=== PATIENT | female | born 1960 | race Caucasian/White ===

== ENCOUNTER 2020-02-16 09:11 | Outpatient (REF) | payer MEDICARE, MEDICAID, SELFPAY ==
--- NOTE | 2020-02-16 09:23 | US_ITS ---
EXAMINATION: US ABDOMEN COMPLETE CLINICAL INFORMATION: Unspecified abdominal pain. COMPARISON: Ultrasound kidneys and bladder 10/06/2014. Ultrasound abdomen report 03/31/2008. TECHNIQUE: Real-time imaging of the abdominal viscera. FINDINGS: PANCREAS: The visualized head and body of the pancreas appears unremarkable. Remainder of the pancreas is obscured by bowel gas. ABDOMINAL AORTA: The proximal segment is normal in caliber. INFERIOR VENA CAVA: Visualized portions are normal. LIVER: There is diffuse increased liver parenchymal echogenicity, consistent with hepatic steatosis. The liver is normal in size and contour. No focal lesion or biliary ductal dilatation. GALLBLADDER: Normal. The gallbladder is physiologically distended without evidence of stones, sludge, polyps, wall thickening or pericholecystic fluid. COMMON BILE DUCT: Normal in caliber measuring 0.4 cm in diameter. RIGHT KIDNEY: Normal. No hydronephrosis. No renal calculi or focal parenchymal lesions. The kidney measures 12.1 cm in maximum dimension. LEFT KIDNEY: 3 mm echogenic focus in the lower pole from a nonobstructing calculus. No hydronephrosis or focal parenchymal lesions. The kidney measures 11.3 cm in maximum dimension. SPLEEN: Normal. The spleen measures 8.1 cm in maximum dimension. FREE FLUID: None. IMPRESSION: 1. Left renal lower pole 3 mm nonobstructing calculus. 2. There is generalized increase in hepatic echotexture, consistent with fatty infiltration or hepatocellular disease. Please correlate clinically. No focal hepatic mass or intrahepatic biliary duct dilatation is seen.
== END 2020-02-16 09:12 | disposition home or self-care (01) ==
LOC: HO.US 09:11
PROVIDERS: Visit Provider Internal Medicine
DX: R10.9 Unspecified abdominal pain (principal)
CPT/HCPCS: 76700

== ENCOUNTER → 2020-03-01 15:25 | Outpatient (BNVA) | payer MEDICARE, MEDICAID, SELFPAY | PROVIDERS: PCP Internal Medicine; Referring Provider Internal Medicine; Visit Provider Nurse Practitioner | DX: R14.0 Abdominal distension (gaseous) (principal); K58.9 Irritable bowel syndrome, unspecified; K21.9 Gastro-esophageal reflux disease without esophagitis; R10.10 Upper abdominal pain, unspecified | CPT/HCPCS: 99214 ==

== ENCOUNTER 2020-03-01 17:01 | Outpatient (REF) | payer MEDICARE, MEDICAID, SELFPAY | END 2020-03-01 17:02 | disposition home or self-care (01) | LOC: HO.LAB 17:01 | PROVIDERS: PCP Internal Medicine; Visit Provider Nurse Practitioner | DX: Z13.89 Encounter for screening for other disorder (principal) ==

== ENCOUNTER 2020-03-02 09:20 | Outpatient (REF) | payer MEDICARE, MEDICAID, SELFPAY ==
[2020-03-02 10:26] LABS: MANUAL DIFF FLAG NO
[2020-03-02 10:34] LABS: Basophils Percent Auto 0.6 % (0-2); Eosinophils Percent Auto 0.6 % (0-4); Hematocrit 40.6 % (37-47); Hemoglobin 13.4 g/dl (12.0-16.0); Imm Gran Abs Auto 0.01 X10*3/uL (0.00-0.03); Imm Gran Pct Auto 0.2 % (0.0-0.4); Lymphocytes Percent Auto 17.5 % (20-40); Mean Corpuscular Hemoglobin 30.4 pg (27.0-33.0); Mean Corpuscular Volume 92.1 fL (80-98); Mean Platelet Volume 11.6 fL (9.4-12.3); Monocytes Absolute Auto 0.5 X10*3/uL (0.1-1.2); Monocytes Percent Auto 8.7 % (2-11); Neutrophils Absolute Auto 3.9 X10*3/uL (2.0-8.3); Neutrophils Percent Auto 72.4 % (45-73); Platelet Count 181 X10*3/uL (160-400); Red Blood Count 4.41 X10*6/uL (4.20-5.50); Red Cell Distribution Width 12.3 % (11.0-16.0); White Blood Count 5.4 X10*3/uL (4.8-10.8)
[2020-03-02 11:08] LABS: C Reactive Protein 0.46 mg/dL (< or = 0.50); Lipase 7 U/L (8-78)
[2020-03-02 13:48] LABS: Alanine Aminotransferase 33 U/L (0-31); Albumin Level 4.3 g/dL (3.5-5.0); Alkaline Phosphatase 93 U/L (39-117); Anion Gap 13 (12-20); Aspartate Amino Transferase 31 U/L (5-31); Bilirubin Total 0.5 mg/dL (0.0-1.0); Blood Urea Nitrogen 8 mg/dL (9-16); Carbon Dioxide 27 mmol/L (22-29); Chloride 105 mmol/L (96-108); Estimated Glomerular Filt Rate > 60; Glucose Random 107 mg/dL (60-115); Sodium 141 mmol/L (135-145); Total Protein 7.4 g/dL (6.5-8.0)
== END 2020-03-02 09:21 | disposition home or self-care (01) ==
LOC: HO.LAB 09:20
PROVIDERS: PCP Internal Medicine; Visit Provider Nurse Practitioner
DX: R10.10 Upper abdominal pain, unspecified (principal); K21.9 Gastro-esophageal reflux disease without esophagitis
CPT/HCPCS: 36415; 80053; 83690; 85025; 86140; 87338

== ENCOUNTER → 2020-03-07 08:14 | Outpatient (REF) | payer MEDICARE, MEDICAID, SELFPAY ==
--- NOTE | 2020-03-07 11:20 | NM_ITS ---
EXAMINATION: BILIARY TRACT IMAGING STUDY WITH CCK CLINICAL INFORMATION: Upper abdominal pain.. COMPARISON: No previous biliary scan is available for comparison.. TECHNIQUE: Serial gamma scintillation camera images were obtained over the abdomen for a total observation period of 152 minutes following the intravenous administration of 5.0 mCi Tc-99m Mebrofenin. FINDINGS: There is good concentration of activity in the liver by 5 minutes post injection. Biliary activity is visualized by 20 minutes. The gallbladder is well visualized by 80 minutes. Small bowel is well visualized by 30 minutes. At 120 minutes post radiopharmaceutical injection, a 30-minute infusion of 1.5 micrograms Sincalide was then begun and an additional 30 minutes of images were obtained. There is no significant gallbladder emptying during the sincalide infusion. The calculated gallbladder ejection fraction is 0% (normal gallbladder ejection fraction is greater than 35%). NM/NM hepatobiliary w pharm IMPRESSION: 1. Visualization of the gallbladder is evidence of a patent cystic duct and strong evidence against the diagnosis of acute cholecystitis. However, late visualization the gallbladder occurring well after 60 minutes is abnormal and most consistent with chronic cholecystitis. The common bile duct is patent. Liver function appears normal. 2. Poor gallbladder emptying and a low gallbladder ejection fraction are evidence of impaired gallbladder contractility and most likely due to chronic cholecystitis.
== END ==
LOC: HO.NUCMED 08:14
PROVIDERS: PCP Internal Medicine; Visit Provider Nurse Practitioner
DX: K21.9 Gastro-esophageal reflux disease without esophagitis (principal); K58.9 Irritable bowel syndrome, unspecified; R14.0 Abdominal distension (gaseous); R10.10 Upper abdominal pain, unspecified
CPT/HCPCS: 78227; A9537; J2805

== ENCOUNTER → 2020-03-09 13:28 | Outpatient (BNVA) | payer MEDICARE, MEDICAID, SELFPAY | PROVIDERS: PCP Internal Medicine; Referring Provider Internal Medicine; Visit Provider Nurse Practitioner | DX: K81.9 Cholecystitis, unspecified (principal); R10.10 Upper abdominal pain, unspecified; R14.0 Abdominal distension (gaseous); K58.9 Irritable bowel syndrome, unspecified; K21.9 Gastro-esophageal reflux disease without esophagitis | CPT/HCPCS: 99212 ==

== ENCOUNTER → 2020-03-15 15:22 | Outpatient (BNVA) | payer MEDICARE, MEDICAID, SELFPAY | PROVIDERS: PCP Internal Medicine; Referring Provider Internal Medicine; Visit Provider Surgery | DX: R14.0 Abdominal distension (gaseous) (principal); R10.10 Upper abdominal pain, unspecified; Z88.2 Allergy status to sulfonamides; Z88.5 Allergy status to narcotic agent; Z91.013 Allergy to seafood; Z79.899 Other long term (current) drug therapy | CPT/HCPCS: 99212 ==

== ENCOUNTER 2020-03-24 12:22 | Day surgery (SDC) | payer MEDICARE, MEDICAID, SELFPAY ==
--- NOTE | 2020-03-23 12:24 | HO.ANESPROP2 ---
Documented by User: Lora Lopez 03/23/20 12:33 HPI - Anesthesia Eval Consult details Narrative: 59yo F for Upper Endoscopy and Colonoscopy Seen at [facility] 02/2020 with abdominal pain. EKG and trops negative [facility] Past Medical History Medical History Abdominal pain Anemia Depression GERD (gastroesophageal reflux disease) Glaucoma Helicobacter pylori (H. pylori) Myocardial infarction Family History Family History Father HTN (hypertension) Prostate cancer Mother HTN (hypertension) Diabetes Hx of CABG Sister Asthma Surgical History Surgical History H/O section H/O dilation and curettage H/O esophagogastroduodenoscopy History of arthroscopy of right knee History of tonsillectomy History of tubal ligation S/P right knee arthroscopy Social History Social History Alcohol intake: never Smoking Status: Never smoker Second Hand Smoke Exposure: No Use of substances other than those prescribed or required for medical reasons: No Advance Directives: No Meds Allergies Allergy/AdvReac Type Severity Reaction Status Date / Time morphine [Morphine] Allergy Intermediate HALLUCINATI Verified 03/22/20 11:26 ONS Sulfa (Sulfonamide Allergy Intermediate HIVES Verified 03/22/20 11:26 Antibiotics) shellfish derived Allergy Stomach Verified 03/15/20 15:29 Upset Home Medications Medication Instructions Recorded Confirmed Type albuterol sulfate 90 mcg/actuation 1 - 2 puff PO Q4-6H PRN 02/13/20 02/25/20 History aerosol inhaler fexofenadine-pseudoephedrine ER 1 tab PO QAM 02/13/20 02/25/20 History 180 mg-240 mg tablet,ext.release 24 hr fluticasone propionate 50 1 spray INTRANASAL DAILY 02/13/20 02/25/20 History mcg/actuation nasal spray,suspension Exam Exam Date and Time: March 23, 2020 1224 Pertinent Lab Results Pertinent Lab Results: Laboratory Tests 03/02/20 03/02/20 09:35 09:35 WBC 5.4 Hgb 13.4 Hct 40.6 Plt Count 181 Sodium 141 Potassium 4.0 Chloride 105 Carbon Dioxide 27 BUN 8 L Creatinine 0.77 Narrative Narrative: EKG per [facility] visit 02/2020: NSR Documented by User: Sonya Saleh 03/24/20 12:41 PMFSH Past Medical History Medical History Abdominal pain Anemia Depression GERD (gastroesophageal reflux disease) Glaucoma Helicobacter pylori (H. pylori) Myocardial infarction Family History Family History Father HTN (hypertension) Prostate cancer Mother HTN (hypertension) Diabetes Hx of CABG Sister Asthma Surgical History Surgical History H/O section H/O dilation and curettage H/O esophagogastroduodenoscopy History of arthroscopy of right knee History of tonsillectomy History of tubal ligation S/P right knee arthroscopy Social History Social History Alcohol intake: never Smoking Status: Never smoker Second Hand Smoke Exposure: No Use of substances other than those prescribed or required for medical reasons: No Advance Directives: No Meds Allergies Allergy/AdvReac Type Severity Reaction Status Date / Time morphine [Morphine] Allergy Intermediate HALLUCINATI Verified 03/22/20 11:26 ONS Sulfa (Sulfonamide Allergy Intermediate HIVES Verified 03/22/20 11:26 Antibiotics) shellfish derived Allergy Stomach Verified 03/15/20 15:29 Upset Home Medications Medication Instructions Recorded Confirmed Type albuterol sulfate 90 mcg/actuation 1 - 2 puff PO Q4-6H PRN 02/13/20 02/25/20 History aerosol inhaler fexofenadine-pseudoephedrine ER 1 tab PO QAM 02/13/20 02/25/20 History 180 mg-240 mg tablet,ext.release 24 hr fluticasone propionate 50 1 spray INTRANASAL DAILY 02/13/20 02/25/20 History mcg/actuation nasal spray,suspension Exam Airway Mallampati Class: II TM Dist: >3cm Neck ROM: Full Loose/Missing/Broken Teeth: No Heart: RRR Lungs: CTA Assessment and Plan Assessment Anesthesia Assessment: Anesthesia Plan Discussed and Chart Reviewed Final Anesthetic Review NPO: Yes ASA Class: II Final Preanesthetic Review: Meds/Allgs Chart Reviewed, Consent Obtained/Reviewed and Anes Risks/Benef Reviewed Patient Risk: Intermediate Procedure Risk: Intermediate Anesthetic Plan Anesthetic Plan: MAC: Disposition: Standard PACU
[2020-03-24 12:38] VITALS: BP 138/85; PULSE 90; RESP 16; TEMP 35.8; O2SAT 98
[2020-03-24 12:39] VITALS: BMI 28.0
--- NOTE | 2020-03-24 12:42 | MHC.SHP ---
Pre-Procedural Eval Section B Chief Complaint: abdominal bloating; Pain, weight loss, C. Screenin Details of Present Illness: colon cancer screening--+ family hx, recent abdominal pain, bloating with ? 20# weight loss Relevant Family History (Specify if Yes): Yes Relevant Social History: None Present Medications: see Short Stay Collaborative assessment Medical History: Significant History (GERD, Depression, HX colon cancer in Father) History of Previous Operations: Relevant previous surgery/procedure and date(s) (2008--colo-neg EGD--H. Pylori; ) Allergies: Allergies Allergy/AdvReac Type Severity Reaction Status Date / Time morphine [Morphine] Allergy Intermediate HALLUCINATI Verified 03/22/20 11:26 ONS Sulfa (Sulfonamide Allergy Intermediate HIVES Verified 03/22/20 11:26 Antibiotics) shellfish derived Allergy Stomach Verified 03/15/20 15:29 Upset Review of Systems Sugical H&P ROS: Negative: Constitution, Cardiovascular and Respiratory and Yes, Specify: Gastrointestinal (Pain, trouble eating, diet change, weight loss) Exam Surgical H&P Exam: Normal: HEENT, Normal: Heart, Normal: Extremities and Normal: Abdomen Plan Diagnosis/Plan: Change (colo with addition egd.) Patient has been examined and remains a candidate for the planned procedure--yes
[2020-03-24] MEDS: Lactated Ringers 1,000 ML 100 ML IVCONT (12:53)
[2020-03-24 14:08] VITALS: BP 96/59; PULSE 76; RESP 16; TEMP 36.1; O2SAT 97
--- NOTE | 2020-03-24 14:10 | PM.PROC ---
Brief Operative Note Date of procedure: 03/24/20 Pre-op diagnosis: GERD, pain, weight loss; Colon cancer screening + family hx Post-op diagnosis: other (Distal esophagitis, s. gastritis, Erosive duodenitis; Hemrhagic changes submucosal distal descending col to hep flex, 2 polyps) Procedure: EGD W/ BS; COLONOSCOPY WIH MULTIPLE BX, EXC. POLYP, HSP--RESOLUTION CLIP X2 Anesthesia: MAC (BRADEN LORD) Surgeon: Huma Zamarripa Estimated blood loss (mL): 20 Pathology: other (RANDOM GASTRIC, HEP FLEX-POLYP, ASC COLON POLYP, BX70CM, 60CM AND RECTOSIGMOID) Condition: stable Disposition: PACU
--- NOTE | 2020-03-24 14:15 | PC.NURSE ---
remains sleeping. no changes. cont to monitor.
--- NOTE | 2020-03-24 14:22 | PC.NURSE ---
called for lab draw.
[2020-03-24 14:27] VITALS: BP 118/72; PULSE 87; RESP 16; O2SAT 99
--- NOTE | 2020-03-24 14:32 | PC.NURSE ---
md vázquez by bedside speaking to the patient. labs are being drawn.
--- NOTE | 2020-03-24 14:34 | PC.NURSE ---
labs being drawn. warm blankets applied. labs being drawn.
--- NOTE | 2020-03-24 14:43 | PC.NURSE ---
patient feeling warmer. alert and awake. hob 90 degrees. laura po challenge. herson harvey.
[2020-03-24 14:45] VITALS: BP 135/84; PULSE 67; RESP 16; O2SAT 99
[2020-03-24 14:45] LABS: MANUAL DIFF FLAG NO
[2020-03-24 14:47] LABS: Basophils Percent Auto 0.4 % (0-2); Eosinophils Percent Auto 0.4 % (0-4); Hematocrit 39.5 % (37-47); Hemoglobin 12.9 g/dl (12.0-16.0); Imm Gran Abs Auto 0.01 X10*3/uL (0.00-0.03); Imm Gran Pct Auto 0.2 % (0.0-0.4); Lymphocytes Absolute Auto 0.8 X10*3/uL (1.2-4.9); Lymphocytes Percent Auto 15.3 % (20-40); Mean Corpuscular HGB Conc 32.7 g/dl (31.0-35.0); Mean Corpuscular Hemoglobin 30.4 pg (27.0-33.0); Mean Corpuscular Volume 92.9 fL (80-98); Mean Platelet Volume 11.3 fL (9.4-12.3); Monocytes Absolute Auto 0.4 X10*3/uL (0.1-1.2); Monocytes Percent Auto 7.3 % (2-11); Neutrophils Absolute Auto 4.1 X10*3/uL (2.0-8.3); Neutrophils Percent Auto 76.4 % (45-73); Platelet Count 163 X10*3/uL (160-400); Red Blood Count 4.25 X10*6/uL (4.20-5.50); Red Cell Distribution Width 12.5 % (11.0-16.0); White Blood Count 5.3 X10*3/uL (4.8-10.8)
[2020-03-24 14:52] VITALS: BP 131/83; PULSE 58; RESP 16; TEMP 36.3; O2SAT 97
[2020-03-24 14:57] LABS: INTERNATIONAL NORM RATIO 1.2 (0.9-1.1); Prothrombin Time 14.2 SEC (10.8-13.0)
--- NOTE | 2020-03-24 14:58 | PC.NURSE ---
iv removed. no longer shivering. alert and awke. aware of plan. md vázquez stated ok to go home. does not have to wait for lab work to come back. ride already called. dressing slef in chair. no rectal bleeding noted. laura po challenge. no nausea.
[2020-03-24 14:59] LABS: Partial Thromboplastin Time 40.5 SEC (24.1-38.0)
[2020-03-24 15:14] LABS: Alanine Aminotransferase 40 U/L (0-31); Albumin Level 4.2 g/dL (3.5-5.0); Alkaline Phosphatase 91 U/L (39-117); Anion Gap 12 (12-20); Aspartate Amino Transferase 32 U/L (5-31); Bilirubin Total 0.5 mg/dL (0.0-1.0); Blood Urea Nitrogen 10 mg/dL (9-16); C Reactive Protein 0.67 mg/dL (< or = 0.50); Calcium 8.8 mg/dL (8.4-10.2); Carbon Dioxide 30 mmol/L (22-29); Chloride 103 mmol/L (96-108); Creatinine Clr Calc Pharmacy 71.7; Estimated Glomerular Filt Rate > 60; Glucose Random 84 mg/dL (60-115); Potassium 3.6 mmol/l (3.3-5.1); Sodium 141 mmol/L (135-145); Total Protein 7.1 g/dL (6.5-8.0)
--- NOTE | 2020-03-24 19:49 | OP_ITS ---
SURGEON: Huma Zamarripa MD PROCEDURE PERFORMED: Endoscopy with biopsy, colonoscopy with multiple interventions, excisional polypectomy hepatic flexure polyp, hot snare polypectomy, ascending colon polyp, biopsies at the levels of 70 cm, 60 cm and rectosigmoid. Two areas were clipped with resolution clips due to mucosal defects. ESTIMATED BLOOD LOSS: less than 20 cc COMPLICATIONS: No complications. ANESTHESIA: Monitored. ANESTHESIOLOGIST: Laurence Leon CRNA. ASSISTANTS: NONE: SPECIMENS: PREOPERATIVE DIAGNOSES: The patient is a 59-year-old lady, who I had scoped in the past, who has a strong family history of colon cancer. She had recently been evaluated for ongoing abdominal pain. The patient was altered her diet. She continues to have difficulty eating, pain can be moderately intense. She has been further evaluated by Dr. Jamison. She has lost approximately 20 pounds of weight over several month period of time. POSTOPERATIVE DIAGNOSES: Mild grade 1 distal esophagitis, erythema, inflammatory activity at GE junction, duodenal erosive changes in the postbulbar area. FINDINGS: Colonoscopy, submucosal hemorrhagic changes going from the descending colon to the level of the hepatic flexure, looks purpuric, diverticulosis of the rectosigmoid region. SALES AND SERVICE ASSOCIATE: Dr. Zamarripa. QUANTITATIVE BLOOD LOSS: Estimated to be less than 20 mL. GRAFT OR IMPLANTS/RESOLUTION CLIPS: Bx sites descending colon. DESCRIPTION OF PROCEDURE: Video endoscope was introduced without difficulty. It was navigated through the posterior pharynx and into the esophagus. In the distal esophagus, there was hyperemia of 3 to 4 cm and there was friability at the GE junction itself. Distally, this was a small hiatal hernia. On entering the stomach, there was mild erythema. Duodenal bulb and duodenum appeared endoscopically normal. Random gastric biopsies were obtained. COLONOSCOPY: Digital rectal exam revealed sphincter tone to be adequate. Video colonoscope was introduced without difficulty. It was navigated into the rectosigmoid area. A few scattered diverticula seen in this area. The rectal and sigmoid mucosa appeared normal to the level of approximately 35 cm. From start of descending colon, there was submucosal hemorrhagic change with a purpuric' characteristic blotchiness from this region through to the level of the hepatic flexure. Once at the level of the hepatic flexure, a small polyp was removed that was dangling from an area between 2 folds. In ascending colon, 2nd polyp, which was about 3 to 4 mm, was removed with hot snare cautery, clean based and had a short pedicle. The cecum was clear. Appendiceal orifice was seen. Valve was seen and was unable to intubate the terminal ileum. The scope was withdrawn and biopsies were obtained at 70 cm, 60 cm, and rectosigmoid. 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 Blood work has been drawn. Currently, the patient has no anemia and no thrombocytosis or thrombocytopenia. There is a mild elevation of the INR at 1.2, and mild elevation of the PTT. Immunoglobulin studies are pending. Once biopsies have returned, we will work on a coordination of care plan for her. MD GIOVANA Castro/CHANEL / [id number] MTDD
[2020-03-28 19:08] LABS: IgA 190 mg/dL (47-310); IgG 1441 mg/dL (600-1640); IgM 53 mg/dL (50-300)
== END 2020-03-24 15:30 | disposition home or self-care (01) ==
PROVIDERS: PCP Internal Medicine; Visit Provider Internal Medicine Gastroenterology
PROC: (CPT 45385; principal; 2020-03-24 13:30)
DX: R14.0 Abdominal distension (gaseous) (principal); R63.4 Abnormal weight loss; Z80.0 Family history of malignant neoplasm of digestive organs; K57.30 Diverticulosis of large intestine without perforation or abscess without bleeding; D12.2 Benign neoplasm of ascending colon; D12.3 Benign neoplasm of transverse colon; K44.9 Diaphragmatic hernia without obstruction or gangrene; K63.89 Other specified diseases of intestine; K21.00 Gastro-esophageal reflux disease with esophagitis, without bleeding; K26.9 Duodenal ulcer, unspecified as acute or chronic, without hemorrhage or perforation
CPT/HCPCS: 45385; 45380; 43239; 36415; 80053; 82784; 85025; 85610; 85730; 86140; 88305; 88342

== ENCOUNTER 2020-03-31 13:22 | Outpatient (REF) | payer MEDICARE, MEDICAID, SELFPAY ==
[2020-03-31 14:52] LABS: Glucose Urine UA NEG (NEG); Leukocyte Esterase Urine NEG (NEG); Nitrite Urine NEG (NEG); Specific Gravity - Urine 1.025 (1.005-1.025); Urine Blood 1+ (NEG); Urine Ketones 15 MG/DL (NEG); Urine Protein NEG (NEG-TRACE)
[2020-03-31 14:54] LABS: Appearance Urine HAZY; Color Urine YELLOW
[2020-03-31 15:02] LABS: Mucus Urine 2+ /LPF; RBC Urine 0-2 /HPF (0); Squamous Epithelial Cell Urine 2+ /LPF; WBC Urine 0-2 /HPF (0-4)
[2020-03-31 15:05] LABS: MANUAL DIFF FLAG NO
[2020-03-31 15:07] LABS: Basophils Percent Auto 0.4 % (0-2); Eosinophils Absolute Auto 0.1 X10*3/uL (0.0-0.4); Eosinophils Percent Auto 1.5 % (0-4); Hemoglobin 13.1 g/dl (12.0-16.0); Lymphocytes Absolute Auto 1.2 X10*3/uL (1.2-4.9); Mean Corpuscular HGB Conc 32.8 g/dl (31.0-35.0); Mean Corpuscular Hemoglobin 30.3 pg (27.0-33.0); Mean Corpuscular Volume 92.4 fL (80-98); Mean Platelet Volume 11.9 fL (9.4-12.3); Monocytes Absolute Auto 0.4 X10*3/uL (0.1-1.2); Neutrophils Absolute Auto 3.1 X10*3/uL (2.0-8.3); Neutrophils Percent Auto 65.1 % (45-73); Platelet Count 173 X10*3/uL (160-400); Red Blood Count 4.33 X10*6/uL (4.20-5.50); Red Cell Distribution Width 12.2 % (11.0-16.0); White Blood Count 4.8 X10*3/uL (4.8-10.8)
[2020-03-31 15:34] LABS: Alanine Aminotransferase 41 U/L (0-31); Albumin Level 4.3 g/dL (3.5-5.0); Alkaline Phosphatase 105 U/L (39-117); Anion Gap 12 (12-20); Aspartate Amino Transferase 26 U/L (5-31); Bilirubin Total 0.6 mg/dL (0.0-1.0); Blood Urea Nitrogen 11 mg/dL (9-16); C Reactive Protein 0.49 mg/dL (< or = 0.50); Calcium 9.1 mg/dL (8.4-10.2); Carbon Dioxide 29 mmol/L (22-29); Chloride 104 mmol/L (96-108); Estimated Glomerular Filt Rate > 60; Glucose Random 85 mg/dL (60-115); Rheumatoid Factor < 15.0 IU/mL (<15.0); Sodium 141 mmol/L (135-145); Total Protein 7.5 g/dL (6.5-8.0)
[2020-03-31 16:00] LABS: Erythrocyte Sedimentation Rate 12 MM/HR (0-20)
[2020-04-01 12:42] LABS: Myeloperoxidase Antibody <1.0 AI; Proteinase 3 PR3 Antibodies <1.0 AI
[2020-04-01 15:21] LABS: Cyclic Citrullinated Peptide <16 UNITS
[2020-04-01 16:32] LABS: Beta-2 Microglobulin, Serum 1.79 mg/L (< OR = 2.51)
[2020-04-01 22:22] LABS: Anti Nuclear Antibody Screen POSITIVE (NEGATIVE)
[2020-04-03 23:11] LABS: Cardiolipin IgG Ab <14 GPL; Cardiolipin IgM Ab 12 MPL
[2020-04-04 15:31] LABS: PTT (LAC) Screen 36 sec (< OR = 40)
[2020-04-04 21:23] LABS: Complement Total CH50 >60 U/mL (31-60)
[2020-04-04 22:32] LABS: Incubated PTT-LA Mix CORRECTED; Mixing Study - PT 11.9 sec (9.0-11.5); PTT LA 47 sec (< OR = 40); PTT-LA Mix CORRECTED
[2020-04-07 01:37] LABS: Cryoglobulin, Qual Negative (Negative)
== END 2020-03-31 13:23 | disposition home or self-care (01) ==
LOC: HO.LAB 13:22
PROVIDERS: PCP Internal Medicine; Referring Provider Internal Medicine Gastroenterology; Visit Provider Student in an Organized Health Care Education/Training Program
DX: D69.0 Allergic purpura (principal); R14.0 Abdominal distension (gaseous)
CPT/HCPCS: 36415; 80053; 81001; 82232; 82595; 85025; 85597; 85611; 85613; 85652; 85730; 85732; 86021; 86038; 86039; 86140; 86147; 86162; 86200; 86431; 99202

== ENCOUNTER → 2020-04-12 10:48 | Outpatient (BNVA) | payer MEDICARE, MEDICAID, SELFPAY | PROVIDERS: PCP Internal Medicine; Referring Provider Internal Medicine; Visit Provider Student in an Organized Health Care Education/Training Program | DX: R10.10 Upper abdominal pain, unspecified (principal) | CPT/HCPCS: 99212 ==

== ENCOUNTER → 2020-04-20 12:52 | Outpatient (BNVA) | payer MEDICARE, MEDICAID, SELFPAY | PROVIDERS: PCP Internal Medicine; Referring Provider Internal Medicine; Visit Provider Internal Medicine Gastroenterology | DX: Z76.89 Persons encountering health services in other specified circumstances (principal) ==

== ENCOUNTER 2020-04-20 14:25 | Outpatient (REF) | payer MEDICARE, MEDICAID, SELFPAY ==
--- NOTE | 2020-04-20 14:25 | XR_ITS ---
EXAMINATION: XR THORACIC SPINE CLINICAL INFORMATION: Pain COMPARISON: PA and lateral views of the chest from 09/08/2018 TECHNIQUE: 3 views of the thoracic spine were obtained. FINDINGS: The thoracic vertebra have normal height and alignment. No evidence of fractures in the anterior or posterior elements. No focal lytic or osteoblastic lesion. Mild multilevel degenerative disc space narrowing and anterior vertebral osteophyte formation of the thoracic spine. No vertebral endplate erosion. No paraspinal soft tissue mass. XR/XR thoracic spine 3V IMPRESSION: * No acute fracture or malalignment of the thoracic spine. * Mild, multilevel discovertebral degenerative change of the thoracic spine, similar in appearance compared to 09/08/2018.
== END 2020-04-20 14:26 | disposition home or self-care (01) ==
LOC: HO.XRAY 14:25
PROVIDERS: Visit Provider Internal Medicine Gastroenterology
DX: K21.9 Gastro-esophageal reflux disease without esophagitis (principal); R14.0 Abdominal distension (gaseous); R10.10 Upper abdominal pain, unspecified
CPT/HCPCS: 72072; 99212

== ENCOUNTER → 2020-04-26 11:26 | Outpatient (BNVA) | payer MEDICARE, MEDICAID, SELFPAY | PROVIDERS: PCP Internal Medicine; Referring Provider Internal Medicine; Visit Provider Surgery | DX: K81.9 Cholecystitis, unspecified (principal) | CPT/HCPCS: 99212 ==

== ENCOUNTER 2020-04-27 11:02 | Day surgery (SDC) | payer MEDICARE, MEDICAID, SELFPAY ==
[2020-04-26 10:50] VITALS: BMI 28.3
--- NOTE | 2020-04-26 11:16 | HO.ANESPROP2 ---
Documented by User: Lora Lopez 04/26/20 11:23 HPI - Anesthesia Eval Consult details Narrative: 59yo F for Cholecystectomy Laparoscopic PMFSH Past Medical History Medical History Abdominal pain Anemia Chronic GERD Depression GERD (gastroesophageal reflux disease) Glaucoma Helicobacter pylori (H. pylori) Myocardial infarction Family History Family History Father HTN (hypertension) Prostate cancer Mother HTN (hypertension) Diabetes Hx of CABG Sister Asthma Surgical History Surgical History H/O section H/O dilation and curettage H/O esophagogastroduodenoscopy History of arthroscopy of right knee History of tonsillectomy History of tubal ligation Hx of colonoscopy S/P right knee arthroscopy Social History Social History Household Members: Significant Other Alcohol intake: never Smoking Status: Never smoker Second Hand Smoke Exposure: No Use of substances other than those prescribed or required for medical reasons: No Advance Directives: No Advance Directives Information Provided: Yes Current occupational status: disabled Meds Allergies Allergy/AdvReac Type Severity Reaction Status Date / Time morphine [Morphine] Allergy Intermediate HALLUCINATI Verified 04/27/20 11:19 ONS Sulfa (Sulfonamide Allergy Intermediate HIVES Verified 04/27/20 11:19 Antibiotics) shellfish derived Allergy Mild Stomach Verified 04/27/20 11:19 Upset Home Medications Medication Instructions Recorded Confirmed Type albuterol sulfate 90 mcg/actuation 1 - 2 puff PO Q4-6H PRN 02/13/20 04/26/20 History aerosol inhaler fexofenadine-pseudoephedrine ER 1 tab PO QAM 02/13/20 04/26/20 History 180 mg-240 mg tablet,ext.release 24 hr fluticasone propionate 50 1 spray INTRANASAL DAILY 02/13/20 04/26/20 History mcg/actuation nasal spray,suspension acetaminophen 500 mg tablet 500 mg PO Q6H PRN 04/12/20 04/26/20 History Exam Exam Date and Time: April 26, 2020 1116 Height,Weight and Vital Signs: Height 5 ft 2 in Weight 70.307 kg Pertinent Lab Results Pertinent Lab Results: Laboratory Tests 03/31/20 03/31/20 14:30 14:30 WBC 4.8 Hgb 13.1 Hct 40.0 Plt Count 173 Sodium 141 Potassium 4.0 Chloride 104 Carbon Dioxide 29 BUN 11 Creatinine 0.75 Narrative Narrative: EKG 2019: NSR PFT 2019: Very mild restrictive, no obstructive MIBI 2014: Neg Assessment and Plan Assessment Anesthesia Assessment: Chart Reviewed Documented by User: Chary Hope 04/27/20 13:00 PMFSH Past Medical History Medical History Abdominal pain Anemia Chronic GERD Depression GERD (gastroesophageal reflux disease) Glaucoma Helicobacter pylori (H. pylori) Myocardial infarction Family History Family History Father HTN (hypertension) Prostate cancer Mother HTN (hypertension) Diabetes Hx of CABG Sister Asthma Surgical History Surgical History H/O section H/O dilation and curettage H/O esophagogastroduodenoscopy History of arthroscopy of right knee History of tonsillectomy History of tubal ligation Hx of colonoscopy S/P right knee arthroscopy Social History Social History Household Members: Significant Other Alcohol intake: never Smoking Status: Never smoker Second Hand Smoke Exposure: No Use of substances other than those prescribed or required for medical reasons: No Advance Directives: No Advance Directives Information Provided: Yes Current occupational status: disabled Meds Allergies Allergy/AdvReac Type Severity Reaction Status Date / Time morphine [Morphine] Allergy Intermediate HALLUCINATI Verified 04/27/20 11:19 ONS Sulfa (Sulfonamide Allergy Intermediate HIVES Verified 04/27/20 11:19 Antibiotics) shellfish derived Allergy Mild Stomach Verified 04/27/20 11:19 Upset Home Medications Medication Instructions Recorded Confirmed Type albuterol sulfate 90 mcg/actuation 1 - 2 puff PO Q4-6H PRN 02/13/20 04/26/20 History aerosol inhaler fexofenadine-pseudoephedrine ER 1 tab PO QAM 02/13/20 04/26/20 History 180 mg-240 mg tablet,ext.release 24 hr fluticasone propionate 50 1 spray INTRANASAL DAILY 02/13/20 04/26/20 History mcg/actuation nasal spray,suspension acetaminophen 500 mg tablet 500 mg PO Q6H PRN 04/12/20 04/26/20 History Exam Airway Mallampati Class: II TM Dist: >3cm Neck ROM: Full Assessment and Plan Assessment Anesthesia Assessment: Anesthesia Plan Discussed and Chart Reviewed Final Anesthetic Review NPO: Yes ASA Class: II Final Preanesthetic Review: No Changes in Pt Med Stat, Meds/Allgs Chart Reviewed, Consent Obtained/Reviewed and Anes Risks/Benef Reviewed Patient Risk: Low Procedure Risk: Low Anesthetic Plan Anesthetic Plan: GA Disposition: Standard PACU
[2020-04-27] VITALS (13 sets, daily range): BP systolic 117–154; BP diastolic 63–77; PULSE 72–90; RESP 8–23; TEMP 36.8–37; O2SAT 92–100
[2020-04-27] MEDS: Acetaminophen 325 MG TABLET 650 MG PO (11:49)
[2020-04-27] MEDS: Lactated Ringers 1,000 ML 100 ML IVCONT (11:50)
--- NOTE | 2020-04-27 12:31 | MHC.SHP ---
Pre-Procedural Eval Section A The patient is an INPATIENT: No Changes since office visit: Yes Patient answered all questions; No Cold of Flu in the past 2 weeks, No New Medical Problems and No Changes in Medication The History & Physical has been completed within 30 days and I have reviewed it.: Yes Section B Chief Complaint: cholecystitis Allergies: Allergies Allergy/AdvReac Type Severity Reaction Status Date / Time morphine [Morphine] Allergy Intermediate HALLUCINATI Verified 04/27/20 11:19 ONS Sulfa (Sulfonamide Allergy Intermediate HIVES Verified 04/27/20 11:19 Antibiotics) shellfish derived Allergy Mild Stomach Verified 04/27/20 11:19 Upset Plan Patient has been examined and remains a candidate for the planned procedure
--- NOTE | 2020-04-27 13:00 | HO.ANESPROP2 ---
[facility] Past Medical History Medical History Abdominal pain Anemia Chronic GERD Depression GERD (gastroesophageal reflux disease) Glaucoma Helicobacter pylori (H. pylori) Myocardial infarction Family History Family History Father HTN (hypertension) Prostate cancer Mother HTN (hypertension) Diabetes Hx of CABG Sister Asthma Surgical History Surgical History H/O section H/O dilation and curettage H/O esophagogastroduodenoscopy History of arthroscopy of right knee History of tonsillectomy History of tubal ligation Hx of colonoscopy S/P right knee arthroscopy Social History Social History Household Members: Significant Other Alcohol intake: never Smoking Status: Never smoker Second Hand Smoke Exposure: No Use of substances other than those prescribed or required for medical reasons: No Advance Directives: No Advance Directives Information Provided: Yes Current occupational status: disabled Meds Allergies Allergy/AdvReac Type Severity Reaction Status Date / Time morphine [Morphine] Allergy Intermediate HALLUCINATI Verified 04/27/20 11:19 ONS Sulfa (Sulfonamide Allergy Intermediate HIVES Verified 04/27/20 11:19 Antibiotics) shellfish derived Allergy Mild Stomach Verified 04/27/20 11:19 Upset Home Medications Medication Instructions Recorded Confirmed Type albuterol sulfate 90 mcg/actuation 1 - 2 puff PO Q4-6H PRN 02/13/20 04/26/20 History aerosol inhaler fexofenadine-pseudoephedrine ER 1 tab PO QAM 02/13/20 04/26/20 History 180 mg-240 mg tablet,ext.release 24 hr fluticasone propionate 50 1 spray INTRANASAL DAILY 02/13/20 04/26/20 History mcg/actuation nasal spray,suspension acetaminophen 500 mg tablet 500 mg PO Q6H PRN 04/12/20 04/26/20 History Exam Exam Date and Time: April 27, 2020 1300 Height,Weight and Vital Signs: Height 5 ft 2 in Weight 70.307 kg Last Vital Signs Temp 98.2 F 04/27/20 11:20 Pulse 90 04/27/20 11:20 Resp 16 04/27/20 11:20 BP 147/74 H 04/27/20 11:20 Pulse Ox 98 04/27/20 11:20 Airway Mallampati Class: II TM Dist: >3cm Neck ROM: Full Assessment and Plan Assessment Anesthesia Assessment: Anesthesia Plan Discussed and Chart Reviewed Final Anesthetic Review NPO: Yes ASA Class: II Final Preanesthetic Review: No Changes in Pt Med Stat, Meds/Allgs Chart Reviewed, Consent Obtained/Reviewed and Anes Risks/Benef Reviewed Patient Risk: Low Procedure Risk: Low Assessment/Block/Sedation in SS: Assess/Block/Sedation-SS Anesthetic Plan Anesthetic Plan: GA Disposition: Standard PACU
--- NOTE | 2020-04-27 13:23 | HO.ANESPROP2 ---
[facility] Past Medical History Medical History Abdominal pain Anemia Chronic GERD Depression GERD (gastroesophageal reflux disease) Glaucoma Helicobacter pylori (H. pylori) Myocardial infarction Family History Family History Father HTN (hypertension) Prostate cancer Mother HTN (hypertension) Diabetes Hx of CABG Sister Asthma Surgical History Surgical History H/O section H/O dilation and curettage H/O esophagogastroduodenoscopy History of arthroscopy of right knee History of tonsillectomy History of tubal ligation Hx of colonoscopy S/P right knee arthroscopy Social History Social History Household Members: Significant Other Alcohol intake: never Smoking Status: Never smoker Second Hand Smoke Exposure: No Use of substances other than those prescribed or required for medical reasons: No Advance Directives: No Advance Directives Information Provided: Yes Current occupational status: disabled Meds Allergies Allergy/AdvReac Type Severity Reaction Status Date / Time morphine [Morphine] Allergy Intermediate HALLUCINATI Verified 04/27/20 11:19 ONS Sulfa (Sulfonamide Allergy Intermediate HIVES Verified 04/27/20 11:19 Antibiotics) shellfish derived Allergy Mild Stomach Verified 04/27/20 11:19 Upset Home Medications Medication Instructions Recorded Confirmed Type albuterol sulfate 90 mcg/actuation 1 - 2 puff PO Q4-6H PRN 02/13/20 04/26/20 History aerosol inhaler fexofenadine-pseudoephedrine ER 1 tab PO QAM 02/13/20 04/26/20 History 180 mg-240 mg tablet,ext.release 24 hr fluticasone propionate 50 1 spray INTRANASAL DAILY 02/13/20 04/26/20 History mcg/actuation nasal spray,suspension acetaminophen 500 mg tablet 500 mg PO Q6H PRN 04/12/20 04/26/20 History Exam Exam Date and Time: April 27, 2020 1323 Height,Weight and Vital Signs: Height 5 ft 2 in Weight 70.307 kg Last Vital Signs Temp 98.2 F 04/27/20 11:20 Pulse 90 04/27/20 11:20 Resp 16 04/27/20 11:20 BP 147/74 H 04/27/20 11:20 Pulse Ox 98 04/27/20 11:20
[2020-04-27] MEDS: ondansetron HCL 4 MG/2 ML VIAL IVPUSH (14:52)
[2020-04-27] MEDS: fentaNYL citrate/PF 100 MCG/2 ML VIAL 50 MCG IVPUSH (15:21)
--- NOTE | 2020-04-27 15:48 | W.PM.OPN ---
Operative Note Operative Note Date of Service: 04/27/20 Narrative: Preoperative diagnosis: Acalculous cholecystitis Postoperative diagnosis: Same Procedure: Laparoscopic cholecystectomy Casting Supervisor: Ramandeep Wang p.a.-C Anesthesia: General endotracheal Specimen: Gallbladder Estimated blood loss: 15 cc Immediate complications: None Indications: This is a 59-year-old female with recent onset of abdominal pain. Ultrasound did not reveal gallstones. HIDA scan with cholecystokinin was suggestive of acalculous cholecystitis. GI workup was otherwise unrevealing and recent symptoms have been suggestive of biliary colic. She has elected to proceed with surgery. Procedure in detail: With the patient in the supine position following induction of adequate general anesthesia, time-out procedure was performed. 2 g of cefotetan were infused for antibiotic prophylaxis. Each trocar site was infiltrated with local anesthetic prior to making incisions. An infraumbilical incision was made and was carried down to the level of the fascia. The fascia was elevated in the midline with a Ray clamp and holding sutures of 0 Polysorb were placed on either side. The Ray was released and the fascia was split in the midline. The peritoneal cavity was entered. The Brown trocar was inserted and stabilized with the fascial sutures. The abdomen was then insufflated with carbon dioxide to pressure 15 mm of mercury. The 0 degree 5 mm laparoscoped was inserted and the peritoneal cavity was visualized. Some adhesions were present in the lower abdomen and also in the right upper quadrant between omentum and anterior abdominal wall. The patient was placed in reverse Trendelenburg position and rotated slightly left side down. A 5 mm trocar was inserted just to the right of the midline about a quarter the way between the xiphoid and umbilicus and 5 mm trocars were placed just below the costal margin in the midclavicular and anterior axillary lines. The gallbladder was grasped along the fundus near the anterior margin of the liver and was retracted cephalad. Once this was done, adhesions between omentum and infundibulum were evident. These were taken down using a combination of Endo Shear and gentle blunt dissection. Once the adhesions were freed, a 2nd grasper was placed along the infundibulum and the gallbladder was retracted laterally. Dissection was then initiated on the infundibulum and was carried medially to expose the cystic duct gallbladder junction. The cystic duct was carefully dissected free circumferentially. The cystic artery was identified running just cephalad and also was dissected free circumferentially. Dissection then continued lateral to the cystic artery along the superomedial aspect of the gallbladder to obtain the critical view. Once this was done, the cystic duct was doubly clipped just medial to the junction with the gallbladder, singly clipped at the junction with the gallbladder and divided between clips. The cystic artery was treated in the same fashion. Dissection then continued to free the gallbladder from the liver bed. In the process, 2 additional small vascular structures were identified and were divided between clips. There was no significant bleeding. Once the gallbladder was completely freed, the laparoscopic was removed and was reinserted through the upper medial trocar. The specimen pouch was inserted through the Susie trocar and the gallbladder was placed into the pouch. The pouch was closed and withdrawn along with his son. The Susie was then reinserted and the laparoscopic was placed back through it. The operative field was copiously irrigated with saline solution and was inspected for bleeding. No bleeding was noted. Clips were intact on the cystic duct and cystic artery stumps. Patient was returned to supine position. Insufflation was discontinued. Upper abdominal trocars were removed under direct vision. There was no bleeding from trocar sites. Gas was allowed to escape from the peritoneal cavity. The Susie trocar was removed. The fascia at the Susie site was closed with [id number] suture of 0 Polysorb and the holding sutures were tied to 1 another. Skin incisions were closed with interrupted sutures of 4-0 Polysorb and Steri-Strips and dry sterile dressings were applied. She tolerated the procedure well and was transported to the recovery room in stable condition. There were no immediate complications.
== END 2020-04-27 17:25 | disposition home or self-care (01) ==
PROVIDERS: Surgery; PCP Internal Medicine; Visit Provider Nuclear Medicine
PROC: 0FT44ZZ Resection of Gallbladder, Percutaneous Endoscopic Approach (ICD-10-PCS; CPT 47562; principal; 2020-04-27 12:30)
DX: K80.10 Calculus of gallbladder with chronic cholecystitis without obstruction (principal); Z88.2 Allergy status to sulfonamides; Z88.5 Allergy status to narcotic agent
CPT/HCPCS: 47562; 88304; J1100; J1885; J2250; J2405; J3010

== ENCOUNTER → 2020-05-04 14:59 | Outpatient (BNVA) | payer MEDICARE, MEDICAID, SELFPAY | PROVIDERS: PCP Internal Medicine; Visit Provider Surgery | DX: Z90.49 Acquired absence of other specified parts of digestive tract (principal) | CPT/HCPCS: 99212 ==

== ENCOUNTER 2020-06-02 10:26 | Outpatient (REF) | payer MEDICARE, MEDICAID, SELFPAY ==
[2020-06-02 12:03] LABS: MANUAL DIFF FLAG NO
[2020-06-02 12:11] LABS: Basophils Percent Auto 0.7 % (0-2); Eosinophils Absolute Auto 0.1 X10*3/uL (0.0-0.4); Eosinophils Percent Auto 1.1 % (0-4); Hematocrit 40.3 % (37-47); Hemoglobin 13.1 g/dl (12.0-16.0); Lymphocytes Percent Auto 22.4 % (20-40); Mean Corpuscular HGB Conc 32.5 g/dl (31.0-35.0); Mean Corpuscular Volume 92.4 fL (80-98); Mean Platelet Volume 12.3 fL (9.4-12.3); Monocytes Absolute Auto 0.5 X10*3/uL (0.1-1.2); Monocytes Percent Auto 10.3 % (2-11); Neutrophils Absolute Auto 2.9 X10*3/uL (2.0-8.3); Neutrophils Percent Auto 65.5 % (45-73); Platelet Count 167 X10*3/uL (160-400); Red Blood Count 4.36 X10*6/uL (4.20-5.50); Red Cell Distribution Width 12.4 % (11.0-16.0); White Blood Count 4.4 X10*3/uL (4.8-10.8)
[2020-06-02 12:37] LABS: Alanine Aminotransferase 17 U/L (0-31); Albumin Level 4.2 g/dL (3.5-5.0); Alkaline Phosphatase 98 U/L (39-117); Aspartate Amino Transferase 19 U/L (5-31); Bilirubin Direct 0.2 mg/dL (0.0-0.5); Bilirubin Total 0.4 mg/dL (0.0-1.0); Total Protein 7.2 g/dL (6.5-8.0)
== END 2020-06-02 10:27 | disposition home or self-care (01) ==
LOC: HO.LAB 10:26
PROVIDERS: Nurse Practitioner; Student in an Organized Health Care Education/Training Program; PCP Internal Medicine; Visit Provider Surgery
DX: R10.10 Upper abdominal pain, unspecified (principal); D69.0 Allergic purpura; Z90.49 Acquired absence of other specified parts of digestive tract
CPT/HCPCS: 36415; 80076; 81001; 85025; 99212

== ENCOUNTER → 2020-07-27 10:43 | Outpatient (BNVA) | payer MEDICARE, MEDICAID, SELFPAY | PROVIDERS: PCP Internal Medicine; Visit Provider Internal Medicine Gastroenterology | DX: R10.10 Upper abdominal pain, unspecified (principal); K21.9 Gastro-esophageal reflux disease without esophagitis; M51.34 Other intervertebral disc degeneration, thoracic region | CPT/HCPCS: 99212 ==

== ENCOUNTER 2020-08-29 08:40 | Outpatient (REF) | payer MEDICARE, MEDICAID, SELFPAY ==
--- NOTE | ~2020-08-29 | MM_ITS ---
EXAMINATION: MM SCREENING DIGITAL BREAST TOMOSYNTHESIS, BILATERAL CLINICAL INFORMATION: Screening. Asymptomatic. No family history breast cancer. The lifetime risk of breast cancer based on the Tyrer-Cuzick Model is 6%. COMPARISON: Mammography: 09/02/2018, 08/21/2017, 01/04/2017, 04/04/2016, 03/26/2016, 03/02/2015; left breast ultrasound 04/04/2016. TECHNIQUE: Digital breast tomosynthesis is performed in both the craniocaudal and mediolateral oblique views along with computer-aided detection (CAD). Synthesized 2D images are generated from the tomosynthesis. FINDINGS: There are scattered areas of fibroglandular density (ACR BI-RADS breast composition Category b). The right breast is unremarkable. There is no interval mass or developing density. Neither breast shows architectural abnormality or abnormal calcifications. The bilateral axilla and skin contours are unremarkable. The left breast has chronic nodule mid central 3:00 position, slightly increased in size from prior study, now approximately 0.6 cm. Margins are incompletely visualized. Patient will be recalled to further characterize. MM/MM tomosynthesis screening BI IMPRESSION: 1. Left: Chronic nodule mid central 3:00 position slightly increased. 2. Right: No mammographic evidence of malignancy. ASSESSMENT: BI-RADS 0: Incomplete - Need Additional Imaging Evaluation RECOMMENDATION: 1. Additional views of the left breast for margins (3-D spot CC, 3-D spot ML). 2. Targeted ultrasound left breast. 3. Radiology department staff will contact the patient for additional imaging. This patient's information was entered into a reminder system with a target due date for their next mammogram.
== END 2020-08-29 08:41 | disposition home or self-care (01) ==
LOC: HO.MAMMO 08:40
PROVIDERS: PCP Internal Medicine; Visit Provider Obstetrics & Gynecology
DX: Z12.31 Encounter for screening mammogram for malignant neoplasm of breast (principal)
CPT/HCPCS: 77063; 77067

== ENCOUNTER 2020-09-01 13:49 | Outpatient (REF) | payer MEDICARE, MEDICAID, SELFPAY ==
--- NOTE | ~2020-09-01 | MM_ITS ---
EXAMINATION: MM DIAGNOSTIC DIGITAL BREAST TOMOSYNTHESIS TARGETED LEFT BREAST ULTRASOUND CLINICAL INFORMATION: Circumscribed density increasing in size lateral left breast. COMPARISON: Mammography: 08/29/2020nd studies dating back to 01/14/2013. TECHNIQUE: Digital breast tomosynthesis is performed. 2D images are generated from the tomosynthesis. The following views are obtained: Rolled craniocaudal views medial and lateral and 90 degree mediolateral view. Targeted left breast ultrasound. FINDINGS: There are scattered areas of fibroglandular density (ACR BI-RADS breast composition Category b). There is persistence of a circumscribed approximately 7 x 4 x 7 mm density about the lateral aspect of the left breast lying approximately 7 cm from the nipple. No associated microcalcifications identified. Ultrasound examination of the left breast at the 3 o'clock position, approximately 7 cm from nipple demonstrate a 5 x 3 x 7 mm minimally complex cyst. No distal sound shadowing identified. No internal vascularity was seen. Results are discussed with the patient at time of visit. MM/MM tomosynthesis added views L IMPRESSION: Persistent circumscribed density about the 3 o'clock position of the left breast appears to correspond to a minimally complex cyst with no suspicious solid mass or region of distal sound shadowing appreciated. Recommend diagnostic mammogram in 12 months. ASSESSMENT: BI-RADS 3: Probably Benign RECOMMENDATION: Diagnostic mammography at time of next annual exam, due in 12 months. This patient's information was entered into a reminder system with a target due date for their next mammogram.
--- NOTE | ~2020-09-01 | US_ITS ---
EXAMINATION: US DIAGNOSTIC ULTRASOUND BREAST, LEFT CLINICAL INFORMATION: Left breast nodule. COMPARISON: Mammography of September 01, 2020 and studies dating back to January 14, 2013. TECHNIQUE: Ultrasound of the breast is performed with real-time cavazos scale imaging and color Doppler. FINDINGS: Ultrasound examination of the left breast at the 3:00 position approximately 7 cm from nipple demonstrated a 5 x 3 x 7 mm minimally complex cyst. No distal sound shadowing identified. No internal vascularity was seen. Results are discussed with the patient at time of visit. US/US breast LT limited IMPRESSION: Persistent circumscribed density about the 3:00 position of the left breast appears to correspond to a minimally complex cyst with no suspicious solid mass or region of distal sound shadowing appreciated. Recommend diagnostic mammogram in 12 months. ASSESSMENT: BI-RADS 3: Probably Benign RECOMMENDATION: Diagnostic mammography at time of next annual exam, due in 12 months.
== END 2020-09-01 13:50 | disposition home or self-care (01) ==
LOC: HO.MAMMO 13:49
PROVIDERS: Visit Provider Obstetrics & Gynecology
DX: R92.8 Other abnormal and inconclusive findings on diagnostic imaging of breast (principal)
CPT/HCPCS: 76642; 77061; 77065

== ENCOUNTER → 2020-09-15 10:27 | Outpatient (BNVA) | payer MEDICARE, MEDICAID, SELFPAY | PROVIDERS: PCP Internal Medicine; Referring Provider Internal Medicine; Visit Provider Nurse Practitioner | DX: K21.9 Gastro-esophageal reflux disease without esophagitis (principal); K81.9 Cholecystitis, unspecified; R10.10 Upper abdominal pain, unspecified; K58.9 Irritable bowel syndrome, unspecified; R14.0 Abdominal distension (gaseous) | CPT/HCPCS: 99212 ==

== ENCOUNTER 2020-09-16 06:47 | Outpatient (REF) | payer MEDICARE, MEDICAID, SELFPAY ==
[2020-09-16 07:31] LABS: Alanine Aminotransferase 11 U/L (0-31); Albumin Level 4.1 g/dL (3.5-5.0); Alkaline Phosphatase 102 U/L (39-117); Anion Gap 11 (12-20); Aspartate Amino Transferase 16 U/L (5-31); Bilirubin Total 0.8 mg/dL (0.0-1.0); Blood Urea Nitrogen 11 mg/dL (9-16); Calcium 9.1 mg/dL (8.4-10.2); Carbon Dioxide 30 mmol/L (22-29); Chloride 107 mmol/L (96-108); Estimated Glomerular Filt Rate > 60; Glucose Fasting 111 mg/dL (60-99); Potassium 3.9 mmol/L (3.3-5.1); Sodium 144 mmol/L (135-145); Total Protein 7.2 g/dL (6.5-8.0)
[2020-09-16 07:54] LABS: TSH reflex Free T4 2.26 uIU/mL (0.32-4.0)
== END 2020-09-16 06:48 | disposition home or self-care (01) ==
LOC: HO.LAB 06:47
PROVIDERS: PCP Internal Medicine; Visit Provider Nurse Practitioner
DX: K58.9 Irritable bowel syndrome, unspecified (principal); R14.0 Abdominal distension (gaseous); D69.0 Allergic purpura
CPT/HCPCS: 36415; 80053; 84443

== ENCOUNTER → 2020-10-27 14:10 | Outpatient (BNVA) | payer MEDICARE, MEDICAID, SELFPAY | PROVIDERS: PCP Internal Medicine; Visit Provider Nurse Practitioner | DX: K21.9 Gastro-esophageal reflux disease without esophagitis (principal); K81.9 Cholecystitis, unspecified; K58.9 Irritable bowel syndrome, unspecified; R10.10 Upper abdominal pain, unspecified; R14.0 Abdominal distension (gaseous); M51.34 Other intervertebral disc degeneration, thoracic region | CPT/HCPCS: 99212 ==

== ENCOUNTER 2020-11-08 10:07 | Outpatient (REF) | payer MEDICARE, MEDICAID, SELFPAY ==
--- NOTE | ~2020-11-08 | US_ITS ---
EXAMINATION: US ABDOMEN COMPLETE CLINICAL INFORMATION: Upper abdominal pain. COMPARISON: Ultrasound abdomen complete 02/16/2020 and 03/31/2008. CT abdomen 01/24/2007. TECHNIQUE: Real-time imaging of the abdominal viscera. FINDINGS: PANCREAS: Normal. ABDOMINAL AORTA: The proximal, mid, and distal segments are normal in caliber. INFERIOR VENA CAVA: Visualized portions are normal. LIVER: Normal. The liver is normal in size. The liver contour is normal. Parenchymal echogenicity is normal. No focal hepatic lesion. There is no intrahepatic biliary duct dilatation seen. GALLBLADDER: Surgically absent. COMMON BILE DUCT: Normal in caliber measuring 0.3 cm in diameter. RIGHT KIDNEY: Normal. No hydronephrosis. No renal calculi or focal parenchymal lesions. The kidney measures 12.0 cm in maximum dimension. LEFT KIDNEY: There is a 4 mm stone in the lower pole. No hydronephrosis or focal parenchymal lesions. The kidney measures 10.9 cm in maximum dimension. SPLEEN: Normal. The spleen measures 8.1 cm in maximum dimension. FREE FLUID: None. US/US abdomen complete IMPRESSION: Small left renal stone otherwise unremarkable exam.
== END 2020-11-08 10:08 | disposition home or self-care (01) ==
LOC: HO.HMGCX 10:07
PROVIDERS: Visit Provider Nurse Practitioner
DX: R10.10 Upper abdominal pain, unspecified (principal); K80.10 Calculus of gallbladder with chronic cholecystitis without obstruction
CPT/HCPCS: 76700

== ENCOUNTER → 2020-12-16 11:22 | Outpatient (BNVA) | payer MEDICARE, MEDICAID, SELFPAY | PROVIDERS: PCP Internal Medicine; Referring Provider Internal Medicine; Visit Provider Nurse Practitioner | DX: K21.9 Gastro-esophageal reflux disease without esophagitis (principal); K81.9 Cholecystitis, unspecified; K58.9 Irritable bowel syndrome, unspecified; R10.10 Upper abdominal pain, unspecified; R14.0 Abdominal distension (gaseous); M54.6 Pain in thoracic spine | CPT/HCPCS: 99212 ==

== ENCOUNTER 2021-02-07 11:40 | Outpatient (REF) | payer MEDICARE, MEDICAID, SELFPAY | END 2021-02-07 11:41 | disposition home or self-care (01) | LOC: HO.LNP 11:40 | PROVIDERS: PCP Internal Medicine; Referring Provider Internal Medicine; Visit Provider Nurse Practitioner | DX: R63.4 Abnormal weight loss (principal); Z68.25 Body mass index [BMI] 25.0-25.9, adult; K21.9 Gastro-esophageal reflux disease without esophagitis; K58.9 Irritable bowel syndrome, unspecified; R14.0 Abdominal distension (gaseous); R10.10 Upper abdominal pain, unspecified; Z90.49 Acquired absence of other specified parts of digestive tract | CPT/HCPCS: 87071; 87147; 87205; 99212 ==

== ENCOUNTER 2021-06-05 14:36 | Outpatient (REF) | payer MEDICARE, MEDICAID, SELFPAY ==
--- NOTE | ~2021-06-05 | XR_ITS ---
EXAMINATION: XR THORACOLUMBAR SPINE CLINICAL INFORMATION: Abdominal pain. COMPARISON: None TECHNIQUE: 2 views. FINDINGS: The vertebral alignment is normal. No intrinsic bony abnormality. The disc heights and neural foramina are well maintained. The endplates and posterior elements are normal. No fracture or subluxation. The surrounding prevertebral soft tissues are unremarkable. XR/XR thoracic spine 2V IMPRESSION: No compression fractures or subluxations are identified. The disc spaces are preserved. No endplate changes are seen. The prevertebral soft tissues are normal. The foramina are patent.
[2021-06-05 15:54] LABS: MANUAL DIFF FLAG NO
[2021-06-05 16:00] LABS: Basophils Percent Auto 0.4 % (0-2); Eosinophils Absolute Auto 0.1 X10*3/uL (0.0-0.4); Eosinophils Percent Auto 1.6 % (0-4); Hematocrit 39.3 % (37.0-47.0); Imm Gran Abs Auto 0.01 X10*3/uL (0.00-0.03); Imm Gran Pct Auto 0.2 % (0.0-0.4); Lymphocytes Absolute Auto 1.4 X10*3/uL (1.2-4.9); Lymphocytes Percent Auto 27.4 % (20-40); Mean Corpuscular HGB Conc 33.1 g/dl (31.0-35.0); Mean Corpuscular Hemoglobin 30.4 pg (27.0-33.0); Mean Corpuscular Volume 91.8 fL (80.0-98.0); Mean Platelet Volume 10.9 fL (9.4-12.3); Monocytes Absolute Auto 0.5 X10*3/uL (0.1-1.2); Monocytes Percent Auto 9.5 % (2-11); Neutrophils Percent Auto 60.9 % (45-73); Platelet Count 178 X10*3/uL (160-400); Red Blood Count 4.28 X10*6/uL (4.20-5.50); Red Cell Distribution Width 12.5 % (11.0-16.0)
[2021-06-05 16:23] LABS: Alanine Aminotransferase 19 U/L (0-31); Alkaline Phosphatase 98 U/L (39-117); Anion Gap 10 (12-20); Aspartate Amino Transferase 20 U/L (5-31); Bilirubin Total 0.4 mg/dL (0.0-1.0); Blood Urea Nitrogen 12 mg/dL (9-16); Calcium 9.4 mg/dL (8.4-10.2); Carbon Dioxide 30 mmol/L (22-29); Chloride 106 mmol/L (96-108); Estimated Glomerular Filt Rate > 60; Glucose Random 111 mg/dL (60-115); Potassium 3.6 mmol/L (3.3-5.1); Sodium 142 mmol/L (135-145); Total Protein 7.4 g/dL (6.5-8.0)
[2021-06-05 16:54] LABS: Appearance Urine CLEAR; Color Urine YELLOW; Glucose Urine UA NEG (NEG); Leukocyte Esterase Urine TRACE (NEG); Nitrite Urine NEG (NEG); Specific Gravity - Urine >= 1.030 (1.005-1.025); UACC Culture Trigger YES; Urine Blood 2+ (NEG); Urine Ketones NEG (NEG); Urine Protein NEG (NEG-TRACE)
[2021-06-05 17:57] LABS: Calcium Oxalate Crystals Urine 3+ /LPF; Renal Epithelial Cells Urine 1+ /LPF; Squamous Epithelial Cell Urine 1+ /LPF
== END 2021-06-05 14:37 | disposition home or self-care (01) ==
LOC: HO.LAB 14:36
PROVIDERS: PCP Internal Medicine; Referring Provider Internal Medicine; Visit Provider Nurse Practitioner
DX: R10.10 Upper abdominal pain, unspecified (principal); R19.5 Other fecal abnormalities; R14.0 Abdominal distension (gaseous); K21.9 Gastro-esophageal reflux disease without esophagitis; K81.9 Cholecystitis, unspecified; K58.9 Irritable bowel syndrome, unspecified; M51.34 Other intervertebral disc degeneration, thoracic region; Z90.49 Acquired absence of other specified parts of digestive tract; Z88.2 Allergy status to sulfonamides; Z88.5 Allergy status to narcotic agent; Z91.013 Allergy to seafood
CPT/HCPCS: 36415; 72070; 80053; 81001; 81003; 85025; 87086; 99212

== ENCOUNTER 2021-06-06 15:27 | Outpatient (REF) | payer MEDICARE, MEDICAID, SELFPAY | END 2021-06-06 15:28 | disposition home or self-care (01) | LOC: HO.LNP 15:27 | PROVIDERS: Visit Provider Nurse Practitioner | DX: R10.9 Unspecified abdominal pain (principal); R19.5 Other fecal abnormalities | CPT/HCPCS: 87045; 87046 ==

== ENCOUNTER → 2021-06-19 11:25 | Outpatient (BNVA) | payer MEDICARE, MEDICAID, SELFPAY | PROVIDERS: PCP Internal Medicine; Referring Provider Internal Medicine; Visit Provider Nurse Practitioner | DX: K21.9 Gastro-esophageal reflux disease without esophagitis (principal); K58.9 Irritable bowel syndrome, unspecified; R82.998 Other abnormal findings in urine; R10.10 Upper abdominal pain, unspecified; R14.0 Abdominal distension (gaseous); R10.9 Unspecified abdominal pain; R73.01 Impaired fasting glucose | CPT/HCPCS: 99212 ==

== ENCOUNTER 2021-06-20 11:14 | Outpatient (REF) | payer MEDICARE, MEDICAID, SELFPAY ==
--- NOTE | ~2021-06-20 | CT_ITS ---
EXAMINATION: CT ABDOMEN AND PELVIS WITH CONTRAST CLINICAL INFORMATION: Unspecified abdominal pain. COMPARISON: None TECHNIQUE: Multidetector volumetric images were obtained from the superior aspect of the liver through the pubic symphysis following administration 85 mL of Omnipaque 350 intravenous contrast. Sagittal and coronal reformatted images were obtained on the technologist's workstation. Oral contrast: No This CT examination was performed using dose optimization techniques as appropriate, variously including the following: *Automated exposure control *Adjustment of mA and/or kV according to patient size (this includes techniques or standardized protocols for targeted exams where dose is matched to indication/reason for exam; i.e. extremities or head) *Use of iterative reconstruction technique DLP: 403 mGy-cm FINDINGS: LUNG BASES: The lung bases are clear. The heart size is normal. LIVER, GALLBLADDER, AND BILIARY TREE: The liver is normal in size, shape, and attenuation. No focal hepatic lesion or biliary ductal dilatation is present. The gallbladder has been surgically removed. PANCREAS: Unremarkable. SPLEEN: Unremarkable. ADRENAL GLANDS: The adrenal glands are symmetrical and normal. KIDNEYS AND URETERS: The kidneys are normal in size, shape, and attenuation. No hydronephrosis, hydroureter, or calculi seen. No perinephric stranding. 6 mm hypodensity lower pole left kidney probable cyst. BLADDER: Unremarkable. GASTROINTESTINAL TRACT: There is scattered moderate stool and gas seen throughout the colon without any significant distention. The small bowel loops are normal caliber. Appendix is not visualized. No inflammatory process seen in the abdomen. ABDOMINAL WALL: No significant hernia is appreciated. LYMPH NODES: Normal. VASCULAR: Unremarkable. PELVIC VISCERA: The uterus is anteverted and appears unremarkable. There is no free air or free fluid. OSSEOUS STRUCTURES: Unremarkable. CT/CT abdomen pelvis w con IMPRESSION: Colonic diverticulosis with moderate constipation. No diverticulitis. Appendix not seen. Fleischner guidelines were followed.
[2021-06-20 11:50] LABS: Estimated Average Glucose 111 mg/dL; Hemoglobin A1c % 5.5 %
[2021-06-20] MEDS: iohexoL 350 MG/ML 100 ML INFUS..BTL IV (14:38)
== END 2021-06-20 11:15 | disposition home or self-care (01) ==
LOC: HO.CT 11:14
PROVIDERS: PCP Internal Medicine; Visit Provider Nurse Practitioner
DX: R73.01 Impaired fasting glucose (principal); R10.9 Unspecified abdominal pain; R19.5 Other fecal abnormalities
CPT/HCPCS: 36415; 74177; 83036; Q9967

== ENCOUNTER → 2021-06-27 07:45 | Outpatient (BNVA) | payer MEDICARE, MEDICAID, SELFPAY | PROVIDERS: PCP Internal Medicine; Referring Provider Internal Medicine; Visit Provider Nurse Practitioner | DX: K58.9 Irritable bowel syndrome, unspecified (principal); K21.9 Gastro-esophageal reflux disease without esophagitis; R14.0 Abdominal distension (gaseous); R10.10 Upper abdominal pain, unspecified | CPT/HCPCS: 99212 ==

== ENCOUNTER → 2021-08-18 08:44 | Outpatient (BNVA) | payer MEDICARE, MEDICAID, SELFPAY | PROVIDERS: PCP Internal Medicine; Referring Provider Internal Medicine; Visit Provider Nurse Practitioner | DX: K59.00 Constipation, unspecified (principal); K21.9 Gastro-esophageal reflux disease without esophagitis | CPT/HCPCS: 99212 ==

== ENCOUNTER 2021-09-08 10:18 | Outpatient (REF) | payer MEDICARE, MEDICAID, SELFPAY ==
--- NOTE | ~2021-09-08 | MM_ITS ---
EXAMINATION: MM DIAGNOSTIC DIGITAL BREAST TOMOSYNTHESIS, BILATERAL US TARGETED BREAST, LEFT CLINICAL INFORMATION: Yearly screening right breast mammogram. 1 year follow up complex cyst left breast. The lifetime risk of breast cancer based on the Tyrer-Cuzick Model is 5.8%. COMPARISON: Mammography: 09/01/2020 and studies dating back to 02/17/2010. TECHNIQUE: Digital breast tomosynthesis is performed in both the craniocaudal and mediolateral oblique views along with computer-aided detection (CAD). Synthesized 2D images are generated from the tomosynthesis. Targeted left breast ultrasound. FINDINGS: There are scattered areas of fibroglandular density (ACR BI-RADS breast composition category B). There are no significant masses, abnormal calcifications, or other abnormalities. A stable partially circumscribed density approximately 3 o'clock position of the left breast is identified approximately 7 cm from the nipple. No new abnormal dominant mass or suspicious grouping of microcalcifications identified. Targeted left breast ultrasound today at the 3 o'clock position, 7 cm from nipple, demonstrates a simple-appearing cyst with smooth back wall and increased through transmission measuring approximately 6 x 2 x 5 mm in size. No abnormal solid mass or region of abnormal distal sound shadowing appreciated. Results are discussed with the patient at time of visit. MM/MM tomosynthesis diagnostic BI IMPRESSION: There are no significant changes from prior study. ASSESSMENT: BI-RADS 2: Benign RECOMMENDATION: Routine annual mammography screening. This patient's information was entered into a reminder system with a target due date for their next mammogram.
--- NOTE | ~2021-09-08 | US_ITS ---
EXAMINATION: US DIAGNOSTIC BREAST, LEFT CLINICAL INFORMATION: Density 3 o'clock position, 7 cm from the nipple, with the appearance of complex cyst previously. COMPARISON: Mammography of same day as well as studies dating back to 02/17/2010. TECHNIQUE: Ultrasound of the breast is performed with real-time cavazos scale imaging and color Doppler. FINDINGS: At the 3 o'clock position, 7 cm from the nipple, there is now noted to be a simple cyst with smooth back wall and increased through sound transmission which is avascular. This measures approximately 6 x 5 x 2 mm in size. There is no solid mass, architectural abnormality, duct ectasia, or edema in the soft tissue planes. Results are discussed with the patient at time of visit. US/US breast LT limited IMPRESSION: Left breast abnormality now corresponds to a simple cyst. ASSESSMENT: BI-RADS 2: Benign RECOMMENDATION: Routine annual mammography screening. This patient's information was entered into a reminder system with a target due date for their next mammogram.
== END 2021-09-08 10:19 | disposition home or self-care (01) ==
LOC: HO.MAMMO 10:18
PROVIDERS: PCP Internal Medicine; Visit Provider Obstetrics & Gynecology
DX: R92.2 Inconclusive mammogram (principal); N60.02 Solitary cyst of left breast
CPT/HCPCS: 76642; 77062; 77066

== ENCOUNTER 2021-09-27 13:08 | Outpatient (REF) | payer MEDICARE, MEDICAID, SELFPAY ==
[2021-09-27 15:31] LABS: Appearance Urine CLOUDY; Color Urine YELLOW; Glucose Urine UA NEG (NEG); Leukocyte Esterase Urine NEG (NEG); Nitrite Urine NEG (NEG); PH 6.5 (5.0-8.0); UACC Culture Trigger NO; Urine Blood TRACE (NEG); Urine Ketones NEG (NEG); Urine Protein NEG (NEG-TRACE)
[2021-09-27 15:42] LABS: Amorphous Sediment Urine 1+ /LPF; RBC Urine 0-2 /HPF (0); WBC Urine 0 /HPF (0-4)
== END 2021-09-27 13:09 | disposition home or self-care (01) ==
LOC: HO.LAB 13:08
PROVIDERS: PCP Internal Medicine; Visit Provider Nurse Practitioner
DX: R10.9 Unspecified abdominal pain (principal); R19.5 Other fecal abnormalities
CPT/HCPCS: 81001

== ENCOUNTER → 2021-09-29 08:59 | Outpatient (BNVA) | payer MEDICARE, MEDICAID, SELFPAY | PROVIDERS: PCP Internal Medicine; Referring Provider Internal Medicine; Visit Provider Nurse Practitioner | DX: K59.00 Constipation, unspecified (principal); K21.9 Gastro-esophageal reflux disease without esophagitis | CPT/HCPCS: 99212 ==

== ENCOUNTER → 2021-12-29 08:58 | Outpatient (BNVA) | payer MEDICARE, MEDICAID, SELFPAY | PROVIDERS: PCP Internal Medicine; Visit Provider Nurse Practitioner | DX: K21.9 Gastro-esophageal reflux disease without esophagitis (principal); K59.00 Constipation, unspecified | CPT/HCPCS: 99212 ==

== ENCOUNTER → 2022-03-15 07:52 | Outpatient (BNVA) | payer MEDICARE, MEDICAID, SELFPAY | PROVIDERS: PCP Internal Medicine; Referring Provider Internal Medicine; Visit Provider Nurse Practitioner | DX: K21.9 Gastro-esophageal reflux disease without esophagitis (principal); K59.00 Constipation, unspecified | CPT/HCPCS: 99212 ==

== ENCOUNTER 2022-06-06 11:40 | Outpatient (REF) | payer MEDICARE, MEDICAID, SELFPAY ==
--- NOTE | ~2022-06-06 | XR_ITS ---
EXAMINATION: XR LUMBOSACRAL SPINE CLINICAL INFORMATION: Dorsalgia COMPARISON: 08/24/2019 TECHNIQUE: Three views of the lumbosacral spine. FINDINGS: No fracture or subluxation. Vertebral body height and alignment maintained. Disc spaces are maintained. Tiny endplate osteophytes at the lower lumbar spine. Mild facet arthropathy throughout. The sacroiliac joints are symmetric. The sacrum is intact. Right upper quadrant surgical clips. XR/XR lumbar spine 2-3V IMPRESSION: Mild degenerative changes of the lower lumbar spine.
== END 2022-06-06 11:41 | disposition home or self-care (01) ==
LOC: HO.XRAY 11:40
PROVIDERS: PCP Internal Medicine; Visit Provider Internal Medicine
DX: M54.9 Dorsalgia, unspecified (principal)
CPT/HCPCS: 72100

== ENCOUNTER 2022-08-18 07:17 | Outpatient (REF) | payer MEDICARE, MEDICAID, SELFPAY ==
[2022-08-18 07:33] LABS: MANUAL DIFF FLAG NO
[2022-08-18 08:04] LABS: Basophils Percent Auto 0.7 % (0-2); Eosinophils Absolute Auto 0.1 X10*3/uL (0.0-0.4); Eosinophils Percent Auto 2.7 % (0-4); Hematocrit 38.9 % (37.0-47.0); Lymphocytes Absolute Auto 1.4 X10*3/uL (1.2-4.9); Lymphocytes Percent Auto 34.9 % (20-40); Mean Corpuscular HGB Conc 33.4 g/dl (31.0-35.0); Mean Corpuscular Hemoglobin 30.5 pg (27.0-33.0); Mean Corpuscular Volume 91.3 fL (80.0-98.0); Mean Platelet Volume 11.4 fL (9.4-12.3); Monocytes Absolute Auto 0.4 X10*3/uL (0.1-1.2); Monocytes Percent Auto 10.7 % (2-11); Platelet Count 175 X10*3/uL (160-400); Red Blood Count 4.26 X10*6/uL (4.20-5.50); Red Cell Distribution Width 12.3 % (11.0-16.0)
[2022-08-18 09:08] LABS: Alanine Aminotransferase 15 U/L (0-31); Alkaline Phosphatase 111 U/L (39-117); Anion Gap 12 (12-20); Aspartate Amino Transferase 19 U/L (5-31); Bilirubin Total 0.7 mg/dL (0.0-1.0); Blood Urea Nitrogen 11 mg/dL (9-16); Calcium 8.8 mg/dL (8.4-10.2); Carbon Dioxide 26 mmol/L (22-29); Chloride 108 mmol/L (96-108); Cholesterol 212 mg/dL; Estimated Glomerular Filt Rate > 60; Glucose Fasting 97 mg/dL (60-99); HDL Cholesterol 49 mg/dL; LDL Cholesterol Calculated 146 mg/dl; Sodium 142 mmol/L (135-145); Total Protein 6.9 g/dL (6.5-8.0); Triglycerides 87 mg/dL
[2022-08-18 09:23] LABS: Thyroid Stimulating Hormone 2.96 uIU/mL (0.32-4.0)
== END 2022-08-18 07:18 | disposition home or self-care (01) ==
LOC: HO.LAB 07:17
PROVIDERS: PCP Internal Medicine; Visit Provider Internal Medicine
DX: D64.9 Anemia, unspecified (principal); N28.9 Disorder of kidney and ureter, unspecified; E78.5 Hyperlipidemia, unspecified; E03.9 Hypothyroidism, unspecified
CPT/HCPCS: 36415; 80053; 80061; 84443; 85025

== ENCOUNTER → 2022-09-12 10:04 | Outpatient (BNVA) | payer MEDICARE, MEDICAID, SELFPAY | PROVIDERS: PCP Internal Medicine; Referring Provider Internal Medicine; Visit Provider Nurse Practitioner | DX: R19.7 Diarrhea, unspecified (principal); K21.9 Gastro-esophageal reflux disease without esophagitis | CPT/HCPCS: 99212 ==

== ENCOUNTER 2022-12-13 12:45 | Outpatient (REF) | payer OTHER, SELFPAY ==
--- NOTE | ~2022-12-13 | MM_ITS ---
EXAMINATION: MM SCREENING DIGITAL BREAST TOMOSYNTHESIS, BILATERAL CLINICAL INFORMATION: Screening. Asymptomatic. The lifetime risk of breast cancer based on the Tyrer-Cuzick Model is 5.4%. COMPARISON: Mammography: This study is compared with prior exams dating back to 2019. TECHNIQUE: Digital breast tomosynthesis is performed in both the craniocaudal and mediolateral oblique views along with computer-aided detection (CAD). Synthesized 2D images are generated from the tomosynthesis. FINDINGS: There are scattered areas of fibroglandular density (ACR BI-RADS breast composition Category b). There are no significant masses, abnormal calcifications, or other abnormalities. MM/MM tomosynthesis screening BI IMPRESSION: No mammographic evidence of malignancy. ASSESSMENT: BI-RADS BI-RADS 1 - Negative RECOMMENDATION: Routine annual mammography screening. 1 year F/U This examination should not preclude the clinical evaluation of a suspicious palpable abnormality. This patient's information was entered into a reminder system with a target due date for their next mammogram.
== END 2022-12-13 12:46 | disposition home or self-care (01) ==
LOC: HO.MAMMO 12:45
PROVIDERS: PCP Internal Medicine; Visit Provider Internal Medicine
DX: Z12.31 Encounter for screening mammogram for malignant neoplasm of breast (principal)
CPT/HCPCS: 77063; 77067

== ENCOUNTER → 2022-12-13 13:15 | Outpatient (BNV) | payer OTHER, SELFPAY | PROVIDERS: PCP Internal Medicine; Visit Provider Radiology Diagnostic Radiology | DX: Z12.31 Encounter for screening mammogram for malignant neoplasm of breast (principal) | CPT/HCPCS: 77063; 77067 ==

== ENCOUNTER 2023-01-03 11:53 | Outpatient (AMB) | payer OTHER, SELFPAY ==
[2023-01-03 12:10] VITALS: BP 142/65; PULSE 63; BMI 27.6
--- NOTE | 2023-01-03 12:10 | MHC.OFFVIS ---
Intake Vital Signs 01/03/23 12:10 Height 5 ft 2 in Weight 150 lb 12.739 oz BMI 27.6 BP 142/65 H Blood Pressure Location Rt brachial Position Sitting Pulse 63 Intake Visit Reasons: ER follow up Intake Note: Patient presents to in office visit today in ER follow up. CC: Patient was seen at [facility] on 12/20/22 with bleeding hemorrhoids. She reports having daily BMs. Patient reports having rectal pressure and discomfort after examination in ER. Data Collection Interviewer Required: No Accompanied by: Self / Same As Patient Allergies morphine [Morphine] Allergy (Intermediate, Verified 01/03/23 12:22) HALLUCINATIONS Sulfa (Sulfonamide Antibiotics) Allergy (Intermediate, Verified 01/03/23 12:22) HIVES shellfish derived Allergy (Mild, Verified 01/03/23 12:22) Stomach Upset Oral Contrast Adverse Reaction (Intermediate, Uncoded 11/15/22 13:25) Abdominal Pain HPI ER follow up HPI Details Assessment & Plan (1) Diarrhea: ?Code(s): R19.7 - Diarrhea, unspecified ?Plan: She is okay but she is dealing with a lot of situational stress with her family, her mother was ill recently with gallstones but now her father had gallstones and now is having bleeding after ? MRCP. He also is having a delirium reaction to all of the changes. She is the only one caring for them. She has situational diarrhea and tenesmus. She continues on her famotidine. I will give her a trial of bentyl 20mg which may help her if she tolerates it. She is much better when she relaxes. She still has problems with fatty foods. Discussed also peppermint tea, tincture, IB Guard. ROV 6 mos. (2) GERD (gastroesophageal reflux disease): ?Code(s): K21.9 - Gastro-esophageal reflux disease without esophagitis ? ? ? Medications: New dicyclomine 10 mg? PO TID PRN 90 caps 3RF crampi ng R19.7 - Diarrhea, unspecified ? Refilled famotidine (Pepcid ) 40 mg? PO BEDTIME 30 tabs 6RF K21.9 - Gastro-eso phageal reflux dis ease without esoph agitis ? ER REPORT [facility] She was seen for GIB, told kiana. Last colonoscopy 2019 wtih 2 TA's. TODAY'S VISIT She was taking a shower, and when she dried she noticed that the towel was red. She found it was coming form her rectum. She went to the ER and they did a rectal exam and there was no blood on the glove, but she was told there was a lot of external hemorrhoids. They gave her CIC meds, but no hemorrhoid cream!! They also did I educate her about other ways to prevent hemorrhoids or minimize their affect such as ice packs Sitz baths. She is not CIC she is having she has soft daily stools and no straining. They scared her with talk of cancer but she had a colonoscopy in 2019 with 2 TA's. We will give proctosol and we discuss frozen peas. she never picked up the bentyl, but her tenesmus resolved....this is anxiety mediated from family problems. This is the likely trigger. ROV4 weeks. PFSH Medical History Anemia Asthma Cholelithiasis with chronic cholecystitis Chronic GERD Contact dermatitis Degenerative disc disease, thoracic Depression GERD (gastroesophageal reflux disease) Glaucoma Helicobacter pylori (H. pylori) Myocardial infarction Tubular adenoma of colon Surgical History H/O section H/O dilation and curettage H/O esophagogastroduodenoscopy History of arthroscopy of right knee History of tonsillectomy History of tubal ligation Hx laparoscopic cholecystectomy Hx of colonoscopy S/P right knee arthroscopy Status post laparoscopic cholecystectomy Family History Father HTN (hypertension) Prostate cancer Mother HTN (hypertension) Diabetes Hx of CABG Sister Asthma Social History Household Members: Spouse, Significant Other and Other Housing: House Alcohol intake: current Alcohol intake frequency: does not drink Patient Tobacco Use Status: Never used Tobacco e-Cigarette/Vaping Use: Never Used Second Hand Smoke Exposure: No Current occupational status: disabled Cognitive needs: No Hearing needs: No Vision needs: Yes Review of Systems Const Denies fatigue, Denies fever(s), Denies night sweats, Denies poor appetite and Denies weight loss ENT Reports Normal hearing present, Denies dental pain, Denies dysphagia, Denies hearing loss, Denies mouth pain, Denies odynophagia, Denies throat swelling, Denies tongue swelling and Reports other (Dentition adequate) Card Reports no additional complaints Resp Reports no additional complaints GI Denies abdominal pain, Denies melena, Denies bloating, Denies hematochezia, Denies constipation, Reports GI cramping, Denies dysphagia, Denies excessive flatus, Denies early satiety, Reports heartburn, Reports diarrhea, Denies nausea, Denies odynophagia, Denies vomiting and Denies hematemesis Skin/Breast Denies pruritus, Denies lesions, Denies rash and Denies jaundice Neuro Reports Normal hearing present and Denies Abnormal speech present Endo Denies fatigue Aller/Immun Denies throat swelling and Denies tongue swelling Physical Exam Vital Signs: Last Vital Signs Pulse 63 01/03/23 12:10 BP 142/65 H 01/03/23 12:10 BMI result Body Mass Index 27.6 Const General: cooperative, no acute distress, well developed and well groomed Nutritional Appearance: well nourished Orientation/consciousness: oriented to person, oriented to place and oriented to time Limitations: No language barrier HEENT Head: Yes normocephalic and Yes atraumatic Eyes General: appearance normal, both eyes and all related structures Pupils: Equal, round and reactive pupils present Neck Neck: Yes normal visual inspection and Yes no lymphadenopathy Thyroid: Thyroid normal Resp Effort & Inspection: normal respiratory effort and able to speak in complete sentences Auscultation: clear to auscultation bilaterally Cardio Rate: regular rate Rhythm: regular rhythm Heart sounds: Normal, physiologic split S2 sound present Peripheral pulses: radial pulses present and posterior tibial pulses present GI Inspection: No distended and No Abdominal panniculus present Palpation (GI): Soft to palpation, nontender, no guarding, not rigid and No hepatosplenomegaly present Percussion: Yes normal to percussion Auscultation: normal bowel sounds Rectal Exam - Female: normal sphincter tone and External hemorrhoid(s) present (large swollen ext roids at 11:00, 3-5:00 and 6:00) Skin General skin exam: no rashes or lesions noted, turgor normal, skin not dry, no jaundice, No spider nevi and no striae Rashes: no rashes Nails: normal Neuro General: oriented to person, oriented to place and oriented to time Cranial nerves: Yes Equal, round and reactive pupils present and Yes Normal hearing present Speech: No Abnormal speech present Extrem General: Yes normal to inspection, No clubbing, No cyanosis and No edema Psych Appearance: grossly normal and well kempt Mental Status: mental status grossly normal Speech and movement: Normal speech and movement present Affect: normal affect Attitude: cooperative Thought process: Normal thought process present and not confabulating Thought content: Normal thought content present Insight: Limited insight present (Psych) Judgement: Limited judgement present (Psych) Assessment & Plan Assessment & Plan (1) GERD (gastroesophageal reflux disease): Code(s): K21.9 - Gastro-esophageal reflux disease without esophagitis Plan: She was taking a shower, and when she dried she noticed that the towel was red. She found it was coming form her rectum. She went to the ER and they did a rectal exam and there was no blood on the glove, but she was told there was a lot of external hemorrhoids. They gave her CIC meds, but no hemorrhoid cream!! They also did I educate her about other ways to prevent hemorrhoids or minimize their affect such as ice packs Sitz baths. She is not CIC she is having she has soft daily stools and no straining. They scared her with talk of cancer but she had a colonoscopy in 2019 with 2 TA's. We will give proctosol and we discuss frozen peas. she never picked up the bentyl, but her tenesmus resolved....this is anxiety mediated from family problems. This is the likely trigger. She continues on famotidine for her GERD and her fiber. ROV4 weeks. (2) Diarrhea: Code(s): R19.7 - Diarrhea, unspecified (3) Bleeding hemorrhoids: Code(s): K64.9 - Unspecified hemorrhoids Medications: New hydrocortisone 2.5% (Proctosol HC) BE SURE TO INCLUDE RECTAL APPICATOR!! 1 appl [place] BID 30 grams 6RF hemorrhoids K64.9 - Unspecified hemorrhoids Coding Level of Care Code Est Pt Level 3 (82622) Diagnoses GERD (gastroesophageal reflux disease) K21.9 Diarrhea R19.7 Bleeding hemorrhoids K64.9
== END 2023-01-03 12:58 | disposition home or self-care (01) ==
PROVIDERS: PCP Internal Medicine; Visit Provider Nurse Practitioner
DX: K21.9 Gastro-esophageal reflux disease without esophagitis (principal); R19.7 Diarrhea, unspecified; K64.9 Unspecified hemorrhoids
CPT/HCPCS: 99213

== ENCOUNTER → 2023-01-03 11:53 | Outpatient (BNVA) | payer OTHER, SELFPAY | PROVIDERS: PCP Internal Medicine; Visit Provider Nurse Practitioner | DX: K21.9 Gastro-esophageal reflux disease without esophagitis (principal); R19.7 Diarrhea, unspecified; Z79.899 Other long term (current) drug therapy | CPT/HCPCS: 99212 ==

== ENCOUNTER → 2023-01-31 13:31 | Outpatient (BNVA) | payer OTHER, SELFPAY | PROVIDERS: PCP Internal Medicine; Visit Provider Nurse Practitioner | DX: K21.9 Gastro-esophageal reflux disease without esophagitis (principal); R19.7 Diarrhea, unspecified; K64.9 Unspecified hemorrhoids | CPT/HCPCS: 99212 ==

== ENCOUNTER 2023-01-31 13:32 | Outpatient (AMB) | payer OTHER, SELFPAY ==
[2023-01-31 13:32] VITALS: BP 138/65; PULSE 62; BMI 27.8
--- NOTE | 2023-01-31 13:32 | A.OFFVIS_ITS ---
Intake Vital Signs 01/31/23 13:32 Height 5 ft 2 in Weight 152 lb 1.903 oz BMI 27.8 BP 138/65 Blood Pressure Location Lt brachial Position Sitting Pulse 62 Intake Visit Reasons: 4 week follow up Intake Note: Kiara presents in the office as a 4 week follow up. CC: She states that she feels okay but she has been having some pains in her stomach. Nausea and burping as well. Bindery Machine Tender Required: No Allergies morphine [Morphine] Allergy (Intermediate, Verified 02/18/23 14:43) HALLUCINATIONS Sulfa (Sulfonamide Antibiotics) Allergy (Intermediate, Verified 02/18/23 14:43) HIVES shellfish derived Allergy (Mild, Verified 02/18/23 14:43) Stomach Upset Oral Contrast Adverse Reaction (Intermediate, Uncoded 02/18/23 14:43) Abdominal Pain Medication List - Last Reconciled 01/31/23 by JADE Rosen cetirizine (Zyrtec) 10 mg PO DAILY PRN famotidine 40 mg PO DAILY wheat dextrin (Benefiber Healthy Shape) grams PO HPI 4 week follow up HPI Details Assessment & Plan (1) GERD (gastroesophageal reflux diseas e): Code(s): K21.9 - Gastro-esophageal reflux disease without esophagitis Plan: She was taking a shower, and when she dried she noticed that the towel was red. She found it was coming form her rectum. She went to the ER and they did a rectal exam and there was no blood on the glove, but she was told there was a lot of external hemorrhoids. They gave her CIC meds, but no hemorrhoid cream!! They also did I educate her about other ways to prevent hemorrhoids or minimize their affect such as ice packs Sitz baths. She is not CIC she is having she has soft daily stools and no straining. They scared her with talk of cancer but she had a colonoscopy in 2019 with 2 TA's. We will give proctosol and we discuss frozen peas. she never picked up the bentyl, but her tenesmus resolved....this is anxiety mediated from family problems. This is the likely trigger. She continues on famotidine for her GERD and her fiber. ROV4 weeks. (2) Diarrhea: Code(s): R19.7 - Diarrhea, unspecified (3) Bleeding hemorrhoids: Code(s): K64.9 - Unspecified hemorrhoids Medications: New hydrocortisone 2.5 % (Proctosol HC) BE SURE TO INCLU DE RECTAL APPICATO R!! 1 appl [place] BID 30 grams 6RF hemorrho ids K64.9 - Unspecifie d hemorrhoids TODAY'S VISIT She is having increased burping and some nausea, but this seems to be going around in her family. SHe took Pepto Bismol with good results but it caused CIC. She still has her famotidine, so I recommend she take this. She had good resolution with he hemorrhoid with the proctosol cream, but fearful she will get more since she strained a little with the Pepto. She continues on her fiber. She uses pre packaged Benefiber. She complains of gaining weight and does not think she is eating more, but she is not sure. TSH 08/2022 over 2, so may need to watch this. ROV 6 mos. PFS Medical History (Updated 02/18/23 @ 14:44 by Lopez Harry MD) Asthma Contact dermatitis Tubular adenoma of colon Degenerative disc disease, thoracic Cholelithiasis with chronic cholecystitis Glaucoma Depression Helicobacter pylori (H. pylori) Anemia Myocardial infarction GERD (gastroesophageal reflux disease) Surgical History Hx laparoscopic cholecystectomy Status post laparoscopic cholecystectomy Hx of colonoscopy H/O dilation and curettage S/P right knee arthroscopy H/O esophagogastroduodenoscopy History of arthroscopy of right knee History of tubal ligation H/O section History of tonsillectomy Family History Father HTN (hypertension) Prostate cancer Mother HTN (hypertension) Diabetes Hx of CABG Sister Asthma Social History Household Members: Spouse, Significant Other and Other Housing: House Alcohol intake: current Alcohol intake frequency: does not drink Patient Tobacco Use Status: Never used Tobacco e-Cigarette/Vaping Use: Never Used Second Hand Smoke Exposure: No Current occupational status: disabled Cognitive needs: No Hearing needs: No Vision needs: Yes Review of Systems Const Denies fatigue, Denies fever(s), Denies night sweats, Denies poor appetite and Denies weight loss ENT Reports Normal hearing present, Denies dental pain, Denies dysphagia, Denies hearing loss, Denies mouth pain, Denies odynophagia, Denies throat swelling, Denies tongue swelling and Reports other (Dentition adequate) Card Reports no additional complaints Resp Reports no additional complaints GI Denies abdominal pain, Denies melena, Denies bloating, Denies hematochezia, Denies constipation, Denies GI cramping, Denies dysphagia, Denies excessive flatus, Denies early satiety, Reports heartburn, Reports diarrhea, Denies nausea , Denies odynophagia, Denies vomiting and Denies hematemesis Skin/Breast Denies pruritus, Denies lesions, Denies rash and Denies jaundice Neuro Reports Normal hearing present and Denies Abnormal speech present Endo Denies fatigue Aller/Immun Denies throat swelling and Denies tongue swelling Physical Exam Vital Signs: Last Vital Signs Pulse 62 01/31/23 13:32 BP 138/65 01/31/23 13:32 BMI result Body Mass Index 27.8 Const General: cooperative, no acute distress, well developed and well groomed Nutritional Appearance: average body habitus and well nourished Orientation/consciousness: oriented to person, oriented to place and oriented to time Limitations: No language barrier HEENT Head: Yes normocephalic and Yes atraumatic Eyes General: appearance normal, both eyes and all related structures Pupils: Equal, round and reactive pupils present Neck Neck: Yes normal visual inspection and Yes no lymphadenopathy Thyroid: Thyroid normal Resp Effort & Inspection: normal respiratory effort and able to speak in complete sentences Auscultation: clear to auscultation bilaterally Cardio Rate: regular rate Rhythm: regular rhythm Heart sounds: Normal, physiologic split S2 sound present Peripheral pulses: radial pulses present and posterior tibial pulses present GI Inspection: No distended and No Abdominal panniculus present Palpation (GI): Soft to palpation, nontender, no guarding, not rigid and No hepatosplenomegaly present Percussion: Yes normal to percussion Auscultation: normal bowel sounds Rectal Exam - Female: deferred Skin General skin exam: no rashes or lesions noted, turgor normal, skin not dry, no jaundice, No spider nevi and no striae Rashes: no rashes Nails: normal Neuro General: oriented to person, oriented to place and oriented to time Cranial nerves: Yes Equal, round and reactive pupils present and Yes Normal hearing present Speech: No Abnormal speech present Extrem General: Yes normal to inspection, No clubbing, No cyanosis and No edema Psych Appearance: grossly normal and well kempt Mental Status: mental status grossly normal Speech and movement: Normal speech and movement present Affect: normal affect Attitude: cooperative Thought process: Normal thought process present and not confabulating Thought content: Normal thought content present Insight: Limited insight present (Psych) Judgement: Limited judgement present (Psych) Assessment & Plan Assessment & Plan (1) GERD (gastroesophageal reflux disease): Code(s): K21.9 - Gastro-esophageal reflux disease without esophagitis Plan: She is having increased burping and some nausea, but this seems to be going around in her family. SHe took Pepto Bismol with good results but it caused CIC. She still has her famotidine, so I recommend she take this. She had good resolution with he hemorrhoid with the proctosol cream, but fearful she will get more since she strained a little with the Pepto. She continues on her fiber. She uses pre packaged Benefiber. She complains of gaining weight and does not think she is eating more, but she is not sure. TSH 08/2022 over 2, so may need to watch this. ROV 6 mos. (2) Diarrhea: Code(s): R19.7 - Diarrhea, unspecified (3) Bleeding hemorrhoids: Code(s): K64.9 - Unspecified hemorrhoids Orders: Orders H Pylori Breath Test 01/31/23 Medications: New hydrocortisone 2.5% (Proctosol HC) BE SURE TO INCLUDE RECTAL APPICATOR!! 1 appl [place] BID 30 grams 6RF hemorrhoids K64.9 - Unspecified hemorrhoids Coding Level of Care Code Est Pt Level 3 (06572) Diagnoses GERD (gastroesophageal reflux disease) K21.9 Diarrhea R19.7 Bleeding hemorrhoids K64.9
== END 2023-01-31 14:42 | disposition home or self-care (01) ==
PROVIDERS: PCP Internal Medicine; Visit Provider Nurse Practitioner
DX: K21.9 Gastro-esophageal reflux disease without esophagitis (principal); R19.7 Diarrhea, unspecified; K64.9 Unspecified hemorrhoids
CPT/HCPCS: 99213

== ENCOUNTER 2023-01-31 15:36 | Outpatient (REF) | payer OTHER, SELFPAY ==
[2023-02-03 13:43] LABS: H Pylori Breath Test Negative (Negative)
== END 2023-01-31 15:37 | disposition home or self-care (01) ==
LOC: HO.LNP 15:36
PROVIDERS: Visit Provider Nurse Practitioner
DX: Z11.0 Encounter for screening for intestinal infectious diseases (principal)
CPT/HCPCS: 83013

== ENCOUNTER 2023-02-18 12:00 | Outpatient (AMB) | payer OTHER, SELFPAY ==
[2023-02-18 14:03] VITALS: BP 122/74; PULSE 73; O2SAT 96; BMI 27.8
--- NOTE | 2023-02-18 14:03 | MHC.OFFWIV ---
Intake Vital Signs 02/18/23 14:03 Height 5 ft 2 in Weight 152 lb BMI 27.8 BP 122/74 Blood Pressure Location Lt brachial Position Sitting Pulse 73 Pulse Source Pulse Oximeter Pulse Oximetry (%) 96 Oxygen Delivery Method Room Air Intake Visit Reasons: EST/sinus pressure (masked) Intake Note: Pt is here today for a walk in visit. Pt c/o sinus pain and pressure. Pt states that she is on Amoxicillin already but she does not feel like its helping. Patient Tobacco Use Status: Never used Tobacco Allergies morphine [Morphine] Allergy (Intermediate, Verified 02/18/23 14:43) HALLUCINATIONS Sulfa (Sulfonamide Antibiotics) Allergy (Intermediate, Verified 02/18/23 14:43) HIVES shellfish derived Allergy (Mild, Verified 02/18/23 14:43) Stomach Upset Oral Contrast Adverse Reaction (Intermediate, Uncoded 02/18/23 14:43) Abdominal Pain Medication List - Last Reconciled 02/18/23 by Lopez Harry MD amoxicillin 250 mg PO Q8H cetirizine (Zyrtec) 10 mg PO DAILY PRN famotidine 40 mg PO DAILY hydrocortisone 2.5% (Proctosol HC) 1 appl [place] BID wheat dextrin (Benefiber Healthy Shape) grams PO HPI EST/sinus pressure (masked) HPI Details Patient presents for a sick visit. Reporting symptoms of sinus congestion, sore throat and difficulty swallowing. Low-grade fever. No family member is sick. No recent travel. Patient reports symptoms of malaise and fatigue. [facility] Medical History (Updated 02/18/23 @ 14:44 by Lopez Harry MD) Asthma Contact dermatitis Tubular adenoma of colon Degenerative disc disease, thoracic Cholelithiasis with chronic cholecystitis Glaucoma Depression Helicobacter pylori (H. pylori) Anemia Myocardial infarction GERD (gastroesophageal reflux disease) Surgical History Hx laparoscopic cholecystectomy Status post laparoscopic cholecystectomy Hx of colonoscopy H/O dilation and curettage S/P right knee arthroscopy H/O esophagogastroduodenoscopy History of arthroscopy of right knee History of tubal ligation H/O section History of tonsillectomy Family History Father HTN (hypertension) Prostate cancer Mother HTN (hypertension) Diabetes Hx of CABG Sister Asthma Social History Household Members: Spouse, Significant Other and Other Housing: House Alcohol intake: current Alcohol intake frequency: does not drink Patient Tobacco Use Status: Never used Tobacco e-Cigarette/Vaping Use: Never Used Second Hand Smoke Exposure: No Current occupational status: disabled Cognitive needs: No Hearing needs: No Vision needs: Yes Physical Exam Vital Signs: Last Vital Signs Pulse 73 02/18/23 14:03 BP 122/74 02/18/23 14:03 Pulse Ox 96 02/18/23 14:03 Oxygen Delivery Method Room Air 02/18/23 14:03 BMI result Body Mass Index 27.8 Const General: cooperative and healthy appearing Nutritional Appearance: well nourished Orientation/consciousness: patient oriented x3 Limitations: no limitations HEENT Head: Yes normal to inspection Eyes General: appearance normal, both eyes and all related structures Neck Neck: Yes normal visual inspection Chest Chest palpation & inspection: normal palpation of entire chest wall Resp Effort & Inspection: normal respiratory effort Neuro General: patient oriented x3 Assessment & Plan Assessment & Plan (1) Upper respiratory tract infection: Code(s): J06.9 - Acute upper respiratory infection, unspecified Plan: Complete antibiotics started by the primary care provider. Increase fluid intake. If symptoms not better to follow-up here. Coding Level of Care Code Est Pt Level 3 (46560) Diagnoses Upper respiratory tract infection J06.9
== END 2023-02-18 14:47 | disposition home or self-care (01) ==
PROVIDERS: PCP Internal Medicine; Visit Provider Internal Medicine
DX: J06.9 Acute upper respiratory infection, unspecified (principal)
CPT/HCPCS: 99213

== ENCOUNTER 2023-03-08 13:18 | Outpatient (AMB) | payer OTHER, SELFPAY ==
[2023-03-08 13:19] VITALS: BP 116/60; PULSE 70; O2SAT 98; BMI 28.2
--- NOTE | 2023-03-08 13:19 | MHC.PC.OV ---
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 per policy Accompanied by: Self / Same As Patient Allergies morphine [Morphine] Allergy (Intermediate, Verified 03/08/23 13:20) HALLUCINATIONS Sulfa (Sulfonamide Antibiotics) Allergy (Intermediate, Verified 03/08/23 13:20) HIVES shellfish derived Allergy (Mild, Verified 03/08/23 13:20) Stomach Upset Oral Contrast Adverse Reaction (Intermediate, Uncoded 03/08/23 13:20) Abdominal Pain Medication List - Last Reconciled 03/08/23 by Geovany Herron MD wheat dextrin (Benefiber Healthy Shape) grams PO Tobacco use date assessed: 11/05/22 Dental Screening Dental Screen Date: 03/08/23 Did you have a dental visit in the last 12 months?: Yes Did you have a dental problem in the last 6 months where you did not have access to dental care?: No Was dental information given to patient?: Patient has dentist HPI R side face pressure (sinus) HPI Details recurrent right facial pressure and congestion PFSH Medical History Asthma Contact dermatitis Tubular adenoma of colon Degenerative disc disease, thoracic Cholelithiasis with chronic cholecystitis Glaucoma Depression Helicobacter pylori (H. pylori) Anemia Myocardial infarction GERD (gastroesophageal reflux disease) Surgical History Hx laparoscopic cholecystectomy Status post laparoscopic cholecystectomy Hx of colonoscopy H/O dilation and curettage S/P right knee arthroscopy H/O esophagogastroduodenoscopy History of arthroscopy of right knee History of tubal ligation H/O section History of tonsillectomy Family History Father HTN (hypertension) Prostate cancer Mother HTN (hypertension) Diabetes Hx of CABG Sister Asthma Social History Household Members: Spouse, Significant Other and Other Housing: House Alcohol intake: current Alcohol intake frequency: does not drink Patient Tobacco Use Status: Never used Tobacco e-Cigarette/Vaping Use: Never Used Second Hand Smoke Exposure: No Current occupational status: disabled Cognitive needs: No Hearing needs: No Vision needs: Yes Questionnaire PHQ-9 Over the last 2 weeks, how often have you been bothered by any of the following problems? 1. Little interest or pleasure in doing things: not at all 2. Feeling down, depressed, or hopeless: not at all 3. Trouble falling or staying asleep, or sleeping too much: not at all 4. Feeling tired or having little energy: not at all 5. Poor appetite or overeating: not at all 6. Feeling bad about yourself - or that you are a failure or have let yourself or your family down: not at all 7. Trouble concentrating on things, such as reading the newspaper or watching television: not at all 8. Moving or speaking so slowly that other people could have noticed. Or the opposite - being so fidgety or restless that you have been moving around a lot more than usual: not at all 9. Thoughts that you would be better off or of hurting yourself in some way: not at all Total score: 0 Depression Screening Interpretation: Negative Depression Screening Done: Yes 23139 - PHQ-9 Billing: Yes Source: Developed by Drs. Kevin Stevenson, Kulwant Montgomery and colleagues, with an educational reji from [employer]. Thrive Questionnaire Date Thrive assessed: 08/16/22 AUDIT C Alcohol Use Questionnaire (AUDIT-C) 1. How often do you have a drink containing alcohol?: Never 3. How often do you have six or more drinks on one occasion?: Never Total Score: 0 Score Reviewed/Action Taken: Yes JAJA-7 AMB Questionnaire JAJA-7 Date JAJA - 7 assessed: 08/16/22 Source: Developed by Drs. Kevin Stevenson, Kulwant Montgomery and colleagues, with an educational reji from [employer]. Review of Systems Const Denies chills, Denies headache(s) and Denies weight loss ENT Denies headache(s) Card Denies chest pain, Denies syncope, Denies irregular heart rhythm and Denies dyspnea Resp Denies chest congestion, Denies cough and Denies dyspnea GI Denies abdominal pain, Denies change in stool character, Denies nausea and Denies vomiting Musc Denies deformity and Denies joint swelling Neuro Denies syncope and Denies headache(s) Physical exam (Primary Care) Vital Signs: Last Vital Signs Pulse 70 03/08/23 13:19 BP 116/60 03/08/23 13:19 Pulse Ox 98 03/08/23 13:19 Oxygen Delivery Method Room Air 03/08/23 13:19 BMI result Body Mass Index 28.2 Tobacco/Smoking Status: Tobacco use Status Tobacco use date assessed 11/05/22 03/08/23 13:27 Patient Tobacco Use Status Never used Tobacco 03/08/23 13:27 e-Cigarette/Vaping Use Never Used 03/08/23 13:27 PHQ-9: PHQ-9 Score PHQ-9: Total score 0 03/08/23 13:27 Depression Screening Interpretation: Negative Thrive Assessment: Date of Thrive Assessment Date Thrive assessed 08/16/22 03/08/23 13:27 Const General: cooperative, comfortable, no acute distress and alert Neck Neck: Yes no lymphadenopathy Thyroid: Thyroid normal Resp Effort & Inspection: normal respiratory effort Auscultation: clear to auscultation bilaterally Percussion: percussion normal Cardio Jugular venous distension: no JVD Palpation: normal PMI Rate: regular rate Rhythm: regular rhythm Heart sounds: S1 normal heart sound present and S2 normal heart sound present GI Inspection: Yes normal to inspection Palpation (GI): No hepatosplenomegaly present Skin General skin exam: no rashes or lesions noted Extrem General: Yes no clubbing, cyanosis or edema Assessment and Plan Assessment & Plan (1) Sinusitis: Code(s): J32.9 - Chronic sinusitis, unspecified Plan: rx sent Medications: New azithromycin take 500 mg today (day 1), then 250 mg for 4 days (days 2-5) PO 6 tabs 0RF Coding Level of Care Code Est Pt Level 3 (25425) Diagnoses Sinusitis J32.9
== END 2023-03-08 13:39 | disposition home or self-care (01) ==
PROVIDERS: PCP Internal Medicine; Visit Provider Internal Medicine
DX: J32.9 Chronic sinusitis, unspecified (principal)
CPT/HCPCS: 99213

== ENCOUNTER 2023-03-23 12:33 | Outpatient (AMB) | payer OTHER, SELFPAY ==
--- NOTE | 2023-03-23 13:35 | AM.OFFWIN_ITS ---
Intake Vital Signs 03/23/23 13:58 Height 5 ft 2 in Weight 153 lb BMI 28.0 BP 102/58 L Blood Pressure Location Rt brachial Position Sitting Pulse 72 Pulse Source Pulse Oximeter Temp 98.2 F Temp Source Oral Pulse Oximetry (%) 97 Oxygen Delivery Method Room Air Intake Visit Reasons: EP, sinus congestion, headache (masked) Intake Note: Pt is here today c/o sinus congestion and severe headaches Patient Tobacco Use Status: Never used Tobacco Allergies morphine [Morphine] Allergy (Intermediate, Verified 03/23/23 13:35) HALLUCINATIONS Sulfa (Sulfonamide Antibiotics) Allergy (Intermediate, Verified 03/23/23 13:35) HIVES shellfish derived Allergy (Mild, Verified 03/23/23 13:35) Stomach Upset Oral Contrast Adverse Reaction (Intermediate, Uncoded 03/23/23 13:35) Abdominal Pain HPI HPI Comments History of Present Illness Details This is a 62-year-old female with a past medical history of seasonal allergies presenting for evaluation of sinus congestion that she has had over the past 24 hours. Patient states since the beginning of February she has had a course of Augmentin and Azithromycin and recently completed a course of prednisone that was prescribed by her traffic control specialist. The patient states that she has Claritin that she takes daily. Patient reports developing a frontal headache yesterday with right-sided sinus pressure. She denies having any fevers, chills, ear pain, sore throat , cough or shortness of breath. [facility] Medical History Asthma Contact dermatitis Tubular adenoma of colon Degenerative disc disease, thoracic Cholelithiasis with chronic cholecystitis Glaucoma Depression Helicobacter pylori (H. pylori) Anemia Myocardial infarction GERD (gastroesophageal reflux disease) Surgical History Hx laparoscopic cholecystectomy Status post laparoscopic cholecystectomy Hx of colonoscopy H/O dilation and curettage S/P right knee arthroscopy H/O esophagogastroduodenoscopy History of arthroscopy of right knee History of tubal ligation H/O section History of tonsillectomy Family History Father HTN (hypertension) Prostate cancer Mother HTN (hypertension) Diabetes Hx of CABG Sister Asthma Social History Household Members: Spouse, Significant Other and Other Housing: House Alcohol intake: current Alcohol intake frequency: does not drink Patient Tobacco Use Status: Never used Tobacco e-Cigarette/Vaping Use: Never Used Second Hand Smoke Exposure: No Current occupational status: disabled Cognitive needs: No Hearing needs: No Vision needs: Yes Review of Systems Const All systems reviewed & are unremarkable except as noted in HPI and below Denies chills, Denies fatigue and Denies fever(s) Eyes Reports as per HPI and Reports no additional complaints ENT Reports no additional complaints and Reports as per HPI Card Reports no additional complaints Resp Reports no additional complaints Skin/Breast Reports system reviewed and no additional complaints, except as documented Psych Reports no additional complaints Endo Denies fatigue Physical Exam Vital Signs: Last Vital Signs Temp 98.2 F 03/23/23 13:58 Pulse 72 03/23/23 13:58 BP 102/58 L 03/23/23 13:58 Pulse Ox 97 03/23/23 13:58 Oxygen Delivery Method Room Air 03/23/23 13:58 BMI result Body Mass Index 28.0 Const General: cooperative, healthy appearing, comfortable, no acute distress and alert Nutritional Appearance: average body habitus Orientation/consciousness: patient oriented x3 Limitations: no limitations HEENT Head: Yes normal to inspection, Yes normocephalic and Yes atraumatic Ears: hearing grossly normal bilaterally, TM's normal bilaterally, TM normal on the left, EAC's normal and TM abnormal bulging on the right General nose exam: Normal external nose present Face and sinus: Yes sinus tenderness (R >> L) Mouth: Normal oral and palatal mucosa present Teeth and gingiva: dentition normal Throat: Yes postnasal drainage Eyes Conjunctivae: conjunctivae normal Sclerae: sclerae normal Pupils: Equal, round and reactive pupils present EOM: EOMs intact bilaterally Neck Lymphatic: no lymphadenopathy noted Resp Effort & Inspection: normal respiratory effort and not tachypneic Auscultation: clear to auscultation bilaterally Cardio Rate: regular rate Rhythm: regular rhythm Neuro General: patient oriented x3 Cranial nerves: Yes Equal, round and reactive pupils present Psych Appearance: grossly normal Mental Status: mental status grossly normal Insight: Good insight present (Psych) Judgement: Good judgement present (Psych) Assessment & Plan Assessment & Plan (1) Allergic sinusitis: Code(s): J30.9 - Allergic rhinitis, unspecified Plan: Patient will continue taking her Claritin daily and start using Flonase once daily for the next 30 days. Patient will follow-up with her traffic control specialist as she has CT imaging of her sinuses pending at this time. Medications: New fluticasone propionate 50 mcg/actuation administer into each nostril 1 spray intranasal DAILY 16 grams 1RF fluticasone propionate 50 mcg/actuation administer into each nostril 1 spray intranasal DAILY 16 grams 1RF Coding Level of Care Code Est Pt Level 3 (17920) Diagnoses Allergic sinusitis J30.9 Time Spent (min) 25
[2023-03-23 13:58] VITALS: BP 102/58; PULSE 72; TEMP 36.8; O2SAT 97; BMI 28.0
== END 2023-03-23 14:40 | disposition home or self-care (01) ==
PROVIDERS: PCP Internal Medicine; Visit Provider Physician Assistant
DX: J30.9 Allergic rhinitis, unspecified (principal)
CPT/HCPCS: 99213

== ENCOUNTER 2023-04-23 09:40 | Outpatient (AMB) | payer OTHER, SELFPAY ==
[2023-04-23 09:42] VITALS: BP 102/60; PULSE 65; O2SAT 97; BMI 28.0
--- NOTE | 2023-04-23 09:42 | A.OFFPC_ITS ---
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: Not Required per policy Accompanied by: Self / Same As Patient Allergies morphine [Morphine] Allergy (Intermediate, Verified 04/23/23 09:43) HALLUCINATIONS Sulfa (Sulfonamide Antibiotics) Allergy (Intermediate, Verified 04/23/23 09:43) HIVES shellfish derived Allergy (Mild, Verified 04/23/23 09:43) Stomach Upset Oral Contrast Adverse Reaction (Intermediate, Uncoded 04/23/23 09:43) Abdominal Pain Medication List - Last Reconciled 04/23/23 by Geovany Herron MD fluticasone propionate 50 mcg/actuation 1 spray intranasal DAILY wheat dextrin (Benefiber Healthy Shape) grams PO Tobacco use date assessed: 11/05/22 Dental Screening Dental Screen Date: 04/23/23 Did you have a dental visit in the last 12 months?: Yes Did you have a dental problem in the last 6 months where you did not have access to dental care?: No Was dental information given to patient?: Patient has dentist HPI Possible Neck Arthritis HPI Details pain in neck for a month PFSH Medical History Asthma Contact dermatitis Tubular adenoma of colon Degenerative disc disease, thoracic Cholelithiasis with chronic cholecystitis Glaucoma Depression Helicobacter pylori (H. pylori) Anemia Myocardial infarction GERD (gastroesophageal reflux disease) Surgical History Hx laparoscopic cholecystectomy Status post laparoscopic cholecystectomy Hx of colonoscopy H/O dilation and curettage S/P right knee arthroscopy H/O esophagogastroduodenoscopy History of arthroscopy of right knee History of tubal ligation H/O section History of tonsillectomy Family History Father HTN (hypertension) Prostate cancer Mother HTN (hypertension) Diabetes Hx of CABG Sister Asthma Social History Household Members: Spouse, Significant Other and Other Housing: House Alcohol intake: current Alcohol intake frequency: does not drink Patient Tobacco Use Status: Never used Tobacco e-Cigarette/Vaping Use: Never Used Second Hand Smoke Exposure: No Current occupational status: disabled Cognitive needs: No Hearing needs: No Vision needs: Yes Questionnaire Thrive Questionnaire Date Thrive assessed: 08/16/22 JAJA-7 AMB Questionnaire JAJA-7 Date JAJA - 7 assessed: 08/16/22 Source: Developed by Drs. Kevin Stevenson, Nita Gutierrez, Kulwant Flores and colleagues, with an educational reji from [employer]. Review of Systems Const Denies chills, Denies headache(s) and Denies weight loss ENT Denies headache(s) Card Denies chest pain, Denies syncope, Denies irregular heart rhythm and Denies dyspnea Resp Denies chest congestion, Denies cough and Denies dyspnea GI Denies abdominal pain, Denies change in stool character, Denies nausea and Denies vomiting Musc Denies deformity and Denies joint swelling Neuro Denies syncope and Denies headache(s) Physical exam (Primary Care) Vital Signs: Last Vital Signs Pulse 65 04/23/23 09:42 BP 102/60 04/23/23 09:42 Pulse Ox 97 04/23/23 09:42 Oxygen Delivery Method Room Air 04/23/23 09:42 BMI result Body Mass Index 28.0 Tobacco/Smoking Status: Tobacco use Status Tobacco use date assessed 11/05/22 04/23/23 09:43 Patient Tobacco Use Status Never used Tobacco 04/23/23 09:43 e-Cigarette/Vaping Use Never Used 04/23/23 09:43 Thrive Assessment: Date of Thrive Assessment Date Thrive assessed 08/16/22 04/23/23 09:43 Const General: cooperative, comfortable, no acute distress and alert Neck Neck: Yes no lymphadenopathy Thyroid: Thyroid normal Resp Effort & Inspection: normal respiratory effort Auscultation: clear to auscultation bilaterally Percussion: percussion normal Cardio Jugular venous distension: no JVD Palpation: normal PMI Rate: regular rate Rhythm: regular rhythm Heart sounds: S1 normal heart sound present and S2 normal heart sound present GI Inspection: Yes normal to inspection Palpation (GI): No hepatosplenomegaly present Skin General skin exam: no rashes or lesions noted Extrem General: Yes no clubbing, cyanosis or edema Assessment and Plan Assessment & Plan (1) Neck pain: Code(s): M54.2 - Cervicalgia Plan: xr Orders: Orders XR cervical spine 2V Today M54.2 - Cervicalgia Coding Level of Care Code Est Pt Level 3 (31263) Diagnoses Neck pain M54.2
== END 2023-04-23 09:57 | disposition home or self-care (01) ==
PROVIDERS: PCP Internal Medicine; Visit Provider Internal Medicine
DX: M54.2 Cervicalgia (principal)
CPT/HCPCS: 99213

== ENCOUNTER 2023-04-24 06:34 | Outpatient (REF) | payer OTHER, SELFPAY ==
--- NOTE | ~2023-04-24 | XR_ITS ---
EXAMINATION: XR CERVICAL SPINE CLINICAL INFORMATION: Cervicalgia COMPARISON: None available. TECHNIQUE: 4 views of the cervical spine were obtained. FINDINGS: There is no fracture. Prevertebral soft tissues are within normal limits. The height of the vertebral bodies is well-maintained. There is mild disc space narrowing at C3-C4 and C5-C6. There is straightening of the usual cervical lordosis which can be seen with muscle spasm or be due to patient positioning. There is mild retrolisthesis of C5 respect to C6. XR/XR cervical spine 2V IMPRESSION: 1. Degenerative disc disease at C3-C4 and C5-C6. 2. Straightening of the usual cervical lordosis which can be seen with muscle spasm or be due to patient positioning.
== END 2023-04-24 06:35 | disposition home or self-care (01) ==
LOC: HO.XRAY 06:34
PROVIDERS: PCP Internal Medicine; Visit Provider Internal Medicine
DX: M54.2 Cervicalgia (principal)
CPT/HCPCS: 72040

== ENCOUNTER 2023-06-15 13:09 | Outpatient (AMB) | payer OTHER, SELFPAY ==
--- NOTE | 2023-06-15 13:28 | MHC.OFFWIV ---
Intake Vital Signs 06/15/23 13:29 Height 5 ft 2 in BP 102/62 Blood Pressure Location Rt brachial Position Sitting Pulse 66 Pulse Source Pulse Oximeter Temp 98.5 F Temp Source Oral Pulse Oximetry (%) 97 Intake Visit Reasons: EP neck pain and lump Intake Note: pt is here for c.o neck pain and noticed a lump with pain Patient Tobacco Use Status: Never used Tobacco Allergies morphine [Morphine] Allergy (Intermediate, Verified 06/15/23 13:29) HALLUCINATIONS Sulfa (Sulfonamide Antibiotics) Allergy (Intermediate, Verified 06/15/23 13:29) HIVES shellfish derived Allergy (Mild, Verified 06/15/23 13:29) Stomach Upset Oral Contrast Adverse Reaction (Intermediate, Uncoded 04/23/23 09:43) Abdominal Pain Do you need a note to return to daycare/school/sports/work: No HPI HPI Comments History of Present Illness Details This is a 62-year-old female who presented to the walk-in clinic complaining of a sore throat as well as a painful ?lump? neck. She states she suffers from chronic sinusitis and chronic sinus/nasal congestion. She started to develop a mildly sore/irritated yesterday. She then noticed a ?lump? on her neck, which was painful to touch. She denies any fever/chills. She reports odynophagia but she denies any dysphagia. She denies any throat swelling. [facility] Medical History Asthma Contact dermatitis Tubular adenoma of colon Degenerative disc disease, thoracic Cholelithiasis with chronic cholecystitis Glaucoma Depression Helicobacter pylori (H. pylori) Anemia Myocardial infarction GERD (gastroesophageal reflux disease) Surgical History Hx laparoscopic cholecystectomy Status post laparoscopic cholecystectomy Hx of colonoscopy H/O dilation and curettage S/P right knee arthroscopy H/O esophagogastroduodenoscopy History of arthroscopy of right knee History of tubal ligation H/O section History of tonsillectomy Family History Father HTN (hypertension) Prostate cancer Mother HTN (hypertension) Diabetes Hx of CABG Sister Asthma Social History (Reviewed 04/23/23 @ 09:43 by SCOTTIE Branham Household Members: Spouse, Significant Other and Other Housing: House Alcohol intake: current Alcohol intake frequency: does not drink Patient Tobacco Use Status: Never used Tobacco e-Cigarette/Vaping Use: Never Used Second Hand Smoke Exposure: No Current occupational status: disabled Cognitive needs: No Hearing needs: No Vision needs: Yes Review of Systems Const All systems reviewed & are unremarkable except as noted in HPI and below Reports no additional complaints Eyes Reports no additional complaints ENT Reports no additional complaints Card Reports no additional complaints Resp Reports no additional complaints GI Reports no additional complaints Reports no additional complaints Musc Reports no additional complaints Skin/Breast Reports system reviewed and no additional complaints, except as documented Neuro Reports no additional complaints Psych Reports no additional complaints Endo Reports no additional complaints Paolo/Lymph Reports no additional complaints Aller/Immun Reports no additional complaints Physical Exam Vital Signs: Last Vital Signs Temp 98.5 F 06/15/23 13:29 Pulse 66 06/15/23 13:29 BP 102/62 06/15/23 13:29 Pulse Ox 97 06/15/23 13:29 Const Other: Vital signs reviewed. Constitutional: Non-toxic appearing. No acute distress. Well-developed and well-nourished. HEENT: Normocephalic and atraumatic. Moist mucous membranes. There is posterior pharyngeal erythema without exudates or edema. + Post-nasal drip seen. Skin: Warm and dry. No rashes or lesions noted. Neck: Full and painless range of motion. There is an isolated swollen submental lymph node with mild tenderness to palpation. Cardio: Regular rate. No lower extremity edema. No JVD. Pulmonary: No respiratory distress. No accessory muscle usage. Clear to auscultation bilaterally without wheezing, crackles, or rhonchi. Gastrointestinal: Soft, nontender, and nondistended in all 4 quadrants. Musculoskeletal: Normal range of motion in joints throughout the body. No deformity or other signs of injury. Neuro: Alert and oriented x4. Cranial nerves 2-12 grossly intact. No focal deficits appreciated. Psych: Normal mood and affect. Assessment & Plan Assessment & Plan (1) Acute viral pharyngitis: Code(s): J02.9 - Acute pharyngitis, unspecified (2) Submental lymphadenopathy: Code(s): R59.0 - Localized enlarged lymph nodes Plan This is a 62-year-old female who presented to the walk-in clinic complaining of a sore throat as well as a painful ?lump on her neck. On physical examination, the patient has posterior pharyngeal erythema with postnasal drip as well as an isolated swollen submental node. History and physical most consistent with acute pharyngitis, likely viral as well as reactive submental lymphadenopathy. Rapid strep test is negative. There is no evidence of peritonsillar mass/abscess, peritonsillar cellulitis, or, unilateral neck swelling. Patient's vital signs are stable, physical exam is otherwise benign, and patient is overall nontoxic appearing. Recommended symptomatic management including rest, increased fluids, advil/tylenol for pain/fever, salt water gargles, and over the counter throat lozenges. Patient advised to follow up here or go to the emergency room for worsening/persistent symptoms. Patient verbalizes understanding and is in agreement the plan. Patient was advised to follow-up with her primary care physician if lymphadenopathy persists despite treatment/resolution of pharyngitis. Coding Level of Care Code Est Pt Level 3 (69786) Diagnoses Acute viral pharyngitis J02.9 Submental lymphadenopathy R59.0
[2023-06-15 13:29] VITALS: BP 102/62; PULSE 66; TEMP 36.9; O2SAT 97
== END 2023-06-15 14:13 | disposition home or self-care (01) ==
PROVIDERS: PCP Internal Medicine; Visit Provider Physician Assistant Medical
DX: J02.9 Acute pharyngitis, unspecified (principal); R59.0 Localized enlarged lymph nodes
CPT/HCPCS: 87880; 99213

== ENCOUNTER 2023-06-20 11:31 | Outpatient (AMB) | payer OTHER, SELFPAY ==
[2023-06-20 11:37] VITALS: BP 112/80; PULSE 69; O2SAT 98; BMI 29.0
--- NOTE | 2023-06-20 11:37 | MHC.PC.OV ---
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 Required: No Accompanied by: Self / Same As Patient Allergies morphine [Morphine] Allergy (Intermediate, Verified 06/20/23 11:38) HALLUCINATIONS Sulfa (Sulfonamide Antibiotics) Allergy (Intermediate, Verified 06/20/23 11:38) HIVES shellfish derived Allergy (Mild, Verified 06/20/23 11:38) Stomach Upset Oral Contrast Adverse Reaction (Intermediate, Uncoded 06/20/23 11:38) Abdominal Pain Medication List - Last Reconciled 06/20/23 by Geovany Herron MD fluticasone propionate 50 mcg/actuation 1 spray intranasal DAILY ibuprofen 800 mg PO Q8H 10 days triamcinolone acetonide 0.5% 1 appl topical TID wheat dextrin (Benefiber Healthy Shape) grams PO Tobacco use date assessed: 06/20/23 Dental Screening Dental Screen Date: 06/20/23 Did you have a dental visit in the last 12 months?: Yes Did you have a dental problem in the last 6 months where you did not have access to dental care?: No Was dental information given to patient?: Patient has dentist HPI Right Knee Pain F/U HPI Details continuing right knee pain; has had surgery in the past PFSH Medical History Asthma Contact dermatitis Tubular adenoma of colon Degenerative disc disease, thoracic Cholelithiasis with chronic cholecystitis Glaucoma Depression Helicobacter pylori (H. pylori) Anemia Myocardial infarction GERD (gastroesophageal reflux disease) Surgical History Hx laparoscopic cholecystectomy Status post laparoscopic cholecystectomy Hx of colonoscopy H/O dilation and curettage S/P right knee arthroscopy H/O esophagogastroduodenoscopy History of arthroscopy of right knee History of tubal ligation H/O section History of tonsillectomy Family History Father HTN (hypertension) Prostate cancer Mother HTN (hypertension) Diabetes Hx of CABG Sister Asthma Social History Household Members: Spouse, Significant Other and Other Housing: House Alcohol intake: current Alcohol intake frequency: does not drink Patient Tobacco Use Status: Never used Tobacco e-Cigarette/Vaping Use: Never Used Second Hand Smoke Exposure: No service: No Current occupational status: disabled Current occupational exposures/hazards: No Cognitive needs: No Hearing needs: No Vision needs: Yes Questionnaire PHQ-9 Over the last 2 weeks, how often have you been bothered by any of the following problems? 1. Little interest or pleasure in doing things: not at all 2. Feeling down, depressed, or hopeless: not at all 3. Trouble falling or staying asleep, or sleeping too much: not at all 4. Feeling tired or having little energy: not at all 5. Poor appetite or overeating: not at all 6. Feeling bad about yourself - or that you are a failure or have let yourself or your family down: not at all 7. Trouble concentrating on things, such as reading the newspaper or watching television: not at all 8. Moving or speaking so slowly that other people could have noticed. Or the opposite - being so fidgety or restless that you have been moving around a lot more than usual: not at all 9. Thoughts that you would be better off or of hurting yourself in some way: not at all Total score: 0 Depression Screening Interpretation: Negative Depression Screening Done: Yes 80881 - PHQ-9 Billing: Yes Source: Developed by Drs. Kevin Stevenson, Nita Gutierrez, Kulwant Flores and colleagues, with an educational reji from [employer]. Thrive Questionnaire Date Thrive assessed: 06/20/23 I am a: Patient What is your living situation today?: I have a steady place to live Within the past 12 months, did the food you bought not last and you didn't have the money to get more?: Never true Within the past 12 months, did you worry whether your food would run out before you got money to buy more?: Never true Do you have trouble paying for medicines?: No Do you have trouble getting transportation to medical appointments?: No Do you have trouble paying your heating and electricity bill?: No Do you have trouble taking care of your child, family member or friend?: No Do you have trouble with day-to-day activities such as bathing, preparing meals, shopping, managing finances, etc.?: No Are you currently unemployed and looking for a job?: No Are you interested in more education?: No Please select the resources that you would like help with: None Currently or been in a relationship where the following occur: no concerns reported THRIVE Score: 0 AUDIT C Alcohol Use Questionnaire (AUDIT-C) 1. How often do you have a drink containing alcohol?: Never 3. How often do you have six or more drinks on one occasion?: Never Total Score: 0 Score Reviewed/Action Taken: Yes JAJA-7 AMB Questionnaire JAJA-7 Date JAJA - 7 assessed: 06/20/23 Feeling nervous, anxious, or on edge: 0 = Not at all Not being able to stop or control worryin = Not at all Worrying too much about different things: 0 = Not at all Trouble relaxin = Not at all Being so restless that it is hard to sit still: 0 = Not at all Becoming easily annoyed or irritable: 0 = Not at all Feeling afraid as if something awful might happen: 0 = Not at all Total JAJA-7 score (0-4 normal; 5-9 mild; 10-14 moderate; 15-21 severe): 0 Source: Developed by Drs. Kevin Stevenson, Nita Gutierrez, Kulwant Flores and colleagues, with an educational reij from [employer]. Review of Systems Const Denies chills, Denies headache(s) and Denies weight loss ENT Denies headache(s) Card Denies chest pain, Denies syncope, Denies irregular heart rhythm and Denies dyspnea Resp Denies chest congestion, Denies cough and Denies dyspnea GI Denies abdominal pain, Denies change in stool character, Denies nausea and Denies vomiting Musc Denies deformity and Denies joint swelling Neuro Denies syncope and Denies headache(s) Physical exam (Primary Care) Vital Signs: Last Vital Signs Pulse 69 06/20/23 11:37 BP 112/80 06/20/23 11:37 Pulse Ox 98 06/20/23 11:37 Oxygen Delivery Method Room Air 06/20/23 11:37 BMI result Body Mass Index 29.0 Tobacco/Smoking Status: Tobacco use Status Tobacco use date assessed 06/20/23 06/20/23 11:39 Patient Tobacco Use Status Never used Tobacco 06/20/23 11:39 e-Cigarette/Vaping Use Never Used 06/20/23 11:39 PHQ-9: PHQ-9 Score PHQ-9: Total score 0 06/20/23 11:45 Depression Screening Interpretation: Negative Thrive Assessment: Date of Thrive Assessment Date Thrive assessed 06/20/23 06/20/23 11:39 Currently or been in a relationship where the following occur: no concerns reported Const General: cooperative, comfortable, no acute distress and alert Neck Neck: Yes no lymphadenopathy Thyroid: Thyroid normal Resp Effort & Inspection: normal respiratory effort Auscultation: clear to auscultation bilaterally Percussion: percussion normal Cardio Jugular venous distension: no JVD Palpation: normal PMI Rate: regular rate Rhythm: regular rhythm Heart sounds: S1 normal heart sound present and S2 normal heart sound present GI Inspection: Yes normal to inspection Palpation (GI): No hepatosplenomegaly present Skin General skin exam: no rashes or lesions noted Extrem General: Yes no clubbing, cyanosis or edema Assessment and Plan Assessment & Plan (1) Knee pain: Code(s): M25.569 - Pain in unspecified knee Plan: xr and referral Orders: Orders XR knee RT 2V Today M25.569 - Pain in unspecified knee Referrals Orthopedics Referral M25.569 - Pain in unspecified knee Medications: New triamcinolone acetonide 0.5% 1 appl topical TID 15 grams 3RF Coding Level of Care Code Est Pt Level 3 (77911) Diagnoses Knee pain M25.569
== END 2023-06-20 12:05 | disposition home or self-care (01) ==
PROVIDERS: PCP Internal Medicine; Visit Provider Internal Medicine
DX: M25.569 Pain in unspecified knee (principal)
CPT/HCPCS: 99213

== ENCOUNTER 2023-06-20 12:10 | Outpatient (REF) | payer OTHER, SELFPAY ==
--- NOTE | ~2023-06-20 | XR_ITS ---
EXAMINATION: XR KNEE, RIGHT CLINICAL INFORMATION: Pain. COMPARISON: Right knee radiographs dated 05/22/2019. TECHNIQUE: AP and lateral views of the right knee. FINDINGS: Bony alignment and mineralization are normal. The lateral, medial and patellofemoral joint space compartment are well-maintained. No fracture, dislocation or significant joint effusion is seen. There is a tiny enthesophyte arising from the upper patella at the quadriceps tendon insertion. No foreign body is seen. There are femoral atherosclerotic calcifications. XR/XR knee RT 2V IMPRESSION: Unremarkable right knee.
== END 2023-06-20 12:11 | disposition home or self-care (01) ==
LOC: HO.XRAY 12:10
PROVIDERS: PCP Internal Medicine; Visit Provider Internal Medicine
DX: M25.561 Pain in right knee (principal)
CPT/HCPCS: 73560

== ENCOUNTER 2023-07-09 12:51 | Outpatient (AMB) | payer OTHER, SELFPAY ==
--- NOTE | 2023-07-09 12:53 | MHC.OFFVIS ---
Intake Vital Signs 07/09/23 12:59 Height 5 ft 2 in Weight 158 lb 11.725 oz BMI 29.0 BP 131/69 Blood Pressure Location Lt brachial Position Sitting Pulse 66 Intake Visit Reasons: 4 month follow up Intake Note: Patient presents to in office visit today in follow up of GERD. CC:Patient c/o mid back pain for the last 4 days. Denies other GI symptoms. Solvent Station Attendant Required: No Accompanied by: Self / Same As Patient Allergies morphine [Morphine] Allergy (Intermediate, Verified 07/09/23 13:11) HALLUCINATIONS Sulfa (Sulfonamide Antibiotics) Allergy (Intermediate, Verified 07/09/23 13:11) HIVES shellfish derived Allergy (Mild, Verified 07/09/23 13:11) Stomach Upset Oral Contrast Adverse Reaction (Intermediate, Uncoded 06/20/23 11:38) Abdominal Pain HPI 4 month follow up HPI Details Assessment & Plan (1) GERD (gastroesophageal reflux disease): Code(s): K21.9 - Gastro-esophageal reflux disease without esophagitis Plan: She is having increased burping and some nausea, but this seems to be going around in her family. She took Pepto Bismol with good results but it caused CIC. She still has her famotidine, so I recommend she take this. She had good resolution with he hemorrhoid with the proctosol cream, but fearful she will get more since she strained a little with the Pepto. She continues on her fiber. She uses pre packaged Benefiber. She complains of gaining weight and does not think she is eating more, but she is not sure. TSH 08/2022 over 2, so may need to watch this. ROV 6 mos. (2) Diarrhea: Code(s): R19.7 - Diarrhea, unspecified (3) Bleeding hemorrhoids: Code(s): K64.9 - Unspecified hemorrhoids Orders: Orders H Pylori Breath Te st 01/31/23 Medications: New hydrocortisone 2.5 % (Proctosol HC) BE SURE TO INCLU DE RECTAL APPICATO R!! 1 appl TX BID 30 g molly 6RF hemorrhoi ds K64.9 - Unspecifie d hemorrhoids LABS: Laboratory Tests 01/31/23 14:20 H. pylori Breath T est Negative TODAY'S VISIT Her back hurts her today, she has OA/DJD. Her GERD has calmed down, so she stopped using the famotidine except prn, same with her benefiber. She was recently tx'ed for BV. She has some fear that she may have renal stones causing her back ache. She has been taking motrin that helped her, but just a little bit. ROV 6 mos. PFSH Medical History Asthma Contact dermatitis Tubular adenoma of colon Degenerative disc disease, thoracic Cholelithiasis with chronic cholecystitis Glaucoma Depression Helicobacter pylori (H. pylori) Anemia Myocardial infarction GERD (gastroesophageal reflux disease) Surgical History Hx laparoscopic cholecystectomy Status post laparoscopic cholecystectomy Hx of colonoscopy H/O dilation and curettage S/P right knee arthroscopy H/O esophagogastroduodenoscopy History of arthroscopy of right knee History of tubal ligation H/O section History of tonsillectomy Family History Father HTN (hypertension) Prostate cancer Mother HTN (hypertension) Diabetes Hx of CABG Sister Asthma Social History Household Members: Spouse, Significant Other and Other Housing: House Alcohol intake: current Alcohol intake frequency: does not drink Patient Tobacco Use Status: Never used Tobacco e-Cigarette/Vaping Use: Never Used Second Hand Smoke Exposure: No service: No Current occupational status: disabled Current occupational exposures/hazards: No Cognitive needs: No Hearing needs: No Vision needs: Yes Review of Systems Const Denies fatigue, Denies fever(s), Denies night sweats, Denies poor appetite and Denies weight loss ENT Reports Normal hearing present, Denies dental pain, Denies dysphagia, Denies hearing loss, Denies mouth pain, Denies odynophagia, Denies throat swelling, Denies tongue swelling and Reports other (Dentition adequate) Card Reports no additional complaints Resp Reports no additional complaints GI Details: Denies abdominal pain, Denies melena, Denies bloating, Denies hematochezia, Reports constipation, Denies GI cramping, Denies dysphagia, Denies excessive flatus, Denies early satiety, Reports heartburn, Denies diarrhea, Denies nausea, Denies odynophagia, Denies vomiting and Denies hematemesis Reports vaginal discharge and Reports vaginal odor Musc Reports back pain Skin/Breast Denies pruritus, Denies lesions, Denies rash and Denies jaundice Neuro Reports Normal hearing present and Denies Abnormal speech present Endo Denies fatigue Aller/Immun Denies throat swelling and Denies tongue swelling Physical Exam Vital Signs: Last Vital Signs Pulse 66 07/09/23 12:59 BP 131/69 07/09/23 12:59 BMI result Body Mass Index 29.0 Const General: cooperative, no acute distress, well developed and well groomed Nutritional Appearance: well nourished and overweight Orientation/consciousness: oriented to person, oriented to place and oriented to time Limitations: No language barrier HEENT Head: Yes normocephalic and Yes atraumatic Eyes General: appearance normal, both eyes and all related structures Pupils: Equal, round and reactive pupils present Neck Neck: Yes normal visual inspection and Yes no lymphadenopathy Thyroid: Thyroid normal Resp Effort & Inspection: normal respiratory effort and able to speak in complete sentences Auscultation: clear to auscultation bilaterally Cardio Rate: regular rate Rhythm: regular rhythm Heart sounds: Normal, physiologic split S2 sound present Peripheral pulses: radial pulses present and posterior tibial pulses present GI Inspection: No distended and No Abdominal panniculus present Palpation (GI): Soft to palpation, nontender, no guarding, not rigid and No hepatosplenomegaly present Percussion: Yes normal to percussion Auscultation: normal bowel sounds Rectal Exam - Female: deferred Skin General skin exam: no rashes or lesions noted, turgor normal, skin not dry, no jaundice, No spider nevi and no striae Rashes: no rashes Nails: normal Neuro General: oriented to person, oriented to place and oriented to time Cranial nerves: Yes Equal, round and reactive pupils present and Yes Normal hearing present Speech: No Abnormal speech present Extrem General: Yes normal to inspection, No clubbing, No cyanosis and No edema Psych Appearance: grossly normal and well kempt Mental Status: mental status grossly normal Speech and movement: Normal speech and movement present Affect: normal affect Attitude: cooperative Thought process: Normal thought process present and not confabulating Thought content: Normal thought content present Insight: Fair insight present (Psych) Judgement: Fair judgement present (Psych) Results Reviewed Results Reviewed: Laboratory Tests 01/31/23 14:20 H. pylori Breath Test Negative Assessment & Plan Assessment & Plan (1) GERD (gastroesophageal reflux disease): Code(s): K21.9 - Gastro-esophageal reflux disease without esophagitis (2) Abdominal bloating: Code(s): R14.0 - Abdominal distension (gaseous) (3) Diarrhea: Code(s): R19.7 - Diarrhea, unspecified (4) Bleeding hemorrhoids: Code(s): K64.9 - Unspecified hemorrhoids Plan Her back hurts her today, she has OA/DJD. Her GERD has calmed down, so she stopped using the famotidine except prn, same with her benefiber. She was recently tx'ed for BV. She has some fear that she may have renal stones causing her back ache. She has been taking motrin that helped her, but just a little bit. ROV 6 mos. Coding Level of Care Code Est Pt Level 3 (70877) Diagnoses GERD (gastroesophageal reflux disease) K21.9 Abdominal bloating R14.0 Diarrhea R19.7 Bleeding hemorrhoids K64.9
[2023-07-09 12:59] VITALS: BP 131/69; PULSE 66; BMI 29.0
== END 2023-07-09 13:31 | disposition home or self-care (01) ==
PROVIDERS: PCP Internal Medicine; Visit Provider Nurse Practitioner
DX: K21.9 Gastro-esophageal reflux disease without esophagitis (principal); R14.0 Abdominal distension (gaseous); R19.7 Diarrhea, unspecified; K64.9 Unspecified hemorrhoids
CPT/HCPCS: 99213

== ENCOUNTER → 2023-07-09 12:51 | Outpatient (BNVA) | payer OTHER, SELFPAY | PROVIDERS: PCP Internal Medicine; Visit Provider Nurse Practitioner | DX: K21.9 Gastro-esophageal reflux disease without esophagitis (principal); K64.9 Unspecified hemorrhoids; R14.0 Abdominal distension (gaseous); R19.7 Diarrhea, unspecified | CPT/HCPCS: 99212 ==

== ENCOUNTER 2023-07-22 13:50 | Outpatient (AMB) | payer OTHER, SELFPAY ==
[2023-07-22 13:56] VITALS: BP 110/70; PULSE 70; O2SAT 97; BMI 28.9
--- NOTE | 2023-07-22 13:56 | A.OFFPC_ITS ---
Vital Signs 07/22/23 13:56 Height 5 ft 2 in Weight 158 lb BMI 28.9 BP 110/70 Blood Pressure Location Lt brachial Position Sitting Pulse 70 Pulse Source Pulse Oximeter Pulse Oximetry (%) 97 Oxygen Delivery Method Room Air Intake Visit Reasons: on going back pain Child Development Professor Required: No Distribution Supervisor: Not Required per policy Accompanied by: Self / Same As Patient Allergies morphine [Morphine] Allergy (Intermediate, Verified 07/22/23 13:56) HALLUCINATIONS Sulfa (Sulfonamide Antibiotics) Allergy (Intermediate, Verified 07/22/23 13:56) HIVES shellfish derived Allergy (Mild, Verified 07/22/23 13:56) Stomach Upset Oral Contrast Adverse Reaction (Intermediate, Uncoded 07/22/23 13:56) Abdominal Pain Medication List - Last Reconciled 07/23/23 by Geovany Herron MD cyclobenzaprine 10 mg PO TID PRN fluticasone propionate 50 mcg/actuation 1 spray intranasal DAILY ibuprofen 800 mg PO Q8H PRN loratadine (Claritin) 10 mg PO DAILY triamcinolone acetonide 0.5% 1 appl topical TID wheat dextrin (Benefiber Healthy Shape) grams PO Tobacco use date assessed: 06/20/23 Dental Screening Dental Screen Date: 07/22/23 Did you have a dental visit in the last 12 months?: Yes Did you have a dental problem in the last 6 months where you did not have access to dental care?: No Was dental information given to patient?: Patient has dentist HPI on going back pain HPI Details left sided sciatica for 3 days PFSH Medical History Asthma Contact dermatitis Tubular adenoma of colon Degenerative disc disease, thoracic Cholelithiasis with chronic cholecystitis Glaucoma Depression Helicobacter pylori (H. pylori) Anemia Myocardial infarction GERD (gastroesophageal reflux disease) Surgical History Hx laparoscopic cholecystectomy Status post laparoscopic cholecystectomy Hx of colonoscopy H/O dilation and curettage S/P right knee arthroscopy H/O esophagogastroduodenoscopy History of arthroscopy of right knee History of tubal ligation H/O section History of tonsillectomy Family History (Updated 07/22/23 @ 13:57 by Kayani Khoury, RMA) Father HTN (hypertension) Prostate cancer Mother HTN (hypertension) Diabetes Hx of CABG Sister Asthma Social History Household Members: Spouse, Significant Other and Other Housing: House Alcohol intake: current Alcohol intake frequency: does not drink Patient Tobacco Use Status: Never used Tobacco e-Cigarette/Vaping Use: Never Used Second Hand Smoke Exposure: No service: No Current occupational status: disabled Current occupational exposures/hazards: No Cognitive needs: No Hearing needs: No Vision needs: Yes Questionnaire Thrive Questionnaire Date Thrive assessed: 06/20/23 JAJA-7 AMB Questionnaire JAJA-7 Date JAJA - 7 assessed: 06/20/23 Source: Developed by Drs. Kevin Stevenson, Nita Gutierrez, Kulwant Flores and colleagues, with an educational reji from [employer]. Review of Systems Const Denies chills, Denies headache(s) and Denies weight loss ENT Denies headache(s) Card Denies chest pain, Denies syncope, Denies irregular heart rhythm and Denies dyspnea Resp Denies chest congestion, Denies cough and Denies dyspnea GI Denies abdominal pain, Denies change in stool character, Denies nausea and Denies vomiting Musc Denies deformity and Denies joint swelling Neuro Denies syncope and Denies headache(s) Physical exam (Primary Care) Vital Signs: Last Vital Signs Pulse 70 07/22/23 13:56 BP 110/70 07/22/23 13:56 Pulse Ox 97 07/22/23 13:56 Oxygen Delivery Method Room Air 07/22/23 13:56 BMI result Body Mass Index 28.9 Tobacco/Smoking Status: Tobacco use Status Tobacco use date assessed 06/20/23 07/22/23 13:59 Patient Tobacco Use Status Never used Tobacco 07/22/23 13:59 e-Cigarette/Vaping Use Never Used 07/22/23 13:59 Thrive Assessment: Date of Thrive Assessment Date Thrive assessed 06/20/23 07/22/23 13:59 Const General: cooperative, comfortable, no acute distress and alert Neck Neck: Yes no lymphadenopathy Thyroid: Thyroid normal Resp Effort & Inspection: normal respiratory effort Auscultation: clear to auscultation bilaterally Percussion: percussion normal Cardio Jugular venous distension: no JVD Palpation: normal PMI Rate: regular rate Rhythm: regular rhythm Heart sounds: S1 normal heart sound present and S2 normal heart sound present GI Inspection: Yes normal to inspection Palpation (GI): No hepatosplenomegaly present Skin General skin exam: no rashes or lesions noted Extrem General: Yes no clubbing, cyanosis or edema Assessment and Plan Assessment & Plan (1) Sciatica associated with disorder of lumbar spine: Code(s): M53.86 - Other specified dorsopathies, lumbar region Plan: rx sent Medications: New cyclobenzaprine 10 mg PO TID PRN 30 tabs 2RF muscle spasm Coding Level of Care Code Est Pt Level 3 (27460) Diagnoses Sciatica associated with disorder of lumbar spine M53.86
== END 2023-07-22 14:09 | disposition home or self-care (01) ==
PROVIDERS: PCP Internal Medicine; Visit Provider Internal Medicine
DX: M53.86 Other specified dorsopathies, lumbar region (principal)
CPT/HCPCS: 99213

== ENCOUNTER 2023-07-27 12:52 | Outpatient (AMB) | payer OTHER, SELFPAY ==
--- NOTE | 2023-07-27 12:59 | MHC.OFFWIV ---
Intake Vital Signs 07/27/23 13:01 Height 5 ft 2 in Weight 158 lb BMI 28.9 BP 120/70 Blood Pressure Location Rt brachial Position Sitting Pulse 70 Pulse Source Pulse Oximeter Pulse Oximetry (%) 98 Intake Visit Reasons: EP Lower back pain Intake Note: pt is here for low back pain, concern of uti or stones Patient Tobacco Use Status: Never used Tobacco Allergies morphine [Morphine] Allergy (Intermediate, Verified 07/22/23 13:56) HALLUCINATIONS Sulfa (Sulfonamide Antibiotics) Allergy (Intermediate, Verified 07/22/23 13:56) HIVES shellfish derived Allergy (Mild, Verified 07/22/23 13:56) Stomach Upset Oral Contrast Adverse Reaction (Intermediate, Uncoded 07/22/23 13:56) Abdominal Pain Do you need a note to return to daycare/school/sports/work: No HPI HPI Comments History of Present Illness Details 62-year-old female that presents for low back pain. History of nephrolithiasis in known stone in the left kidney. Was seen by her primary toe she had muscle spasms and given anti-inflammatory and antispasmodic medications. She has not taking the antispasmodic medications for fear of addictive properties. She endorses a slightly worsening pain but no fever no chills no urinary symptoms. [facility] Medical History Asthma Contact dermatitis Tubular adenoma of colon Degenerative disc disease, thoracic Cholelithiasis with chronic cholecystitis Glaucoma Depression Helicobacter pylori (H. pylori) Anemia Myocardial infarction GERD (gastroesophageal reflux disease) Surgical History Hx laparoscopic cholecystectomy Status post laparoscopic cholecystectomy Hx of colonoscopy H/O dilation and curettage S/P right knee arthroscopy H/O esophagogastroduodenoscopy History of arthroscopy of right knee History of tubal ligation H/O section History of tonsillectomy Family History (Updated 07/22/23 @ 13:57 by LOLA Branham) Father HTN (hypertension) Prostate cancer Mother HTN (hypertension) Diabetes Hx of CABG Sister Asthma Social History Household Members: Spouse, Significant Other and Other Housing: House Alcohol intake: current Alcohol intake frequency: does not drink Patient Tobacco Use Status: Never used Tobacco e-Cigarette/Vaping Use: Never Used Second Hand Smoke Exposure: No service: No Current occupational status: disabled Current occupational exposures/hazards: No Cognitive needs: No Hearing needs: No Vision needs: Yes Physical Exam Vital Signs: Last Vital Signs Pulse 70 07/27/23 13:01 BP 120/70 07/27/23 13:01 Pulse Ox 98 07/27/23 13:01 BMI result Body Mass Index 28.9 Const General: cooperative, healthy appearing, no acute distress and alert Orientation/consciousness: patient oriented x3 Limitations: no limitations HEENT Head: Yes normal to inspection Ears: hearing grossly normal bilaterally General nose exam: Normal external nose present Resp Effort & Inspection: normal respiratory effort and able to speak in complete sentences Cardio Rate: regular rate Skin General skin exam: no rashes or lesions noted Neuro General: patient oriented x3 Extrem General: Yes normal to inspection Results AMB Urinalysis, Automated UA Leukoctes 0 Ed/uL Last Edit by Brooks Napoles CMA on 07/27/23 13:16 UA Nitrite Negative Last Edit by Brooks Napoles CMA on 07/27/23 13:16 UA Urobilinogen 0.2 mg/dL Last Edit by Brooks Napoles CMA on 07/27/23 13:16 UA Protein 0 mg/dL Last Edit by Brooks Napoles CMA on 07/27/23 13:16 UA pH 6.0 Last Edit by Brooks Napoles CMA on 07/27/23 13:16 UA Blood 80 Sage/uL Last Edit by Brooks Napoles CMA on 07/27/23 13:16 UA Specific [place] 1.025 Last Edit by Brooks Napoles CMA on 07/27/23 13:16 UA Ketone Negative Last Edit by Brooks Napoles CMA on 07/27/23 13:16 UA Bilirubin 0 mg/dL Last Edit by Brooks Napoles CMA on 07/27/23 13:16 UA Glucose 0 mg/dL Last Edit by Brooks Napoles CMA on 07/27/23 13:16 Results Reviewed Results Reviewed: Laboratory Last Values Urine pH (Auto) 6.0 07/27/23 13:15 Specific [place] (Auto) 1.025 07/27/23 13:15 Urine Protein (Auto) 0 mg/dL 07/27/23 13:15 Glucose (UA)(Auto) 0 mg/dL 07/27/23 13:15 Urine Ketones (Auto) Negative 07/27/23 13:15 Urine Blood (Auto) 80 Sage/uL 07/27/23 13:15 Urine Nitrite (Auto) Negative 07/27/23 13:15 Urine Bilirubin (Auto) 0 mg/dL 07/27/23 13:15 Urine Urobilinogen (Auto) 0.2 mg/dL 07/27/23 13:15 Leukocyte Esterase (Auto) 0 Ed/uL 07/27/23 13:15 Assessment & Plan Assessment & Plan (1) Back pain: Code(s): M54.9 - Dorsalgia, unspecified Qualifiers: Back pain location: back pain in unspecified location Chronicity: acute Back pain laterality: unspecified Qualified Code(s): M54.9 - Dorsalgia, unspecified Plan: Back pain could represent musculoskeletal however given history of nephrolithiasis as well as blood in urinalysis could represent a stone. Pain is manageable at this time no fever no chills no leukocytes in the urine. This time recommend watchful waiting good hydration continue anti-inflammatory usage x1 more week. If symptoms progress or worsen over the next week including fever worsening pain or new urinary symptoms recommend imaging at that time. Orders: Orders AMB Urinalysis Automated Today Z13.9 - Encounter for screening, unspecified Coding Level of Care Code Est Pt Level 3 (59573) Diagnoses Acute back pain, unspecified back location, unspecified back pain laterality M54.9 Back pain location: back pain in unspecified location Chronicity: acute Back pain laterality: unspecified
[2023-07-27 13:01] VITALS: BP 120/70; PULSE 70; O2SAT 98; BMI 28.9
== END 2023-07-27 13:28 | disposition home or self-care (01) ==
PROVIDERS: PCP Internal Medicine; Visit Provider Physician Assistant
DX: M54.9 Dorsalgia, unspecified (principal)
CPT/HCPCS: 81003; 99213

== ENCOUNTER 2023-08-02 13:40 | Outpatient (AMB) | payer OTHER, SELFPAY ==
--- NOTE | 2023-08-02 14:12 | AM.OFFWIN_ITS ---
Intake Vital Signs 08/02/23 14:20 Height 5 ft 2 in Weight 158 lb BMI 28.9 BP 120/72 Blood Pressure Location Lt brachial Position Sitting Pulse 72 Pulse Source Pulse Oximeter Pulse Oximetry (%) 98 Oxygen Delivery Method Room Air Intake Visit Reasons: EP RT side pantyline lump under skin (lobby) Intake Note: pt is here for lower back pain, right side pantyline bumps Patient Tobacco Use Status: Never used Tobacco Allergies morphine [Morphine] Allergy (Intermediate, Verified 08/02/23 14:22) HALLUCINATIONS Sulfa (Sulfonamide Antibiotics) Allergy (Intermediate, Verified 08/02/23 14:22) HIVES shellfish derived Allergy (Mild, Verified 08/02/23 14:22) Stomach Upset Oral Contrast Adverse Reaction (Intermediate, Uncoded 07/22/23 13:56) Abdominal Pain Do you need a note to return to daycare/school/sports/work: No HPI HPI Comments History of Present Illness Details 62 y/o female patient who presents to [facility] in clinic with c/o lower back pain, vaginal discomfort with discharge and dysuria for few days now. PFSH Medical History Asthma Contact dermatitis Tubular adenoma of colon Degenerative disc disease, thoracic Cholelithiasis with chronic cholecystitis Glaucoma Depression Helicobacter pylori (H. pylori) Anemia Myocardial infarction GERD (gastroesophageal reflux disease) Surgical History Hx laparoscopic cholecystectomy Status post laparoscopic cholecystectomy Hx of colonoscopy H/O dilation and curettage S/P right knee arthroscopy H/O esophagogastroduodenoscopy History of arthroscopy of right knee History of tubal ligation H/O section History of tonsillectomy Family History (Updated 07/22/23 @ 13:57 by LOLA Branham) Father HTN (hypertension) Prostate cancer Mother HTN (hypertension) Diabetes Hx of CABG Sister Asthma Social History Household Members: Spouse, Significant Other and Other Housing: House Alcohol intake: current Alcohol intake frequency: does not drink Patient Tobacco Use Status: Never used Tobacco e-Cigarette/Vaping Use: Never Used Second Hand Smoke Exposure: No service: No Current occupational status: disabled Current occupational exposures/hazards: No Cognitive needs: No Hearing needs: No Vision needs: Yes Review of Systems Const All systems reviewed & are unremarkable except as noted in HPI and below Physical Exam Vital Signs: Last Vital Signs Pulse 72 08/02/23 14:20 BP 120/72 08/02/23 14:20 Pulse Ox 98 08/02/23 14:20 Oxygen Delivery Method Room Air 08/02/23 14:20 BMI result Body Mass Index 28.9 Const General: comfortable and no acute distress Nutritional Appearance: overweight Orientation/consciousness: patient oriented x3 General: Yes CVA tenderness bilateral Back/Spine/Pelvis Back: CVA tenderness Neuro General: patient oriented x3, gait normal and moves all extremities Psych Speech and movement: Normal speech and movement present Results AMB Urinalysis, Automated UA Leukoctes 15 Ed/uL Last Edit by Tamika Agosto CMA on 08/02/23 14:24 UA Nitrite Negative Last Edit by Tamika Agosto CMA on 08/02/23 14:24 UA Urobilinogen 0.2 mg/dL Last Edit by Tamika Agosto CMA on 08/02/23 14:24 UA Protein 0 mg/dL Last Edit by Tamika Agosto CMA on 08/02/23 14:24 UA pH 6.0 Last Edit by Tamika Agosto CMA on 08/02/23 14:24 UA Blood 80 Sage/uL Last Edit by Tamika Agosto CMA on 08/02/23 14:24 UA Specific [place] 1.020 Last Edit by Tamika Agosto CMA on 08/02/23 14:24 UA Ketone Negative Last Edit by Tamika Agosto CMA on 08/02/23 14:24 UA Bilirubin 0 mg/dL Last Edit by Tamika Agosto CMA on 08/02/23 14:24 UA Glucose 0 mg/dL Last Edit by Tamika Agosto CMA on 08/02/23 14:24 Results Reviewed Results Reviewed: Laboratory Last Values Urine pH (Auto) 6.0 08/02/23 14:20 Specific [place] (Auto) 1.020 08/02/23 14:20 Urine Protein (Auto) 0 mg/dL 08/02/23 14:20 Glucose (UA)(Auto) 0 mg/dL 08/02/23 14:20 Urine Ketones (Auto) Negative 08/02/23 14:20 Urine Blood (Auto) 80 Sage/uL 08/02/23 14:20 Urine Nitrite (Auto) Negative 08/02/23 14:20 Urine Bilirubin (Auto) 0 mg/dL 08/02/23 14:20 Urine Urobilinogen (Auto) 0.2 mg/dL 08/02/23 14:20 Leukocyte Esterase (Auto) 15 Ed/uL 08/02/23 14:20 Assessment & Plan Assessment & Plan (1) Cystitis: Code(s): N30.90 - Cystitis, unspecified without hematuria Plan: - Drink plenty of water -Rest - RTC if symptoms not better. Orders: Orders AMB Urinalysis Automated Today Z13.9 - Encounter for screening, unspecified Medications: New nitrofurantoin monohyd/m-cryst 100 mg (Macrobid) must administer with a meal/food 100 mg PO Q12H 7 days 14 caps 0RF N30.90 - Cystitis, unspecified without hematuria fluconazole 150 mg PO DAILY 2 tabs 0RF N30.90 - Cystitis, unspecified without hematuria Coding Level of Care Code Est Pt Level 3 (50764) Diagnoses Cystitis N30.90 Time Spent (min) 15
[2023-08-02 14:20] VITALS: BP 120/72; PULSE 72; O2SAT 98; BMI 28.9
== END 2023-08-02 15:12 | disposition home or self-care (01) ==
PROVIDERS: PCP Internal Medicine; Visit Provider Nurse Practitioner Family
DX: Z13.9 Encounter for screening, unspecified (principal); N30.90 Cystitis, unspecified without hematuria
CPT/HCPCS: 81003; 99213

== ENCOUNTER 2023-08-07 11:38 | Outpatient (AMB) | payer OTHER, SELFPAY ==
[2023-08-07 11:42] VITALS: BP 136/74; PULSE 68; O2SAT 98; BMI 29.1
--- NOTE | 2023-08-07 11:42 | MHC.PC.OV ---
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 Accompanied by: Self / Same As Patient Allergies morphine [Morphine] Allergy (Intermediate, Verified 08/07/23 11:43) HALLUCINATIONS Sulfa (Sulfonamide Antibiotics) Allergy (Intermediate, Verified 08/07/23 11:43) HIVES shellfish derived Allergy (Mild, Verified 08/07/23 11:43) Stomach Upset Oral Contrast Adverse Reaction (Intermediate, Uncoded 08/07/23 11:43) Abdominal Pain Tobacco use date assessed: 06/20/23 Dental Screening Dental Screen Date: 08/07/23 Did you have a dental visit in the last 12 months?: Yes Did you have a dental problem in the last 6 months where you did not have access to dental care?: No Was dental information given to patient?: Patient has dentist HPI ongoing back pain HPI Details bilat fland pain and upper abd pain PFSH Medical History Asthma Contact dermatitis Tubular adenoma of colon Degenerative disc disease, thoracic Cholelithiasis with chronic cholecystitis Glaucoma Depression Helicobacter pylori (H. pylori) Anemia Myocardial infarction GERD (gastroesophageal reflux disease) Surgical History Hx laparoscopic cholecystectomy Status post laparoscopic cholecystectomy Hx of colonoscopy H/O dilation and curettage S/P right knee arthroscopy H/O esophagogastroduodenoscopy History of arthroscopy of right knee History of tubal ligation H/O section History of tonsillectomy Family History (Updated 07/22/23 @ 13:57 by LOLA Branham) Father HTN (hypertension) Prostate cancer Mother HTN (hypertension) Diabetes Hx of CABG Sister Asthma Social History Household Members: Spouse, Significant Other and Other Housing: House Alcohol intake: current Alcohol intake frequency: does not drink Patient Tobacco Use Status: Never used Tobacco e-Cigarette/Vaping Use: Never Used Second Hand Smoke Exposure: No service: No Current occupational status: disabled Current occupational exposures/hazards: No Cognitive needs: No Hearing needs: No Vision needs: Yes Questionnaire Thrive Questionnaire Date Thrive assessed: 06/20/23 JAJA-7 AMB Questionnaire JAJA-7 Date JAJA - 7 assessed: 06/20/23 Source: Developed by Drs. Kevin Stevenson, Nita Gutierrez, Kulwant Flores and colleagues, with an educational reji from [employer]. Review of Systems Const Denies chills, Denies headache(s) and Denies weight loss ENT Denies headache(s) Card Denies chest pain, Denies syncope, Denies irregular heart rhythm and Denies dyspnea Resp Denies chest congestion, Denies cough and Denies dyspnea GI Denies change in stool character, Denies nausea and Denies vomiting Musc Denies deformity and Denies joint swelling Neuro Denies syncope and Denies headache(s) Physical exam (Primary Care) Vital Signs: Last Vital Signs Pulse 68 08/07/23 11:42 BP 136/74 08/07/23 11:42 Pulse Ox 98 08/07/23 11:42 Oxygen Delivery Method Room Air 08/07/23 11:42 BMI result Body Mass Index 29.1 Tobacco/Smoking Status: Tobacco use Status Tobacco use date assessed 06/20/23 08/07/23 11:47 Patient Tobacco Use Status Never used Tobacco 08/07/23 11:47 e-Cigarette/Vaping Use Never Used 08/07/23 11:47 Thrive Assessment: Date of Thrive Assessment Date Thrive assessed 06/20/23 08/07/23 11:47 Const General: cooperative, comfortable, no acute distress and alert Neck Neck: Yes no lymphadenopathy Thyroid: Thyroid normal Resp Effort & Inspection: normal respiratory effort Auscultation: clear to auscultation bilaterally Percussion: percussion normal Cardio Jugular venous distension: no JVD Palpation: normal PMI Rate: regular rate Rhythm: regular rhythm Heart sounds: S1 normal heart sound present and S2 normal heart sound present GI Inspection: Yes normal to inspection Palpation (GI): No hepatosplenomegaly present Skin General skin exam: no rashes or lesions noted Extrem General: Yes no clubbing, cyanosis or edema Assessment and Plan Assessment & Plan (1) Abdominal pain: Code(s): R10.9 - Unspecified abdominal pain Plan: xr and US Orders: Orders XR lumbar spine 2-3V Today M54.9 - Dorsalgia, unspecified US abdomen complete Today R10.9 - Unspecified abdominal pain Complete Blood Count Auto Diff Today D64.9 - Anemia, unspecified Basic Metabolic Panel Today R10.9 - Unspecified abdominal pain Medications: New cyclobenzaprine 10 mg PO TID PRN 30 tabs 2RF muscle spasm Coding Level of Care Code Est Pt Level 3 (33922) Diagnoses Abdominal pain R10.9
== END 2023-08-07 12:00 | disposition home or self-care (01) ==
PROVIDERS: PCP Internal Medicine; Visit Provider Internal Medicine
DX: R10.9 Unspecified abdominal pain (principal)
CPT/HCPCS: 99213

== ENCOUNTER 2023-08-07 12:14 | Outpatient (REF) | payer OTHER, SELFPAY ==
--- NOTE | ~2023-08-07 | XR_ITS ---
EXAMINATION: XR LUMBOSACRAL SPINE CLINICAL INFORMATION: Dorsalgia. COMPARISON: 06/06/2022 TECHNIQUE: Three views of the lumbosacral spine. FINDINGS: There are 5 nonrib-bearing lumbar vertebral bodies. Relative straightening of the lumbar lordosis. Vertebral body heights and intervertebral disc spaces are maintained. Tiny multilevel ventral osteophytes. Sacroiliac joints are intact. Possible calcified uterine fibroid. Surgical clips project over the right upper quadrant. XR/XR lumbar spine 2-3V IMPRESSION: No acute abnormality.
[2023-08-07 12:37] LABS: MANUAL DIFF FLAG NO
[2023-08-07 13:22] LABS: Basophils Percent Auto 0.7 % (0-2); Eosinophils Absolute Auto 0.1 X10*3/uL (0.0-0.4); Eosinophils Percent Auto 1.6 % (0-4); Hematocrit 37.4 % (37.0-47.0); Hemoglobin 12.5 g/dl (12.0-16.0); Lymphocytes Absolute Auto 1.1 X10*3/uL (1.2-4.9); Lymphocytes Percent Auto 25.7 % (20-40); Mean Corpuscular HGB Conc 33.4 g/dl (31.0-35.0); Mean Corpuscular Hemoglobin 30.6 pg (27.0-33.0); Mean Corpuscular Volume 91.7 fL (80.0-98.0); Mean Platelet Volume 11.4 fL (9.4-12.3); Monocytes Absolute Auto 0.4 X10*3/uL (0.1-1.2); Neutrophils Absolute Auto 2.7 x10*3/uL (2.0-8.3); Platelet Count 192 X10*3/uL (160-400); Red Blood Count 4.08 X10*6/uL (4.20-5.50); Red Cell Distribution Width 12.3 % (11.0-16.0); White Blood Count 4.3 X10*3/uL (4.8-10.8)
[2023-08-07 13:25] LABS: Anion Gap 8 (12-20); Blood Urea Nitrogen 9 mg/dL (9-16); Calcium 8.9 mg/dL (8.4-10.2); Carbon Dioxide 32 mmol/L (22-29); Chloride 105 mmol/L (96-108); Estimated Glomerular Filt Rate > 60; Glucose Random 99 mg/dL (60-115); Potassium 3.5 mmol/L (3.3-5.1); Sodium 141 mmol/L (135-145)
== END 2023-08-07 12:15 | disposition home or self-care (01) ==
LOC: HO.XRAY 12:14
PROVIDERS: PCP Internal Medicine; Visit Provider Internal Medicine
DX: M54.9 Dorsalgia, unspecified (principal); R10.9 Unspecified abdominal pain; D64.9 Anemia, unspecified
CPT/HCPCS: 36415; 72100; 80048; 85025

== ENCOUNTER 2023-08-09 09:19 | Outpatient (REF) | payer OTHER, SELFPAY ==
--- NOTE | ~2023-08-09 | US_ITS ---
EXAMINATION: US ABDOMEN COMPLETE CLINICAL INFORMATION: Unspecified abdominal pain. COMPARISON: CT abdomen from 06/20/2021 TECHNIQUE: Real-time imaging of the abdominal viscera. FINDINGS: PANCREAS: Normal. ABDOMINAL AORTA: The proximal, mid, and distal segments are normal in caliber. INFERIOR VENA CAVA: Visualized portions are normal. LIVER: Normal. The liver is normal in size. The liver contour is normal. Parenchymal echogenicity is normal. No focal hepatic lesion. There is no intrahepatic biliary duct dilatation seen. GALLBLADDER: Surgically absent. COMMON BILE DUCT: Normal in caliber measuring 0.4 cm in diameter. RIGHT KIDNEY: Normal. No hydronephrosis. No renal calculi or focal parenchymal lesions. The kidney measures 12.5 cm in maximum dimension. LEFT KIDNEY: Normal. No hydronephrosis. No renal calculi or focal parenchymal lesions. The kidney measures 11.7 cm in maximum dimension. SPLEEN: Normal. The spleen measures 7.5 cm in maximum dimension. FREE FLUID: None. US/US abdomen complete IMPRESSION: 1. Status post cholecystectomy. 2. Unremarkable abdominal ultrasound.
== END 2023-08-09 09:20 | disposition home or self-care (01) ==
LOC: HO.HMGCX 09:19
PROVIDERS: PCP Internal Medicine; Visit Provider Internal Medicine
DX: R10.9 Unspecified abdominal pain (principal)
CPT/HCPCS: 76700

== ENCOUNTER 2023-08-12 10:53 | Outpatient (AMB) | payer OTHER, SELFPAY ==
[2023-08-12 10:55] VITALS: BP 130/64; PULSE 67; O2SAT 97; BMI 28.7
--- NOTE | 2023-08-12 10:55 | A.OFFPC_ITS ---
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 by: Self / Same As Patient Allergies morphine [Morphine] Allergy (Intermediate, Verified 08/12/23 10:55) HALLUCINATIONS Sulfa (Sulfonamide Antibiotics) Allergy (Intermediate, Verified 08/12/23 10:55) HIVES shellfish derived Allergy (Mild, Verified 08/12/23 10:55) Stomach Upset Oral Contrast Adverse Reaction (Intermediate, Uncoded 08/12/23 10:55) Abdominal Pain Tobacco use date assessed: 06/20/23 Dental Screening Dental Screen Date: 08/07/23 HPI follow up HPI Details continues with lumbar pain; XR showed OA and US unremarkable PFSH Medical History Asthma Contact dermatitis Tubular adenoma of colon Degenerative disc disease, thoracic Cholelithiasis with chronic cholecystitis Glaucoma Depression Helicobacter pylori (H. pylori) Anemia Myocardial infarction GERD (gastroesophageal reflux disease) Surgical History Hx laparoscopic cholecystectomy Status post laparoscopic cholecystectomy Hx of colonoscopy H/O dilation and curettage S/P right knee arthroscopy H/O esophagogastroduodenoscopy History of arthroscopy of right knee History of tubal ligation H/O section History of tonsillectomy Family History (Updated 07/22/23 @ 13:57 by LOLA Branham) Father HTN (hypertension) Prostate cancer Mother HTN (hypertension) Diabetes Hx of CABG Sister Asthma Social History Household Members: Spouse, Significant Other and Other Housing: House Alcohol intake: current Alcohol intake frequency: does not drink Patient Tobacco Use Status: Never used Tobacco e-Cigarette/Vaping Use: Never Used Second Hand Smoke Exposure: No service: No Current occupational status: disabled Current occupational exposures/hazards: No Cognitive needs: No Hearing needs: No Vision needs: Yes Questionnaire Thrive Questionnaire Date Thrive assessed: 06/20/23 JAJA-7 AMB Questionnaire JAJA-7 Date JAJA - 7 assessed: 06/20/23 Source: Developed by Drs. Kevin Stevenson, Nita Gutierrez, Kulwant Flores and colleagues, with an educational reji from [employer]. Review of Systems Const Denies chills, Denies headache(s) and Denies weight loss ENT Denies headache(s) Card Denies chest pain, Denies syncope, Denies irregular heart rhythm and Denies dyspnea Resp Denies chest congestion, Denies cough and Denies dyspnea GI Denies abdominal pain, Denies change in stool character, Denies nausea and Denies vomiting Musc Denies deformity and Denies joint swelling Neuro Denies syncope and Denies headache(s) Physical exam (Primary Care) Vital Signs: Last Vital Signs Pulse 67 08/12/23 10:55 BP 130/64 08/12/23 10:55 Pulse Ox 97 08/12/23 10:55 Oxygen Delivery Method Room Air 08/12/23 10:55 BMI result Body Mass Index 28.7 Tobacco/Smoking Status: Tobacco use Status Tobacco use date assessed 06/20/23 08/12/23 11:00 Patient Tobacco Use Status Never used Tobacco 08/12/23 11:00 e-Cigarette/Vaping Use Never Used 08/12/23 11:00 Thrive Assessment: Date of Thrive Assessment Date Thrive assessed 06/20/23 08/12/23 11:00 Const General: cooperative, comfortable, no acute distress and alert Neck Neck: Yes no lymphadenopathy Thyroid: Thyroid normal Resp Effort & Inspection: normal respiratory effort Auscultation: clear to auscultation bilaterally Percussion: percussion normal Cardio Jugular venous distension: no JVD Palpation: normal PMI Rate: regular rate Rhythm: regular rhythm Heart sounds: S1 normal heart sound present and S2 normal heart sound present GI Inspection: Yes normal to inspection Palpation (GI): No hepatosplenomegaly present Skin General skin exam: no rashes or lesions noted Extrem General: Yes no clubbing, cyanosis or edema Assessment and Plan Assessment & Plan (1) Lumbar back pain: Code(s): M54.50 - Low back pain, unspecified Plan: ref to PT Orders: Orders 2 PT Evaluation and Treatment Today M54.50 - Low back pain, unspecified Coding Level of Care Code Est Pt Level 3 (03570) Diagnoses Lumbar back pain M54.50
== END 2023-08-12 11:08 | disposition home or self-care (01) ==
PROVIDERS: PCP Internal Medicine; Visit Provider Internal Medicine
DX: M54.50 Low back pain, unspecified (principal)
CPT/HCPCS: 99213

== ENCOUNTER 2023-08-15 13:55 | Outpatient (AMB) | payer OTHER, SELFPAY ==
[2023-08-15 14:14] VITALS: BP 124/60; PULSE 69; TEMP 36.4; O2SAT 96; BMI 29.3
--- NOTE | 2023-08-15 14:14 | AM.OFFWIN_ITS ---
Intake Vital Signs 08/15/23 14:14 Height 5 ft 2 in Weight 160 lb BMI 29.3 BP 124/60 Blood Pressure Location Lt brachial Position Sitting Pulse 69 Pulse Source Pulse Oximeter Temp 97.6 F Temp Source Temporal Artery Scan Pulse Oximetry (%) 96 Oxygen Delivery Method Room Air Intake Visit Reasons: EP Back pain Intake Note: pt is here today for back pain started 07/21 Patient Tobacco Use Status: Never used Tobacco Allergies morphine [Morphine] Allergy (Intermediate, Verified 08/15/23 14:26) HALLUCINATIONS Sulfa (Sulfonamide Antibiotics) Allergy (Intermediate, Verified 08/15/23 14:26) HIVES shellfish derived Allergy (Mild, Verified 08/15/23 14:26) Stomach Upset Oral Contrast Adverse Reaction (Intermediate, Uncoded 08/12/23 10:55) Abdominal Pain Do you need a note to return to daycare/school/sports/work: Yes HPI EP Back pain HPI Details This is a 62 year old female patient who presents today with ongoing mid-lower back pain. This originally started about 1 month ago. She denies any injurt or inciting event. She was seen by PCP for this and XR imaging indicated some mild cervical degeneration. Lumbar spine imaging was unremarkable. She also had an abdominal US which was normal. She started PT at [facility] and has been doing well, however yesterday she lifted a basket and felt the middle of her back tighten and lock up . She used a heating pad and took 800mg Motrin with some relief. She is here today to review her imaging and discuss recommendations moving forward. Denies any radiation of pain or extremity weakness. [facility] Medical History Asthma Contact dermatitis Tubular adenoma of colon Degenerative disc disease, thoracic Cholelithiasis with chronic cholecystitis Glaucoma Depression Helicobacter pylori (H. pylori) Anemia Myocardial infarction GERD (gastroesophageal reflux disease) Surgical History Hx laparoscopic cholecystectomy Status post laparoscopic cholecystectomy Hx of colonoscopy H/O dilation and curettage S/P right knee arthroscopy H/O esophagogastroduodenoscopy History of arthroscopy of right knee History of tubal ligation H/O section History of tonsillectomy Family History Father HTN (hypertension) Prostate cancer Mother HTN (hypertension) Diabetes Hx of CABG Sister Asthma Social History Household Members: Spouse, Significant Other and Other Housing: House Alcohol intake: current Alcohol intake frequency: does not drink Patient Tobacco Use Status: Never used Tobacco e-Cigarette/Vaping Use: Never Used Second Hand Smoke Exposure: No service: No Current occupational status: disabled Current occupational exposures/hazards: No Cognitive needs: No Hearing needs: No Vision needs: Yes Review of Systems Const All systems reviewed & are unremarkable except as noted in HPI and below Physical Exam Vital Signs: Last Vital Signs Temp 97.6 F 08/15/23 14:14 Pulse 69 08/15/23 14:14 BP 124/60 08/15/23 14:14 Pulse Ox 96 08/15/23 14:14 Oxygen Delivery Method Room Air 08/15/23 14:14 BMI result Body Mass Index 29.3 Const General: cooperative and no acute distress HEENT Head: Yes normal to inspection Resp Effort & Inspection: normal respiratory effort Auscultation: clear to auscultation bilaterally Cardio Rate: regular rate Rhythm: regular rhythm Back/Spine/Pelvis Other: normal C/T/L ROM. No vertebral tenderness. She has significant tenderness and taut muscles over lower thoracic paraspinals/lats with spasms. Skin General skin exam: no rashes or lesions noted Extrem General: Yes capillary refill normal and Yes no clubbing, cyanosis or edema Psych Appearance: grossly normal Mental Status: mental status grossly normal Speech and movement: Normal speech and movement present Results AMB Urinalysis, Automated UA Leukoctes 15 Ed/uL Last Edit by Elijah Riggs MA on 08/15/23 15:12 UA Nitrite Last Edit by Elijah Riggs MA on 08/15/23 15:12 UA Urobilinogen 0.2 mg/dL Last Edit by Elijah Riggs MA on 08/15/23 15:12 UA Protein mg/dL Last Edit by Elijah Riggs MA on 08/15/23 15:12 UA pH 6.5 Last Edit by Elijah Riggs MA on 08/15/23 15:12 UA Blood 80 Sage/uL Last Edit by Elijah Riggs MA on 08/15/23 15:12 UA Specific [place] Last Edit by Elijah Riggs MA on 08/15/23 15:12 UA Ketone Last Edit by Elijah Riggs MA on 08/15/23 15:12 UA Bilirubin mg/dL Last Edit by Elijah Riggs MA on 08/15/23 15:12 UA Glucose mg/dL Last Edit by Elijah Riggs MA on 08/15/23 15:12 Results Reviewed Results Reviewed: Laboratory Last Values Urine pH (Auto) 6.5 08/15/23 15:09 Urine Blood (Auto) 80 Sage/uL 08/15/23 15:09 Urine Urobilinogen (Auto) 0.2 mg/dL 08/15/23 15:09 Leukocyte Esterase (Auto) 15 Ed/uL 08/15/23 15:09 Assessment & Plan Assessment & Plan (1) Thoracic myofascial strain: Code(s): S29.019A - Strain of muscle and tendon of unspecified wall of thorax, initial encounter Qualifiers: Encounter type: subsequent encounter Qualified Code(s): S29.019D - Strain of muscle and tendon of unspecified wall of thorax, subsequent encounter Plan: Patient has an exacerbation of lower thoracic strain that appears to be myofascial in nature. I printed out her imaging and we reviewed it together in the office today for her to have a better understanding of this. She has previously been prescribed antiinflammatories and muscle relaxers however she has not taken these as she is fearful of medications and needs to be alert while caring for her father on Hospice. I have recommended she continue with Physical Therapy, and also continue taking Motrin as needed. She is open to taking the previously prescribed muscle relaxers in smaller doses, and will try 1/2 dose later tonight to see if this provides any benefit. I also suggested some gentle stretching exercises and to try lidocaine patches, which she will purchase otc today. If she does not improve with continued PT and conservative measures, or certainly if pain worsens or new symptoms develop, she should f/u with us or PCP. She agrees to plan. Coding Level of Care Code Est Pt Level 4 (05938) Diagnoses Thoracic myofascial strain, subsequent encounter S29.019D Encounter type: subsequent encounter
== END 2023-08-15 16:53 | disposition home or self-care (01) ==
PROVIDERS: PCP Internal Medicine; Visit Provider Nurse Practitioner Family
DX: S29.019D Strain of muscle and tendon of unspecified wall of thorax, subsequent encounter (principal)
CPT/HCPCS: 99214

== ENCOUNTER 2023-08-23 13:17 | Outpatient (AMB) | payer OTHER, SELFPAY ==
--- NOTE | 2023-08-23 13:55 | MHC.OFFWIV ---
Intake Vital Signs 08/23/23 13:58 Height 5 ft 2 in Weight 160 lb BMI 29.3 BP 130/70 Blood Pressure Location Lt brachial Position Sitting Pulse 63 Pulse Source Pulse Oximeter Temp 97.8 F Temp Source Oral Pulse Oximetry (%) 97 Oxygen Delivery Method Room Air Intake Visit Reasons: EP chest pain burning Intake Note: pt is here for c/o heart burn, chest tightness with a lot of burping and upper back pain Patient Tobacco Use Status: Never used Tobacco Allergies morphine [Morphine] Allergy (Intermediate, Verified 08/23/23 13:59) HALLUCINATIONS Sulfa (Sulfonamide Antibiotics) Allergy (Intermediate, Verified 08/23/23 13:59) HIVES shellfish derived Allergy (Mild, Verified 08/23/23 13:59) Stomach Upset Oral Contrast Adverse Reaction (Intermediate, Uncoded 08/12/23 10:55) Abdominal Pain Do you need a note to return to daycare/school/sports/work: No HPI HPI Comments History of Present Illness Details This is a 62-year-old female who presented to the walk-in clinic complaining of burning chest pain x1 day. Patient states she did not have any chest pain until she ate [place] fried chicken yesterday. She states the pain is ?burning? and substernal in location. She denies any radiation into her arm, jaw, neck, or back. She denies any associated nausea/vomiting or diaphoresis. She states the pain does occasionally worsened with exertion and does improve with rest. She states she took Pepto-Bismol yesterday, which seemed to improve the pain as well. She denies any history of essential hypertension, hyperlipidemia, or diabetes mellitus; however, she then tells me that she had a stroke requiring ICU level of care although she does not appear to be on any medications so unclear if this is accurate. [facility] Medical History Asthma Contact dermatitis Tubular adenoma of colon Degenerative disc disease, thoracic Cholelithiasis with chronic cholecystitis Glaucoma Depression Helicobacter pylori (H. pylori) Anemia Myocardial infarction GERD (gastroesophageal reflux disease) Surgical History Hx laparoscopic cholecystectomy Status post laparoscopic cholecystectomy Hx of colonoscopy H/O dilation and curettage S/P right knee arthroscopy H/O esophagogastroduodenoscopy History of arthroscopy of right knee History of tubal ligation H/O section History of tonsillectomy Family History Father HTN (hypertension) Prostate cancer Mother HTN (hypertension) Diabetes Hx of CABG Sister Asthma Social History Household Members: Spouse, Significant Other and Other Housing: House Alcohol intake: current Alcohol intake frequency: does not drink Patient Tobacco Use Status: Never used Tobacco e-Cigarette/Vaping Use: Never Used Second Hand Smoke Exposure: No service: No Current occupational status: disabled Current occupational exposures/hazards: No Cognitive needs: No Hearing needs: No Vision needs: Yes Review of Systems Const All systems reviewed & are unremarkable except as noted in HPI and below Reports no additional complaints Eyes Reports no additional complaints ENT Reports no additional complaints Card Reports no additional complaints Resp Reports no additional complaints GI Reports no additional complaints Reports no additional complaints Musc Reports no additional complaints Skin/Breast Reports system reviewed and no additional complaints, except as documented Neuro Reports no additional complaints Psych Reports no additional complaints Endo Reports no additional complaints Paolo/Lymph Reports no additional complaints Aller/Immun Reports no additional complaints Physical Exam Vital Signs: Last Vital Signs Temp 97.8 F 08/23/23 13:58 Pulse 63 08/23/23 13:58 BP 130/70 08/23/23 13:58 Pulse Ox 97 08/23/23 13:58 Oxygen Delivery Method Room Air 08/23/23 13:58 BMI result Body Mass Index 29.3 Const Other: Vital signs reviewed. Constitutional: Non-toxic appearing. No acute distress. Well-developed and well-nourished. HEENT: Normocephalic and atraumatic. Skin: Warm and dry. No rashes or lesions noted. Neck: Full and painless range of motion. No cervical lymphadenopathy. Cardio: Regular rate and rhythm. No murmurs, gallops, or rubs. No lower extremity edema. No JVD. Pulmonary: No respiratory distress. No accessory muscle usage. Gastrointestinal: Soft, nontender, and nondistended in all 4 quadrants. Musculoskeletal: Normal range of motion in joints throughout the body. No deformity or other signs of injury. Neuro: Alert and oriented x4. Cranial nerves 2-12 grossly intact. No focal deficits appreciated. Psych: Normal mood and affect. Assessment & Plan Assessment & Plan (1) Heartburn: Code(s): R12 - Heartburn Plan: This is a 62-year-old female who presented to the walk-in clinic complaining of burning chest pain x1 day after eating [place] fried chicken. Her history and physical do appear to be consistent with heartburn/indigestion; however, she does have some concerning features such as the location of her pain (substernal) and the pain does seem to worsened with exertion and relieved with rest. She also has some atypical features such as the pain is not associated with nausea, diaphoresis, or shortness of breath and she does not have any radiation of pain into her arm, jaw, or neck. An EKG was obtained, which shows normal sinus rhythm at 64 beats per minute without any acute ischemic changes. I explained to the patient that I could not rule out acute coronary syndrome such as unstable angina or NSTEMI in the walk-in clinic and I did encourage the patient to follow-up with the emergency room for cardiac monitoring and high sensitivity troponins x2; however, the patient has declined to proceed to the emergency room at this time as she needs to go home to feed her dog but she will have her drive her later tonight at 7:00PM. Patient is alert and oriented x4 and she has the mental capacity to make medical decisions at this time. For now, recommended patient restart her home p.o. famotidine 20 mg daily to see if this helps with her pain. Patient was instructed to proceed directly to the emergency room if she were to develop worsening chest pain, shortness for breath, nausea, or diaphoresis. Patient verbalized her understanding and she is in agreement with the plan. Orders: Orders AMB EKG-In Office Today Z13.6 - Encounter for screening for cardiovascular disorders Coding Level of Care Code Est Pt Level 3 (53786) Diagnoses Heartburn R12
[2023-08-23 13:58] VITALS: BP 130/70; PULSE 63; TEMP 36.6; O2SAT 97; BMI 29.3
== END 2023-08-23 15:07 | disposition home or self-care (01) ==
PROVIDERS: PCP Internal Medicine; Visit Provider Physician Assistant Medical
DX: R12 Heartburn (principal)
CPT/HCPCS: 99213

== ENCOUNTER 2023-08-25 14:48 | Emergency (ER) | payer OTHER, SELFPAY ==
--- NOTE | ~2023-08-25 | XR_ITS ---
EXAMINATION: XR CHEST CLINICAL INFORMATION: Chest pain COMPARISON: Previous chest x-ray from 2019 TECHNIQUE: 2 views of the chest were obtained. FINDINGS: No significant abnormality is noted involving the heart, lungs, mediastinum, bony thorax or soft tissues. Mild degenerative changes of the spine. XR/XR chest 2V IMPRESSION: Unremarkable examination.
--- NOTE | 2023-08-25 14:50 | ECG_ITS ---
Test Reason : CP Blood Pressure : / mmHG Vent. Rate : 071 BPM Atrial Rate : 071 BPM P-R Int : 140 ms QRS Dur : 084 ms QT Int : 394 ms P-R-T Axes : 071 055 053 degrees QTc Int : 428 ms Normal sinus rhythm Normal ECG When compared with ECG of 08-OCT-2018 11:02, No significant change was found Referred By: Domitila Richard Electronically Signed By:REYNOLD CAMILO
--- NOTE | 2023-08-25 14:56 | ED_ITS ---
HPI - Chest Pain General Chief Complaint: General Medical Stated Complaint: chest pain radiates to back going on for 1 mnth Time Seen by Provider: 08/25/23 17:15 Source: patient Mode of arrival: ambulatory Limitations: no limitations History of Present Illness HPI narrative: Patient is a 62-year-old female presenting to emergency department for evaluation of lower back pain, radiating to upper back, and into chest. Intermittent over the past month. States outpatient labs, ultrasound, x-rays without obvious cause for pain. Reports that she took Tylenol and ibuprofen with only some improvement in pain. Her pain is worse if she is walking or moving. Today her pain is increasing. Related Data Home Medications ?Medication ?Instructions ?Recorded ?Confirmed loratadine 10 mg tablet (Claritin) 10 mg PO DAILY 07/09/23 07/23/23 Previous Rx's ?Medication ?Instructions ?Recorded ibuprofen 800 mg tablet 800 mg PO Q8H PRN pain #30 tabs 07/28/23 Allergies Allergy/AdvReac Type Severity Reaction Status Date / Time morphine [Morphine] Allergy Intermediate HALLUCINATI Verified 08/25/23 15:00 ONS Sulfa (Sulfonamide Allergy Intermediate HIVES Verified 08/25/23 15:00 Antibiotics) shellfish derived Allergy Mild Stomach Verified 08/25/23 15:00 Upset Oral Contrast AdvReac Intermediate Abdominal Uncoded 08/12/23 10:55 Pain Review of Systems 2 Review of Systems: Yes all other systems are reviewed and are negative [facility] Past Medical History Attestation statement: The following information was validated with the patient. Source: old records reviewed Medical History Asthma Contact dermatitis Tubular adenoma of colon Degenerative disc disease, thoracic Cholelithiasis with chronic cholecystitis Glaucoma Depression Helicobacter pylori (H. pylori) Anemia Myocardial infarction GERD (gastroesophageal reflux disease) Surgical History Hx laparoscopic cholecystectomy Status post laparoscopic cholecystectomy Hx of colonoscopy H/O dilation and curettage S/P right knee arthroscopy H/O esophagogastroduodenoscopy History of arthroscopy of right knee History of tubal ligation H/O section History of tonsillectomy Family History Family History Father HTN (hypertension) Prostate cancer Mother HTN (hypertension) Diabetes Hx of CABG Sister Asthma Social History Social History Household Members: Spouse, Significant Other and Other Housing: House Alcohol intake: current Alcohol intake frequency: does not drink Patient Tobacco Use Status: Never used Tobacco e-Cigarette/Vaping Use: Never Used Second Hand Smoke Exposure: No Advance Directives: No Advance Directives Information Provided: No service: No Current occupational status: disabled Current occupational exposures/hazards: No Cognitive needs: No Hearing needs: No Vision needs: Yes Physical Exam 2 Vital Signs: Vital Signs: Last Vital Signs Temp 98.0 F 08/25/23 14:57 Pulse 67 08/25/23 14:57 Resp 18 08/25/23 14:57 BP 146/64 H 08/25/23 14:57 Pulse Ox 96 08/25/23 14:57 O2 Del Method Room Air 08/25/23 14:57 BMI result Body Mass Index 28.9 Appearance: Alert.?Oriented to person, place and time. No acute distress.?Normal affect. Eyes: Pupils equal, round and reactive to light.? ENT: Pharynx normal.?? Neck: Normal inspection.? Neck supple.?? CVS: Heart sounds normal. Normal heart rate and rhythm.? Pulses normal.?? Respiratory: No respiratory distress.? Lung sounds clear to auscultation bilaterally?? Abdomen: Soft and non-tender. Normoactive bowel sounds. ? Skin: Skin warm and dry.? Normal skin color.? Extremities: No lower extremity edema.? No calf ttp? Neuro: Moves all extremities spontaneously. Sensation intact bilaterally. CN II- XII intact. Ambulates with normal steady gait. Medical Decision Making Medical Decision Making MDM Narrative: Patient is a 62-year-old female who presents emergency department for evaluation of persistent lower back and chest pain as per HPI. Despite recent visits to her primary care provider's office her symptoms continue. She has trialed management for acid reflux without any improvement. 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 She feels as though her pain is continuing and states that today her chest pain felt worsen has previously which prompted her visit to the emergency department. Overall she is well-appearing, nontoxic, afebrile. She has in no acute distress. Wells score is negative, unlikely to be pulmonary embolism as etiology for pain. Labs were obtained today; no leukocytosis, no anemia, no thrombocytopenia, no electrolyte derangement, no ZEESHAN, transaminases within normal range, lipase within normal range and she has a history of cholecystectomy, doubt retained CBD stone. High sensitive troponin is within normal range, EKG revealing a normal sinus rhythm with ventricular rate of 71, QTC 428, no ST elevation, no ST depression, consistent with prior EKGs. Not consistent with ACS. CXR does not reveal evidence of pneumonia or pneumothorax. These results were discussed with patient at length. Recommended outpatient follow-up with her primary care provider as scheduled. Reviewed worrisome signs and symptoms that would warrant re-evaluation in the emergency department. All questions answered. Stable for discharge. Differential Diagnosis Differential Diagnoses: The differential diagnosis associated with the presentation includes (As noted above) Admission/Observation Consideration of admission/observation: Escalation of care including admission/observation considered (See narrative above) Lab Data MDM Lab Attestation statement: I reviewed the patient's lab results. (See narrative above) 08/25/23 15:43 08/25/23 15:43 Labs: Lab Results 08/25/23 Range/Units 15:43 WBC 5.1 (4.8-10.8) X10*3/uL RBC 3.96 L (4.20-5.50) X10*6/uL Hgb 12.2 (12.0-16.0) g/dl Hct 35.5 L (37.0-47.0) % MCV 89.6 (80.0-98.0) fL MCH 30.8 (27.0-33.0) pg MCHC 34.4 (31.0-35.0) g/dl RDW 12.1 (11.0-16.0) % Plt Count 181 (160-400) X10*3/uL MPV 11.0 (9.4-12.3) fL Immature Gran % (Auto) 0.2 (0.0-0.4) % Neut % (Auto) 63.1 (45-73) % Lymph % (Auto) 23.5 (20-40) % Robertson % (Auto) 10.6 (2-11) % Eos % (Auto) 2.0 (0-4) % Baso % (Auto) 0.6 (0-2) % Lymph # (Auto) 1.2 (1.2-4.9) X10*3/uL Robertson # (Auto) 0.5 (0.1-1.2) X10*3/uL Eos # (Auto) 0.1 (0.0-0.4) X10*3/uL Baso # (Auto) 0.0 (0.0-0.2) X10*3/uL Abs Immat Gran (auto) 0.01 (0.00-0.03) X10*3/uL Absolute Neuts (auto) 3.2 (2.0-8.3) x10*3/uL Absolute Nucleated RBC 0.000 (0.0-0.012) X10*3/uL Nucleated RBC % (auto) 0.0 (0.0-0.2) /100WBC Sodium 141 (135-145) mmol/L Potassium 3.7 (3.3-5.1) mmol/L Chloride 108 (96-108) mmol/L Carbon Dioxide 27 (22-29) mmol/L Anion Gap 10 L (12-20) BUN 13 (9-16) mg/dL Creatinine 0.67 (0.5-1.4) mg/dL Estim Creat Clear Calc 82.7 Estimated GFR > 60 Random Glucose 115 (60-115) mg/dL Calcium 8.9 (8.4-10.2) mg/dL Total Bilirubin 0.3 (0.0-1.0) mg/dL AST 17 (5-31) U/L ALT 12 (0-31) U/L Alkaline Phosphatase 91 (39-117) U/L Troponin I High Sens 5.0 (<3.5-17.0) ng/L Total Protein 7.4 (6.5-8.0) g/dL Albumin 3.9 (3.5-5.0) g/dL Lipase 19 (8-78) U/L Independent Interpretation I performed an independent interpretation of an: EKG (See narrative above) and Plain X-Ray (No pneumonia, no pneumothorax, no pleural effusions) Radiology Impression Discussion of test interpretation with radiology: I have reviewed the radiologist's reading. Radiologist Impression: XR/XR chest 2V IMPRESSION: Unremarkable examination. Independent Historian Clinical information obtained from an independent historian. History obtained from or confirmed by: Spouse (Present who confirms history) External Record Review External record reviewed: Outpatient record and Prior outpatient radiology Prescription Management I considered prescription management with: Pain Medication (Acetaminophen/ibuprofen) Discharge Plan Discharge Clinical Impression: Chest pain Patient Disposition: Home, Self-Care Instructions: Chest Pain (ED), Noncardiac Chest Pain (ED) Additional Instructions: You can take ibuprofen 200 mg, 3 tablets (600mg) every 6-8 hours as needed for pain, in addition to Tylenol 500 mg, 2 tablets (1,000mg) every 4-6 hours as needed for pain, but not to exceed 3 doses daily (3,000mg).? Discussed, please contact your primary care doctor's office tomorrow to arrange for follow-up. You may return back to emergency department any new or worsening symptoms or concerns. Prescriptions: No Action ibuprofen 800 mg tablet 800 mg PO Q8H PRN (Reason: pain) Qty: 30 0RF loratadine [Claritin] 10 mg tablet 10 mg PO DAILY Referrals: eGovany Herron MD [Primary Care Provider] - Print Language: Angolan
[2023-08-25 14:57] VITALS: BP 146/64; PULSE 67; RESP 18; TEMP 36.7; O2SAT 96; BMI 28.9
[2023-08-25 15:48] LABS: MANUAL DIFF FLAG NO
[2023-08-25 15:54] LABS: Basophils Percent Auto 0.6 % (0-2); Eosinophils Absolute Auto 0.1 X10*3/uL (0.0-0.4); Hematocrit 35.5 % (37.0-47.0); Hemoglobin 12.2 g/dl (12.0-16.0); Imm Gran Abs Auto 0.01 X10*3/uL (0.00-0.03); Imm Gran Pct Auto 0.2 % (0.0-0.4); Lymphocytes Absolute Auto 1.2 X10*3/uL (1.2-4.9); Lymphocytes Percent Auto 23.5 % (20-40); Mean Corpuscular HGB Conc 34.4 g/dl (31.0-35.0); Mean Corpuscular Hemoglobin 30.8 pg (27.0-33.0); Mean Corpuscular Volume 89.6 fL (80.0-98.0); Monocytes Absolute Auto 0.5 X10*3/uL (0.1-1.2); Monocytes Percent Auto 10.6 % (2-11); Neutrophils Absolute Auto 3.2 x10*3/uL (2.0-8.3); Neutrophils Percent Auto 63.1 % (45-73); Platelet Count 181 X10*3/uL (160-400); Red Blood Count 3.96 X10*6/uL (4.20-5.50); Red Cell Distribution Width 12.1 % (11.0-16.0); White Blood Count 5.1 X10*3/uL (4.8-10.8)
[2023-08-25 16:14] LABS: Alanine Aminotransferase 12 U/L (0-31); Albumin Level 3.9 g/dL (3.5-5.0); Alkaline Phosphatase 91 U/L (39-117); Anion Gap 10 (12-20); Aspartate Amino Transferase 17 U/L (5-31); Bilirubin Total 0.3 mg/dL (0.0-1.0); Blood Urea Nitrogen 13 mg/dL (9-16); Calcium 8.9 mg/dL (8.4-10.2); Carbon Dioxide 27 mmol/L (22-29); Chloride 108 mmol/L (96-108); Creatinine Clr Calc Pharmacy 82.7; Estimated Glomerular Filt Rate > 60; Glucose Random 115 mg/dL (60-115); Lipase 19 U/L (8-78); Potassium 3.7 mmol/L (3.3-5.1); Sodium 141 mmol/L (135-145); Total Protein 7.4 g/dL (6.5-8.0)
[2023-08-25 17:29] VITALS: BP 146/64; PULSE 67; RESP 18; TEMP 36.6; O2SAT 96
== END 2023-08-25 17:29 | disposition home or self-care (01) ==
PROVIDERS: Nurse Practitioner Family; Emergency Provider Emergency Medicine; PCP Internal Medicine
DX: R07.9 Chest pain, unspecified (principal); J45.909 Unspecified asthma, uncomplicated; I25.2 Old myocardial infarction; Z88.2 Allergy status to sulfonamides; Z88.5 Allergy status to narcotic agent
CPT/HCPCS: 36415; 71046; 80053; 83690; 84484; 85025; 93005; 99283

== ENCOUNTER → 2023-08-25 14:50 | Outpatient (BNV) | payer OTHER, SELFPAY | PROVIDERS: Emergency Provider Emergency Medicine; PCP Internal Medicine; Visit Provider Internal Medicine | DX: R07.9 Chest pain, unspecified (principal) | CPT/HCPCS: 93010 ==

== ENCOUNTER 2023-08-27 13:47 | Outpatient (AMB) | payer OTHER, SELFPAY ==
[2023-08-27 13:56] VITALS: BP 130/78; PULSE 79; O2SAT 98; BMI 28.7
--- NOTE | 2023-08-27 13:56 | A.OFFPC_ITS ---
Vital Signs 08/27/23 13:56 Height 5 ft 2 in Weight 157 lb 0.4 oz BMI 28.7 BP 130/78 Blood Pressure Location Lt brachial Position Sitting Pulse 79 Pulse Source Pulse Oximeter Pulse Oximetry (%) 98 Oxygen Delivery Method Room Air Intake Visit Reasons: Pain right/left side rib area Intake Note: pt states on going chest pain with no relief. Report Manager Required: No Allergies morphine [Morphine] Allergy (Intermediate, Verified 08/27/23 14:02) HALLUCINATIONS Sulfa (Sulfonamide Antibiotics) Allergy (Intermediate, Verified 08/27/23 14:02) HIVES shellfish derived Allergy (Mild, Verified 08/27/23 14:02) Stomach Upset Oral Contrast Adverse Reaction (Intermediate, Uncoded 08/27/23 14:02) Abdominal Pain Medication List - Last Reconciled 08/28/23 by Geovany Herron MD ibuprofen 800 mg PO Q8H PRN loratadine (Claritin) 10 mg PO DAILY Tobacco use date assessed: 08/27/23 Dental Screening Dental Screen Date: 08/07/23 HPI Pain right/left side rib area HPI Details continues with vague epigastric and mid back pain; PT not helping; US unremarkable; will obtain [facility] Medical History Asthma Contact dermatitis Tubular adenoma of colon Degenerative disc disease, thoracic Cholelithiasis with chronic cholecystitis Glaucoma Depression Helicobacter pylori (H. pylori) Anemia Myocardial infarction GERD (gastroesophageal reflux disease) Surgical History Hx laparoscopic cholecystectomy Status post laparoscopic cholecystectomy Hx of colonoscopy H/O dilation and curettage S/P right knee arthroscopy H/O esophagogastroduodenoscopy History of arthroscopy of right knee History of tubal ligation H/O section History of tonsillectomy Family History Father HTN (hypertension) Prostate cancer Mother HTN (hypertension) Diabetes Hx of CABG Sister Asthma Social History Household Members: Spouse, Significant Other and Other Housing: House Alcohol intake: current Alcohol intake frequency: does not drink Patient Tobacco Use Status: Never used Tobacco e-Cigarette/Vaping Use: Never Used Second Hand Smoke Exposure: No service: No Current occupational status: disabled Current occupational exposures/hazards: No Cognitive needs: No Hearing needs: No Vision needs: Yes Questionnaire Thrive Questionnaire Date Thrive assessed: 08/27/23 I am a: Patient What is your living situation today?: I have a steady place to live Within the past 12 months, did the food you bought not last and you didn't have the money to get more?: Never true Within the past 12 months, did you worry whether your food would run out before you got money to buy more?: Never true Do you have trouble paying for medicines?: No Do you have trouble getting transportation to medical appointments?: No Do you have trouble paying your heating and electricity bill?: No Do you have trouble taking care of your child, family member or friend?: No Do you have trouble with day-to-day activities such as bathing, preparing meals, shopping, managing finances, etc.?: No Are you currently unemployed and looking for a job?: No Are you interested in more education?: No Please select the resources that you would like help with: None Currently or been in a relationship where the following occur: no concerns reported THRIVE Score: 0 AUDIT C Alcohol Use Questionnaire (AUDIT-C) 1. How often do you have a drink containing alcohol?: Never 3. How often do you have six or more drinks on one occasion?: Never Total Score: 0 Score Reviewed/Action Taken: Yes JAJA-7 AMB Questionnaire JAJA-7 Date JAJA - 7 assessed: 06/20/23 Source: Developed by Drs. Kevin Stevenson, Nita Gutierrez, Kulwant Flores and colleagues, with an educational reji from [employer]. Review of Systems Const Denies chills, Denies headache(s) and Denies weight loss ENT Denies headache(s) Card Denies chest pain, Denies syncope, Denies irregular heart rhythm and Denies dyspnea Resp Denies chest congestion, Denies cough and Denies dyspnea GI Denies change in stool character, Denies nausea and Denies vomiting Musc Denies deformity and Denies joint swelling Neuro Denies syncope and Denies headache(s) Physical exam (Primary Care) Vital Signs: Last Vital Signs Pulse 79 08/27/23 13:56 BP 130/78 08/27/23 13:56 Pulse Ox 98 08/27/23 13:56 Oxygen Delivery Method Room Air 08/27/23 13:56 BMI result Body Mass Index 28.7 Tobacco/Smoking Status: Tobacco use Status Tobacco use date assessed 08/27/23 08/27/23 13:57 Patient Tobacco Use Status Never used Tobacco 08/27/23 13:57 e-Cigarette/Vaping Use Never Used 08/27/23 13:57 Thrive Assessment: Date of Thrive Assessment Date Thrive assessed 08/27/23 08/27/23 13:57 Currently or been in a relationship where the following occur: no concerns reported Const General: cooperative, comfortable, no acute distress and alert Neck Neck: Yes no lymphadenopathy Thyroid: Thyroid normal Resp Effort & Inspection: normal respiratory effort Auscultation: clear to auscultation bilaterally Percussion: percussion normal Cardio Jugular venous distension: no JVD Palpation: normal PMI Rate: regular rate Rhythm: regular rhythm Heart sounds: S1 normal heart sound present and S2 normal heart sound present GI Inspection: Yes normal to inspection Palpation (GI): No hepatosplenomegaly present Skin General skin exam: no rashes or lesions noted Extrem General: Yes no clubbing, cyanosis or edema Assessment and Plan Assessment & Plan (1) Epigastric pain: Code(s): R10.13 - Epigastric pain Plan: ct ordered Orders: Orders XR thoracic spine 2V 08/27/23 M54.9 - Dorsalgia, unspecified CT abdomen wo/w IV con 08/27/23 R10.13 - Epigastric pain Coding Level of Care Code Est Pt Level 3 (94630) Diagnoses Epigastric pain R10.13
== END 2023-08-27 14:15 | disposition home or self-care (01) ==
PROVIDERS: PCP Internal Medicine; Visit Provider Internal Medicine
DX: R10.13 Epigastric pain (principal)
CPT/HCPCS: 99213

== ENCOUNTER 2023-08-27 14:21 | Outpatient (REF) | payer OTHER, SELFPAY ==
--- NOTE | ~2023-08-27 | XR_ITS ---
EXAMINATION: XR THORACOLUMBAR SPINE CLINICAL INFORMATION: Back pain, dorsalgia. COMPARISON: Chest radiographs 08/25/2023. Lumbar spine 08/07/2023. Thoracic spine 06/05/2023. TECHNIQUE: 3 views of the thoracic spine. FINDINGS: Dextroscoliosis of the thoracic spine. Surgical clips in the right upper quadrant. Moderate multilevel degenerative changes in the thoracic spine with multilevel hypertrophic change. No thoracic vertebral body compression fracture appreciated. Degenerative changes on very limited images of the cervical spine could be evaluated with dedicated cervical spine radiographs. XR/XR thoracic spine 2V IMPRESSION: Moderate multilevel degenerative changes in the thoracic spine.
== END 2023-08-27 14:22 | disposition home or self-care (01) ==
LOC: HO.XRAY 14:21
PROVIDERS: PCP Internal Medicine; Visit Provider Internal Medicine
DX: M54.9 Dorsalgia, unspecified (principal)
CPT/HCPCS: 72070

== ENCOUNTER 2023-09-13 12:38 | Outpatient (AMB) | payer OTHER, SELFPAY ==
--- NOTE | 2023-09-13 12:42 | A.OFFVIS_ITS ---
Vital Signs 09/13/23 12:44 Height 5 ft 2 in Weight 158 lb BMI 28.9 BP 119/65 Blood Pressure Location Lt brachial Position Sitting Pulse 67 Intake Visit Reasons: Epigastric pain Intake Note: Kiara presents in the office as a follow up for epigastric pains. CC: She states that she was sent because her primary care so she is unsure what to do next as she is not having any concerns. Allergies morphine [Morphine] Allergy (Intermediate, Verified 09/13/23 12:45) HALLUCINATIONS Sulfa (Sulfonamide Antibiotics) Allergy (Intermediate, Verified 09/13/23 12:45) HIVES shellfish derived Allergy (Mild, Verified 09/13/23 12:45) Stomach Upset Oral Contrast Adverse Reaction (Intermediate, Uncoded 09/13/23 12:45) Abdominal Pain HPI HPI Epigastric pain: Details: Assessment & Plan (1) GERD (gastroesophageal reflux disease): Code(s): K21.9 - Gastro-esophageal reflux disease without esophagitis (2) Abdominal bloating: Code(s): R14.0 - Abdominal distension (gaseous) (3) Diarrhea: Code(s): R19.7 - Diarrhea, unspecified (4) Bleeding hemorrhoids: Code(s): K64.9 - Unspecified hemorrhoids Plan Her back hurts her today, she has OA/DJD. Her GERD has calmed down, so she sto pped using the famotidine except prn, same with her benefiber. She was recently tx'ed for BV. She has some fear that she may have renal stones causing her back ache. She has been taking motrin that helped her, but just a little bit. ROV 6 mos. CORRESPONDENCE On 09/09/23 @ 09:22 Norma Cohen Wrote To Martinez,August Urgent referral for epigastric pain added for 09/12. 2019 EGD/COLONOSCOPY DESCRIPTION OF PROCEDURE: Video endoscope was introduced without difficulty. It was navigated through the posterior pharynx and into the esophagus. In the distal esophagus, there was hyperemia of 3 to 4 cm and there was friability at the GE junction itself. Distally, this was a small hiatal hernia. On entering the stomach, there was mild erythema. Duodenal bulb and duodenum appeared endoscopically normal. Random gastric biopsies were obtained. COLONOSCOPY: Digital rectal exam revealed sphincter tone to be adequate. Video colonoscope was introduced without difficulty. It was navigated into the rectosigmoid area. A few scattered diverticula seen in this area. The rectal and sigmoid mucosa appeared normal to the level of approximately 35 cm. From start of descending colon, there was submucosal hemorrhagic change with a purpuric' characteristic blotchiness from this region through to the level of the hepatic flexure. Once at the level of the hepatic flexure, a small polyp was removed that was dangling from an area between 2 folds. In ascending colon, 2nd polyp, which was about 3 to 4 mm, was removed with hot snare cautery, clean based and had a short pedicle. The cecum was clear. Appendiceal orifice was seen. Valve was seen and was unable to intubate the terminal ileum. The scope was withdrawn and biopsies were obtained at 70 cm, 60 cm, and rectosigmoid. 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 Blood work has been drawn. Currently, the patient has no anemia and no thrombocytosis or thrombocytopenia. There is a mild elevation of the INR at 1.2, and mild elevation of the PTT. Immunoglobulin studies are pending. Once biopsies have returned, we will work on a coordination of care plan for her. Addendum #1 Parts D-F (colon biopsies) are re-reviewed. The biopsies at 70 and 60 cm have mucosal hemorrhage and edema. No diagnostic features of vasculitis are seen. The findings are non-specific; hemorrhage and edema in the lamina propria are often seen secondary to prep effect; however, in this case, the clinical concern for Henoch-Schoenlein purpura (HSP) is noted. These findings are not diagnostic for HSP, but are not inconsistent with HSP in the proper clinical context. Please correlate with other clinical findings. These slides were reviewed intradepartmentally. Electronically Signed By: Jesús Bailey MD 03/29/20 [id number] Diagnosis A. Stomach, random, biopsy: Oxyntic mucosa with moderate chronic inactive inflammation; no Helicobacter organisms seen. B. Colon, hepatic flexure, polypectomy: Tubular adenoma; no high grade dysplasia or carcinoma seen. C. Colon, ascending, polypectomy: Tubulovillous adenoma; no high grade dysplasia or carcinoma seen. D. Colon, 70 cm, biopsy: Colonic mucosa with prominent reactive lymphoid aggregate; otherwise within normal limits. E. Colon, 60 cm, biopsy: Colonic mucosa with prominent reactive lymphoid aggregate; otherwise within normal limits. F. Colon, rectosigmoid, biopsy: Colonic mucosa within normal limits. COMMENT: Diagnostic features of a colitis are not seen XR THORACIC SPINE 09/03/23 FINDINGS: Dextroscoliosis of the thoracic spine. Surgical clips in the right upper quadrant. Moderate multilevel degenerative changes in the thoracic spine with multilevel hypertrophic change. No thoracic vertebral body compression fracture appreciated. Degenerative changes on very limited images of the cervical spine could be evaluated with dedicated cervical spine radiographs. XR/XR thoracic spine 2V IMPRESSION: Moderate multilevel degenerative changes in the thoracic spine. TODAY'S VISIT In July she was having a lot of pain in the chest and flanks/ribs - she thought she was having an UT and presented to the ER. The cardiac work up was negative. She was then sent to PT for back pain - she has quite a bit of thoracic back pain. She had a back XR which she has not been advised of the results yet. 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 She says the doctor is confusing me. She may have some GERD, but she had stopped her pantoprazole for a month prior to the onset of sx. She restarted it and the CP was relieved. She is moving her bowels well and eating well. In fact, she is gaining weight which may be complicating her back pain. After CT of thoracic spine ordered today along with DEXA scan [facility] Medical History (Updated 09/13/23 @ 13:04 by JADE Rosen) Loose stools Asthma Contact dermatitis Tubular adenoma of colon Degenerative disc disease, thoracic Cholelithiasis with chronic cholecystitis Glaucoma Depression Helicobacter pylori (H. pylori) Anemia Myocardial infarction GERD (gastroesophageal reflux disease) Surgical History Hx laparoscopic cholecystectomy Status post laparoscopic cholecystectomy Hx of colonoscopy H/O dilation and curettage S/P right knee arthroscopy H/O esophagogastroduodenoscopy History of arthroscopy of right knee History of tubal ligation H/O section History of tonsillectomy Family History Father HTN (hypertension) Prostate cancer Mother HTN (hypertension) Diabetes Hx of CABG Sister Asthma Social History Household Members: Spouse, Significant Other and Other Housing: House Alcohol intake: current Alcohol intake frequency: does not drink Patient Tobacco Use Status: Never used Tobacco e-Cigarette/Vaping Use: Never Used Second Hand Smoke Exposure: No service: No Current occupational status: disabled Current occupational exposures/hazards: No Cognitive needs: No Hearing needs: No Vision needs: Yes Review of Systems Const Denies fatigue, Denies fever(s), Denies night sweats, Denies poor appetite and Denies weight loss ENT Reports Normal hearing present, Denies dental pain, Denies dysphagia, Denies hearing loss, Denies mouth pain, Denies odynophagia, Denies throat swelling, Denies tongue swelling and Reports other (Dentition adequate) Card Reports chest pain Resp Reports no additional complaints GI Details: Denies abdominal pain, Denies melena, Denies bloating, Denies hematochezia, Den ies constipation, Denies GI cramping, Denies dysphagia, Denies excessive flatus, Denies early satiety, Reports heartburn, Denies diarrhea, Denies nausea, Denies odynophagia, Denies vomiting and Denies hematemesis Musc Reports back pain, Reports radiating pain into limb and Reports stiffness Skin/Breast Denies pruritus, Denies lesions, Denies rash and Denies jaundice Neuro Reports Normal hearing present and Denies Abnormal speech present Endo Denies fatigue Aller/Immun Denies throat swelling and Denies tongue swelling Physical Exam Vital Signs: Last Vital Signs Pulse 67 09/13/23 12:44 BP 119/65 09/13/23 12:44 BMI result Body Mass Index 28.9 Const General: cooperative, no acute distress, well developed and well groomed Nutritional Appearance: average body habitus and well nourished Orientation/consciousness: oriented to person, oriented to place and oriented to time Limitations: No language barrier HEENT Head: Yes normocephalic and Yes atraumatic Eyes General: appearance normal, both eyes and all related structures Pupils: Equal, round and reactive pupils present Neck Neck: Yes normal visual inspection and Yes no lymphadenopathy Thyroid: Thyroid normal Resp Effort & Inspection: normal respiratory effort and able to speak in complete sentences Auscultation: clear to auscultation bilaterally Cardio Rate: regular rate Rhythm: regular rhythm Heart sounds: Normal, physiologic split S2 sound present Peripheral pulses: radial pulses present and posterior tibial pulses present GI Inspection: No distended and No Abdominal panniculus present Palpation (GI): Soft to palpation, nontender, no guarding, not rigid and No hepatosplenomegaly present Percussion: Yes normal to percussion Auscultation: normal bowel sounds Rectal Exam - Female: deferred General: Yes CVA tenderness Back/Spine/Pelvis Back: CVA tenderness and back tenderness Cervical Spine: normal cervical lordosis Thoracic/Lumbar Spine: straight leg raise negative bilaterally, Thoracic/lumbar scoliosis (mild levoscoliosis), thoraco-lumbar spasm, thoracic spinal tenderness at T1, at T2, at T3 and at T4 and other (straightening of lumbar lordosis) Skin General skin exam: no rashes or lesions noted, turgor normal, skin not dry, no jaundice, No spider nevi and no striae Rashes: no rashes Nails: normal Neuro General: oriented to person, oriented to place and oriented to time Cranial nerves: Yes Equal, round and reactive pupils present and Yes Normal hearing present Speech: No Abnormal speech present Gait exam (Neuro): Normal gait present Motor exam (neuro): 5/5 motor strength present throughout, Pronator motor function not present and no tremor noted Deep tendon reflexes (DTR's): Right triceps reflex intensity grade: 2+, Left triceps reflex intensity grade: 2+, Rt Biceps (C5, C6): 2+, Left biceps reflex intensity grade: 2+, Right brachioradialis reflex intensity grade: 2+, Left brachioradialis reflex intensity grade: 2+, Right patellar reflex intensity grade: 2+, Left patellar reflex intensity grade: 2+, Right ankle reflex intensity grade: 2+ and Left ankle reflex intensity grade: 2+ Extrem General: Yes normal to inspection, No clubbing, No cyanosis and No edema Psych Appearance: grossly normal and well kempt Mental Status: mental status grossly normal Speech and movement: Normal speech and movement present Affect: normal affect Attitude: cooperative Thought process: Normal thought process present and not confabulating Thought content: Normal thought content present Insight: Fair insight present (Psych) Judgement: Fair judgement present (Psych) Assessment & Plan Assessment & Plan (1) GERD (gastroesophageal reflux disease): Code(s): K21.9 - Gastro-esophageal reflux disease without esophagitis Category: Medical (2) Upper abdominal pain: Code(s): R10.10 - Upper abdominal pain, unspecified Category: Medical (3) IBS (irritable bowel syndrome): Code(s): K58.9 - Irritable bowel syndrome without diarrhea Category: Medical (4) Abdominal bloating: Code(s): R14.0 - Abdominal distension (gaseous) Category: Medical (5) Diarrhea: Code(s): R19.7 - Diarrhea, unspecified Category: Medical (6) Thoracic degenerative disc disease: Code(s): M51.34 - Other intervertebral disc degeneration, thoracic region Category: Medical (7) Back pain: Code(s): M54.9 - Dorsalgia, unspecified Category: Medical Plan In July she was having a lot of pain in the chest and flanks/ribs - she thought she was having an UT and presented to the ER. The cardiac work up was negative. She was then sent to PT for back pain - she has quite a bit of thoracic back pain. She had a back XR which she has not been advised of the results yet. 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 She says the doctor is confusing me. She may have some GERD, but she had stopped her pantoprazole for a month prior to the onset of sx. She restarted it and the CP was relieved. She is moving her bowels well and eating well. In fact, she is gaining weight which may be complicating her back pain. After CT of thoracic spine ordered today along with DEXA scan Orders: Orders CT thoracic spine wo IV con Today M51.34 - Other intervertebral disc degeneration, thoracic region, M54.9 - Dorsalgia, unspecified XR DEXA axial skeleton Today M51.34 - Other intervertebral disc degeneration, thoracic region, M54.9 - Dorsalgia, unspecified Medications: New pantoprazole (Protonix) 40 mg PO DAILY 30 days PRN 30 tabs 6RF heartburn Coding Level of Care Code Est Pt Level 4 (04974) Diagnoses GERD (gastroesophageal reflux disease) K21.9 Upper abdominal pain R10.10 IBS (irritable bowel syndrome) K58.9 Abdominal bloating R14.0 Diarrhea R19.7 Thoracic degenerative disc disease M51.34 Back pain M54.9
[2023-09-13 12:44] VITALS: BP 119/65; PULSE 67; BMI 28.9
== END 2023-09-13 13:16 | disposition home or self-care (01) ==
PROVIDERS: PCP Internal Medicine; Visit Provider Nurse Practitioner
DX: K21.9 Gastro-esophageal reflux disease without esophagitis (principal); R10.10 Upper abdominal pain, unspecified; K58.9 Irritable bowel syndrome, unspecified; R14.0 Abdominal distension (gaseous); R19.7 Diarrhea, unspecified; M51.34 Other intervertebral disc degeneration, thoracic region; M54.9 Dorsalgia, unspecified
CPT/HCPCS: 99214

== ENCOUNTER → 2023-09-13 12:38 | Outpatient (BNVA) | payer OTHER, SELFPAY | PROVIDERS: PCP Internal Medicine; Visit Provider Nurse Practitioner | DX: R10.10 Upper abdominal pain, unspecified (principal); K21.9 Gastro-esophageal reflux disease without esophagitis; K58.0 Irritable bowel syndrome with diarrhea; R14.0 Abdominal distension (gaseous); M51.34 Other intervertebral disc degeneration, thoracic region; M54.9 Dorsalgia, unspecified | CPT/HCPCS: 99212 ==

== ENCOUNTER 2023-09-16 13:00 | Outpatient (RCR) | payer OTHER, SELFPAY | END 2023-12-16 10:29 | disposition home or self-care (01) | LOC: HO.PT 13:00 | PROVIDERS: PCP Internal Medicine; Visit Provider Internal Medicine | DX: M54.50 Low back pain, unspecified (principal) | CPT/HCPCS: 97110; 97112; 97140; 97162 ==

== ENCOUNTER 2023-09-25 08:05 | Outpatient (AMB) | payer OTHER, SELFPAY ==
[2023-09-25 08:08] VITALS: BP 118/72; PULSE 69; TEMP 36.8; O2SAT 98; BMI 28.9
--- NOTE | 2023-09-25 08:08 | AM.OFFWIN_ITS ---
Intake Vital Signs 09/25/23 08:08 Height 5 ft 2 in Weight 158 lb BMI 28.9 BP 118/72 Blood Pressure Location Rt brachial Position Sitting Pulse 69 Pulse Source Pulse Oximeter Temp 98.3 F Temp Source Oral Pulse Oximetry (%) 98 Intake Visit Reasons: right pain ear and blocked Intake Note: pt is here right ear pain and feeling blocked since last night Patient Tobacco Use Status: Never used Tobacco Allergies morphine [Morphine] Allergy (Intermediate, Verified 09/25/23 08:21) HALLUCINATIONS Sulfa (Sulfonamide Antibiotics) Allergy (Intermediate, Verified 09/25/23 08:21) HIVES shellfish derived Allergy (Mild, Verified 09/25/23 08:21) Stomach Upset Oral Contrast Adverse Reaction (Intermediate, Uncoded 09/13/23 12:45) Abdominal Pain Do you need a note to return to daycare/school/sports/work: Yes HPI HPI Comments History of Present Illness Details 62 y/o female patient who presents to [facility] in clinic with c/o right ear pain and feeling blocked since yesterday. She is also c/o sinus congestion and pressure. H/o Allergic rhinitis, and currently taking Anti-histamines. She is also being followed by ENT. [facility] Medical History (Updated 09/25/23 @ 08:33 by Heena Gordon NP) Loose stools Asthma Contact dermatitis Tubular adenoma of colon Degenerative disc disease, thoracic Cholelithiasis with chronic cholecystitis Glaucoma Depression Helicobacter pylori (H. pylori) Anemia Myocardial infarction GERD (gastroesophageal reflux disease) Surgical History Hx laparoscopic cholecystectomy Status post laparoscopic cholecystectomy Hx of colonoscopy H/O dilation and curettage S/P right knee arthroscopy H/O esophagogastroduodenoscopy History of arthroscopy of right knee History of tubal ligation H/O section History of tonsillectomy Family History Father HTN (hypertension) Prostate cancer Mother HTN (hypertension) Diabetes Hx of CABG Sister Asthma Social History Household Members: Spouse, Significant Other and Other Housing: House Alcohol intake: current Alcohol intake frequency: does not drink Patient Tobacco Use Status: Never used Tobacco e-Cigarette/Vaping Use: Never Used Second Hand Smoke Exposure: No service: No Current occupational status: disabled Current occupational exposures/hazards: No Cognitive needs: No Hearing needs: No Vision needs: Yes Review of Systems Const All systems reviewed & are unremarkable except as noted in HPI and below Physical Exam Vital Signs: Last Vital Signs Temp 98.3 F 09/25/23 08:08 Pulse 69 09/25/23 08:08 BP 118/72 09/25/23 08:08 Pulse Ox 98 09/25/23 08:08 BMI result Body Mass Index 28.9 Const General: comfortable and no acute distress Nutritional Appearance: overweight Orientation/consciousness: patient oriented x3 HEENT Head: Yes normocephalic Ears: external ears normal and TM abnormal bulging and with fluid behind the TM bilateral; not erythematous, not perforated and not retracted General nose exam: Normal external nose present Face and sinus: Yes normal facial exam Mouth: Normal oral and palatal mucosa present Neuro General: patient oriented x3, gait normal and moves all extremities Psych Speech and movement: Normal speech and movement present Assessment & Plan Assessment & Plan (1) Acute otalgia: Code(s): H92.09 - Otalgia, unspecified ear Qualifiers: Laterality: right Qualified Code(s): H92.01 - Otalgia, right ear Plan: - Acetaminophen for pain relief. (2) Allergic rhinitis: Code(s): J30.9 - Allergic rhinitis, unspecified Qualifiers: Allergic rhinitis trigger: unspecified Allergic rhinitis seasonality: seasonal Qualified Code(s): J30.2 - Other seasonal allergic rhinitis Plan: - Continue taking the prescribed medications - F/U with ENT Coding Level of Care Code Est Pt Level 3 (79519) Diagnoses Acute pain of right ear H92.01 Laterality: right Seasonal allergic rhinitis, unspecified trigger J30.2 Allergic rhinitis trigger: unspecified Allergic rhinitis seasonality: seasonal Time Spent (min) 15
== END 2023-09-25 08:59 | disposition home or self-care (01) ==
PROVIDERS: PCP Internal Medicine; Visit Provider Nurse Practitioner Family
DX: H92.01 Otalgia, right ear (principal); J30.2 Other seasonal allergic rhinitis
CPT/HCPCS: 99213

== ENCOUNTER 2023-09-26 11:18 | Outpatient (REF) | payer OTHER, SELFPAY ==
--- NOTE | ~2023-09-26 | MM_ITS ---
EXAMINATION: BONE DENSITOMETRY CLINICAL INDICATION: Osteopenia. COMPARISON: This is the patient's baseline examination. TECHNIQUE: Using a [employer] DXA System (software version: 13.1) manufactured by [employer], dual-energy x-ray absorptiometry was performed of the lumbar spine and left hip. The images are of good technical quality. Summary results are attached. FINDINGS: LEFT FEMUR, NECK: BMD 1.028 g/cm2, Z-score 1.0, T-score -0.1, normal. LEFT FEMUR, TOTAL: BMD 0.979 g/cm2, Z-score 0.5, T-score -0.2, normal. AP SPINE L1-L4: BMD 1.218 g/cm2, Z-score 1.3, T-score 0.3, normal. IDENTIFIED RISK FACTORS: Menopause. HISTORY OF FRACTURE: None listed. MEDICATIONS: None listed. MM/XR DEXA axial skeleton IMPRESSION: 1. DIAGNOSIS: Normal bone density based on the lowest T-score value of -0.2 in the total femur applying World Health Organization criteria. 2. 10-YEAR FRACTURE RISK PREDICTION, FRAX: According to the guidelines, FRAX calculation should only be performed on patients in the osteopenia bone density category. Therefore, FRAX was not performed on this patient. 3. Treatment Recommendations: NOF guidelines recommend consideration for treatment in postmenopausal women and men age 50 and older presenting with the following: -A hip or vertebral (clinical or morphometric) fracture. -T-score less than or equal to -2.5 at the femoral neck or spine after appropriate evaluation to exclude secondary causes. -Low bone mass at the hip or spine and a 10-year fracture probability by FRAX of greater than or equal to 3% for hip fracture or greater than or equal to 20% for major osteoporotic fracture based on the [place] adapted WHO algorithm. 4. Other Recommendations: All treatment decisions require clinical judgment and consideration of individual patient factors, including patient preferences, comorbidities, previous drug use, risk factors not captured in the FRAX model (e.g. frailty, falls, vitamin D deficiency, increased bone turnover, interval significant decline in bone density) and possible under or overestimation of fracture risk by FRAX. FUTURE SCAN RECOMMENDATION: People with diagnosed cases of osteoporosis or at high risk for fracture should have regular bone mineral density tests. For patients eligible for Medicare, routine testing is allowed once every 2 years. The testing frequency can be increased to one year for patients who have rapidly progressing disease, those who are receiving or discontinuing medical therapy to restore bone mass, or have additional risk factors.
== END 2023-09-26 11:19 | disposition home or self-care (01) ==
LOC: HO.MAMMO 11:18
PROVIDERS: PCP Internal Medicine; Visit Provider Nurse Practitioner
DX: Z13.820 Encounter for screening for osteoporosis (principal); Z78.0 Asymptomatic menopausal state; M51.36 Other intervertebral disc degeneration, lumbar region; M54.9 Dorsalgia, unspecified
CPT/HCPCS: 77080

== ENCOUNTER 2023-09-27 08:01 | Outpatient (AMB) | payer OTHER, SELFPAY ==
--- NOTE | 2023-09-27 08:07 | AM.OFFWIN_ITS ---
Intake Vital Signs 09/27/23 08:08 Height 5 ft 2 in Weight 161 lb 8 oz BMI 29.5 BP 128/82 Blood Pressure Location Rt brachial Position Sitting Pulse 67 Pulse Source Pulse Oximeter Temp 98.3 F Temp Source Oral Pulse Oximetry (%) 99 Oxygen Delivery Method Room Air Intake Visit Reasons: EST/sinus pressure (lobby) Intake Note: Pt presents to the office today for c/o sinus pressure that started Saturday. Patient Tobacco Use Status: Never used Tobacco Allergies morphine [Morphine] Allergy (Intermediate, Verified 09/27/23 08:10) HALLUCINATIONS Sulfa (Sulfonamide Antibiotics) Allergy (Intermediate, Verified 09/27/23 08:10) HIVES shellfish derived Allergy (Mild, Verified 09/27/23 08:10) Stomach Upset Oral Contrast Adverse Reaction (Intermediate, Uncoded 09/27/23 08:10) Abdominal Pain HPI HPI Comments History of Present Illness Details 62 y/o female patient who presents to [facility] in clinic again for c/o sinus pressure. Pt asking for antibiotics. [facility] Medical History (Updated 09/25/23 @ 08:33 by Heena Gordon NP) Loose stools Asthma Contact dermatitis Tubular adenoma of colon Degenerative disc disease, thoracic Cholelithiasis with chronic cholecystitis Glaucoma Depression Helicobacter pylori (H. pylori) Anemia Myocardial infarction GERD (gastroesophageal reflux disease) Surgical History Hx laparoscopic cholecystectomy Status post laparoscopic cholecystectomy Hx of colonoscopy H/O dilation and curettage S/P right knee arthroscopy H/O esophagogastroduodenoscopy History of arthroscopy of right knee History of tubal ligation H/O section History of tonsillectomy Family History Father HTN (hypertension) Prostate cancer Mother HTN (hypertension) Diabetes Hx of CABG Sister Asthma Social History Household Members: Spouse, Significant Other and Other Housing: House Alcohol intake: current Alcohol intake frequency: does not drink Patient Tobacco Use Status: Never used Tobacco e-Cigarette/Vaping Use: Never Used Second Hand Smoke Exposure: No service: No Current occupational status: disabled Current occupational exposures/hazards: No Cognitive needs: No Hearing needs: No Vision needs: Yes Review of Systems Const All systems reviewed & are unremarkable except as noted in HPI and below Physical Exam Vital Signs: Last Vital Signs Temp 98.3 F 09/27/23 08:08 Pulse 67 09/27/23 08:08 BP 128/82 09/27/23 08:08 Pulse Ox 99 09/27/23 08:08 Oxygen Delivery Method Room Air 09/27/23 08:08 BMI result Body Mass Index 29.5 Const General: comfortable Orientation/consciousness: patient oriented x3 HEENT Head: Yes normocephalic Ears: external ears normal and TM abnormal with fluid behind the TM bilateral General nose exam: Abnormal mucous membranes and turbinates present pale Face and sinus: Yes normal facial exam Mouth: moist mucous membranes Throat: Yes posterior oropharynx normal Neuro General: patient oriented x3 Assessment & Plan Assessment & Plan (1) Allergic rhinitis: Code(s): J30.9 - Allergic rhinitis, unspecified Qualifiers: Allergic rhinitis trigger: unspecified Allergic rhinitis seasonality: seasonal Qualified Code(s): J30.2 - Other seasonal allergic rhinitis Plan: Informed Pt that she does not have Sinus or ear infection. Pt insists on getting Abx, asking for Z-pack. Advised Pt that Abx will not relieve her symptoms, since the symptoms are related to Allergies. Medications: New azithromycin 500 mg PO DAILY 3 days 3 tabs 0RF J30.2 - Other seasonal allergic rhinitis Coding Level of Care Code Est Pt Level 3 (46497) Diagnoses Seasonal allergic rhinitis, unspecified trigger J30.2 Allergic rhinitis trigger: unspecified Allergic rhinitis seasonality: seasonal Time Spent (min) 10
[2023-09-27 08:08] VITALS: BP 128/82; PULSE 67; TEMP 36.8; O2SAT 99; BMI 29.5
== END 2023-09-27 08:45 | disposition home or self-care (01) ==
PROVIDERS: PCP Internal Medicine; Visit Provider Nurse Practitioner Family
DX: J30.2 Other seasonal allergic rhinitis (principal)
CPT/HCPCS: 99213

== ENCOUNTER 2023-10-03 13:35 | Outpatient (AMB) | payer OTHER, SELFPAY ==
[2023-10-03 13:45] VITALS: BP 120/82; PULSE 70; O2SAT 97; BMI 29.3
--- NOTE | 2023-10-03 13:45 | MHC.PC.OV ---
Vital Signs 10/03/23 13:45 Height 5 ft 2 in Weight 160 lb BMI 29.3 BP 120/82 Blood Pressure Location Lt brachial Position Sitting Pulse 70 Pulse Source Pulse Oximeter Pulse Oximetry (%) 97 Oxygen Delivery Method Room Air Intake Visit Reasons: follow up Allergies morphine [Morphine] Allergy (Intermediate, Verified 09/27/23 08:10) HALLUCINATIONS Sulfa (Sulfonamide Antibiotics) Allergy (Intermediate, Verified 09/27/23 08:10) HIVES shellfish derived Allergy (Mild, Verified 09/27/23 08:10) Stomach Upset Oral Contrast Adverse Reaction (Intermediate, Uncoded 09/27/23 08:10) Abdominal Pain Medication List - Last Reconciled 10/04/23 by Geovany Herron MD ibuprofen 800 mg PO Q8H PRN loratadine (Claritin) 10 mg PO DAILY pantoprazole (Protonix) 40 mg PO DAILY PRN 30 days Tobacco use date assessed: 08/27/23 Dental Screening Dental Screen Date: 08/07/23 HPI follow up HPI Details OA ls spine; improving PFSH Medical History (Updated 09/25/23 @ 08:33 by Heena Gordon NP) Loose stools Asthma Contact dermatitis Tubular adenoma of colon Degenerative disc disease, thoracic Cholelithiasis with chronic cholecystitis Glaucoma Depression Helicobacter pylori (H. pylori) Anemia Myocardial infarction GERD (gastroesophageal reflux disease) Surgical History Hx laparoscopic cholecystectomy Status post laparoscopic cholecystectomy Hx of colonoscopy H/O dilation and curettage S/P right knee arthroscopy H/O esophagogastroduodenoscopy History of arthroscopy of right knee History of tubal ligation H/O section History of tonsillectomy Family History Father HTN (hypertension) Prostate cancer Mother HTN (hypertension) Diabetes Hx of CABG Sister Asthma Social History Household Members: Spouse, Significant Other and Other Housing: House Alcohol intake: current Alcohol intake frequency: does not drink Patient Tobacco Use Status: Never used Tobacco e-Cigarette/Vaping Use: Never Used Second Hand Smoke Exposure: No service: No Current occupational status: disabled Current occupational exposures/hazards: No Cognitive needs: No Hearing needs: No Vision needs: Yes Questionnaire Thrive Questionnaire Date Thrive assessed: 08/27/23 JAJA-7 AMB Questionnaire JAJA-7 Date JAJA - 7 assessed: 06/20/23 Source: Developed by Drs. Kevin Stevenson, Nita Gutierrez, Kulwant Flores and colleagues, with an educational reji from [employer]. Review of Systems Const Denies chills, Denies headache(s) and Denies weight loss ENT Denies headache(s) Card Denies chest pain, Denies syncope, Denies irregular heart rhythm and Denies dyspnea Resp Denies chest congestion, Denies cough and Denies dyspnea GI Denies abdominal pain, Denies change in stool character, Denies nausea and Denies vomiting Musc Denies deformity and Denies joint swelling Neuro Denies syncope and Denies headache(s) Physical exam (Primary Care) Vital Signs: Last Vital Signs Pulse 70 10/03/23 13:45 BP 120/82 10/03/23 13:45 Pulse Ox 97 10/03/23 13:45 Oxygen Delivery Method Room Air 10/03/23 13:45 BMI result Body Mass Index 29.3 Tobacco/Smoking Status: Tobacco use Status Tobacco use date assessed 08/27/23 10/03/23 13:50 Patient Tobacco Use Status Never used Tobacco 10/03/23 13:50 e-Cigarette/Vaping Use Never Used 10/03/23 13:50 Thrive Assessment: Date of Thrive Assessment Date Thrive assessed 08/27/23 10/03/23 13:50 Const General: cooperative, comfortable, no acute distress and alert Neck Neck: Yes no lymphadenopathy Thyroid: Thyroid normal Resp Effort & Inspection: normal respiratory effort Auscultation: clear to auscultation bilaterally Percussion: percussion normal Cardio Jugular venous distension: no JVD Palpation: normal PMI Rate: regular rate Rhythm: regular rhythm Heart sounds: S1 normal heart sound present and S2 normal heart sound present GI Inspection: Yes normal to inspection Palpation (GI): No hepatosplenomegaly present Skin General skin exam: no rashes or lesions noted Extrem General: Yes no clubbing, cyanosis or edema Assessment and Plan Assessment & Plan (1) Back pain: Code(s): M54.9 - Dorsalgia, unspecified Plan: cont same rx Coding Level of Care Code Est Pt Level 3 (00733) Diagnoses Back pain M54.9
== END 2023-10-03 14:02 | disposition home or self-care (01) ==
PROVIDERS: PCP Internal Medicine; Visit Provider Internal Medicine
DX: M54.9 Dorsalgia, unspecified (principal)
CPT/HCPCS: 99213

== ENCOUNTER 2023-10-14 07:25 | Outpatient (REF) | payer OTHER, SELFPAY ==
--- NOTE | ~2023-10-14 | CT_ITS ---
CT THORACIC SPINE WITHOUT CONTRAST HISTORY: dorsalgia TECHNIQUE: CT images of the thoracic spine were acquired without intravenous contrast. This CT examination was performed using dose optimization techniques as appropriate, variously including the following: *Automated exposure control *Adjustment of mA and/or kV according to patient size (this includes techniques or standardized protocols for targeted exams where dose is matched to indication/reason for exam; i.e. extremities or head) *Use of iterative reconstruction technique DLP: 507.71 mGy-cm COMPARISON: None available FINDINGS: Normal thoracic kyphosis is preserved. Vertebral body heights are maintained. There is no suspicious osseous lesion. Mild multilevel disc height loss with a few endplate Schmorl's nodes. Please note assessment for spinal canal patency is limited on CT in the absence of intrathecal contrast. There are several small multilevel disc protrusions, most pronounced at T7-T8. Within limitations of CT, there is no significant spinal canal nor neural foraminal stenosis. There are multilevel prevertebral disc osteophyte eccentric to the right and most pronounced in the lower thoracic spine. The paraspinal soft tissues are unremarkable. Partially imaged mild calcific plaque of the abdominal aorta. The visualized lungs are clear. CT/CT thoracic spine wo IV con IMPRESSION: Mild thoracic spondylosis without significant spinal canal or neural foraminal stenosis.
== END 2023-10-14 07:26 | disposition home or self-care (01) ==
LOC: HO.CT 07:25
PROVIDERS: PCP Internal Medicine; Visit Provider Nurse Practitioner
DX: M51.34 Other intervertebral disc degeneration, thoracic region (principal); M54.9 Dorsalgia, unspecified
CPT/HCPCS: 72128

== ENCOUNTER 2023-10-28 08:04 | Outpatient (AMB) | payer OTHER, SELFPAY ==
--- NOTE | 2023-10-28 08:07 | AM.OFFWIN_ITS ---
Intake Vital Signs 10/28/23 08:08 Height 5 ft 2 in Weight 160 lb BMI 29.3 BP 122/76 Blood Pressure Location Lt brachial Position Sitting Pulse 68 Pulse Source Pulse Oximeter Temp 98.4 F Temp Source Oral Pulse Oximetry (%) 98 Oxygen Delivery Method Room Air Intake Visit Reasons: EP ? UTI Intake Note: pt here c/o ? UTI. Symptoms urgency. Started Wednesday 10/25. Patient Tobacco Use Status: Never used Tobacco Allergies morphine [Morphine] Allergy (Intermediate, Verified 10/28/23 08:08) HALLUCINATIONS Sulfa (Sulfonamide Antibiotics) Allergy (Intermediate, Verified 10/28/23 08:08) HIVES shellfish derived Allergy (Mild, Verified 10/28/23 08:08) Stomach Upset Oral Contrast Adverse Reaction (Intermediate, Uncoded 10/28/23 08:08) Abdominal Pain Do you need a note to return to daycare/school/sports/work: No HPI HPI Comments History of Present Illness Details Patient presents to urgent care today for sick visit Endorses urgency, increased frequency and feeling of incomplete emptying Denies back pain, hematuria, fevers or vomiting. Denies concern for STI Denies vaginal discharge or bleeding [facility] Medical History (Updated 10/28/23 @ 08:22 by Julia Phillips APRN, INSPECTOR FILTER TIP) Loose stools Asthma Contact dermatitis Tubular adenoma of colon Degenerative disc disease, thoracic Cholelithiasis with chronic cholecystitis Glaucoma Depression Helicobacter pylori (H. pylori) Anemia Myocardial infarction GERD (gastroesophageal reflux disease) Surgical History Hx laparoscopic cholecystectomy Status post laparoscopic cholecystectomy Hx of colonoscopy H/O dilation and curettage S/P right knee arthroscopy H/O esophagogastroduodenoscopy History of arthroscopy of right knee History of tubal ligation H/O section History of tonsillectomy Family History Father HTN (hypertension) Prostate cancer Mother HTN (hypertension) Diabetes Hx of CABG Sister Asthma Social History Household Members: Spouse, Significant Other and Other Housing: House Alcohol intake: current Alcohol intake frequency: does not drink Patient Tobacco Use Status: Never used Tobacco e-Cigarette/Vaping Use: Never Used Second Hand Smoke Exposure: No service: No Current occupational status: disabled Current occupational exposures/hazards: No Cognitive needs: No Hearing needs: No Vision needs: Yes Review of Systems Const All systems reviewed & are unremarkable except as noted in HPI and below Physical Exam Vital Signs: Last Vital Signs Temp 98.4 F 10/28/23 08:08 Pulse 68 10/28/23 08:08 BP 122/76 10/28/23 08:08 Pulse Ox 98 10/28/23 08:08 Oxygen Delivery Method Room Air 10/28/23 08:08 BMI result Body Mass Index 29.3 General: awake, alert, oriented. Answers questions appropriately. Fully engaged in examination. Skin: warm, dry, intact HEENT: Normocephalic. Hearing intact. Cardiac: External chest normal in appearance. Respiratory: No cough, audible wheezing or stridor. Abdomen: without gross distension. soft, nontender. no guarding. no CVA tenderness MS: No obvious swelling or deformities. Neurological: Oriented to person, place, time and situation. Thought process intact. No gait abnormalities appreciated. Psychiatric: Appropriate mood and affect. Good judgment and insight. Assessment & Plan Assessment & Plan (1) Dysuria: Code(s): R30.0 - Dysuria Plan UA reviewed, will treat empirically based on current up-to-date guidelines Take antibiotics as directed. Increase fluid intake. Return to clinic for new fever or back pain or if symptoms persist. Orders: Orders AMB Urinalysis Automated Today Z13.9 - Encounter for screening, unspecified Medications: New nitrofurantoin monohyd/m-cryst 100 mg (Macrobid) must administer with a meal/food 100 mg PO Q12H 5 days 10 caps 0RF Coding Level of Care Code Est Pt Level 3 (80399) Diagnoses Dysuria R30.0
[2023-10-28 08:08] VITALS: BP 122/76; PULSE 68; TEMP 36.9; O2SAT 98; BMI 29.3
== END 2023-10-28 09:08 | disposition home or self-care (01) ==
PROVIDERS: PCP Internal Medicine; Visit Provider Registered Nurse Emergency
DX: R35.0 Frequency of micturition (principal)
CPT/HCPCS: 81003; 99213

== ENCOUNTER 2023-11-21 11:14 | Outpatient (AMB) | payer OTHER, SELFPAY ==
--- NOTE | 2023-11-21 11:19 | MHC.PC.OV ---
Vital Signs 11/21/23 11:21 Height 5 ft 2 in Weight 160 lb 4 oz BMI 29.3 BP 112/68 Blood Pressure Location Lt brachial Position Sitting Pulse 58 Pulse Source Pulse Oximeter Pulse Oximetry (%) 98 Oxygen Delivery Method Room Air Intake Visit Reasons: back pain Intake Note: Patient is here to follow up on Back Pain and CT of back results . Behavioral Sciences Instructor Required: No Chief Digital Officer: Not Required per policy Accompanied by: Self / Same As Patient Allergies morphine [Morphine] Allergy (Intermediate, Verified 11/21/23 11:20) HALLUCINATIONS Sulfa (Sulfonamide Antibiotics) Allergy (Intermediate, Verified 11/21/23 11:20) HIVES shellfish derived Allergy (Mild, Verified 11/21/23 11:20) Stomach Upset Oral Contrast Adverse Reaction (Intermediate, Uncoded 11/21/23 11:20) Abdominal Pain Medication List - Last Reconciled 11/25/23 by Geovany Herron MD ibuprofen 800 mg PO Q8H PRN loratadine (Claritin) 10 mg PO DAILY pantoprazole (Protonix) 40 mg PO DAILY PRN 30 days Tobacco use date assessed: 11/21/23 Dental Screening Dental Screen Date: 08/07/23 HPI back pain HPI Details continues with thoracic back pain; PT w/o effect; mri report in chart [facility] Medical History (Updated 11/25/23 @ 08:30 by Geovany Herron MD) Thoracic back pain Loose stools Asthma Contact dermatitis Tubular adenoma of colon Degenerative disc disease, thoracic Cholelithiasis with chronic cholecystitis Glaucoma Depression Helicobacter pylori (H. pylori) Anemia Myocardial infarction GERD (gastroesophageal reflux disease) Surgical History Hx laparoscopic cholecystectomy Status post laparoscopic cholecystectomy Hx of colonoscopy H/O dilation and curettage S/P right knee arthroscopy H/O esophagogastroduodenoscopy History of arthroscopy of right knee History of tubal ligation H/O section History of tonsillectomy Family History Father HTN (hypertension) Prostate cancer Mother HTN (hypertension) Diabetes Hx of CABG Sister Asthma Social History Household Members: Spouse, Significant Other and Other Housing: House Alcohol intake: current Alcohol intake frequency: does not drink Patient Tobacco Use Status: Never used Tobacco e-Cigarette/Vaping Use: Never Used Second Hand Smoke Exposure: No service: No Current occupational status: disabled Current occupational exposures/hazards: No Cognitive needs: No Hearing needs: No Vision needs: Yes Questionnaire Thrive Questionnaire Date Thrive assessed: 08/27/23 JAJA-7 AMB Questionnaire JAJA-7 Date JAJA - 7 assessed: 06/20/23 Source: Developed by Drs. Kevin Stevenson, Nita Gutierrez, Kulwant Flores and colleagues, with an educational reji from [employer]. Review of Systems Const Denies chills, Denies headache(s) and Denies weight loss ENT Denies headache(s) Card Denies chest pain, Denies syncope, Denies irregular heart rhythm and Denies dyspnea Resp Denies chest congestion, Denies cough and Denies dyspnea GI Denies abdominal pain, Denies change in stool character, Denies nausea and Denies vomiting Musc Denies deformity and Denies joint swelling Neuro Denies syncope and Denies headache(s) Physical exam (Primary Care) Vital Signs: Last Vital Signs Pulse 58 11/21/23 11:21 BP 112/68 11/21/23 11:21 Pulse Ox 98 11/21/23 11:21 Oxygen Delivery Method Room Air 11/21/23 11:21 BMI result Body Mass Index 29.3 Tobacco/Smoking Status: Tobacco use Status Tobacco use date assessed 11/21/23 11/21/23 11:25 Patient Tobacco Use Status Never used Tobacco 11/21/23 11:25 e-Cigarette/Vaping Use Never Used 11/21/23 11:25 Thrive Assessment: Date of Thrive Assessment Date Thrive assessed 08/27/23 11/21/23 11:25 Const General: cooperative, comfortable, no acute distress and alert Neck Neck: Yes no lymphadenopathy Thyroid: Thyroid normal Resp Effort & Inspection: normal respiratory effort Auscultation: clear to auscultation bilaterally Percussion: percussion normal Cardio Jugular venous distension: no JVD Palpation: normal PMI Rate: regular rate Rhythm: regular rhythm Heart sounds: S1 normal heart sound present and S2 normal heart sound present GI Inspection: Yes normal to inspection Palpation (GI): No hepatosplenomegaly present Skin General skin exam: no rashes or lesions noted Extrem General: Yes no clubbing, cyanosis or edema Assessment and Plan Assessment & Plan (1) Thoracic back pain: Code(s): M54.6 - Pain in thoracic spine Plan: ref to spine service Orders: Referrals Neurosurgery Referral M54.6 - Pain in thoracic spine Coding Level of Care Code Est Pt Level 3 (87780) Diagnoses Thoracic back pain M54.6
[2023-11-21 11:21] VITALS: BP 112/68; PULSE 58; O2SAT 98; BMI 29.3
== END 2023-11-21 11:35 | disposition home or self-care (01) ==
PROVIDERS: PCP Internal Medicine; Visit Provider Internal Medicine
DX: M54.6 Pain in thoracic spine (principal)
CPT/HCPCS: 99213

== ENCOUNTER 2023-11-29 12:50 | Outpatient (AMB) | payer OTHER, SELFPAY ==
--- NOTE | 2023-11-29 13:38 | A.SPINEOV_ITS ---
Intake Visit Reasons: Pain in thoracic spine Intake Note: Ms. Roth is here today c/o back pain. 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 She is a very nice 62-year-old female who started having pain around her midthoracic region sometime maybe 4 5 months ago. It runs on both sides of her thoracic spine and radiates outward. She can get a component of lumbar pain at times as well but it is also paraspinal. No radicular symptoms, no tingling numbness or weakness. She did try ibuprofen, icy hot, ice packs. She was doing PT for awhile and that did seem to help. It has been discontinued however. She is here today see us with a CT scan showing some mild degenerative arthritis of the thoracic spine. PMH: She is otherwise healthy Social hx: She does not smoke drink or use any recreational drugs Medications: None Allergies: Morphine Physical exam: She is awake alert oriented, motor strength is normal, gait is normal Imaging review: Thoracic CT done at [facility] shows a very mild but diffuse thoracic spine arthritis almost something similar to a DISH type presentation where they are anterior bridging osteophytes at multiple disc levels. There is a lumbar x-ray showing normal alignment and very mild degenerative disc disease. Impression: 62-year-old female with thoracic paraspinal back pain occasional low back pain which sounds muscular in origin. No myelopathic symptoms or physical exam findings to report. Her thoracic to CT just shows diffuse arthritic changes, there are anterior bridging osteophytes. Lumbar x-ray looks about normal. I suspect she has reduced flexibility and probably has a muscular strain of some sort. I am going to send her back to physical therapy because that is the only thing that seemed to be helping. She does not need any surgery. She can follow up on an as-needed basis. Thank you for allowing us to care for your patient. The total time spent with this visit with this patient was 45 minutes reviewing history, physical exam, thoracic CT imaging review, and implementation of treatment plan or further diagnostic testing Kyle Smith MD,PhD [facility] Orders: Orders PT Evaluation and Treatment Today M54.6 - Pain in thoracic spine Coding Level of Care Code New Pt Level 4 (39298) Diagnoses Thoracic back pain M54.6
== END 2023-11-29 14:00 | disposition home or self-care (01) ==
PROVIDERS: PCP Internal Medicine; Referring Provider Internal Medicine; Visit Provider Physician Assistant
DX: M54.6 Pain in thoracic spine (principal)
CPT/HCPCS: 99204

== ENCOUNTER → 2023-11-29 12:50 | Outpatient (BNVA) | payer OTHER, SELFPAY | PROVIDERS: PCP Internal Medicine; Visit Provider Physician Assistant | DX: M54.6 Pain in thoracic spine (principal) | CPT/HCPCS: 99202 ==

== ENCOUNTER 2023-12-19 12:36 | Outpatient (REF) | payer OTHER, SELFPAY ==
--- NOTE | ~2023-12-19 | MM_ITS ---
EXAMINATION: MM SCREENING DIGITAL BREAST TOMOSYNTHESIS, BILATERAL CLINICAL INFORMATION: Screening. Asymptomatic. COMPARISON: Mammography: This study is compared with prior exams dating back to 2019. TECHNIQUE: Digital breast tomosynthesis is performed in both the craniocaudal and mediolateral oblique views along with computer-aided detection (CAD). Direct 2D images are generated over also obtained. FINDINGS: There are scattered areas of fibroglandular density (ACR BI-RADS breast composition Category b). There are no significant masses, abnormal calcifications, or other abnormalities. MM/MM tomosynthesis screening BI IMPRESSION: No mammographic evidence of malignancy. ASSESSMENT: BI-RADS BI-RADS 1 - Negative RECOMMENDATION: Routine annual mammography screening. 1 year F/U This examination should not preclude the clinical evaluation of a suspicious palpable abnormality. This patient's information was entered into a reminder system with a target due date for their next mammogram. Electronically signed by: Rebecca Torres MD 01/16/2024 11:44 AM EDT
== END 2023-12-19 12:37 | disposition home or self-care (01) ==
LOC: HO.MAMMO 12:36
PROVIDERS: PCP Internal Medicine; Visit Provider Internal Medicine
DX: Z12.31 Encounter for screening mammogram for malignant neoplasm of breast (principal)
CPT/HCPCS: 77063; 77067

== ENCOUNTER → 2023-12-19 12:45 | Outpatient (BNV) | payer OTHER, SELFPAY | PROVIDERS: PCP Internal Medicine; Visit Provider Radiology Diagnostic Radiology | DX: Z12.31 Encounter for screening mammogram for malignant neoplasm of breast (principal) | CPT/HCPCS: 77063; 77067 ==

== ENCOUNTER 2023-12-25 08:27 | Outpatient (AMB) | payer OTHER, SELFPAY ==
--- NOTE | 2023-12-25 08:27 | MHC.OFFWIV ---
Intake Vital Signs 12/25/23 08:29 Weight 160 lb BP 120/80 Blood Pressure Location Lt brachial Position Sitting Pulse 63 Pulse Source Pulse Oximeter Pulse Oximetry (%) 98 Oxygen Delivery Method Room Air Intake Visit Reasons: EP- Pressure in sinues, PCP can't see her Intake Note: Patient here for possible sinus infection, she states it has been present since last Saturday. Patient Tobacco Use Status: Never used Tobacco Allergies morphine [Morphine] Allergy (Intermediate, Verified 12/25/23 08:31) HALLUCINATIONS Sulfa (Sulfonamide Antibiotics) Allergy (Intermediate, Verified 12/25/23 08:31) HIVES shellfish derived Allergy (Mild, Verified 12/25/23 08:31) Stomach Upset Oral Contrast Adverse Reaction (Intermediate, Uncoded 12/25/23 08:31) Abdominal Pain Do you need a note to return to daycare/school/sports/work: No HPI HPI Comments History of Present Illness Details Patient is a 63-year-old female complaining of pressure in her sinuses for 1 week. She states she has a random cough that is dry but no head congestion, she also denies any ear pain or chest congestion or shortness of breath or fevers. She states that she has gotten these before and she can not take prednisone because of her glaucoma. She also states that Augmentin messes with her stomach too much and she is asking for a Z-Daniel today. [facility] Medical History (Updated 12/25/23 @ 08:44 by Jayda Vital PA-C) Thoracic back pain Loose stools Asthma Contact dermatitis Tubular adenoma of colon Degenerative disc disease, thoracic Cholelithiasis with chronic cholecystitis Glaucoma Depression Helicobacter pylori (H. pylori) Anemia Myocardial infarction GERD (gastroesophageal reflux disease) Surgical History Hx laparoscopic cholecystectomy Status post laparoscopic cholecystectomy Hx of colonoscopy H/O dilation and curettage S/P right knee arthroscopy H/O esophagogastroduodenoscopy History of arthroscopy of right knee History of tubal ligation H/O section History of tonsillectomy Family History Father HTN (hypertension) Prostate cancer Mother HTN (hypertension) Diabetes Hx of CABG Sister Asthma Social History (Reviewed 07/11/24 @ 11:19 by SCOTTIE Soto Household Members: Spouse, Significant Other and Other Housing: House Alcohol intake: current Alcohol intake frequency: does not drink Patient Tobacco Use Status: Never used Tobacco e-Cigarette/Vaping Use: Never Used Second Hand Smoke Exposure: No service: No Current occupational status: disabled Current occupational exposures/hazards: No Cognitive needs: No Hearing needs: No Vision needs: Yes Review of Systems Const All systems reviewed & are unremarkable except as noted in HPI and below Physical Exam Vital Signs: Last Vital Signs Pulse 63 12/25/23 08:29 BP 120/80 12/25/23 08:29 Pulse Ox 98 12/25/23 08:29 Oxygen Delivery Method Room Air 12/25/23 08:29 Const General: cooperative, healthy appearing, comfortable and no acute distress Orientation/consciousness: patient oriented x3 Limitations: no limitations HEENT Head: Yes normal to inspection Ears: hearing grossly normal bilaterally, external ears normal and TM's normal bilaterally General nose exam: Normal external nose present, Normal nares present, Normal septum present and No nasal discharge present Face and sinus: Yes normal facial exam and Yes sinus tenderness Mouth: Normal oral and palatal mucosa present and moist mucous membranes Throat: Yes tonsils normal, Yes uvula midline and Yes posterior oropharynx abnormal (Erythema) Eyes General: appearance normal, both eyes and all related structures Neck Neck: Yes normal visual inspection Resp Effort & Inspection: normal respiratory effort, able to speak in complete sentences, no respiratory distress, not tachypneic, no tripod positioning and no use of accessory muscles Auscultation: clear to auscultation bilaterally Skin General skin exam: no rashes or lesions noted Neuro General: patient oriented x3 Extrem General: Yes normal to inspection and Yes no clubbing, cyanosis or edema Assessment & Plan Assessment & Plan (1) Sinusitis: Code(s): J32.9 - Chronic sinusitis, unspecified Qualifiers: Sinusitis location: other Chronicity: acute Recurrence: non-recurrent Qualified Code(s): J01.80 - Other acute sinusitis Plan: Explained that augmentin will work better for her sinusitis if it is bacterial (on day 8) but patient is insistent on Z-Daniel so I will send a Z-Daniel to her pharmacy. Plan See above Coding Level of Care Code Est Pt Level 3 (60631) Diagnoses Acute non-recurrent sinusitis of other sinus J01.80 Sinusitis location: other Chronicity: acute Recurrence: non-recurrent
[2023-12-25 08:29] VITALS: BP 120/80; PULSE 63; O2SAT 98
== END 2023-12-25 09:27 | disposition home or self-care (01) ==
PROVIDERS: PCP Internal Medicine; Visit Provider Physician Assistant
DX: J01.80 Other acute sinusitis (principal)
CPT/HCPCS: 99213

== ENCOUNTER 2024-01-07 12:51 | Outpatient (AMB) | payer OTHER, SELFPAY ==
[2024-01-07 12:56] VITALS: BP 128/65; PULSE 64; BMI 29.7
--- NOTE | 2024-01-07 12:56 | MHC.OFFVIS ---
Vital Signs 01/07/24 12:56 Height 5 ft 2 in Weight 162 lb 4.163 oz BMI 29.7 BP 128/65 Blood Pressure Location Lt brachial Position Sitting Pulse 64 Intake Visit Reasons: 6 month follow up CIC, Gerd Intake Note: Patient in office today in 6 months follow up of CT scan and DEXA. CC: Patient states that she is doing well and only gets abdominal pain with some foods. Denies having any other GI symptoms or concerns today. 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: No Accompanied by: Self / Same As Patient Allergies morphine [Morphine] Allergy (Intermediate, Verified 01/17/24 13:39) HALLUCINATIONS Sulfa (Sulfonamide Antibiotics) Allergy (Intermediate, Verified 01/17/24 13:39) HIVES shellfish derived Allergy (Mild, Verified 01/17/24 13:39) Stomach Upset Oral Contrast Adverse Reaction (Intermediate, Uncoded 01/17/24 13:39) Abdominal Pain HPI HPI 6 month follow up CIC, Gerd: Details: Assessment & Plan (1) GERD (gastroesophageal reflux disease): Code(s): K21.9 - Gastro-esophageal reflux disease without esophagitis Category: Medical (2) Upper abdominal pain: Code(s): R10.10 - Upper abdominal pain, unspecified Category: Medical (3) IBS (irritable bowel syndrome): Code(s): K58.9 - Irritable bowel syndrome without diarrhea Category: Medical (4) Abdominal bloating: Code(s): R14.0 - Abdominal distension (gaseous) Category: Medical (5) Diarrhea: Code(s): R19.7 - Diarrhea, unspecified Category: Medical (6) Thoracic degenerative disc disease: Code(s): M51.34 - Other intervertebral disc degeneration, thoracic region Category: Medical (7) Back pain: Code(s): M54.9 - Dorsalgia, unspecified Category: Medical Plan In July she was having a lot of pain in the chest and flanks/ribs - she thought she was having an TN and presented to the ER. The cardiac work up was negative. She was then sent to PT for back pain - she has quite a bit of thoracic back pain. She had a back XR which she has not been advised of the results yet. 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 She says the doctor is confusing me. She may have some GERD, but she had stopped her pantoprazole for a month prior to the onset of sx. She restarted it and the CP was relieved. She is moving her bowels well and eating well. In fact, she is gaining weight which may be complicating her back pain. After CT of thoracic spine ordered today along with DEXA scan Orders: Orders CT thoracic spine wo IV con Today M51.34 - Other intervertebral disc degeneration, thoracic region, M54.9 - Dorsalgia, unspecified XR DEXA axial skeleton Today M51.34 - Other intervertebral disc degeneration, thoracic region, M54.9 - Dorsalgia, unspecified Medications: New pantoprazole (Protonix) 40 mg PO DAILY 30 days PRN [address] of the thoracic spine 10/23/23 FINDINGS: Normal thoracic kyphosis is preserved. Vertebral body heights are maintained. There is no suspicious osseous lesion. Mild multilevel disc height loss with a few endplate Schmorl's nodes. Please note assessment for spinal canal patency is limited on CT in the absence of intrathecal contrast. There are several small multilevel disc protrusions, most pronounced at T7-T8. Within limitations of CT, there is no significant spinal canal nor neural foraminal stenosis. There are multilevel prevertebral disc osteophyte eccentric to the right and most pronounced in the lower thoracic spine. The paraspinal soft tissues are unremarkable. Partially imaged mild calcific plaque of the abdominal aorta. The visualized lungs are clear. CT/CT thoracic spine wo IV con IMPRESSION: Mild thoracic spondylosis without significant spinal canal or neural foraminal stenosis. DEXA IMPRESSION: 1. DIAGNOSIS: Normal bone density based on the lowest T-score value of -0.2 in the total femur applying World Health Organization criteria. 2. 10-YEAR FRACTURE RISK PREDICTION, FRAX: According to the guidelines, FRAX calculation should only be performed on patients in the osteopenia bone density category. Therefore, FRAX was not performed on this patient. 3. Treatment Recommendations: NOF guidelines recommend consideration for treatment in postmenopausal women and men age 50 and older presenting with the following: -A hip or vertebral (clinical or morphometric) fracture. -T-score less than or equal to -2.5 at the femoral neck or spine after appropriate evaluation to exclude secondary causes. -Low bone mass at the hip or spine and a 10-year fracture probability by FRAX of greater than or equal to 3% for hip fracture or greater than or equal to 20% for major osteoporotic fracture based on the [place] adapted WHO algorithm. 4. Other Recommendations: All treatment decisions require clinical judgment and consideration of individual patient factors, including patient preferences, comorbidities, previous drug use, risk factors not captured in the FRAX model (e.g. frailty, falls, vitamin D deficiency, increased bone turnover, interval significant decline in bone density) and possible under or overestimation of fracture risk by FRAX. FUTURE SCAN RECOMMENDATION: People with diagnosed cases of osteoporosis or at high risk for fracture should have regular bone mineral density tests. For patients eligible for Medicare, routine testing is allowed once every 2 years. The testing frequency can be increased to one year for patients who have rapidly progressing disease, those who are receiving or discontinuing medical therapy to restore bone mass, or have additional risk factors. TODAY'S VISIT On 09/09/23 @ 09:22 Norma Cohen Wrote To Martinez,August Urgent referral for epigastric pain added for 09/12. She has been doing well w/o pantoprazole, she is eating more and gaining some weight. She can't eat red meat now, it nauseates her - she sticks to chicken. She still wants the pantoprazole prn, which ihs fine and she wants to continue ot follow with us. I explain the test and she DOES have a disc protrusion at T7-T8 which may explain her sx of back and flank pain with housework. ROV 6 mos per pt request [facility] Medical History Back pain Thoracic back pain Acalculous cholecystitis Thoracic back pain Loose stools Asthma Contact dermatitis Tubular adenoma of colon Degenerative disc disease, thoracic Cholelithiasis with chronic cholecystitis Glaucoma Depression Helicobacter pylori (H. pylori) Anemia Myocardial infarction GERD (gastroesophageal reflux disease) Surgical History Hx laparoscopic cholecystectomy Status post laparoscopic cholecystectomy Hx of colonoscopy H/O dilation and curettage S/P right knee arthroscopy H/O esophagogastroduodenoscopy History of arthroscopy of right knee History of tubal ligation H/O section History of tonsillectomy Family History Father HTN (hypertension) Prostate cancer Mother HTN (hypertension) Diabetes Hx of CABG Sister Asthma Social History Household Members: Spouse, Significant Other and Other Housing: House Alcohol intake: current Alcohol intake frequency: does not drink Patient Tobacco Use Status: Never used Tobacco Tobacco use type: Cigarette e-Cigarette/Vaping Use: Never Used Second Hand Smoke Exposure: No service: No Current occupational status: disabled Current occupational exposures/hazards: No Cognitive needs: No Hearing needs: No Vision needs: Yes Review of Systems Const Denies fatigue, Denies fever(s), Denies night sweats, Denies poor appetite and Denies weight loss ENT Reports Normal hearing present, Denies dental pain, Denies dysphagia, Denies hearing loss, Denies mouth pain, Denies odynophagia, Denies throat swelling, Denies tongue swelling and Reports other (Dentition adequate) Card Reports no additional complaints Resp Reports no additional complaints GI Details: Reports abdominal pain, Denies melena, Denies bloating, Denies hematochezia, Denies constipation, Denies GI cramping, Denies dysphagia, Denies excessive flatus, Denies early satiety, Reports heartburn, Denies diarrhea, Denies nausea, Denies odynophagia, Denies vomiting and Denies hematemesis Skin/Breast Denies pruritus, Denies lesions, Denies rash and Denies jaundice Neuro Reports Normal hearing present and Denies Abnormal speech present Endo Denies fatigue Aller/Immun Denies throat swelling and Denies tongue swelling Physical Exam Vital Signs: Last Vital Signs Pulse 64 01/07/24 12:56 BP 128/65 01/07/24 12:56 BMI result Body Mass Index 29.7 Const General: cooperative, no acute distress, well developed and well groomed Nutritional Appearance: well nourished and overweight Orientation/consciousness: oriented to person, oriented to place and oriented to time Limitations: No language barrier HEENT Head: Yes normocephalic and Yes atraumatic Eyes General: appearance normal, both eyes and all related structures Pupils: Equal, round and reactive pupils present Neck Neck: Yes normal visual inspection and Yes no lymphadenopathy Thyroid: Thyroid normal Resp Effort & Inspection: normal respiratory effort and able to speak in complete sentences Auscultation: clear to auscultation bilaterally Cardio Rate: regular rate Rhythm: regular rhythm Heart sounds: Normal, physiologic split S2 sound present Peripheral pulses: radial pulses present and posterior tibial pulses present GI Inspection: No distended, No Abdominal panniculus present and Yes obesity Palpation (GI): Soft to palpation, nontender, no guarding, not rigid and No hepatosplenomegaly present Percussion: Yes normal to percussion Auscultation: normal bowel sounds Rectal Exam - Female: deferred Skin General skin exam: no rashes or lesions noted, turgor normal, skin not dry, no jaundice, No spider nevi and no striae Rashes: no rashes Nails: normal Neuro General: oriented to person, oriented to place and oriented to time Cranial nerves: Yes Equal, round and reactive pupils present and Yes Normal hearing present Speech: No Abnormal speech present Extrem General: Yes normal to inspection, No clubbing, No cyanosis and No edema Psych Appearance: grossly normal and well kempt Mental Status: mental status grossly normal Speech and movement: Normal speech and movement present Affect: normal affect Attitude: cooperative Thought process: Normal thought process present and not confabulating Thought content: Normal thought content present Insight: Limited insight present (Psych) Judgement: Limited judgement present (Psych) Results Reviewed Results Reviewed: CT of the thoracic spine 10/23/23 FINDINGS: Normal thoracic kyphosis is preserved. Vertebral body heights are maintained. There is no suspicious osseous lesion. Mild multilevel disc height loss with a few endplate Schmorl's nodes. Please note assessment for spinal canal patency is limited on CT in the absence of intrathecal contrast. There are several small multilevel disc protrusions, most pronounced at T7-T8. Within limitations of CT, there is no significant spinal canal nor neural foraminal stenosis. There are multilevel prevertebral disc osteophyte eccentric to the right and most pronounced in the lower thoracic spine. The paraspinal soft tissues are unremarkable. Partially imaged mild calcific plaque of the abdominal aorta. The visualized lungs are clear. CT/CT thoracic spine wo IV con IMPRESSION: Mild thoracic spondylosis without significant spinal canal or neural foraminal stenosis. DEXA IMPRESSION: 1. DIAGNOSIS: Normal bone density based on the lowest T-score value of -0.2 in the total femur applying World Health Organization criteria. 2. 10-YEAR FRACTURE RISK PREDICTION, FRAX: According to the guidelines, FRAX calculation should only be performed on patients in the osteopenia bone density category. Therefore, FRAX was not performed on this patient. 3. Treatment Recommendations: NOF guidelines recommend consideration for treatment in postmenopausal women and men age 50 and older presenting with the following: -A hip or vertebral (clinical or morphometric) fracture. -T-score less than or equal to -2.5 at the femoral neck or spine after appropriate evaluation to exclude secondary causes. -Low bone mass at the hip or spine and a 10-year fracture probability by FRAX of greater than or equal to 3% for hip fracture or greater than or equal to 20% for major osteoporotic fracture based on the [place] adapted WHO algorithm. 4. Other Recommendations: All treatment decisions require clinical judgment and consideration of individual patient factors, including patient preferences, comorbidities, previous drug use, risk factors not captured in the FRAX model (e.g. frailty, falls, vitamin D deficiency, increased bone turnover, interval significant decline in bone density) and possible under or overestimation of fracture risk by FRAX. FUTURE SCAN RECOMMENDATION: People with diagnosed cases of osteoporosis or at high risk for fracture should have regular bone mineral density tests. For patients eligible for Medicare, routine testing is allowed once every 2 years. The testing frequency can be increased to one year for patients who have rapidly progressing disease, those who are receiving or discontinuing medical therapy to restore bone mass, or have additional risk factors. Assessment & Plan Assessment & Plan (1) GERD (gastroesophageal reflux disease): Code(s): K21.9 - Gastro-esophageal reflux disease without esophagitis Category: Medical (2) IBS (irritable bowel syndrome): Code(s): K58.9 - Irritable bowel syndrome without diarrhea Category: Medical (3) Upper abdominal pain: Code(s): R10.10 - Upper abdominal pain, unspecified Category: Medical Plan On 09/09/23 @ 09:22 Norma Cohen Wrote To Michelle,August Urgent referral for epigastric pain added for 09/12. She has been doing well w/o pantoprazole, she is eating more and gaining some weight. She can't eat red meat now, it nauseates her - she sticks to chicken. She still wants the pantoprazole prn, which ihs fine and she wants to continue ot follow with us. I explain the test and she DOES have a disc protrusion at T7-T8 which may explain her sx of back and flank pain with housework. ROV 6 mos per pt request Medications: Refilled pantoprazole (Protonix) 40 mg PO DAILY PRN 30 tabs 6RF heartburn 30 days Coding Level of Care Code Est Pt Level 3 (94605) Diagnoses GERD (gastroesophageal reflux disease) K21.9 IBS (irritable bowel syndrome) K58.9 Upper abdominal pain R10.10
== END 2024-01-07 13:34 | disposition home or self-care (01) ==
PROVIDERS: PCP Internal Medicine; Visit Provider Nurse Practitioner
DX: K21.9 Gastro-esophageal reflux disease without esophagitis (principal); K58.9 Irritable bowel syndrome, unspecified; R10.10 Upper abdominal pain, unspecified
CPT/HCPCS: 99213

== ENCOUNTER → 2024-01-07 12:51 | Outpatient (BNVA) | payer OTHER, SELFPAY | PROVIDERS: PCP Internal Medicine; Visit Provider Nurse Practitioner | DX: K58.1 Irritable bowel syndrome with constipation (principal); K59.04 Chronic idiopathic constipation; K21.9 Gastro-esophageal reflux disease without esophagitis; R10.10 Upper abdominal pain, unspecified; R14.0 Abdominal distension (gaseous) | CPT/HCPCS: 99212 ==

== ENCOUNTER 2024-01-17 13:37 | Outpatient (AMB) | payer OTHER, SELFPAY ==
[2024-01-17 13:39] VITALS: BP 114/70; PULSE 67; O2SAT 95; BMI 29.6
--- NOTE | 2024-01-17 13:39 | A.OFFPC_ITS ---
Vital Signs 01/17/24 13:39 Height 5 ft 2 in Weight 162 lb BMI 29.6 BP 114/70 Blood Pressure Location Lt brachial Position Sitting Pulse 67 Pulse Source Pulse Oximeter Pulse Oximetry (%) 95 Oxygen Delivery Method Room Air Intake Visit Reasons: requesting mri Allergies morphine [Morphine] Allergy (Intermediate, Verified 01/17/24 13:39) HALLUCINATIONS Sulfa (Sulfonamide Antibiotics) Allergy (Intermediate, Verified 01/17/24 13:39) HIVES shellfish derived Allergy (Mild, Verified 01/17/24 13:39) Stomach Upset Oral Contrast Adverse Reaction (Intermediate, Uncoded 01/17/24 13:39) Abdominal Pain Medication List - Last Reconciled 01/21/24 by Geovany Herron MD ibuprofen 800 mg PO Q8H PRN loratadine (Claritin) 10 mg PO DAILY pantoprazole (Protonix) 40 mg PO DAILY PRN 30 days Tobacco use date assessed: 11/21/23 Dental Screening Dental Screen Date: 08/07/23 HPI requesting mri HPI Details chronic mid dorsal spine pain; going to [facility] Medical History Back pain Thoracic back pain Acalculous cholecystitis Thoracic back pain Loose stools Asthma Contact dermatitis Tubular adenoma of colon Degenerative disc disease, thoracic Cholelithiasis with chronic cholecystitis Glaucoma Depression Helicobacter pylori (H. pylori) Anemia Myocardial infarction GERD (gastroesophageal reflux disease) Surgical History Hx laparoscopic cholecystectomy Status post laparoscopic cholecystectomy Hx of colonoscopy H/O dilation and curettage S/P right knee arthroscopy H/O esophagogastroduodenoscopy History of arthroscopy of right knee History of tubal ligation H/O section History of tonsillectomy Family History Father HTN (hypertension) Prostate cancer Mother HTN (hypertension) Diabetes Hx of CABG Sister Asthma Social History Household Members: Spouse, Significant Other and Other Housing: House Alcohol intake: current Alcohol intake frequency: does not drink Patient Tobacco Use Status: Never used Tobacco Tobacco use type: Cigarette e-Cigarette/Vaping Use: Never Used Second Hand Smoke Exposure: No service: No Current occupational status: disabled Current occupational exposures/hazards: No Cognitive needs: No Hearing needs: No Vision needs: Yes Questionnaire PHQ-9 Over the last 2 weeks, how often have you been bothered by any of the following problems? 1. Little interest or pleasure in doing things: not at all 2. Feeling down, depressed, or hopeless: not at all 3. Trouble falling or staying asleep, or sleeping too much: not at all 4. Feeling tired or having little energy: not at all 5. Poor appetite or overeating: not at all 6. Feeling bad about yourself - or that you are a failure or have let yourself or your family down: not at all 7. Trouble concentrating on things, such as reading the newspaper or watching television: not at all 8. Moving or speaking so slowly that other people could have noticed. Or the opposite - being so fidgety or restless that you have been moving around a lot more than usual: not at all 9. Thoughts that you would be better off or of hurting yourself in some way: not at all Total score: 0 Depression Screening Interpretation: Negative Depression Screening Done: Yes 12421 - PHQ-9 Billing: Yes Source: Developed by Drs. Kevin Stevenson, Nita Gutierrez, Kulwant Flores and colleagues, with an educational reji from [employer]. Thrive Questionnaire Date Thrive assessed: 08/27/23 AUDIT C Alcohol Use Questionnaire (AUDIT-C) 1. How often do you have a drink containing alcohol?: Never 3. How often do you have six or more drinks on one occasion?: Never Total Score: 0 Score Reviewed/Action Taken: Yes JAJA-7 AMB Questionnaire JAJA-7 Date JAJA - 7 assessed: 06/20/23 Source: Developed by Drs. Kevin Stevenson, Kulwant Montgomery and colleagues, with an educational reji from [employer]. Review of Systems Const Denies chills, Denies headache(s) and Denies weight loss ENT Denies headache(s) Card Denies chest pain, Denies syncope, Denies irregular heart rhythm and Denies dyspnea Resp Denies chest congestion, Denies cough and Denies dyspnea GI Denies abdominal pain, Denies change in stool character, Denies nausea and Denies vomiting Musc Denies deformity and Denies joint swelling Neuro Denies syncope and Denies headache(s) Physical exam (Primary Care) Vital Signs: Last Vital Signs Pulse 67 01/17/24 13:39 BP 114/70 01/17/24 13:39 Pulse Ox 95 01/17/24 13:39 Oxygen Delivery Method Room Air 01/17/24 13:39 BMI result Body Mass Index 29.6 Tobacco/Smoking Status: Tobacco use Status Tobacco use date assessed 11/21/23 01/17/24 13:43 Patient Tobacco Use Status Never used Tobacco 01/17/24 13:43 Tobacco use type Cigarette 01/17/24 13:43 e-Cigarette/Vaping Use Never Used 01/17/24 13:43 PHQ-9: PHQ-9 Score PHQ-9: Total score 0 01/17/24 13:43 Depression Screening Interpretation: Negative Thrive Assessment: Date of Thrive Assessment Date Thrive assessed 08/27/23 01/17/24 13:43 Const General: cooperative, comfortable, no acute distress and alert Neck Neck: Yes no lymphadenopathy Thyroid: Thyroid normal Resp Effort & Inspection: normal respiratory effort Auscultation: clear to auscultation bilaterally Percussion: percussion normal Cardio Jugular venous distension: no JVD Palpation: normal PMI Rate: regular rate Rhythm: regular rhythm Heart sounds: S1 normal heart sound present and S2 normal heart sound present GI Inspection: Yes normal to inspection Palpation (GI): No hepatosplenomegaly present Skin General skin exam: no rashes or lesions noted Extrem General: Yes no clubbing, cyanosis or edema Assessment and Plan Assessment & Plan (1) Thoracic degenerative disc disease: Code(s): M51.34 - Other intervertebral disc degeneration, thoracic region Plan: mri needed before spine center will see patient Orders: Orders MR thoracic spine wo con 01/17/24 M51.34 - Other intervertebral disc degeneration, thoracic region Coding Level of Care Code Est Pt Level 3 (54290) Diagnoses Thoracic degenerative disc disease M51.34
== END 2024-01-17 13:57 | disposition home or self-care (01) ==
PROVIDERS: PCP Internal Medicine; Visit Provider Internal Medicine
DX: M51.34 Other intervertebral disc degeneration, thoracic region (principal)
CPT/HCPCS: 99213

== ENCOUNTER 2024-02-05 13:00 | Outpatient (RCR) | payer OTHER, SELFPAY ==
--- NOTE | 2024-01-08 16:13 | MHC.PT.EP ---
[facility] [place] Office [place] Office [place] Office [address] Leoncio Renteria [address] [phone] F: [phone] F: [phone] F: [phone] F: [phone] Physical Therapy Plan of Care Date of Evaluation: 01/08/24 Date of Surgery: Diagnosis: Thoracic spine pain Assessment: Pt is a 63 y/o F with hx of MA who is referred to PT for eval and treat of thoracic spine pain resulting in decreased tolerance or ability for walking, sitting for extended periods of time and completing HH chores secondary to decreased lumbar ROM, TTP B PSIS, forward head/rounded shoulder posture, increase tissue tension B HS and decreased B hip strength as well as significant thoracic spine disc degeneration, mild thoracic spondylosis and C7-C8 disc protrusion as shown on CT scan . Pt is motivated and is deemed an appropriate candidate to receive skilled PT services to address their physical impairments in order to improve their function. Frequency and Duration: The patient will be seen 2x/week for 3 weeks Short Term Goals: Initiate home exercise program. Pt will increase R hip flexion strength by 1/2 grade; initial 4/5. Pt will increase lumbar flexion to 100%; initial 80%. [employer] Goals: Pt will be I with home exercise program. Pt will be able to walk 1 mile with little to no difficulty; initial severe difficulty. Pt will be able to sit for 1 hour with little to difficulty; initial severe difficulty. Pt will improve Jacobo score by 10 points. Treatment Plan: Modalities to reduce pain, spasms and effusion. Manual therapy to restore motion and function. Therapeutic exercise to improve strength and flexibility. Neuromuscular re-education for posture and balance. Therapeutic activities to return to functional activities of daily living. Electronically signed by: Jordan Griffin PT. Please sign and return to therapist. Thank you for your referral.
== END 2024-03-10 10:49 | disposition home or self-care (01) ==
LOC: HO.PT 13:00
PROVIDERS: PCP Internal Medicine; Visit Provider Physician Assistant
DX: M54.6 Pain in thoracic spine (principal)
CPT/HCPCS: 97110; 97140; 97161; 97530

== ENCOUNTER 2024-02-17 11:35 | Outpatient (AMB) | payer OTHER, SELFPAY ==
[2024-02-17 11:38] VITALS: BP 134/76; PULSE 67; O2SAT 94; BMI 29.4
--- NOTE | 2024-02-17 11:38 | MHC.PC.OV ---
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 Accompanied by: Self / Same As Patient Allergies morphine [Morphine] Allergy (Intermediate, Verified 02/17/24 11:40) HALLUCINATIONS Sulfa (Sulfonamide Antibiotics) Allergy (Intermediate, Verified 02/17/24 11:40) HIVES shellfish derived Allergy (Mild, Verified 02/17/24 11:40) Stomach Upset Oral Contrast Adverse Reaction (Intermediate, Uncoded 02/17/24 11:40) Abdominal Pain Medication List - Last Reconciled 02/17/24 by Geovany Herron MD ibuprofen 800 mg PO Q8H PRN loratadine (Claritin) 10 mg PO DAILY pantoprazole (Protonix) 40 mg PO DAILY PRN 30 days Tobacco use date assessed: 11/21/23 Dental Screening Dental Screen Date: 08/07/23 HPI f/u HPI Details had her MRI so she can now be seen by a spine surgeon which is still and active order [facility] Medical History Back pain Thoracic back pain Acalculous cholecystitis Thoracic back pain Loose stools Asthma Contact dermatitis Tubular adenoma of colon Degenerative disc disease, thoracic Cholelithiasis with chronic cholecystitis Glaucoma Depression Helicobacter pylori (H. pylori) Anemia Myocardial infarction GERD (gastroesophageal reflux disease) Surgical History Hx laparoscopic cholecystectomy Status post laparoscopic cholecystectomy Hx of colonoscopy H/O dilation and curettage S/P right knee arthroscopy H/O esophagogastroduodenoscopy History of arthroscopy of right knee History of tubal ligation H/O section History of tonsillectomy Family History Father HTN (hypertension) Prostate cancer Mother HTN (hypertension) Diabetes Hx of CABG Sister Asthma Social History Household Members: Spouse, Significant Other and Other Housing: House Alcohol intake: current Alcohol intake frequency: does not drink Patient Tobacco Use Status: Never used Tobacco Tobacco use type: Cigarette e-Cigarette/Vaping Use: Never Used Second Hand Smoke Exposure: No service: No Current occupational status: disabled Current occupational exposures/hazards: No Cognitive needs: No Hearing needs: No Vision needs: Yes Questionnaire PHQ-9 Over the last 2 weeks, how often have you been bothered by any of the following problems? 1. Little interest or pleasure in doing things: not at all 2. Feeling down, depressed, or hopeless: not at all 3. Trouble falling or staying asleep, or sleeping too much: not at all 4. Feeling tired or having little energy: not at all 5. Poor appetite or overeating: not at all 6. Feeling bad about yourself - or that you are a failure or have let yourself or your family down: not at all 7. Trouble concentrating on things, such as reading the newspaper or watching television: not at all 8. Moving or speaking so slowly that other people could have noticed. Or the opposite - being so fidgety or restless that you have been moving around a lot more than usual: not at all 9. Thoughts that you would be better off or of hurting yourself in some way: not at all Total score: 0 Depression Screening Interpretation: Negative Depression Screening Done: Yes 30314 - PHQ-9 Billing: Yes Source: Developed by Drs. Kevin Stevenson, Nita Gutierrez, Kulwant Flores and colleagues, with an educational reji from [employer]. Thrive Questionnaire Date Thrive assessed: 08/27/23 AUDIT C Alcohol Use Questionnaire (AUDIT-C) 1. How often do you have a drink containing alcohol?: Never 3. How often do you have six or more drinks on one occasion?: Never Total Score: 0 Score Reviewed/Action Taken: Yes JAJA-7 AMB Questionnaire JAJA-7 Date JAJA - 7 assessed: 06/20/23 Source: Developed by Drs. Kevin Stevenson, Kulwant Montgomery and colleagues, with an educational reji from [employer]. Review of Systems Const Denies chills, Denies headache(s) and Denies weight loss ENT Denies headache(s) Card Denies chest pain, Denies syncope, Denies irregular heart rhythm and Denies dyspnea Resp Denies chest congestion, Denies cough and Denies dyspnea GI Denies abdominal pain, Denies change in stool character, Denies nausea and Denies vomiting Musc Denies deformity and Denies joint swelling Neuro Denies syncope and Denies headache(s) Physical exam (Primary Care) Vital Signs: Last Vital Signs Pulse 67 02/17/24 11:38 BP 134/76 02/17/24 11:38 Pulse Ox 94 02/17/24 11:38 Oxygen Delivery Method Room Air 02/17/24 11:38 BMI result Body Mass Index 29.4 Tobacco/Smoking Status: Tobacco use Status Tobacco use date assessed 11/21/23 02/17/24 11:42 Patient Tobacco Use Status Never used Tobacco 02/17/24 11:42 Tobacco use type Cigarette 02/17/24 11:42 e-Cigarette/Vaping Use Never Used 02/17/24 11:42 PHQ-9: PHQ-9 Score PHQ-9: Total score 0 02/17/24 11:43 Depression Screening Interpretation: Negative Thrive Assessment: Date of Thrive Assessment Date Thrive assessed 08/27/23 02/17/24 11:42 Const General: cooperative, comfortable, no acute distress and alert Neck Neck: Yes no lymphadenopathy Thyroid: Thyroid normal Resp Effort & Inspection: normal respiratory effort Auscultation: clear to auscultation bilaterally Percussion: percussion normal Cardio Jugular venous distension: no JVD Palpation: normal PMI Rate: regular rate Rhythm: regular rhythm Heart sounds: S1 normal heart sound present and S2 normal heart sound present GI Inspection: Yes normal to inspection Palpation (GI): No hepatosplenomegaly present Skin General skin exam: no rashes or lesions noted Extrem General: Yes no clubbing, cyanosis or edema Coding Level of Care Code Est Pt Level 3 (54478) Diagnoses Thoracic back pain M54.6 Assessment & Plan Assessment & Plan (1) Thoracic back pain: Code(s): M54.6 - Pain in thoracic spine Category: Medical Plan: referred to spine center
== END 2024-02-17 11:51 | disposition home or self-care (01) ==
PROVIDERS: PCP Internal Medicine; Visit Provider Internal Medicine
DX: M54.6 Pain in thoracic spine (principal)

== ENCOUNTER → 2024-02-17 11:35 | Outpatient (BNVA) | payer OTHER, SELFPAY | PROVIDERS: PCP Internal Medicine; Visit Provider Internal Medicine | DX: M54.6 Pain in thoracic spine (principal) | CPT/HCPCS: 99212 ==

== ENCOUNTER 2024-02-20 11:32 | Outpatient (AMB) | payer OTHER, SELFPAY ==
--- NOTE | 2024-02-20 11:34 | A.SPINEOV_ITS ---
Intake Visit Reasons: f/u after PT/discuss MRI Intake Note: Ms. Roth is here today tp F/u afteR PT and MRI results. Education Nurse Required: No Allergies morphine [Morphine] Allergy (Intermediate, Verified 02/20/24 11:42) HALLUCINATIONS Sulfa (Sulfonamide Antibiotics) Allergy (Intermediate, Verified 02/20/24 11:42) HIVES shellfish derived Allergy (Mild, Verified 02/20/24 11:42) Stomach Upset Oral Contrast Adverse Reaction (Intermediate, Uncoded 02/17/24 11:40) Abdominal Pain Assessment & Plan Assessment & Plan (1) Back pain: Code(s): M54.9 - Dorsalgia, unspecified Category: Medical Plan Kiara is a pleasant 63 year old female who comes in today to discuss her MRI results. She had an MRI of the thoracic spine completed by her PCP Dr. Herron. To recap she was previously evaluated in our office for pain around her midthoracic region, adn occasional pains in her lumbar region. It was described as primarily para-spinal and had no radicular component to it. She attempted PT and a plethora of OTC medications. She had previously reported success with PT so DARYN Sousa reffered her back to PT, as there was no obvious neurosurgical intervention warranted based on her imaging / exam. Today, Ms. Roth comes back to our office to discuss her MRI which I rev iewed with her. Based on her imaging she has a mostly normal thoracic MRI. There is no high grade stenosis or impingement that I am able to identify. 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 She continues to report symptoms that are similar to those recorded during her previous visit. I informed her we can place a referral for pain management to discuss pain control options (medications, injections, nerve stimulators / ablations) but we do not see any avenue in which we could pursue surgically to resolve her pain. She understands and would like to wait another month or so to see if her pain improves at all. She will reach back out to us if she would like us to place the referral. Yovany Smith MD,PhD [facility] Coding Level of Care Code Est Pt Level 3 (36633) Diagnoses Back pain M54.9 Time Spent (min) 20
== END 2024-02-20 11:49 | disposition home or self-care (01) ==
PROVIDERS: PCP Internal Medicine; Visit Provider Physician Assistant
DX: M54.9 Dorsalgia, unspecified (principal)
CPT/HCPCS: 99213

== ENCOUNTER → 2024-02-20 11:32 | Outpatient (BNVA) | payer OTHER, SELFPAY | PROVIDERS: PCP Internal Medicine; Visit Provider Physician Assistant ==

== ENCOUNTER 2024-03-09 12:52 | Outpatient (AMB) | payer OTHER, SELFPAY ==
--- NOTE | 2024-03-09 12:56 | A.SPINEOV_ITS ---
Intake Visit Reasons: F/U from last visit with Yovany Intake Note: Ms. Roth is here today for a F/u after seeing Yovany. 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 She was c oncerned after her last visit when she was here previously that there was possibly some arthritis in her spine and that is why she was continuing to have backaches. I reassured her that her thoracic MRI just shows some very mild degenerative changes but nothing that she should be concerned about it all. I reassured her that overall things look very good inside her thoracic and even in the lumbar spine. She will have no restrictions on her activities but I did encourage her to get back to doing her physical therapy exercises. She felt her best when she was engaged in those exercises. She will see us back down the road if something changes. Total amount of time spent in this visit was 20 minutes in discussion of symptoms, thoracic imaging results and subsequent plan of care Kyle Smith MD,PhD [facility] Coding Level of Care Code Est Pt Level 3 (67590) Diagnoses Back pain M54.9
== END 2024-03-09 13:12 | disposition home or self-care (01) ==
LOC: HO.HNS 12:52
PROVIDERS: PCP Internal Medicine; Visit Provider Physician Assistant
DX: M54.9 Dorsalgia, unspecified (principal)
CPT/HCPCS: 99213

== ENCOUNTER → 2024-03-09 12:52 | Outpatient (BNVA) | payer OTHER, SELFPAY | PROVIDERS: PCP Internal Medicine; Visit Provider Physician Assistant | DX: M54.9 Dorsalgia, unspecified (principal) | CPT/HCPCS: 99212 ==

== ENCOUNTER 2024-03-27 12:13 | Emergency (ER) | payer OTHER, SELFPAY ==
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
[2024-03-27 12:33] VITALS: BP 159/59; PULSE 74; RESP 16; TEMP 36.6; O2SAT 97; BMI 29.4
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
[2024-03-27 14:14] VITALS: BP 137/61; PULSE 67; RESP 16; TEMP 36.7; O2SAT 98
[2024-03-27 16:36] VITALS: BP 149/74; PULSE 58; RESP 16; TEMP 36.7; O2SAT 99
[2024-03-27 17:21] VITALS: BP 149/74; PULSE 60; RESP 16; TEMP 36.7; O2SAT 97
== END 2024-03-27 17:22 | disposition home or self-care (01) ==
PROVIDERS: Emergency Provider Internal Medicine; PCP Internal Medicine
DX: S39.92XA Unspecified injury of lower back, initial encounter (principal); V43.02XA Car driver injured in collision with other type car in nontraffic accident, initial encounter; Y93.9 Activity, unspecified; Y92.9 Unspecified place or not applicable; Y99.9 Unspecified external cause status; M54.50 Low back pain, unspecified; M54.16 Radiculopathy, lumbar region
CPT/HCPCS: 72100; 99282; 99283

== ENCOUNTER → 2024-04-15 13:59 | Outpatient (BNVA) | payer OTHER, SELFPAY | PROVIDERS: PCP Internal Medicine; Visit Provider Nurse Practitioner ==

== ENCOUNTER 2024-04-21 08:53 | Outpatient (REF) | payer OTHER, SELFPAY ==
[2024-04-21 16:18] LABS: Influenza A PCR NEGATIVE (Negative); Influenza B PCR NEGATIVE (Negative); Resp Syncy Virus RNA Qual PCR NEGATIVE (Negative); SARS COV2 PCR INHOUSE NEGATIVE (Negative)
== END 2024-04-21 08:54 | disposition home or self-care (01) ==
LOC: HO.LAB 08:53
PROVIDERS: PCP Internal Medicine; Visit Provider Physician Assistant
DX: J06.9 Acute upper respiratory infection, unspecified (principal)
CPT/HCPCS: 0241U

== ENCOUNTER 2024-04-21 08:53 | Outpatient (AMB) | payer OTHER, SELFPAY ==
--- NOTE | 2024-04-21 09:39 | MHC.OFFWIV ---
Intake Vital Signs 04/21/24 09:50 Height 5 ft 2 in Weight 159 lb BMI 29.1 BP 130/80 Blood Pressure Location Lt brachial Position Sitting Pulse 68 Pulse Source Pulse Oximeter Temp 97.5 F Temp Source Oral Pulse Oximetry (%) 98 Oxygen Delivery Method Room Air Intake Visit Reasons: EP Dry cough, sinus pressure Intake Note: Patient here for dry cough and sinus pressure. states she started off with a sore throat Last week which she no longer has. Patient Tobacco Use Status: Never used Tobacco Allergies morphine [Morphine] Allergy (Intermediate, Verified 04/21/24 09:50) HALLUCINATIONS Sulfa (Sulfonamide Antibiotics) Allergy (Intermediate, Verified 04/21/24 09:50) HIVES shellfish derived Allergy (Mild, Verified 04/21/24 09:50) Stomach Upset Oral Contrast Adverse Reaction (Intermediate, Uncoded 04/21/24 09:50) Abdominal Pain Do you need a note to return to daycare/school/sports/work: No HPI HPI Comments History of Present Illness Details History The patient is a 63-year-old female presenting with symptoms of sore throat and persistent dry cough. The initial onset of symptoms occurred five days ago, beginning with a sore throat on , followed by increasing discomfort through the weekend. By Saturday night, the patient reported feeling generally unwell, accompanied by a dry cough that worsens at night, causing interruptions in sleep. The patient has been managing symptoms with [id number] remedies including hard candies and tea, but these have offered limited relief. The patient reports no fever, chills, sneezing, or sinus pain. She has a history of sinus issues but noticed an absence of nasal drainage with the current illness. Her , who works around children, has been sick with similar symptoms for the past week, leading to precautions being taken in the home to limit spread, such as sleeping separately and using masks. A COVID-19 home test conducted today yielded a negative result. Several years ago, the patient was prescribed an inhaler during a severe cold. She expresses concern due to family exposure risks, as her father is currently hospitalized. Physical Exam General: Cooperative, healthy appearing, comfortable and no acute distress Orientation/consciousness: Patient oriented x3 Limitations: No limitations Head: Normal to inspection Ears: Hearing grossly normal bilaterally, external ears normal and TM's normal bilaterally Nose: Normal external nose present, Normal nares present and No nasal discharge present Face and sinus: Normal facial exam and Yes sinuses nontender Mouth: Normal oral and palatal mucosa present and moist mucous membranes Throat: Yes tonsils normal, Yes uvula midline. Posterior oropharynx erythema Eyes: Appearance normal, both eyes and all related structures Neck: Normal visual inspection Respiratory: Clear to auscultation bilaterally. Normal respiratory effort, able to speak in complete sentences, Actively coughing, no respiratory distress, not tachypneic, no tripod positioning and no use of accessory muscles, shortness of breath Cardiovascular: Regular rate and rhythm. Normal S1 and S2 Skin: No rashes or lesions noted Neuro: Patient oriented x3 Extremities: Normal to inspection and Yes no clubbing, cyanosis or edema PFSH Medical History Back pain Thoracic back pain Acalculous cholecystitis Thoracic back pain Loose stools Asthma Contact dermatitis Tubular adenoma of colon Degenerative disc disease, thoracic Cholelithiasis with chronic cholecystitis Glaucoma Depression Helicobacter pylori (H. pylori) Anemia Myocardial infarction GERD (gastroesophageal reflux disease) Surgical History Hx laparoscopic cholecystectomy Status post laparoscopic cholecystectomy Hx of colonoscopy H/O dilation and curettage S/P right knee arthroscopy H/O esophagogastroduodenoscopy History of arthroscopy of right knee History of tubal ligation H/O section History of tonsillectomy Family History Father HTN (hypertension) Prostate cancer Mother HTN (hypertension) Diabetes Hx of CABG Sister Asthma Social History Household Members: Spouse, Significant Other and Other Housing: House Alcohol intake: current Alcohol intake frequency: does not drink Patient Tobacco Use Status: Never used Tobacco Tobacco use type: Cigarette e-Cigarette/Vaping Use: Never Used Second Hand Smoke Exposure: No service: No Current occupational status: disabled Current occupational exposures/hazards: No Cognitive needs: No Hearing needs: No Vision needs: Yes Review of Systems Const All systems reviewed & are unremarkable except as noted in HPI and below Physical Exam Vital Signs: Last Vital Signs Temp 97.5 F 04/21/24 09:50 Pulse 68 04/21/24 09:50 BP 130/80 04/21/24 09:50 Pulse Ox 98 04/21/24 09:50 Oxygen Delivery Method Room Air 04/21/24 09:50 BMI result Body Mass Index 29.1 Assessment & Plan Assessment & Plan (1) URI, acute: Code(s): J06.9 - Acute upper respiratory infection, unspecified Plan: Plan - Initiate treatment with Azithromycin Z-Daniel to address the suspicion of atypical pneumonia or walking pneumonia, as it covers the likely pathogen and provides anti-inflammatory benefits. - Prescribe an inhaler for symptomatic relief of shortness of breath and potential bronchospasm, with instructions on proper usage. - Continue current medication with the addition of Tessalon Perles for nighttime cough suppression, to improve sleep and reduce cough frequency. - Conduct further diagnostic testing for influenza and RSV to rule out other viral etiologies, despite negative COVID-19 test results. Patient was informed and verbally consented to the use of an ambient scribe for clinic note documentation during this visit Coding Level of Care Code Est Pt Level 3 (74164) Diagnoses URI, acute J06.9
[2024-04-21 09:50] VITALS: BP 130/80; PULSE 68; TEMP 36.4; O2SAT 98; BMI 29.1
== END 2024-04-21 11:08 | disposition home or self-care (01) ==
PROVIDERS: PCP Internal Medicine; Visit Provider Physician Assistant
DX: J06.9 Acute upper respiratory infection, unspecified (principal)

== ENCOUNTER 2024-04-24 10:32 | Outpatient (AMB) | payer OTHER, SELFPAY ==
[2024-04-24 10:35] VITALS: BP 142/82; PULSE 85; O2SAT 97; BMI 29.1
--- NOTE | 2024-04-24 10:35 | A.OFFPC_ITS ---
Vital Signs 04/24/24 10:35 Height 5 ft 2 in Weight 159 lb BMI 29.1 BP 142/82 H Blood Pressure Location Lt brachial Position Sitting Pulse 85 Pulse Source Pulse Oximeter Pulse Oximetry (%) 97 Oxygen Delivery Method Room Air Intake Visit Reasons: Cough Allergies morphine [Morphine] Allergy (Intermediate, Verified 04/25/24 09:35) HALLUCINATIONS Sulfa (Sulfonamide Antibiotics) Allergy (Intermediate, Verified 04/25/24 09:35) HIVES shellfish derived Allergy (Mild, Verified 04/25/24 09:35) Stomach Upset Oral Contrast Adverse Reaction (Intermediate, Uncoded 04/25/24 09:35) Abdominal Pain Medication List - Last Reconciled 04/27/24 by Geovany Herron MD albuterol sulfate 90 mcg/actuation 2 puffs inhalation Q6H PRN amoxicillin-pot clavulanate 875-125 mg 1 tab PO BID 7 days azithromycin For 250 mg dose pack: take 500 mg today (day 1), then 250 mg for 4 days (days 2-5) PO benzonatate 200 mg PO TID PRN famotidine (Pepcid) 40 mg PO BEDTIME ibuprofen 800 mg PO Q8H PRN loratadine (Claritin) 10 mg PO DAILY Tobacco use date assessed: 11/21/23 Dental Screening Dental Screen Date: 08/07/23 HPI Cough HPI Details cough and congestion for a week PFSH Medical History Back pain Thoracic back pain Acalculous cholecystitis Thoracic back pain Loose stools Asthma Contact dermatitis Tubular adenoma of colon Degenerative disc disease, thoracic Cholelithiasis with chronic cholecystitis Glaucoma Depression Helicobacter pylori (H. pylori) Anemia Myocardial infarction GERD (gastroesophageal reflux disease) Surgical History Hx laparoscopic cholecystectomy Status post laparoscopic cholecystectomy Hx of colonoscopy H/O dilation and curettage S/P right knee arthroscopy H/O esophagogastroduodenoscopy History of arthroscopy of right knee History of tubal ligation H/O section History of tonsillectomy Family History Father HTN (hypertension) Prostate cancer Mother HTN (hypertension) Diabetes Hx of CABG Sister Asthma Social History Household Members: Spouse, Significant Other and Other Housing: House Alcohol intake: current Alcohol intake frequency: does not drink Patient Tobacco Use Status: Never used Tobacco Tobacco use type: Cigarette e-Cigarette/Vaping Use: Never Used Second Hand Smoke Exposure: No Advance Directives: No Advance Directives Information Provided: Yes service: No Current occupational status: disabled Current occupational exposures/hazards: No Cognitive needs: No Hearing needs: No Vision needs: Yes Questionnaire Thrive Questionnaire Date Thrive assessed: 08/27/23 JAJA-7 AMB Questionnaire JAJA-7 Date JAJA - 7 assessed: 06/20/23 Source: Developed by Drs. Kevin Stevenson, Nita Gutierrez, Kulwant Flores and colleagues, with an educational reji from [employer]. Review of Systems Const Denies chills, Denies headache(s) and Denies weight loss ENT Denies headache(s) Card Denies chest pain, Denies syncope, Denies irregular heart rhythm and Denies dyspnea Resp Reports chest congestion, Reports cough and Denies dyspnea GI Denies abdominal pain, Denies change in stool character, Denies nausea and Denies vomiting Musc Denies deformity and Denies joint swelling Neuro Denies syncope and Denies headache(s) Physical exam (Primary Care) Vital Signs: Last Vital Signs Pulse 85 04/24/24 10:35 BP 142/82 H 04/24/24 10:35 Pulse Ox 97 04/24/24 10:35 Oxygen Delivery Method Room Air 04/24/24 10:35 BMI result Body Mass Index 29.1 Tobacco/Smoking Status: Tobacco use Status Tobacco use date assessed 11/21/23 04/24/24 10:38 Patient Tobacco Use Status Never used Tobacco 04/24/24 10:38 Tobacco use type Cigarette 04/24/24 10:38 e-Cigarette/Vaping Use Never Used 04/24/24 10:38 Thrive Assessment: Date of Thrive Assessment Date Thrive assessed 08/27/23 04/24/24 10:38 Const General: cooperative, comfortable, no acute distress and alert Neck Neck: Yes no lymphadenopathy Thyroid: Thyroid normal Resp Effort & Inspection: normal respiratory effort Auscultation: clear to auscultation bilaterally Percussion: percussion normal Cardio Jugular venous distension: no JVD Palpation: normal PMI Rate: regular rate Rhythm: regular rhythm Heart sounds: S1 normal heart sound present and S2 normal heart sound present GI Inspection: Yes normal to inspection Palpation (GI): No hepatosplenomegaly present Skin General skin exam: no rashes or lesions noted Extrem General: Yes no clubbing, cyanosis or edema Coding Level of Care Code Est Pt Level 3 (15357) Diagnoses Cough R05.9 Assessment & Plan Assessment & Plan (1) Cough: Code(s): R05.9 - Cough, unspecified Plan: rx sent
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
== END 2024-04-24 10:43 | disposition home or self-care (01) ==
PROVIDERS: PCP Internal Medicine; Visit Provider Internal Medicine
DX: R05.9 Cough, unspecified (principal)

== ENCOUNTER → 2024-04-24 10:32 | Outpatient (BNVA) | payer OTHER, SELFPAY | PROVIDERS: PCP Internal Medicine; Visit Provider Internal Medicine ==

== ENCOUNTER 2024-04-25 09:20 | Emergency (ER) | payer OTHER, SELFPAY ==
--- NOTE | ~2024-04-25 | XR_ITS ---
EXAMINATION: XR CHEST CLINICAL INFORMATION: cough COMPARISON: Chest x-ray 08/25/2023 TECHNIQUE: 2 views of the chest were obtained. FINDINGS: No significant abnormality is noted involving the heart, lungs, mediastinum, bony thorax or soft tissues. XR/XR chest 2V IMPRESSION: Unremarkable chest examination. Electronically signed by: Tan Cheng MD 04/25/2024 11:55 AM [facility]
[2024-04-25 09:33] VITALS: BP 136/82; PULSE 85; RESP 20; TEMP 37.2; O2SAT 98; BMI 29.0
[2024-04-25 10:26] VITALS: BP 132/72; PULSE 63; RESP 15; TEMP 37.1; O2SAT 97
--- NOTE | 2024-04-25 10:34 | ED_ITS ---
HPI - URI/Sore Throat General Chief Complaint: Upper Respiratory Symptoms Stated Complaint: finished antibiotics, still not feeling well Time Seen by Provider: 04/25/24 09:53 Source: patient Mode of arrival: ambulatory Limitations: no limitations History of Present Illness ED Provider: MAREN ST PA-C HPI Narrative: 63 year old female with pmhx significant for seasonal allergies presents to the ED today for evaluation of nasal congestion, sneezing, watery eyes and dry cough x1 week. She was evaluated in the walk-in clinic on 04/19/2024. She was discharged with a zpak for possible walking pneumonia. No chest x-ray was obtained at that time. She was then evaluated by her primary care provider yesterday who was also concerned about walking pneumonia. He told the patient that he was going to be sending an antibiotic to her pharmacy however she never received this. She was not sure what antibiotic was supposed to be sent. She has been taking Claritin and Zyrtec at home for her seasonal allergies without improvement. She has also used Flonase over the last 2 days without improvement. Presents with continued symptoms. States her cough is very mild. Denies any sputum production. Denies fevers. She does report 1 episode of chills 2 nights ago. Denies shortness of breath or wheezing. Denies sore throat. Additionally reports urinary frequency as of this morning. No other urinary symptoms. Denies dysuria, abd pain, N/V, flank pain. Related Data Home Medications ?Medication ?Instructions ?Recorded ?Confirmed loratadine 10 mg tablet (Claritin) 10 mg PO DAILY 07/09/23 02/17/24 Previous Rx's ?Medication ?Instructions ?Recorded famotidine 40 mg tablet (Pepcid) 40 mg PO BEDTIME #30 tabs 04/16/24 ibuprofen 800 mg tablet 800 mg PO Q8H PRN pain #30 tabs 04/20/24 albuterol sulfate 90 mcg/actuation 2 puff inhalation Q6H PRN 04/21/24 aerosol inhaler shortness of breath or wheezing or cough #8.5 grams azithromycin 250 mg tablet See Rx Instructions PO .COMPLEX #6 04/21/24 tabs benzonatate 200 mg capsule 200 mg PO TID PRN cough #14 caps 04/21/24 amoxicillin 875 mg-potassium 1 tab PO BID 7 days #14 tabs 04/25/24 clavulanate 125 mg tablet Allergies Allergy/AdvReac Type Severity Reaction Status Date / Time morphine [Morphine] Allergy Intermediate HALLUCINATI Verified 04/25/24 09:35 ONS Sulfa (Sulfonamide Allergy Intermediate HIVES Verified 04/25/24 09:35 Antibiotics) shellfish derived Allergy Mild Stomach Verified 04/25/24 09:35 Upset Oral Contrast AdvReac Intermediate Abdominal Uncoded 04/25/24 09:35 Pain Review of Systems Review of Systems: Yes all other systems are reviewed and are negative [facility] Past Medical History Attestation statement: The following information was validated with the patient. Source: old records reviewed and nursing notes reviewed Medical History Back pain Thoracic back pain Acalculous cholecystitis Thoracic back pain Loose stools Asthma Contact dermatitis Tubular adenoma of colon Degenerative disc disease, thoracic Cholelithiasis with chronic cholecystitis Glaucoma Depression Helicobacter pylori (H. pylori) Anemia Myocardial infarction GERD (gastroesophageal reflux disease) Surgical History Hx laparoscopic cholecystectomy Status post laparoscopic cholecystectomy Hx of colonoscopy H/O dilation and curettage S/P right knee arthroscopy H/O esophagogastroduodenoscopy History of arthroscopy of right knee History of tubal ligation H/O section History of tonsillectomy Family History Family History Father HTN (hypertension) Prostate cancer Mother HTN (hypertension) Diabetes Hx of CABG Sister Asthma Social History Social History Household Members: Spouse, Significant Other and Other Housing: House Alcohol intake: current Alcohol intake frequency: does not drink Patient Tobacco Use Status: Never used Tobacco Tobacco use type: Cigarette e-Cigarette/Vaping Use: Never Used Second Hand Smoke Exposure: No Advance Directives: No Advance Directives Information Provided: Yes service: No Current occupational status: disabled Current occupational exposures/hazards: No Cognitive needs: No Hearing needs: No Vision needs: Yes Physical Exam Vital Signs: Vital Signs: Last Vital Signs Temp 98.7 F 04/25/24 10:26 Pulse 63 04/25/24 10:26 Resp 15 04/25/24 10:26 BP 132/72 04/25/24 10:26 Pulse Ox 97 04/25/24 10:26 O2 Del Method Room Air 04/25/24 10:26 BMI result Body Mass Index 29.0 vital signs stable, afebrile General: Well appearing, in no acute distress. Skin: Warm, dry, intact. No rashes or lesions. Head: Normocephalic, atraumatic. EENT: Hearing is intact b/l. Conjunctiva clear. PERRLA. EOM intact. Moist mucous membranes.?tenderness with percussion over bilateral maxillary sinuses. posterior oropharynx without erythema, edema, no tonsillar exudates, no peritonsilar masses, uvula midline, controlling secretions and speaking in complete sentences. Neck: Supple without LAD? Cardiac: Chest wall symmetric. RRR Lungs: No respiratory distress. No tripoding. Lungs are CTA b/l. Neuro: AOx3. Normal speech. CN 2-12 grossly intact.Ambulating with steady gait. Psych: Appropriate mood and affect. Responds appropriately to questions. Course Course Course Narrative: Patient has tested negative for COVID, flu, RSV. Chest x-ray does not demonstrate pneumonia. Urinalysis does not demonstrate infection. Her exam is consistent with a sinus infection. Will send Augmentin to pharmacy for treatment. Patient has remained stable throughout ED visit today. Discussed worrisome signs and symptoms and when to return to the ED. All questions answered at this time. Patient is agreeable with disposition and stable for discharge. Medical Decision Making Medical Decision Making [facility] Narrative: 63 year old female with pmhx significant for seasonal allergies presents to the ED today for evaluation of nasal congestion, sneezing, watery eyes and dry cough x1 week. Vital signs stable. afebrile. she is nontoxic appearing and in NAD. Exam significant for tenderness with percussion over bilateral maxillary sinuses. No respiratory distress. No tripoding. Lungs are CTA b/l. Posterior oropharynx wnl. Differential diagnosis includes viral syndrome, bronchitis, pneumonia, sinusitis, seasonal allergies, UTI Viral serology, cxr, UA and revaluation. Differential Diagnosis Differential Diagnoses: The differential diagnosis associated with the presentation includes as above. Admission/Observation Not indicated. Lab Data [facility] Lab Attestation statement: I reviewed the patient's lab results. as above. Labs: Lab Results 04/25/24 04/25/24 Range/Units 10:08 10:51 Urine Color Yellow Urine Appearance Clear Urine pH 6.5 (5.0-9.0) Ur Specific [place] <= 1.005 (1.005-1.025) Urine Protein Negative (Neg-Trace) mg/dL Urine Glucose (UA) Negative (Negative) mg/dL Urine Ketones Negative (Negative) mg/dL Urine Blood Trace H (Negative) Urine Nitrite Negative (Negative) Ur Leukocyte Esterase Negative (Negative) Urine RBC 0-2 (0-2) /HPF Urine WBC 0-5 (0-5) /HPF Ur Squamous Epith Cells 0-2 (0-2) /HPF Urine Bacteria None Seen (None Seen) Hyaline Casts 0-2 (0-2) /LPF Influenza Type A (PCR) NEGATIVE (Negative) Influenza Type B (PCR) NEGATIVE (Negative) RSV RNA Qual (PCR) NEGATIVE (Negative) SARS-CoV-2 RNA (RT-PCR) NEGATIVE (Negative) Independent Interpretation I performed an independent interpretation of an: Plain X-Ray Interpretation: CXR without infiltrate or consolidation Radiology Impression Discussion of test interpretation with radiology: I have reviewed the radiologist's reading. Radiologist Impression: EXAMINATION: XR CHEST CLINICAL INFORMATION: cough COMPARISON: Chest x-ray 08/25/2023 TECHNIQUE: 2 views of the chest were obtained. FINDINGS: No significant abnormality is noted involving the heart, lungs, mediastinum, bony thorax or soft tissues. XR/XR chest 2V IMPRESSION: Unremarkable chest examination. Electronically signed by: Tan Cheng MD 04/25/2024 11:55 AM [facility] External Record Review External record reviewed: Inpatient record Prescription Management I considered prescription management with: Antibiotic (augmentin) Social Determinants Patient?s care significantly limited by Social Determinants of Health including: Other Social Determinant of Health Critical Care Time Critical Care Time Critical Care Time: No Discharge Plan Discharge Clinical Impression: Sinusitis Patient Disposition: Home, Self-Care Instructions: Rhinosinusitis (ED) Additional Instructions: You tested negative for covid, flu, rsv. Your chest xray does not show pneumonia. Your urine is negative for infection. Your physical exam is consistent with a sinus infection. Augmentin is an antibiotic that has been sent to your pharmacy for treatment. Take this as prescribed. On Augmentin, softer bowel movements are to be expected. Call your provider if you move your bowels more than 4 times a day, your bowel movements are almost all liquid, or you get a rash.? Follow up with PCP. Return with new or worsening symptoms. In the case of an emergency call 911. Prescriptions: New amoxicillin-pot clavulanate 875-125 mg tablet 1 tab PO BID 7 Days Qty: 14 0RF No Action famotidine [Pepcid] 40 mg tablet 40 mg PO BEDTIME Qty: 30 6RF ibuprofen 800 mg tablet 800 mg PO Q8H PRN (Reason: pain) Qty: 30 0RF loratadine [Claritin] 10 mg tablet 10 mg PO DAILY azithromycin 250 mg tablet See Rx Instructions PO .COMPLEX Qty: 6 0RF Rx Instructions: For 250 mg dose pack: take 500 mg today (day 1), then 250 mg for 4 days (days 2-5) PO albuterol sulfate 90 mcg/actuation HFA aerosol inhaler 2 puff inhalation Q6H PRN (Reason: shortness of breath or wheezing or cough) Qty: 8.5 0RF benzonatate 200 mg capsule 200 mg PO TID PRN (Reason: cough) Qty: 14 0RF Referrals: Geovany Herron MD [Primary Care Provider] - Print Language: Lao
[2024-04-25 10:49] LABS: Influenza A PCR NEGATIVE (Negative); Influenza B PCR NEGATIVE (Negative); Resp Syncy Virus RNA Qual PCR NEGATIVE (Negative); SARS COV2 PCR INHOUSE NEGATIVE (Negative)
[2024-04-25 10:59] LABS: Appearance Urine Clear; Color Urine Yellow; Glucose Urine UA Negative (Negative); Leukocyte Esterase Urine Negative (Negative); Nitrite Urine Negative (Negative); PH 6.5 (5.0-9.0); Specific Gravity - Urine <= 1.005 (1.005-1.025); UMIC TRIGGER UACC YES; Urine Blood Trace (Negative); Urine Ketones Negative (Negative); Urine Protein Negative (Neg-Trace)
[2024-04-25 11:05] LABS: Bacteria Urine None Seen (None Seen); Hyaline Casts Urine 0-2 /LPF (0-2); RBC Urine 0-2 /HPF (0-2); Squamous Epithelial Cell Urine 0-2 /HPF (0-2); WBC Urine 0-5 /HPF (0-5)
[2024-04-25 12:14] VITALS: BP 130/76; PULSE 73; RESP 16; TEMP 37; O2SAT 97
== END 2024-04-25 12:15 | disposition home or self-care (01) ==
PROVIDERS: Physician Assistant Medical; Emergency Provider Emergency Medicine; PCP Internal Medicine
DX: J32.8 Other chronic sinusitis (principal); R05.9 Cough, unspecified; Z03.818 Encounter for observation for suspected exposure to other biological agents ruled out
CPT/HCPCS: 0241U; 71046; 81001; 99283

== ENCOUNTER 2024-06-11 13:28 | Outpatient (AMB) | payer OTHER, SELFPAY ==
--- NOTE | 2024-06-11 13:36 | A.OFFPC_ITS ---
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 Accompanied by: Self / Same As Patient Allergies morphine [Morphine] Allergy (Intermediate, Verified 04/25/24 09:35) HALLUCINATIONS Sulfa (Sulfonamide Antibiotics) Allergy (Intermediate, Verified 04/25/24 09:35) HIVES shellfish derived Allergy (Mild, Verified 04/25/24 09:35) Stomach Upset methylprednisolone Adverse Reaction (Severe, Verified 06/11/24 13:41) rash Oral Contrast Adverse Reaction (Intermediate, Uncoded 04/25/24 09:35) Abdominal Pain Medication List - Last Reconciled 06/12/24 by Geovany Herron MD cefdinir 300 mg PO BID ibuprofen 800 mg PO Q8H PRN Tobacco use date assessed: 06/11/24 Dental Screening Dental Screen Date: 08/07/23 Did you have a dental visit in the last 12 months?: Yes Did you have a dental problem in the last 6 months where you did not have access to dental care?: No Was dental information given to patient?: Patient has dentist HPI Annual PE HPI Details healthy [facility] Medical History Back pain Thoracic back pain Acalculous cholecystitis Thoracic back pain Loose stools Asthma Contact dermatitis Tubular adenoma of colon Degenerative disc disease, thoracic Cholelithiasis with chronic cholecystitis Glaucoma Depression Helicobacter pylori (H. pylori) Anemia Myocardial infarction GERD (gastroesophageal reflux disease) Surgical History Hx laparoscopic cholecystectomy Status post laparoscopic cholecystectomy Hx of colonoscopy H/O dilation and curettage S/P right knee arthroscopy H/O esophagogastroduodenoscopy History of arthroscopy of right knee History of tubal ligation H/O section History of tonsillectomy Family History Father HTN (hypertension) Prostate cancer Mother HTN (hypertension) Diabetes Hx of CABG Sister Asthma Social History Household Members: Spouse, Significant Other and Other Housing: House Alcohol intake: current Alcohol intake frequency: does not drink Patient Tobacco Use Status: Never used Tobacco Tobacco use type: Cigarette e-Cigarette/Vaping Use: Never Used Second Hand Smoke Exposure: No service: No Current occupational status: disabled Current occupational exposures/hazards: No Cognitive needs: No Hearing needs: No Vision needs: Yes Questionnaire PHQ-9 Over the last 2 weeks, how often have you been bothered by any of the following problems? 1. Little interest or pleasure in doing things: not at all 2. Feeling down, depressed, or hopeless: not at all 3. Trouble falling or staying asleep, or sleeping too much: not at all 4. Feeling tired or having little energy: not at all 5. Poor appetite or overeating: not at all 6. Feeling bad about yourself - or that you are a failure or have let yourself or your family down: not at all 7. Trouble concentrating on things, such as reading the newspaper or watching television: not at all 8. Moving or speaking so slowly that other people could have noticed. Or the opposite - being so fidgety or restless that you have been moving around a lot more than usual: not at all 9. Thoughts that you would be better off or of hurting yourself in some way: not at all Total score: 0 Source: Developed by Drs. Kevin Stevenson, Nita Gutierrez, Kulwant Flores and colleagues, with an educational reji from [employer]. Thrive Questionnaire Date Thrive assessed: 06/11/24 I am a: Patient What is your living situation today?: I have a steady place to live Within the past 12 months, did the food you bought not last and you didn't have the money to get more?: Never true Within the past 12 months, did you worry whether your food would run out before you got money to buy more?: Never true Do you have trouble paying for medicines?: No Do you have trouble getting transportation to medical appointments?: No Do you have trouble paying your heating and electricity bill?: No Do you have trouble taking care of your child, family member or friend?: No Do you have trouble with day-to-day activities such as bathing, preparing meals, shopping, managing finances, etc.?: No Are you currently unemployed and looking for a job?: No Are you interested in more education?: No Please select the resources that you would like help with: None Currently or been in a relationship where the following occur: No concerns reported THRIVE Score: 0 AUDIT C Alcohol Use Questionnaire (AUDIT-C) 1. How often do you have a drink containing alcohol?: Never Total Score: 0 JAJA-7 AMB Questionnaire JAJA-7 Date JAJA - 7 assessed: 06/11/24 Feeling nervous, anxious, or on edge: 0 = Not at all Not being able to stop or control worryin = Not at all Worrying too much about different things: 0 = Not at all Trouble relaxin = Not at all Being so restless that it is hard to sit still: 0 = Not at all Becoming easily annoyed or irritable: 0 = Not at all Feeling afraid as if something awful might happen: 0 = Not at all Total JAJA-7 score (0-4 normal; 5-9 mild; 10-14 moderate; 15-21 severe): 0 Source: Developed by Drs. Kevin Stevenson, Nita Gutierrez, Kulwant Flores and colleagues, with an educational reji from [employer]. Review of Systems Const Denies chills, Denies fatigue, Denies headache(s) and Denies weight loss Eyes Denies change in vision, Denies diplopia and Denies eye pain ENT Denies vertigo, Denies dizziness, Denies headache(s) and Denies nasal discharge Card Denies chest pain, Denies rapid heart rate and Denies dyspnea on exertion Resp Denies chest congestion, Denies cough, Denies pain with cough and Denies dyspnea on exertion GI Denies abdominal pain, Denies hematochezia and Denies change in bowel habits Musc Denies myalgias, Denies arthralgias and Denies joint swelling Skin/Breast Denies lesions and Denies unusual bruising Neuro Denies vertigo, Denies dizziness, Denies headache(s) and Denies focal weakness Endo Denies fatigue Physical exam (Primary Care) Vital Signs: Last Vital Signs Temp 97.1 F 06/11/24 13:38 Pulse 64 06/11/24 13:38 BP 120/70 06/11/24 13:38 Pulse Ox 98 06/11/24 13:38 Oxygen Delivery Method Room Air 06/11/24 13:38 BMI result Body Mass Index 29.4 Tobacco/Smoking Status: Tobacco use Status Tobacco use date assessed 06/11/24 06/11/24 13:44 Patient Tobacco Use Status Never used Tobacco 06/11/24 13:44 Tobacco use type Cigarette 06/11/24 13:44 e-Cigarette/Vaping Use Never Used 06/11/24 13:44 PHQ-9: PHQ-9 Score PHQ-9: Total score 0 06/11/24 13:44 Thrive Assessment: Date of Thrive Assessment Date Thrive assessed 06/11/24 06/11/24 13:44 Currently or been in a relationship where the following occur: No concerns reported Const General: cooperative, healthy appearing and no acute distress Orientation/consciousness: oriented to person, oriented to place and oriented to time HENMT Head: Yes normal to inspection, Yes normocephalic and Yes atraumatic Mouth: Normal oral and palatal mucosa present and tongue normal Throat: Yes posterior oropharynx normal and Yes uvula midline Eyes General: appearance normal, both eyes and all related structures Neck Neck: Yes normal visual inspection, Yes full ROM and Yes no lymphadenopathy Thyroid: Thyroid normal Carotids: normal carotid upstroke Chest Chest palpation & inspection: normal inspection of the chest Resp Effort & Inspection: normal respiratory effort and able to speak in complete sentences Auscultation: clear to auscultation bilaterally Cardio Jugular venous distension: no JVD Palpation: normal PMI Rate: regular rate Rhythm: regular rhythm Heart sounds: S1 normal heart sound present and S2 normal heart sound present GI Inspection: Yes normal to inspection Palpation (GI): Soft to palpation and No hepatosplenomegaly present Auscultation: normal bowel sounds General: Yes no CVA tenderness Back/Spine/Pelvis Back: no CVA tenderness Skin General skin exam: no rashes or lesions noted Neuro General: oriented to person, oriented to place and oriented to time Extrem General: Yes normal to inspection and Yes full ROM Coding Level of Care Code Est Pt Prev Care 40-64y(26899) Diagnoses Physical exam Z00.00 Assessment & Plan Assessment & Plan (1) Physical exam: Code(s): Z00.00 - Encounter for general adult medical examination without abnormal findings Category: Medical Plan: stable; do labs Orders: Orders Thyroid Stimulating Hormone Today Z13.29 - Encounter for screening for other suspected endocrine disorder Hemoglobin A1c Today R73.9 - Hyperglycemia, unspecified
[2024-06-11 13:38] VITALS: BP 120/70; PULSE 64; TEMP 36.2; O2SAT 98; BMI 29.4
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
== END 2024-06-11 13:52 | disposition home or self-care (01) ==
PROVIDERS: PCP Internal Medicine; Visit Provider Internal Medicine
DX: Z00.00 Encounter for general adult medical examination without abnormal findings (principal)

== ENCOUNTER 2024-06-12 07:43 | Outpatient (REF) | payer OTHER, SELFPAY ==
[2024-06-12 07:57] LABS: MANUAL DIFF FLAG NO
[2024-06-12 08:18] LABS: Basophils Percent Auto 0.6 % (0-2); Eosinophils Absolute Auto 0.1 X10*3/uL (0.0-0.4); Eosinophils Percent Auto 1.4 % (0-4); Hematocrit 39.9 % (37.0-47.0); Imm Gran Abs Auto 0.01 X10*3/uL (0.00-0.03); Imm Gran Pct Auto 0.2 % (0.0-0.4); Lymphocytes Absolute Auto 1.4 X10*3/uL (1.2-4.9); Lymphocytes Percent Auto 27.8 % (20-40); Mean Corpuscular HGB Conc 32.6 g/dl (31.0-35.0); Mean Corpuscular Hemoglobin 30.1 pg (27.0-33.0); Mean Corpuscular Volume 92.4 fL (80.0-98.0); Mean Platelet Volume 11.1 fL (9.4-12.3); Monocytes Absolute Auto 0.6 X10*3/uL (0.1-1.2); Monocytes Percent Auto 11.4 % (2-11); Neutrophils Percent Auto 58.6 % (45-73); Platelet Count 178 X10*3/uL (160-400); Red Blood Count 4.32 X10*6/uL (4.20-5.50); Red Cell Distribution Width 12.9 % (11.0-16.0); White Blood Count 5.1 X10*3/uL (4.8-10.8)
[2024-06-12 08:24] LABS: Estimated Average Glucose 117 mg/dL; Hemoglobin A1C 131.4203 umol/L; Hemoglobin A1c % 5.7 % (<6.0); Total Hemoglobin (HGBA1C) 3420.6352 umol/L
[2024-06-12 08:52] LABS: Alanine Aminotransferase 17 U/L (0-31); Alkaline Phosphatase 87 U/L (39-117); Anion Gap 10 (12-20); Aspartate Amino Transferase 19 U/L (5-31); Bilirubin Total 0.3 mg/dL (0.0-1.0); Blood Urea Nitrogen 14 mg/dL (9-16); Calcium 9.3 mg/dL (8.4-10.2); Carbon Dioxide 28 mmol/L (22-29); Chloride 108 mmol/L (96-108); Cholesterol 198 mg/dL (<200); Estimated Glomerular Filt Rate > 60; Glucose Fasting 94 mg/dL (60-99); HDL Cholesterol 45 mg/dL (>40); LDL Cholesterol Calculated 109 mg/dL (<100); Potassium 4.3 mmol/L (3.3-5.1); Sodium 142 mmol/L (135-145); Total Protein 7.4 g/dL (6.5-8.0); Triglycerides 221 mg/dL (<150)
[2024-06-12 09:11] LABS: Thyroid Stimulating Hormone 2.02 uIU/mL (0.32-4.0)
== END 2024-06-12 07:44 | disposition home or self-care (01) ==
LOC: HO.LAB 07:43
PROVIDERS: PCP Internal Medicine; Visit Provider Internal Medicine
DX: Z13.0 Encounter for screening for diseases of the blood and blood-forming organs and certain disorders involving the immune mechanism (principal); Z13.29 Encounter for screening for other suspected endocrine disorder; Z13.6 Encounter for screening for cardiovascular disorders; Z13.220 Encounter for screening for lipoid disorders; R73.9 Hyperglycemia, unspecified
CPT/HCPCS: 36415; 80053; 80061; 83036; 84443; 85025

== ENCOUNTER 2024-07-09 06:06 | Emergency (ER) | payer OTHER, SELFPAY ==
[2024-07-09 06:08] VITALS: BP 173/78; PULSE 74; RESP 17; TEMP 36.6; O2SAT 99; BMI 29.3
--- OUTSIDE RECORDS SUMMARY | 2024-07-09 06:26 | XMS_ITS | Data Portability ---
Author Organization JASE Terrell [facility], [facility] Address [address] [place] [address] Assessment Encounter Date Assessment Date Assessment LastModified by Organization Details LastModified Time 08/13/2023 08/13/2023 Chief Complaint: Right knee pain HPI: Kiara Camarillo is a 62-year-old female patient with a history of knee pain, having undergone two surgical interventions: a partial meniscectomy in 2003 and another knee surgery in 2006. She reports increased knee pain that began three days after a recent trip to [facility], where she experienced prolonged sitting in the back of her 's truck. Following the exacerbation of her symptoms, she consulted her primary care physician, Dr. Napier, who recommended x-rays. Kiara describes the pain as constant and notes occasional swelling of the knee, which she manages with rest and ice application. She is scheduled to initiate physical therapy soon, based on findings from her back x-rays. Kiara denies any progression of her knee pain over the past year. She has previously attempted pain management with cortisone injections, which did not yield a positive result. She expresses interest in exploring non-surgical options to manage her knee pain and plans to incorporate the use of a stationary bike for exercise at home. With access to a home gym equipped with a treadmill, she is willing to try new exercises aimed at strengthening. I independently reviewed recent outside x-rays of the right knee including AP and lateral views from 06/20/2023. No acute fractures or dislocations. Normal medial and lateral component joint space. Normal patellar height. She has no significant past medical history and takes ibuprofen and Claritin as needed. She has allergies to morphine and sulfa medications. She denies tobacco use. No personal or family history of blood clots. Past medical, surgical, family and social history; Medications, Allergies and 12-point review of systems have been reviewed, updated and charted. Physical Examination: Height and weight as listed in chart. Constitutional: Patient pleasant, well appearing and in NAD. Mental status: Patient is alert and oriented to person, place and time. No short-term memory deficits. Psychiatric: Mood and affect are appropriate. Head: Normocephalic and atraumatic. Exterior inspection of the ears and nose was unremarkable. Hearing grossly intact. Eyes: Sclera are not blue. 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 Full extraocular motion. Neck: Supple with age-appropriate ROM. No tracheal deviation. No obvious JVD. Respiratory: Non-labored breathing. Symmetric excursion. No audible wheezing or crackles. Peripheral Vascular: No peripheral edema. Distal pulses intact. Neurological: Peripheral motor and sensory exam normal and equal bilaterally. Skin: No rashes, lesions, wounds to the lower extremities. Normal turgor and coloration. Musculoskeletal: On examination of the right knee, there is no effusion, erythema or ecchymosis. Overall range of motion from +3-135? ? ?. No significant discomfort with deep knee flexion. Some generalized mild discomfort to the anterior knee including along the extensor mechanism. Mild medial joint line tenderness. Her knee is stable to varus and valgus stress as well as Sofie and posterior drawer. No patellar grind or instability. Extensor mechanism intact. Diagnostic Imaging: X-rays ordered, obtained and reviewed at [facility]. These images included bilateral weightbearing Chung view of both knees. Mild medial joint space narrowing noted bilaterally. No fractures or dislocations. Normal patellar height. Impression and Plan: 62-year-old otherwise healthy female with a chronic history of recurrent right knee pain and overall history and examination today consistent with right knee patellofemoral syndrome and likely early medial compartment asked her arthritis. She has relatively benign examination with the exception of generalized tenderness along her anterior knee. I discussed etiology of the patient's symptoms with her at length today. I discussed options and recommended a conservative course to include physical therapy with a focus on quadriceps strengthening and patellofemoral mechanics. A referral was provided. I also referred her for a Genutrain knee sleeve to provide compressive support her knee and assist with activities of daily living. I recommended low impact activities including stationary biking and backwards resist walking. She may take a low-dose oral anti-inflammatory as needed. Should her symptoms fail to improve over the next 3-4 months despite these conservative measures, she may call back for another visit. All questions and concerns addressed. Today's visit involved examining the patient, reviewing the history, reviewing the radiographic studies, counseling the patient regarding treatment options, and the administrative tasks including placing orders, preparing patient information and home handouts and preparing the visit note. This note was generated with [facility] speech recognition associate financial planner dictation software. Please excuse any errors that may have been overlooked during review of this note. Sometimes, these errors may affect the content or meaning of a given sentence. Please call for corrections. [email or web address] Not available 08/13/2023 17:10:16 Plan of Treatment Reminders Order Date Submit Date Provider Last Modified By Organization Details Last Modified Time Details Appointments None recorded. Lab None recorded. Referral physical therapist referral - PHYSICAL THERAPY REFERRAL ICD-10: M22.41(righ t) 1. Generalized lower extremity closed-kine tic chain strengtheni ng program, especially quads, VMO, and abductors, stationary biking.2. Patellofemo ral taping as needed.3. Soft tissue modalities as needed.4. Home exercise program.All ow 1-3 visits a week for 6 weeks.Compl eted by: 2023 024 [email or web address] Not available 4 15:36:46 Procedures None recorded. Surgeries None recorded. Imaging XR, knee, 1 or 2 view - chung only rm [id number] 2023 024 [email or web address] Not available 4 15:36:46 Medication Orders None recorded. Patient TargetsNo targets recorded. Patient InstructionsNo instructions recorded. Reason for Referral Physical Therapist Referral for Pain of right knee joint PHYSICAL THERAPY REFERRAL ICD-10: M22.41(right) 1. Generalized lower extremity closed-kinetic chain strengthening program, especially quads, VMO, and abductors, stationary biking.2. Patellofemoral taping as needed.3. Soft tissue modalities as needed.4. Home exercise program.Allow 1-3 visits a week for 6 weeks.Completed by: Referring Physician: Benson Patel, Orthopedic Surgery, [id number] Encounter Date: 08/13/2023 Medical Equipment None Reported. Allergies Allergen ID Allergen Name Allergen Category Reaction Reaction Severity Criticality Documentation Date Start Date Code Code System Note Provider Name and Address Organization Details Recorded Time 627470 morphine medicatio n Not available Not available Not available 08/13/2023 7052 RxNorm SONIA MARMOLEJO [facility] 13:46:02 279419 Substance with sulfonami de structure and antibacte rial mechanism of action (substanc e) medicatio n Not available Not available Not available 08/13/2023 13231 8003 SNOMED SONIA ROSSZ [facility] Orthopedic [facility] 4 13:46:09 Medications Name Sig Start Date Stop Date Status Note LastModified by Organization Details LastModified Time cyclobenzapr ine 10 mg tablet TAKE 1 TABLET BY MOUTH THREE TIMES DAILY NEEDED FOR MUSCLE SPASM active Not Available Not Available No t Available terconazole 0.4 % vaginal cream INSERT 1 APPLICATORF UL VAGINALLY ONCE DAILY AT BEDTIME FOR 7 DAYS active Not Available Not Available N ot Available triamcinolon e acetonide 0.5 % topical cream APPLY CREAM TOPICALLY TO AFFECTED AREA THREE TIMES DAILY active Not Available Not Available Not Available azithromycin 250 mg tablet TAKE 2 TABLETS BY MOUTH ON DAY 1, AND THEN TAKE 1 TABLET BY MOUTH ONCE A DAY ON DAY 2 THROUGH DAY 5 active Not Available Not Available No t Available ibuprofen 800 mg tablet TAKE 1 TABLET BY MOUTH EVERY 8 HOURS NEEDED FOR PAIN active Not Available Not Available No t Available fluconazole 150 mg tablet TAKE 1 TABLET BY MOUTH ONCE DAILY active Not Available Not Available No t Available metronidazol e 0.75 % (37.5 mg/5 gram) vaginal gel INSERT 1 APPLICATORF UL VAGINALLY ONCE DAILY AT BEDTIME FOR 5 DAYS active Not Available Not Available N ot Available famotidine 40 mg tablet TAKE 1 TABLET BY MOUTH AT BEDTIME active Not Available Not Available No t Available amoxicillin 250 mg capsule TAKE 1 CAPSULE BY MOUTH EVERY 8 HOURS active Not Available Not Available No t Available polyethylene glycol 3350 17 gram/dose oral powder DISSOLVE 17 GRAMS OF POWDER IN WATER AND TAKE BY MOUTH ONCE DAILY active Not Available Not Available No t Available estradiol 0.01% (0.1 mg/gram) vaginal cream INSERT 0.5 GRAM VAGINALLY ONCE DAILY AT BEDTIME FOR 14 DAYS, THEN TWICE WEEKLY FOR MAINTENANCE DOSE active Not Available Not Available No t Available methylpredni solone 4 mg tablets in a dose pack TAKE BY MOUTH DIRECTED ON INSIDE OF PACKAGE active Not Available Not Available No t Available fluticasone propionate 50 mcg/actuatio n nasal spray,suspen michelle USE 1 SPRAY(S) IN EACH NOSTRIL ONCE DAILY active Not Available Not Available N ot Available nitrofuranto in monohydrate/ macrocrystal s 100 mg capsule TAKE 1 CAPSULE BY MOUTH EVERY 12 HOURS FOR 7 DAYS MUST ADMINISTER WITH A MEAL/FOOD active Not Available Not Available No t Available Stool Softener-Sti mulant Laxative 8.6 mg-50 mg tablet TAKE 2 TABLETS BY MOUTH ONCE DAILY AT BEDTIME active Not Available Not Available No t Available Procto-Med HC 2.5 % topical cream perineal applicator APPLY CREAM RECTALLY TO AFFECTED AREA TWICE DAILY FOR HEMORRHOIDS active Not Available Not Available Not Available Vitals Date Recorded Body height Body mass index (BMI) Body weight Provider Name and Address Organization Details Last Updated DateTime 08/13/2023 157.48 cm 28.7 kg/m2 76619 g SONIA MARMOLEJO [place] [facility] [place] [facility] 08/13/2023 13:45:53 Social History None recorded. Functional Status None recorded. Mental Status None recorded. Family History Nothing Reported. Medical History No medical history recorded. Gynecological HistoryNo gynecological history recorded. Obstetrics History GPAL:G 0 P 0 0 0 0 Past Encounters Encounter ID Performer Location Encounter Start Date Encounter Closed Date Diagnosis/Indication Diagnosis SNOMED-CT Code Diagnosis ICD10 Code Diagnosis Note [id number] MD [facility] [address] [place] [address] 08/13/2023 13:24:57 09/06/2023 08:34:09 Pain of right knee joint 2552876196 61689 M25.561 Patellofem oral syndrome of right knee 6495536970 656036 M22.2X1 Health Concerns Section Related Observation LastModified by Organization Detai ls LastModified Time None Recorded Concern Status LastModified by Organization Details LastModified Time None Recorded Advance Directives Directive None Recorded Payers Encounter Date Sequence Insurance Name Policy Number Policy Carlton Covered Member ID Carlton Member ID Guarantor Name 08/13/2023 1 [facility] - DOS ON OR AFTER 2022 - [employer] (MEDICARE REPLACEMENT/AD VANTAGE - PPO) Kiara Roth [id number] Kiara Roth OBGykaitlynn Episode No OBEpisode recorded.
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
--- NOTE | 2024-07-09 06:41 | ED_ITS ---
HPI - General Adult General Chief complaint: Abdominal Pain Stated complaint: abd pain Time Seen by Provider: 07/09/24 06:40 Source: patient Mode of arrival: ambulatory Limitations: no limitations History of Present Illness ED Provider: Silvia Brush Pa-C HPI narrative: Patient is a 63 year old female with a past medical history of GERD, cholecystectomy, and [place], who presents to the ED with a 1 week history of abdominal pain. She states that the pain began 07/02 after eating a turkey sandwich and is located in the upper abdomen. The pain came on suddenly, is constant, burning in nature, and non radiating. She states it is worse after eating a meal. She also reports some belching. She reports a history of daily NSAID use which she has recently discontinued. Denies feeling feverish, chills, chest pain, SOB, nausea, vomiting, diarrhea or constipation. Last bowel movement this morning. She has a GI appointment with [facility] August for this which is tomorrow. Onset (ago): week(s) (1) Location: abdomen Radiation: non-radiation Quality: burning Pain Consistency: constant Relieving factors: none Exacerbating factors: eating Associated symptoms: denies other symptoms Treatments prior to arrival: none Related Data Home Medications ?Medication ?Instructions ?Recorded ?Confirmed cefdinir 300 mg capsule 300 mg PO BID 06/11/24 06/12/24 Previous Rx's ?Medication ?Instructions ?Recorded ibuprofen 800 mg tablet 800 mg PO Q8H PRN pain #30 tabs 04/20/24 omeprazole 40 mg capsule,delayed 40 mg PO DAILY #7 caps 07/09/24 release Allergies Allergy/AdvReac Type Severity Reaction Status Date / Time morphine [Morphine] Allergy Intermediate HALLUCINATI Verified 07/09/24 06:12 ONS Sulfa (Sulfonamide Allergy Intermediate HIVES Verified 07/09/24 06:12 Antibiotics) shellfish derived Allergy Mild Stomach Verified 07/09/24 06:12 Upset methylprednisolone AdvReac Severe rash Verified 07/09/24 06:12 Oral Contrast AdvReac Intermediate Abdominal Uncoded 07/09/24 06:12 Pain Review of Systems 2 Review of Systems: Yes all other systems are reviewed and are negative Constitutional: Constitutional: Reports no additional constitutional complaints, Denies chills, Denies fever(s) and Denies night sweats Eyes: Eyes: Reports no additional eye complaints, Denies blurry vision, Denies change in vision, Denies diplopia, Denies eye discharge, Denies loss of vision and Denies eye pain ENT: Denies dizziness Cardiovascular: Cardiovascular: Reports no additional cardiovascular complaints, Denies chest pain, Denies lightheadedness, Denies Loss of Consciousness and Denies dyspnea Respiratory: Respiratory: Reports no additional respiratory complaints and Denies dyspnea Gastrointestinal: Gastrointestinal: Reports no additional gastrointestinal complaints, Reports abdominal pain, Denies melena, Denies hematochezia, Denies change in bowel habits, Denies change in stool character, Denies constipation, Denies diarrhea, Denies nausea and Denies vomiting Genitourinary: Genitourinary: Denies urinary frequency and Denies dysuria Musculoskeletal: Musculoskeletal: Reports no additional musculoskeletal complaints Integumentary/Breasts: Skin/Breast: Denies rash Neurologic: Reports as per HPI, Denies dizziness and Denies loss of vision Psychiatric: Psychiatric: Reports no additional psychiatric complaints Endocrine: Endocrine: Reports no additional endocrine complaints Hematologic/Lymphatic: Hematologic/Lymphatic: Reports no additional hematologic/lymphatic complaints Allergic/Immunologic: Allergic/Immunologic: Reports no additional allergic/immunologic complaints [facility] Past Medical History Attestation statement: The following information was validated with the patient. Source: old records reviewed and nursing notes reviewed Medical History Back pain Thoracic back pain Acalculous cholecystitis Thoracic back pain Loose stools Asthma Contact dermatitis Tubular adenoma of colon Degenerative disc disease, thoracic Cholelithiasis with chronic cholecystitis Glaucoma Depression Helicobacter pylori (H. pylori) Anemia Myocardial infarction GERD (gastroesophageal reflux disease) Surgical History Hx laparoscopic cholecystectomy Status post laparoscopic cholecystectomy Hx of colonoscopy H/O dilation and curettage S/P right knee arthroscopy H/O esophagogastroduodenoscopy History of arthroscopy of right knee History of tubal ligation H/O section History of tonsillectomy Family History Family History Father HTN (hypertension) Prostate cancer Mother HTN (hypertension) Diabetes Hx of CABG Sister Asthma Social History Social History Household Members: Spouse, Significant Other and Other Housing: House Alcohol intake: current Alcohol intake frequency: does not drink Patient Tobacco Use Status: Never used Tobacco Tobacco use type: Cigarette e-Cigarette/Vaping Use: Never Used Second Hand Smoke Exposure: No service: No Current occupational status: disabled Current occupational exposures/hazards: No Cognitive needs: No Hearing needs: No Vision needs: Yes Physical Exam ED Vital Signs: Vital Signs - 24 hr 07/09/24 06:08 07/09/24 10:13 07/09/24 10:25 Temperature 97.9 F 98.1 F 98.1 F Pulse Rate 74 60 60 Respiratory Rate 17 18 18 Blood Pressure 173/78 H 106/68 106/68 Pulse Oximetry 99 99 99 Oxygen Delivery Method Room Air Room Air Room Air BMI result Body Mass Index 29.3 Const General: cooperative, no acute distress, alert and awake Nutritional Appearance: well nourished Orientation/consciousness: patient oriented x3 Limitations: no limitations HENMT Head: Yes normal to inspection and Yes atraumatic Ears: hearing grossly normal bilaterally and external ears normal General nose exam: Normal external nose present, no nasal discharge noted and no epistaxis Face and sinus: Yes normal facial exam, No abrasion and No laceration Mouth: Normal oral and palatal mucosa present, no drooling and no muffled voice Eyes General: appearance normal, both eyes and all related structures Periorbital: periorbital findings normal Eyelids: Yes eyelids normal Conjunctivae: conjunctivae normal Pupils: Equal, round and reactive pupils present EOM: EOMs intact bilaterally Neck Neck: Yes normal visual inspection, Yes full ROM and Yes no lymphadenopathy Chest Chest palpation & inspection: normal inspection of the chest Resp Effort & Inspection: normal respiratory effort and able to speak in complete sentences Cardio Heart sounds: S1 normal heart sound present and S2 normal heart sound present GI Inspection: Yes normal to inspection Palpation (GI): Soft to palpation, not firm, Tenderness to palpation present (GI) in the epigastrum, no guarding and not rigid Neuro General: patient oriented x3, moves all extremities and CN's II-XI intact bilaterally Cranial nerves: Yes Equal, round and reactive pupils present Cognition (Neuro): normal cognition Extrem General: Yes normal to inspection, Yes full ROM and Yes capillary refill normal Psych Appearance: grossly normal Mental Status: mental status grossly normal Affect: normal affect Attitude: cooperative Thought process: Normal thought process present Thought content: Normal thought content present Insight: Good insight present (Psych) Medications Administered Discontinued Medications Generic Name Dose Route Start Last Admin Trade Name Amber PRN Reason Stop Dose Admin Al Hydroxide/Mg Hydroxide 15 ml 07/09/24 07:14 07/09/24 07:57 Magnesium Hydrox/Alum Hydrox 30 Ml Oral.Susp PO 07/09/24 07:15 15 ml ONCE ONE Administration Pantoprazole Sodium 40 mg 07/09/24 07:14 07/09/24 07:57 Pantoprazole Sodium 40 Mg/10 Ml Vial IVPUSH 07/09/24 07:15 40 mg ONCE ONE Administration Medical Decision Making Medical Decision Making [facility] Narrative: Patient is a 63 year old assigned female at with a history of GERD, asthma, and IBS presenting to the emergency department today with epigastric pain. Patient's physical exam was as noted in the physical exam portion of this note. Patient's blood work was unremarkable. Patient's urine showed no acute process. Patient's EKG was unremarkable. I explained my physical exam findings as well as all test results to the patient. I answered all questions asked by the patient. Patient received IV protonix and PO Maalox which, upon re- evaluation, she stated it helped her symptoms significantly. I stressed the importance of the patient taking her medication as directed (either prescribed or as the over the counter packaging recommends). I stressed the importance of the patient following up with her primary care provider and GI specialist as scheduled. I stressed the importance of the patient returning to the emergency department immediately if her symptoms were to worsen or if she were to develop any dizziness, shortness of breath, difficulty breathing, chest pain, blurry vision, loss of vision, nausea, vomiting, abdominal pain, fever, chills, back pain, or any other complaints. Patient verbalized agreement and understanding with this treatment plan and discharge. Differential Diagnosis Differential Diagnoses: The differential diagnosis associated with the presentation includes Epigastric pain GERD Admission/Observation Consideration of admission/observation: Escalation of care including admission/observation considered Patient would have been admitted to the hospital had her work up had any findings where hospital admission was appropriate and her clinical presentation warranted hospital admission. Lab Data [facility] Lab Attestation statement: I reviewed the patient's lab results. My interpretation of these results are in the MDM Rationale portion of this note. 07/09/24 07:17 07/09/24 07:17 Labs: Lab Results 07/09/24 07/09/24 Range/Units 07:17 09:06 WBC 4.9 (4.8-10.8) X10*3/uL RBC 4.36 (4.20-5.50) X10*6/uL Hgb 13.2 (12.0-16.0) g/dl Hct 40.0 (37.0-47.0) % MCV 91.7 (80.0-98.0) fL MCH 30.3 (27.0-33.0) pg MCHC 33.0 (31.0-35.0) g/dl RDW 12.7 (11.0-16.0) % Plt Count 197 (160-400) X10*3/uL MPV 10.8 (9.4-12.3) fL Immature Gran % (Auto) 0.2 (0.0-0.4) % Neut % (Auto) 64.7 (45-73) % Lymph % (Auto) 21.7 (20-40) % [place] % (Auto) 11.6 H (2-11) % Eos % (Auto) 1.2 (0-4) % Baso % (Auto) 0.6 (0-2) % Lymph # (Auto) 1.1 L (1.2-4.9) X10*3/uL [place] # (Auto) 0.6 (0.1-1.2) X10*3/uL Eos # (Auto) 0.1 (0.0-0.4) X10*3/uL Baso # (Auto) 0.0 (0.0-0.2) X10*3/uL Abs Immat Gran (auto) 0.01 (0.00-0.03) X10*3/uL Absolute Neuts (auto) 3.2 (2.0-8.3) x10*3/uL Absolute Nucleated RBC 0.000 (0.0-0.012) X10*3/uL Nucleated RBC % (auto) 0.0 (0.0-0.2) /100WBC Sodium 142 (135-145) mmol/L Potassium 3.7 (3.3-5.1) mmol/L Chloride 108 (96-108) mmol/L Carbon Dioxide 28 (22-29) mmol/L Anion Gap 10 L (12-20) BUN 11 (9-16) mg/dL Creatinine 0.72 (0.5-1.4) mg/dL Estim Creat Clear Calc 76.5 Estimated GFR > 60 Random Glucose 113 (60-115) mg/dL Calcium 9.2 (8.4-10.2) mg/dL Magnesium 2.3 (1.6-2.6) mg/dL Total Bilirubin 0.4 (0.0-1.0) mg/dL AST 22 (5-31) U/L ALT 14 (0-31) U/L Alkaline Phosphatase 86 (39-117) U/L Troponin I High Sens < 2.7 (<3.5-17.0) ng/L Total Protein 7.8 (6.5-8.0) g/dL Albumin 4.0 (3.5-5.0) g/dL Lipase 14 (8-78) U/L Urine Color Yellow Urine Appearance Clear Urine pH 8.0 (5.0-9.0) Ur Specific [place] 1.010 (1.005-1.025) Urine Protein Negative (Neg-Trace) mg/dL Urine Glucose (UA) Negative (Negative) mg/dL Urine Ketones Negative (Negative) mg/dL Urine Blood Trace H (Negative) Urine Nitrite Negative (Negative) Ur Leukocyte Esterase Negative (Negative) Urine RBC 3-5 H (0-2) /HPF Urine WBC 0-5 (0-5) /HPF Ur Squamous Epith Cells 0-2 (0-2) /HPF Urine Bacteria None Seen (None Seen) Hyaline Casts 0-2 (0-2) /LPF Influenza Type A (PCR) NEGATIVE (Negative) Influenza Type B (PCR) NEGATIVE (Negative) RSV RNA Qual (PCR) NEGATIVE (Negative) SARS-CoV-2 RNA (RT-PCR) NEGATIVE (Negative) Independent Interpretation I performed an independent interpretation of an: EKG Interpretation: I independently interpreted this EKG and am in agreement with the below findings: Vent. Rate: 59 BPM Atrial Rate: 59 BPM P-R Int: 144 ms QRS Dur: 84 ms QT Int: 414 ms P-R-T Axes: 59 58 49 degrees QTcB Int: 409 ms Sinus bradycardia When compared with ECG of 25-Aug-2023 14:52, No significant change was found DD/ 0709 Tests considered The following testing was considered but not selected: I considered obtaining a CT scan of the abdomen/pelvis however, the patient's current clinical presentation did not warrant this. I discussed this with the patient who verbalized understanding and agreement Discharge Plan Discharge Clinical Impression: GERD (gastroesophageal reflux disease) Patient Disposition: Home, Self-Care Instructions: Gastroesophageal Reflux Disease (DC) Additional Instructions: Follow up with your primary care provider and your GI specialist as scheduled on 07/10/2024. Return to the emergency department immediately if your symptoms worsen or if you develop any dizziness, shortness of breath, difficulty breathing, chest pain, blurry vision, loss of vision, nausea, vomiting, abdominal pain, fever, chills, back pain, or any other complaints. Prescriptions: New omeprazole 40 mg capsule,delayed release(DR/EC) 40 mg PO DAILY Qty: 7 0RF No Action ibuprofen 800 mg tablet 800 mg PO Q8H PRN (Reason: pain) Qty: 30 0RF cefdinir 300 mg capsule 300 mg PO BID Interventions: ED Discharge Assessment Last Done: 07/09/24 10:25 Discharge Date/Time: 07/09/24 10:25 Print Language: Slovenian
--- NOTE | 2024-07-09 06:42 | ECG_ITS ---
Test Reason : abd pain Blood Pressure : */* mmHG Vent. Rate : 59 BPM Atrial Rate : 59 BPM P-R Int : 144 ms QRS Dur : 84 ms QT Int : 414 ms P-R-T Axes : 59 58 49 degrees QTcB Int : 409 ms Sinus bradycardia Otherwise normal ECG When compared with ECG of 25-Aug-2023 14:52, No significant change was found Referred By: Silvia Brush Electronically Signed By: Ebenezer Vaz
[2024-07-09 07:29] LABS: MANUAL DIFF FLAG NO
[2024-07-09 07:30] LABS: Basophils Percent Auto 0.6 % (0-2); Eosinophils Absolute Auto 0.1 X10*3/uL (0.0-0.4); Eosinophils Percent Auto 1.2 % (0-4); Hemoglobin 13.2 g/dl (12.0-16.0); Imm Gran Abs Auto 0.01 X10*3/uL (0.00-0.03); Imm Gran Pct Auto 0.2 % (0.0-0.4); Lymphocytes Absolute Auto 1.1 X10*3/uL (1.2-4.9); Lymphocytes Percent Auto 21.7 % (20-40); Mean Corpuscular Hemoglobin 30.3 pg (27.0-33.0); Mean Corpuscular Volume 91.7 fL (80.0-98.0); Mean Platelet Volume 10.8 fL (9.4-12.3); Monocytes Absolute Auto 0.6 X10*3/uL (0.1-1.2); Monocytes Percent Auto 11.6 % (2-11); Neutrophils Absolute Auto 3.2 x10*3/uL (2.0-8.3); Neutrophils Percent Auto 64.7 % (45-73); Platelet Count 197 X10*3/uL (160-400); Red Blood Count 4.36 X10*6/uL (4.20-5.50); Red Cell Distribution Width 12.7 % (11.0-16.0); White Blood Count 4.9 X10*3/uL (4.8-10.8)
[2024-07-09 07:46] LABS: Alanine Aminotransferase 14 U/L (0-31); Alkaline Phosphatase 86 U/L (39-117); Anion Gap 10 (12-20); Aspartate Amino Transferase 22 U/L (5-31); Bilirubin Total 0.4 mg/dL (0.0-1.0); Blood Urea Nitrogen 11 mg/dL (9-16); Calcium 9.2 mg/dL (8.4-10.2); Carbon Dioxide 28 mmol/L (22-29); Chloride 108 mmol/L (96-108); Creatinine Clr Calc Pharmacy 76.5; Estimated Glomerular Filt Rate > 60; Glucose Random 113 mg/dL (60-115); Magnesium 2.3 mg/dL (1.6-2.6); Potassium 3.7 mmol/L (3.3-5.1); Sodium 142 mmol/L (135-145); Total Protein 7.8 g/dL (6.5-8.0)
[2024-07-09] MEDS: Magnesium Hydrox/Alum Hydrox 30 ML ORAL.SUSP 15 ML PO (07:57)
[2024-07-09] MEDS: Pantoprazole Sodium 40 MG/10 ML VIAL IVPUSH (07:57)
[2024-07-09 08:02] LABS: Lipase 14 U/L (8-78)
[2024-07-09 08:04] LABS: Troponin-I High Sensitivity < 2.7 ng/L (<3.5-17.0)
[2024-07-09 08:10] LABS: Influenza A PCR NEGATIVE (Negative); Influenza B PCR NEGATIVE (Negative); Resp Syncy Virus RNA Qual PCR NEGATIVE (Negative); SARS COV2 PCR INHOUSE NEGATIVE (Negative)
[2024-07-09 09:14] LABS: Appearance Urine Clear; Color Urine Yellow; Glucose Urine UA Negative (Negative); Leukocyte Esterase Urine Negative (Negative); Nitrite Urine Negative (Negative); UMIC TRIGGER UACC YES; Urine Blood Trace (Negative); Urine Ketones Negative (Negative); Urine Protein Negative (Neg-Trace)
[2024-07-09 09:19] LABS: Bacteria Urine None Seen (None Seen); Hyaline Casts Urine 0-2 /LPF (0-2); Squamous Epithelial Cell Urine 0-2 /HPF (0-2); WBC Urine 0-5 /HPF (0-5)
[2024-07-09 10:13] VITALS: BP 106/68; PULSE 60; RESP 18; TEMP 36.7; O2SAT 99
[2024-07-09 10:25] VITALS: BP 106/68; PULSE 60; RESP 18; TEMP 36.7; O2SAT 99
== END 2024-07-09 10:25 | disposition home or self-care (01) ==
PROVIDERS: Physician Assistant Medical; Emergency Provider Emergency Medicine
DX: K21.9 Gastro-esophageal reflux disease without esophagitis (principal); R10.10 Upper abdominal pain, unspecified; Z03.818 Encounter for observation for suspected exposure to other biological agents ruled out; J45.909 Unspecified asthma, uncomplicated; Z79.899 Other long term (current) drug therapy
CPT/HCPCS: 0241U; 80053; 81001; 83690; 83735; 84484; 85025; 93005; 96374; 99284; J2470

== ENCOUNTER → 2024-07-09 06:42 | Outpatient (BNV) | payer OTHER, SELFPAY | PROVIDERS: Emergency Provider Emergency Medicine; Visit Provider Internal Medicine Cardiovascular Disease | DX: R10.9 Unspecified abdominal pain (principal); R00.1 Bradycardia, unspecified | CPT/HCPCS: 93010 ==

== ENCOUNTER 2024-07-10 10:30 | Outpatient (REF) | payer OTHER, SELFPAY ==
[2024-07-10 13:28] LABS: Thyroid Stimulating Hormone 1.44 uIU/mL (0.32-4.0)
[2024-07-10 13:44] LABS: Folate 15.8 ng/mL (> or = 4.0); Vitamin B12 500 pg/mL (200-900)
[2024-07-13 22:14] LABS: Transglutaminase IgA <1.0 U/mL
[2024-07-14 23:43] LABS: Vitamin D 25-OH, D2 <4 ng/mL; Vitamin D 25-OH, D3 23 ng/mL; Vitamin D 25-OH, Total 23 ng/mL (30-100)
== END 2024-07-10 10:31 | disposition home or self-care (01) ==
LOC: HO.LAB 10:30
PROVIDERS: PCP Internal Medicine; Visit Provider Nurse Practitioner Family
DX: R10.13 Epigastric pain (principal); K21.9 Gastro-esophageal reflux disease without esophagitis; K58.9 Irritable bowel syndrome, unspecified; R14.0 Abdominal distension (gaseous); K59.01 Slow transit constipation; R19.7 Diarrhea, unspecified; E55.9 Vitamin D deficiency, unspecified; Z13.29 Encounter for screening for other suspected endocrine disorder
CPT/HCPCS: 36415; 82306; 82607; 82746; 84443; 86364

== ENCOUNTER 2024-07-10 10:30 | Outpatient (AMB) | payer OTHER, SELFPAY ==
--- NOTE | 2024-07-10 10:33 | A.OFFVIS_ITS ---
Vital Signs 07/10/24 10:35 Height 5 ft 2 in Weight 159 lb 9.835 oz BMI 29.2 BP 110/80 Blood Pressure Location Rt brachial Position Sitting Pulse 72 Pulse Source Pulse Oximeter Pulse Oximetry (%) 97 Oxygen Delivery Method Room Air Intake Visit Reasons: GI Upset. AB pt. Req to be seen Intake Note: ESTABLISHED PATIENT for mgmt of GERD, constipation + diarrhea. LEELEE 12/2023. Chief Complaint; C/O GERD w/ epigastric pain, [place] [facility] [place] Pt was given omeprazole but has not started the medication yet. Pt advised by ED to stop ibuprofen per possible GI complications. Pt is making dietary changes but has not had any relief yet. No additional concerns. Sock Liner Required: No Accompanied by: Self / Same As Patient Allergies morphine [Morphine] Allergy (Intermediate, Verified 07/21/24 09:10) HALLUCINATIONS Sulfa (Sulfonamide Antibiotics) Allergy (Intermediate, Verified 07/21/24 09:10) HIVES shellfish derived Allergy (Mild, Verified 07/21/24 09:10) Stomach Upset methylprednisolone Adverse Reaction (Severe, Verified 07/21/24 09:10) rash Oral Contrast Adverse Reaction (Intermediate, Uncoded 07/21/24 09:10) Abdominal Pain HPI HPI GI Upset. AB pt. Req to be seen: Details: LAST VISIT with August01/07/2024 Urgent referral for epigastric pain added for 09/12. She has been doing well w/o pantoprazole, she is eating more and gaining some weight. She can't eat red meat now, it nauseates her - she sticks to chicken. She still wants the pantoprazole prn, which ihs fine and she wants to continue ot follow with us. I explain the test and she DOES have a disc protrusion at T7-T8 which may explain her sx of back and flank pain with housework. ED VISIT 07/09/2024 MDM Narrative: Patient is a 63 year old assigned female at with a history of GERD, asthma, and IBS presenting to the emergency department today with epigastric pain. Patient's physical exam was as noted in the physical exam portion of this note. Patient's blood work was unremarkable. Patient's urine showed no acute process. Patient's EKG was unremarkable. I explained my physical exam findings as well as all test results to the patient. I answered all questions asked by the patient. Patient received IV protonix and PO Maalox which, upon re- evaluation, she stated it helped her symptoms significantly. I stressed the importance of the patient taking her medication as directed (either prescribed or as the over the counter packaging recommends). I stressed the importance of the patient following up with her primary care provider and GI specialist as scheduled. I stressed the importance of the patient returning to the emergency department immediately if her symptoms were to worsen or if she were to develop any dizziness, shortness of breath, difficulty breathing, chest pain, blurry vision, loss of vision, nausea, vomiting, abdominal pain, fever, chills, back pain, or any other complaints. Patient verbalized agreement and understanding with this treatment plan and discharge. TODAY'S VISIT Patient is here today for requested visit. Patient has seen Katy Martinez [facility] in the past. Provider is out on family leave. Here today for urgent visit. Patient was seen in the in the ED yesterday for epigastric pain. Patient was given IV pantoprazole and p.o. Maalox and her symptoms went away. Patient was taking significant amount of ibuprofen as well as eating food like pizza, [employer], [employer]. Patient reports frequent postprandial abdominal bloating. Does admit to be constipated at times. Denies any nausea or vomiting. Reports occasional dyspepsia without dysphagia or odynophagia. Denies melena, hematochezia, unintentional weight loss or ribbon like stools. [facility] Medical History Back pain Thoracic back pain Acalculous cholecystitis Thoracic back pain Loose stools Asthma Contact dermatitis Tubular adenoma of colon Degenerative disc disease, thoracic Cholelithiasis with chronic cholecystitis Glaucoma Depression Helicobacter pylori (H. pylori) Anemia Myocardial infarction GERD (gastroesophageal reflux disease) Surgical History Hx laparoscopic cholecystectomy Status post laparoscopic cholecystectomy Hx of colonoscopy H/O dilation and curettage S/P right knee arthroscopy H/O esophagogastroduodenoscopy History of arthroscopy of right knee History of tubal ligation H/O section History of tonsillectomy Family History Father HTN (hypertension) Prostate cancer Mother HTN (hypertension) Diabetes Hx of CABG Sister Asthma Social History Household Members: Spouse, Significant Other and Other Housing: House Alcohol intake: current Alcohol intake frequency: does not drink Patient Tobacco Use Status: Never used Tobacco Tobacco use type: Cigarette e-Cigarette/Vaping Use: Never Used Second Hand Smoke Exposure: No service: No Current occupational status: disabled Current occupational exposures/hazards: No Cognitive needs: No Hearing needs: No Vision needs: Yes Review of Systems Const Denies weight gain and Denies weight loss ENT Reports no additional complaints, Denies dysphagia and Denies odynophagia Card Reports no additional complaints Resp Reports no additional complaints GI Reports abdominal pain (Epigastric), Denies belching, Denies melena, Reports bloating, Denies change in bowel habits, Reports constipation, Denies dysphagia, Denies excessive flatus, Denies dyspepsia, Reports heartburn, Denies diarrhea, Denies loose stools, Denies nausea, Denies odynophagia and Denies vomiting Reports no additional complaints Musc Reports no additional complaints Neuro Reports no additional complaints Psych Reports no additional complaints Endo Reports no additional complaints Physical Exam Vital Signs: Last Vital Signs Pulse 72 07/10/24 10:35 BP 110/80 07/10/24 10:35 Pulse Ox 97 07/10/24 10:35 Oxygen Delivery Method Room Air 07/10/24 10:35 BMI result Body Mass Index 29.2 Const General: healthy appearing, no acute distress and well developed Nutritional Appearance: well nourished Orientation/consciousness: patient oriented x3 Resp Effort & Inspection: normal respiratory effort, able to speak in complete sentences, no tracheal deviation and symmetric chest movement Auscultation: clear to auscultation bilaterally Cardio Rate: regular rate GI Inspection: Yes normal to inspection and No distended Palpation (GI): Soft to palpation, not firm, nontender and No hepatosplenomegaly present Auscultation: normal bowel sounds General: Yes no CVA tenderness Back/Spine/Pelvis Back: no CVA tenderness Skin General skin exam: elasticity normal, turgor normal and dry skin Neuro General: patient oriented x3 Psych Appearance: grossly normal Mental Status: mental status grossly normal Assessment & Plan Assessment & Plan (1) Epigastric pain: Code(s): R10.13 - Epigastric pain Category: Medical (2) GERD (gastroesophageal reflux disease): Code(s): K21.9 - Gastro-esophageal reflux disease without esophagitis Category: Medical Qualifiers: Esophagitis presence: esophagitis presence not specified Qualified Code(s): K21.9 - Gastro-esophageal reflux disease without esophagitis (3) IBS (irritable bowel syndrome): Code(s): K58.9 - Irritable bowel syndrome, unspecified Category: Medical Qualifiers: Irritable bowel syndrome type: without diarrhea Qualified Code(s): K58.9 - Irritable bowel syndrome, unspecified (4) Abdominal bloating: Code(s): R14.0 - Abdominal distension (gaseous) Category: Medical (5) Constipation: Code(s): K59.00 - Constipation, unspecified Qualifiers: Constipation type: slow transit constipation Qualified Code(s): K59.01 - Slow transit constipation Plan Patient reports epigastric pain postprandially. Will check for H pylori. Rule out celiac. Patient will go for upper GI series with barium swallow. Patient will take omeprazole 40 mg daily. Avoid dietary triggers and late night snacking. Staying upright for minimum 3 hours after meals discussed with patient. Patient reports postprandial abdominal bloating. Discuss low FODMAP diet. List of food recommended as well as list of food to avoid given to patient. Will check vitamin B12, folate, vitamin-D level. Patient will return in 2 months, sooner on as needed basis. She is agreeable to this plan and verbalizes understanding of instructions. She was given the opportunity to ask questions and all questions answered. Thank you for allowing me to participate in her care Orders: Orders H pylori Ag Stool 07/11/24 K21.9 - Gastro-esophageal reflux disease without esophagitis Transglutaminase IgA 07/10/24 R10.9 - Unspecified abdominal pain Vitamin D 25-OH (D2 and D3) 07/10/24 E55.9 - Vitamin D deficiency, unspecified Vitamin B12 and Folate 07/10/24 R19.7 - Diarrhea, unspecified FL upper GI w Ba Swallow 07/10/24 K21.9 - Gastro-esophageal reflux disease without esophagitis Medications: New sennosides (Natural Senna Laxative) 8.6 mg PO BEDTIME 90 tabs 3RF constipation K59.00 - Constipation, unspecified Discontinued omeprazole Discontinued Reason: Doctor's Order 40 mg PO DAILY 7 caps 0RF Coding Level of Care Code Est Pt Level 4 (42215) Diagnoses Epigastric pain R10.13 Gastroesophageal reflux disease, unspecified whether esophagitis present K21.9 Esophagitis presence: esophagitis presence not specified Irritable bowel syndrome without diarrhea K58.9 Irritable bowel syndrome type: without diarrhea Abdominal bloating R14.0 Slow transit constipation K59.01 Constipation type: slow transit constipation Time Spent (min) 40 Comment 25 minutes spent with patient and additional 15 minutes spent reviewing her records
[2024-07-10 10:35] VITALS: BP 110/80; PULSE 72; O2SAT 97; BMI 29.2
--- OUTSIDE RECORDS SUMMARY | 2024-07-10 11:59 | XMS_ITS | Data Portability ---
Author Organization JASE Terrell Rogel [facility] Sur[facility] Address [address] [place] [address] Assessment Encounter Date Assessment Date Assessment LastModified by Organization Details LastModified Time 08/13/2023 08/13/2023 Chief Complaint: Right knee pain HPI: Kiara Camarillo is a 62-year-old female patient with a history of knee pain, having undergone two surgical interventions: a partial meniscectomy in 2003 and another knee surgery in 2006. She reports increased knee pain that began three days after a recent trip to [facility], where she experienced prolonged sitting in the [...] grossly intact. Eyes: Sclera are not blue. composition molder II-XII are grossly intact. Full extraocular motion. [...] Imaging: X-rays ordered, obtained and reviewed at [facility]. These images included bilateral weightbearing Chung view [...] visit note. This note was generated with [facility] speech recognition charter representative dictation software. Please excuse any errors that may have been overlooked during review of this note. Sometimes, these errors may affect the content or meaning of a given sentence. Please call for corrections. [email or web address] Not available 08/13/2023 17:10:16 Plan of Treatment [...] by: Referring Physician: Benson Patel, Orthopedic Surgery, [id number] Encounter Date: 08/13/2023 Medical Equipment None Reported. Allergies Allergen ID Allergen Name Allergen Category Reaction Reaction Severity Criticality Documentation Date Start Date Code Code System Note Provider Name and Address Organization Details Recorded Time 042393 morphine medicatio n Not available Not available Not available 08/13/2023 7052 RxNorm SONIA MARMOLEJO [facility] 13:46:02 238248 Substance with sulfonami de structure and antibacte rial mechanism of action (substanc e) medicatio n Not available Not available Not available 08/13/2023 36417 8003 SNOMED SONIA ROSSZ [facility] Orth[facility] 4 13:46:09 Medications [...] Updated DateTime 08/13/2023 157.48 cm 28.7 kg/m2 79374 g [place]ONIA MARMOLEJO [place] [facility] 08/13/2023 13:45:53 Social History None recorded. Functional Status None recorded. Mental Status None recorded. Family History Nothing Reported. Medical History No medical history recorded. Gynecological HistoryNo gynecological history recorded. Obstetrics History GPAL:G 0 P 0 0 0 0 Past Encounters Encounter ID Performer Location Encounter Start Date Encounter Closed Date Diagnosis/Indication Diagnosis SNOMED-CT Code Diagnosis ICD10 Code Diagnosis Note [id number] MD Darlene Smith [address] [place] [address] 08/13/2023 13:24:57 09/06/2023 08:34:09 Pain of right knee joint 2985772313 85020 M25.561 Patellofem oral syndrome of right knee 9732613768 228083 M22.2X1 Health Concerns Section Related Observation LastModified by Organization Detai ls LastModified Time None Recorded Concern Status LastModified by Organization Details LastModified Time None Recorded Advance Directives Directive None Recorded Payers Encounter Date Sequence Insurance Name Policy Number Policy Carlton Covered Member ID Carlton Member ID Guarantor Name 08/13/2023 1 [facility] - DOS ON OR AFTER 2022 - RESIDENTIAL OPTIONS AND ONE CARE (MEDICARE REPLACEMENT/AD VANTAGE - PPO) Kiara Roth [id number] Kiara Roth OBGykaitlynn Episode No OBEpisode recorded.
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
== END 2024-07-10 11:23 | disposition home or self-care (01) ==
PROVIDERS: Visit Provider Nurse Practitioner Family
DX: R10.13 Epigastric pain (principal); K21.9 Gastro-esophageal reflux disease without esophagitis; K58.9 Irritable bowel syndrome, unspecified; R14.0 Abdominal distension (gaseous); K59.01 Slow transit constipation
CPT/HCPCS: 99214

== ENCOUNTER 2024-07-11 08:38 | Outpatient (REF) | payer OTHER, SELFPAY | END 2024-07-11 08:39 | disposition home or self-care (01) | LOC: HO.LNP 08:38 | PROVIDERS: Visit Provider Nurse Practitioner Family | DX: K21.9 Gastro-esophageal reflux disease without esophagitis (principal) | CPT/HCPCS: 87338 ==

== ENCOUNTER 2024-07-16 08:05 | Emergency (ER) | payer OTHER, MEDICARE, SELFPAY ==
--- NOTE | ~2024-07-16 | CT_ITS ---
EXAMINATION: CT ABDOMEN AND PELVIS WITH CONTRAST CLINICAL INFORMATION: Lower abdominal pain. Rectal bleeding. Concerning colitis. COMPARISON: June 20, 2021. TECHNIQUE: Multidetector volumetric images were obtained from the superior aspect of the liver through the pubic symphysis following administration 85 mL of Omnipaque 350 intravenous contrast. Sagittal and coronal reformatted images were obtained on the technologist's workstation. Oral contrast: No This CT examination was performed using dose optimization techniques as appropriate, variously including the following: *Automated exposure control *Adjustment of mA and/or kV according to patient size (this includes techniques or standardized protocols for targeted exams where dose is matched to indication/reason for exam; i.e. extremities or head) *Use of iterative reconstruction technique. DLP: 412 mg centimeter. FINDINGS: LUNG BASES: No acute airspace disease in the included lung bases. LIVER, GALLBLADDER, AND BILIARY TREE: There are measures 15 cm. No focal mass. Portal veins, hepatic veins and intrahepatic portion of the IVC are patent. Status post cholecystectomy. No intrahepatic or extrahepatic biliary ductal dilatation. PANCREAS: No focal lesion. No main pancreatic ductal dilatation. No peripancreatic fluid collection. SPLEEN: 8 cm. No focal lesion. ADRENAL GLANDS: No nodular lesions. KIDNEYS AND URETERS: No hydronephrosis. No gross nephrolithiasis. No gross renal mass. BLADDER: Fluid-filled. GASTROINTESTINAL TRACT: Appendix is normal. Abundant stool within the large intestine. Scattered diverticula throughout the large intestine mostly sigmoid colon. No wall thickening. No pericolonic edema pattern. No pneumatosis intestinalis. No ascites. No pneumoperitoneum. ABDOMINAL WALL: Small fat-containing umbilical hernia. LYMPH NODES: No lymphadenopathy, mesenteric or retroperitoneal. VASCULAR: Mixed plaques in the distal abdominal aorta wall and iliac arteries. No aneurysm or dissection. Calcified plaques in the splenic artery and the origin of the mesenteric arteries. PELVIC VISCERA: Calcified uterine fibroid. OSSEOUS STRUCTURES: Multilevel thoracolumbar spondylosis. No acute fracture or gross listhesis. Bony pelvis is intact. Coxofemoral joints are intact with normal alignment. CT/CT abdomen pelvis w IV con IMPRESSION: No acute colitis. Fleischner guidelines were followed. Electronically signed by: Andreas Zepeda MD 07/16/2024 02:07 PM [facility]
[2024-07-16 08:12] VITALS: BP 113/65; PULSE 66; RESP 16; TEMP 35.9; O2SAT 98; BMI 28.7
[2024-07-16 08:39] LABS: Basophils Percent Auto 0.8 % (0-2); Eosinophils Absolute Auto 0.1 X10*3/uL (0.0-0.4); Eosinophils Percent Auto 1.3 % (0-4); Hematocrit 38.1 % (37.0-47.0); Imm Gran Abs Auto 0.02 X10*3/uL (0.00-0.03); Imm Gran Pct Auto 0.5 % (0.0-0.4); Lymphocytes Absolute Auto 0.9 X10*3/uL (1.2-4.9); MANUAL DIFF FLAG NO; Mean Corpuscular HGB Conc 34.1 g/dl (31.0-35.0); Mean Corpuscular Hemoglobin 30.7 pg (27.0-33.0); Mean Corpuscular Volume 90.1 fL (80.0-98.0); Mean Platelet Volume 10.7 fL (9.4-12.3); Monocytes Absolute Auto 0.4 X10*3/uL (0.1-1.2); Monocytes Percent Auto 9.3 % (2-11); Neutrophils Absolute Auto 2.5 x10*3/uL (2.0-8.3); Neutrophils Percent Auto 64.1 % (45-73); Platelet Count 153 X10*3/uL (160-400); Red Blood Count 4.23 X10*6/uL (4.20-5.50); Red Cell Distribution Width 12.3 % (11.0-16.0); White Blood Count 3.9 X10*3/uL (4.8-10.8)
[2024-07-16 08:53] LABS: Alanine Aminotransferase 19 U/L (0-31); Alkaline Phosphatase 83 U/L (39-117); Anion Gap 10 (12-20); Aspartate Amino Transferase 24 U/L (5-31); Bilirubin Total 0.4 mg/dL (0.0-1.0); Blood Urea Nitrogen 10 mg/dL (9-16); Carbon Dioxide 28 mmol/L (22-29); Chloride 107 mmol/L (96-108); Creatinine Clr Calc Pharmacy 74.7; Estimated Glomerular Filt Rate > 60; Glucose Random 123 mg/dL (60-115); Potassium 3.6 mmol/L (3.3-5.1); Sodium 141 mmol/L (135-145); Total Protein 7.7 g/dL (6.5-8.0)
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
[2024-07-16 10:29] VITALS: BP 144/62; PULSE 60; RESP 16; TEMP 37.2; O2SAT 98
[2024-07-16 11:41] VITALS: BP 143/68; PULSE 91; RESP 18; TEMP 37.2; O2SAT 98
--- NOTE | 2024-07-16 11:41 | ED_ITS ---
HPI - General Adult General Chief complaint: GI Bleed Stated complaint: Hemorrhoids Time Seen by Provider: 07/16/24 10:55 History of Present Illness ED Provider: Anant Henderson HPI narrative: 63 yodl female history of GERD, constipation, and hemorrhoids presents to ED for multiple days of blood in stool after bowel movements with some lower abdominal cramping. Patient states history of colitis in the past. Patient denies any fever, chills, weakness, dizziness, chest pain or shortness of breath. Patient denies being on any blood thinners. Related Data Previous Rx's ?Medication ?Instructions ?Recorded sennosides 8.6 mg tablet (Natural 8.6 mg PO BEDTIME constipation #90 07/10/24 Senna Laxative) tabs hydrocortisone 2.5 % topical cream 1 appl PA BID-QID PRN hemorrhoids 07/13/24 with perineal applicator #30 grams (Proctosol HC) omeprazole 20 mg capsule,delayed 20 mg PO DAILY #30 caps 07/13/24 release docusate sodium 100 mg capsule 100 mg PO DAILY #30 caps 07/15/24 Allergies Allergy/AdvReac Type Severity Reaction Status Date / Time morphine [Morphine] Allergy Intermediate HALLUCINATI Verified 07/16/24 08:19 ONS Sulfa (Sulfonamide Allergy Intermediate HIVES Verified 07/16/24 08:19 Antibiotics) shellfish derived Allergy Mild Stomach Verified 07/16/24 08:19 Upset methylprednisolone AdvReac Severe rash Verified 07/16/24 08:19 Oral Contrast AdvReac Intermediate Abdominal Uncoded 07/10/24 10:34 Pain Review of Systems 2 Review of Systems: Lower abdominal cramping blood in stool Yes all other systems are reviewed and are negative PMF Past Medical History Medical History Back pain Thoracic back pain Acalculous cholecystitis Thoracic back pain Loose stools Asthma Contact dermatitis Tubular adenoma of colon Degenerative disc disease, thoracic Cholelithiasis with chronic cholecystitis Glaucoma Depression Helicobacter pylori (H. pylori) Anemia Myocardial infarction GERD (gastroesophageal reflux disease) Surgical History Hx laparoscopic cholecystectomy Status post laparoscopic cholecystectomy Hx of colonoscopy H/O dilation and curettage S/P right knee arthroscopy H/O esophagogastroduodenoscopy History of arthroscopy of right knee History of tubal ligation H/O section History of tonsillectomy Family History Family History Father HTN (hypertension) Prostate cancer Mother HTN (hypertension) Diabetes Hx of CABG Sister Asthma Social History Social History Household Members: Spouse, Significant Other and Other Housing: House Alcohol intake: current Alcohol intake frequency: does not drink Patient Tobacco Use Status: Never used Tobacco Tobacco use type: Cigarette e-Cigarette/Vaping Use: Never Used Second Hand Smoke Exposure: No service: No Current occupational status: disabled Current occupational exposures/hazards: No Cognitive needs: No Hearing needs: No Vision needs: Yes Physical Exam ED Vital Signs: Vital Signs - 24 hr 07/16/24 13:44 07/16/24 15:55 Temperature 98.2 F Pulse Rate 65 65 Respiratory Rate 17 17 Blood Pressure 132/54 L 132/54 L Pulse Oximetry 99 99 Oxygen Delivery Method Room Air Room Air BMI result Body Mass Index 28.7 Const General: cooperative, healthy appearing, comfortable, no acute distress, well developed, alert, awake and Physically active Orientation/consciousness: patient oriented x3 HENMT Head: Yes normal to inspection, Yes No palpable skull fracture present, Yes normocephalic and Yes atraumatic Ears: hearing grossly normal bilaterally, external ears normal, TM's normal bilaterally, TM normal on the right, TM normal on the left, EAC's normal and mastoids normal Eyes General: appearance normal, both eyes and all related structures Neck Neck: Yes normal visual inspection, Yes full ROM, Yes no lymphadenopathy, Yes no meningeal signs, Yes trachea midline, Yes supple, No anterior neck swelling and No tender Chest Chest palpation & inspection: normal inspection of the chest and normal palpation of entire chest wall Resp Effort & Inspection: normal respiratory effort and able to speak in complete sentences Auscultation: clear to auscultation bilaterally Cardio Jugular venous distension: no JVD Heart sounds: S1 normal heart sound present and S2 normal heart sound present GI Inspection: Yes normal to inspection Palpation (GI): Soft to palpation, not firm, Tenderness to palpation present (GI) in the LLQ and in the RLQ; not in the epigastrum, not in the LUQ, not in the RUQ, not at McBurney's point, not periumbilically, not suprapubicly, Bettencourt's sign negative, obturator sign negative, psoas sign negative, with no rebound tenderness and Rovsing's sign negative, no guarding and not rigid Other: Positive for external hemorrhoid non thrombosed. Negative for any bright red blood, melena, or hemmohrrage General: Yes no CVA tenderness Back/Spine/Pelvis Back: no CVA tenderness and No back tenderness Skin General skin exam: no rashes or lesions noted, elasticity normal and turgor normal Neuro General: patient oriented x3, gait normal, tone normal, moves all extremities, Normal light touch and pain sensation, no meningeal signs, no focal motor deficits and CN's II-XI intact bilaterally Extrem General: Yes normal to inspection, Yes full ROM and Yes capillary refill normal Psych Appearance: grossly normal, well kempt and not disheveled Medical Decision Making Medical Decision Making [facility] Narrative: 63-year-old female presents to ED for lower abdominal pain cramping with rectal bleeding. Patient denies any dizziness weakness on recent trauma. Patient states history of hemorrhoids. 2:23pm: Abdominal CT scan negative for colitis. Patient is already on hemorrhoid medications hydrocortisone cream and senna Luna for constipation. Patient has follow-up with Gastroenterology appointment next Saturday. Patient informed to follow up with primary care provider and securities consultant. Patient explained worrisome signs and informed to return to the ED immediately. Not suspecting GI bleeding, abdominal perforation, symptomatic anemia, peritonitis, or any other life-threatening etiology Differential Diagnosis Differential Diagnoses: The differential diagnosis associated with the presentation includes (Diverticulitis, UTI, perforation, appendicitis,) Admission/Observation Consideration of admission/observation: Escalation of care including admission/observation considered Lab Data [facility] Lab Attestation statement: I reviewed the patient's lab results. 07/16/24 08:31 07/16/24 08:31 Labs: Lab Results 07/16/24 07/16/24 07/16/24 Range/Units 08:31 12:04 14:31 WBC 3.9 L (4.8-10.8) X10*3/uL RBC 4.23 (4.20-5.50) X10*6/uL Hgb 13.0 (12.0-16.0) g/dl Hct 38.1 (37.0-47.0) % MCV 90.1 (80.0-98.0) fL MCH 30.7 (27.0-33.0) pg MCHC 34.1 (31.0-35.0) g/dl RDW 12.3 (11.0-16.0) % Plt Count 153 L (160-400) X10*3/uL MPV 10.7 (9.4-12.3) fL Immature Gran % (Auto) 0.5 H (0.0-0.4) % Neut % (Auto) 64.1 (45-73) % Lymph % (Auto) 24.0 (20-40) % [place] % (Auto) 9.3 (2-11) % Eos % (Auto) 1.3 (0-4) % Baso % (Auto) 0.8 (0-2) % Lymph # (Auto) 0.9 L (1.2-4.9) X10*3/uL [place] # (Auto) 0.4 (0.1-1.2) X10*3/uL Eos # (Auto) 0.1 (0.0-0.4) X10*3/uL Baso # (Auto) 0.0 (0.0-0.2) X10*3/uL Abs Immat Gran (auto) 0.02 (0.00-0.03) X10*3/uL Absolute Neuts (auto) 2.5 (2.0-8.3) x10*3/uL Absolute Nucleated RBC 0.000 (0.0-0.012) X10*3/uL Nucleated RBC % (auto) 0.0 (0.0-0.2) /100WBC Sodium 141 (135-145) mmol/L Potassium 3.6 (3.3-5.1) mmol/L Chloride 107 (96-108) mmol/L Carbon Dioxide 28 (22-29) mmol/L Anion Gap 10 L (12-20) BUN 10 (9-16) mg/dL Creatinine 0.73 (0.5-1.4) mg/dL Estim Creat Clear Calc 74.7 Estimated GFR > 60 Random Glucose 123 H (60-115) mg/dL Calcium 9.0 (8.4-10.2) mg/dL Total Bilirubin 0.4 (0.0-1.0) mg/dL AST 24 (5-31) U/L ALT 19 (0-31) U/L Alkaline Phosphatase 83 (39-117) U/L Total Protein 7.7 (6.5-8.0) g/dL Albumin 4.0 (3.5-5.0) g/dL Urine Color Yellow Urine Appearance Clear Urine pH 7.5 (5.0-9.0) Ur Specific Meraux >= 1.030 H (1.005-1.025) Urine Protein Negative (Neg-Trace) mg/dL Urine Glucose (UA) Negative (Negative) mg/dL Urine Ketones Negative (Negative) mg/dL Urine Blood Trace H (Negative) Urine Nitrite Negative (Negative) Ur Leukocyte Esterase Trace H (Negative) Urine RBC 0-2 (0-2) /HPF Urine WBC 6-10 H (0-5) /HPF Ur Squamous Epith Cells 0-2 (0-2) /HPF Urine Bacteria None Seen (None Seen) Hyaline Casts 0-2 (0-2) /LPF Stool Occult Blood NEGATIVE (NEGATIVE) Independent Interpretation I performed an independent interpretation of an: CT Scan Radiology Impression Discussion of test interpretation with radiology: I have reviewed the radiologist's reading. Independent Historian Clinical information obtained from an independent historian. History obtained from or confirmed by: Other (Patient) Prescription Management I considered prescription management with: Other Discharge Plan Discharge Clinical Impression: RB (rectal bleeding), External hemorrhoids Patient Disposition: Home, Self-Care Instructions: Hemorrhoids (ED) Additional Instructions: YOUR CT SCAN CAME BACK NEGATIVE FOR COLITIS. YOUR BLOOD WORK CAME BACK REASSURING. RECOMMEND FOLLOW-UP WITH YOUR AUGER PRESS OPERATOR. CONTINUE BEING COMPLIANT WITH HEMORRHOID MEDICATION YOU ARE PRESCRIBED BY PCP WHICH WAS CENTER AND HYDROCORTISONE RECTAL CREAM. RETURN TO THE ED IMMEDIATELY FOR ANY ABDOMINAL PAIN, PROFUSE RECTAL BLEEDING, WEAKNESS, DIZZINESS, CHEST PAIN, SHORTNESS OF BREATH, FEVER, CHILLS, OR ANY OTHER CONCERNING SYMPTOMS. CLINICAL INFORMATION: Lower abdominal pain. Rectal bleeding. Concerning colitis. COMPARISON: June 20, 2021. TECHNIQUE: Multidetector volumetric images were obtained from the superior aspect of the liver through the pubic symphysis following administration 85 mL of Omnipaque 350 intravenous contrast. Sagittal and coronal reformatted images were obtained on the technologist's workstation. Oral contrast: No This CT examination was performed using dose optimization techniques as appropriate, variously including the following: *Automated exposure control *Adjustment of mA and/or kV according to patient size (this includes techniques or standardized protocols for targeted exams where dose is matched to indication/reason for exam; i.e. extremities or head) *Use of iterative reconstruction technique. DLP: 412 mg centimeter. FINDINGS: LUNG BASES: No acute airspace disease in the included lung bases. LIVER, GALLBLADDER, AND BILIARY TREE: There are measures 15 cm. No focal mass. Portal veins, hepatic veins and intrahepatic portion of the IVC are patent. Status post cholecystectomy. No intrahepatic or extrahepatic biliary ductal dilatation. PANCREAS: No focal lesion. No main pancreatic ductal dilatation. No peripancreatic fluid collection. SPLEEN: 8 cm. No focal lesion. ADRENAL GLANDS: No nodular lesions. KIDNEYS AND URETERS: No hydronephrosis. No gross nephrolithiasis. No gross renal mass. BLADDER: Fluid-filled. GASTROINTESTINAL TRACT: Appendix is normal. Abundant stool within the large intestine. Scattered diverticula throughout the large intestine mostly sigmoid colon. No wall thickening. No pericolonic edema pattern. No pneumatosis intestinalis. No ascites. No pneumoperitoneum. ABDOMINAL WALL: Small fat-containing umbilical hernia. LYMPH NODES: No lymphadenopathy, mesenteric or retroperitoneal. VASCULAR: Mixed plaques in the distal abdominal aorta wall and iliac arteries. No aneurysm or dissection. Calcified plaques in the splenic artery and the origin of the mesenteric arteries. PELVIC VISCERA: Calcified uterine fibroid. OSSEOUS STRUCTURES: Multilevel thoracolumbar spondylosis. No acute fracture or gross listhesis. Bony pelvis is intact. Coxofemoral joints are intact with normal alignment. CT/CT abdomen pelvis w IV con IMPRESSION: No acute colitis. Fleischner guidelines were followed. Electronically signed by: Andreas Zepeda MD 07/16/2024 02:07 PM [facility] Prescriptions: No Action hydrocortisone [Proctosol HC] 2.5 % cream with perineal applicator 1 appl PA BID-QID PRN (Reason: hemorrhoids) Qty: 30 2RF omeprazole 20 mg capsule,delayed release(DR/EC) 20 mg PO DAILY Qty: 30 3RF docusate sodium 100 mg capsule 100 mg PO DAILY Qty: 30 3RF sennosides [Natural Senna Laxative] 8.6 mg tablet 8.6 mg PO BEDTIME Qty: 90 3RF Referrals: [facility] Gastroenterology Services [Provider Group] (RECTAL BLEEDING HEMORRHOIDS) [facility] General Surgeons [Provider Group] (HEMORRHOID) Stand Alone Forms: Work/School Release Interventions: ED Discharge Assessment Last Done: 07/16/24 15:55 Discharge Date/Time: 07/16/24 15:56 Print Language: Portuguese
[2024-07-16 12:12] LABS: OBS Int Ctl Valid YES; OBS1 NEGATIVE (NEGATIVE)
--- NOTE | 2024-07-16 13:35 | PC.NURSE ---
patient a&ox3, labs previously drawn, IV put in by CT- ct scan performed, vss, pt c/o 08/20 lower abd pain, call castrejon within reach, pt awating results, plan of care ongoing
[2024-07-16 13:44] VITALS: BP 132/54; PULSE 65; RESP 17; O2SAT 99
[2024-07-16 14:38] LABS: Appearance Urine Clear; Color Urine Yellow; Glucose Urine UA Negative (Negative); Leukocyte Esterase Urine Trace (Negative); Nitrite Urine Negative (Negative); PH 7.5 (5.0-9.0); Specific Gravity - Urine >= 1.030 (1.005-1.025); UMIC TRIGGER UACC YES; Urine Blood Trace (Negative); Urine Ketones Negative (Negative); Urine Protein Negative (Neg-Trace)
[2024-07-16 14:40] LABS: Bacteria Urine None Seen (None Seen); Hyaline Casts Urine 0-2 /LPF (0-2); RBC Urine 0-2 /HPF (0-2); Squamous Epithelial Cell Urine 0-2 /HPF (0-2); UACC Culture Trigger YES
[2024-07-16 15:55] VITALS: BP 132/54; PULSE 65; RESP 17; TEMP 36.8; O2SAT 99
== END 2024-07-16 15:56 | disposition home or self-care (01) ==
PROVIDERS: Physician Assistant; Emergency Provider Emergency Medicine; PCP Internal Medicine
DX: K64.4 Residual hemorrhoidal skin tags (principal); R10.30 Lower abdominal pain, unspecified; R10.814 Left lower quadrant abdominal tenderness; K62.5 Hemorrhage of anus and rectum; Z79.899 Other long term (current) drug therapy
CPT/HCPCS: 36415; 74177; 80053; 81001; 82272; 85025; 87086; 99284

== ENCOUNTER → 2024-07-16 12:03 | Outpatient (BNV) | payer OTHER, SELFPAY | PROVIDERS: Emergency Provider Emergency Medicine; PCP Internal Medicine; Visit Provider Radiology Diagnostic Radiology | DX: R10.30 Lower abdominal pain, unspecified (principal); K62.5 Hemorrhage of anus and rectum | CPT/HCPCS: 74177 ==

== ENCOUNTER 2024-07-21 09:07 | Outpatient (AMB) | payer OTHER, SELFPAY ==
--- NOTE | 2024-07-21 09:08 | MHC.OFFVIS ---
Vital Signs 07/21/24 09:09 Height 5 ft 2 in Weight 158 lb 4.67 oz BMI 28.9 BP 138/66 Blood Pressure Location Rt brachial Position Sitting Pulse 64 Pulse Source Pulse Oximeter Pulse Oximetry (%) 99 Oxygen Delivery Method Room Air Intake Visit Reasons: blood in stool Intake Note: ESTABLISHED PATIENT for mgmt of GERD. Urgent FUV requested per pt. Chief Complaint; C.O BRB per rectum within the last week. Pt states that they have not had any bleeding over the last 3 days. Black stools reported within 24 hours after starting docusate. On the day the pt went to the ER, she was experiencing a heavy amount of bleeding per rectum. Only mild abdominal cramping reported in addition to these sx. No other concerns reported. Housekeeping Coordinator Required: No Accompanied by: Self / Same As Patient Allergies morphine [Morphine] Allergy (Intermediate, Verified 07/21/24 09:10) HALLUCINATIONS Sulfa (Sulfonamide Antibiotics) Allergy (Intermediate, Verified 07/21/24 09:10) HIVES shellfish derived Allergy (Mild, Verified 07/21/24 09:10) Stomach Upset methylprednisolone Adverse Reaction (Severe, Verified 07/21/24 09:10) rash Oral Contrast Adverse Reaction (Intermediate, Uncoded 07/21/24 09:10) Abdominal Pain HPI HPI blood in stool: Details: LAST VISIT Epigastric pain GERD (gastroesophageal reflux disease) IBS (irritable bowel syndrome) Abdominal bloating Constipation Plan Patient reports epigastric pain postprandially. Will check for H pylori. Rule out celiac. Patient will go for upper GI series with barium swallow. Patient will take omeprazole 40 mg daily. Avoid dietary triggers and late night snacking. Staying upright for minimum 3 hours after meals discussed with patient. Patient reports postprandial abdominal bloating. Discuss low FODMAP diet. List of food recommended as well as list of food to avoid given to patient. Will check vitamin B12, folate, vitamin-D level. Patient will return in 2 months, sooner on as needed basis. She is agreeable to this plan and verbalizes understanding of instructions. She was given the opportunity to ask questions and all questions answered. ? Thank you for allowing me to participate in her care Orders Orders H pylori Ag Stool 07/11/24 K21.9 Transglutaminase IgA 07/10/24 R10.9 Vitamin D 25-OH (D2 and D3) 07/10/24 E55.9 Vitamin B12 and Folate 07/10/24 R19.7 FL upper GI w Ba Swallow 07/10/24 K21.9 Medications New sennosides (Natural Senna Laxative) 8.6 mg PO BEDTIME 90 tabs 3RF constipation K59.00 Discontinued omeprazole Discontinued Reason: Doctor's Order 40 mg PO DAILY 7 caps 0RF ED VISIT 07/16/2024 [facility] Narrative: 63-year-old female presents to ED for lower abdominal pain cramping with rectal bleeding. Patient denies any dizziness weakness on recent trauma. Patient states history of hemorrhoids. 2:23pm: Abdominal CT scan negative for colitis. Patient is already on hemorrhoid medications hydrocortisone cream and senna Luna for constipation. Patient has follow-up with Gastroenterology appointment next Saturday. Patient informed to follow up with primary care provider and major gifts director. Patient explained worrisome signs and informed to return to the ED immediately. Not suspecting GI bleeding, abdominal perforation, symptomatic anemia, peritonitis, or any other life-threatening etiology TODAY'S VISIT Patient is here today for follow-up ED visit. Patient was seen few days ago in the ER for rectal bleed. Patient has been constipated for quite some time and has started taking Senokot. Call the office on Saturday day before ER visit and was advised to take Colace 1-2 capsules to help. Patient reports her stools were very hard and sharp. It felt like something was cutting her rectum. Patient reports large amount of bleeding when she went to the bathroom few times. Each time she had a bowel movement she had blood in her stool. Stool Hemoccult negative in the ER. Her H&H was normal 13/38.1. Patient reports that since visit in the ER she has been doing much better. No more blood when she has a bowel movement. She is taking Senokot, however stopped couple days ago and she is moving her bowels better. Patient reports that symptoms of acid reflux have improved. Patient changed her diet. She is following low FODMAP diet as much as she can. Does not experience as much of abdominal bloating. Patient is avoiding lactose and bread except for solid or bread. [facility] Medical History Back pain Thoracic back pain Acalculous cholecystitis Thoracic back pain Loose stools Asthma Contact dermatitis Tubular adenoma of colon Degenerative disc disease, thoracic Cholelithiasis with chronic cholecystitis Glaucoma Depression Helicobacter pylori (H. pylori) Anemia Myocardial infarction GERD (gastroesophageal reflux disease) Surgical History Hx laparoscopic cholecystectomy Status post laparoscopic cholecystectomy Hx of colonoscopy H/O dilation and curettage S/P right knee arthroscopy H/O esophagogastroduodenoscopy History of arthroscopy of right knee History of tubal ligation H/O section History of tonsillectomy Family History Father HTN (hypertension) Prostate cancer Mother HTN (hypertension) Diabetes Hx of CABG Sister Asthma Social History Household Members: Spouse, Significant Other and Other Housing: House Alcohol intake: current Alcohol intake frequency: does not drink Patient Tobacco Use Status: Never used Tobacco Tobacco use type: Cigarette e-Cigarette/Vaping Use: Never Used Second Hand Smoke Exposure: No service: No Current occupational status: disabled Current occupational exposures/hazards: No Cognitive needs: No Hearing needs: No Vision needs: Yes Review of Systems Const Denies weight gain and Denies weight loss ENT Reports no additional complaints, Denies dysphagia and Denies odynophagia Card Reports no additional complaints Resp Reports no additional complaints GI Denies abdominal pain, Denies belching, Denies melena, Denies bloating, Denies change in bowel habits, Reports constipation (Occasional), Denies dysphagia, Denies excessive flatus, Denies dyspepsia, Reports heartburn (Improved), Denies diarrhea, Denies loose stools, Denies nausea, Denies odynophagia and Denies vomiting Musc Reports no additional complaints Neuro Reports no additional complaints Psych Reports no additional complaints Endo Reports no additional complaints Physical Exam Vital Signs: Last Vital Signs Pulse 64 07/21/24 09:09 BP 138/66 07/21/24 09:09 Pulse Ox 99 07/21/24 09:09 Oxygen Delivery Method Room Air 07/21/24 09:09 BMI result Body Mass Index 28.9 Const General: healthy appearing, no acute distress and well developed Nutritional Appearance: well nourished Orientation/consciousness: patient oriented x3 Resp Effort & Inspection: normal respiratory effort, able to speak in complete sentences, no tracheal deviation and symmetric chest movement Auscultation: clear to auscultation bilaterally Cardio Rate: regular rate GI Inspection: Yes normal to inspection and No distended Palpation (GI): Soft to palpation, not firm, nontender and No hepatosplenomegaly present Auscultation: normal bowel sounds General: Yes no CVA tenderness Back/Spine/Pelvis Back: no CVA tenderness Skin General skin exam: elasticity normal, turgor normal and dry skin Neuro General: patient oriented x3 Psych Appearance: grossly normal Mental Status: mental status grossly normal Assessment & Plan Assessment & Plan (1) GERD (gastroesophageal reflux disease): Code(s): K21.9 - Gastro-esophageal reflux disease without esophagitis Category: Medical Qualifiers: Esophagitis presence: esophagitis presence not specified Qualified Code(s): K21.9 - Gastro-esophageal reflux disease without esophagitis (2) IBS (irritable bowel syndrome): Code(s): K58.9 - Irritable bowel syndrome, unspecified Category: Medical Qualifiers: Irritable bowel syndrome type: without diarrhea Qualified Code(s): K58.9 - Irritable bowel syndrome, unspecified (3) Abdominal bloating: Code(s): R14.0 - Abdominal distension (gaseous) Category: Medical (4) Constipation: Code(s): K59.00 - Constipation, unspecified Qualifiers: Constipation type: slow transit constipation Qualified Code(s): K59.01 - Slow transit constipation (5) Bleeding hemorrhoids: Code(s): K64.9 - Unspecified hemorrhoids Category: Medical Plan Patient will continue taking Senokot daily as well as stool softeners. If she has constipation for 1-2 days additional stool softener recommended. Continue low FODMAP diet. Increase fluid intake and activity to promote better bowel motility. Patient reports that she is feeling significantly better since seen in the ED. She feels like she has a better control of her bowels. Continue avoiding dietary triggers and late night snacking. Follow low FODMAP diet. Continue PPI therapy. Follow-up in 2-3 months. Patient has appointment for upper GI series with barium swallow this Saturday, we will review results. Patient will be due to go for colonoscopy end of this year. She will be sent for upper endoscopy as well. She is agreeable to this plan of care and verbalizes understanding of instructions. She was given the opportunity to ask questions and all questions answered. Thank you for allowing me to participate in her care Coding Level of Care Code Est Pt Level 4 (50792) Complex EM visit Add On G2211 Diagnoses Gastroesophageal reflux disease, unspecified whether esophagitis present K21.9 Esophagitis presence: esophagitis presence not specified Irritable bowel syndrome without diarrhea K58.9 Irritable bowel syndrome type: without diarrhea Abdominal bloating R14.0 Slow transit constipation K59.01 Constipation type: slow transit constipation Bleeding hemorrhoids K64.9 Time Spent (min) 35 Comment 25 minutes spent with patient and additional 10 minutes spent reviewing her records
[2024-07-21 09:09] VITALS: BP 138/66; PULSE 64; O2SAT 99; BMI 28.9
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
== END 2024-07-21 09:41 | disposition home or self-care (01) ==
LOC: HO.HGI 09:07
PROVIDERS: PCP Internal Medicine; Visit Provider Nurse Practitioner Family
DX: K21.9 Gastro-esophageal reflux disease without esophagitis (principal); K58.9 Irritable bowel syndrome, unspecified; R14.0 Abdominal distension (gaseous); K59.01 Slow transit constipation; K64.9 Unspecified hemorrhoids
CPT/HCPCS: 99214

== ENCOUNTER 2024-07-24 09:47 | Outpatient (REF) | payer OTHER, SELFPAY ==
--- NOTE | ~2024-07-24 | FL_ITS ---
EXAMINATION: UPPER GI AIR CONTRAST STUDY WITH BARIUM SWALLOW SERIES CLINICAL INFORMATION: Gastroesophageal reflux disease without esophagitis. COMPARISON: None available. TECHNIQUE: Routine upright barium swallow and upper GI exam was performed with thick barium and effervescent granules FINDINGS: Following oral administration of thick barium and effervescent granules in upright view there is normal propagation bolus from the oral cavity through the pharynx, esophagus and the stomach without any evidence of obstruction, narrowing or stricture. The course, caliber and peristalsis of the stomach, duodenum is normal. The mucosal pattern of the stomach and the duodenum is normal. There is evidence of previous gastrectomy. No gastroesophageal reflux or hiatal hernia seen. FLUOROSCOPY TIME: 2 minutes 5 seconds DOSE AREA PRODUCT: 1663 uGy-m2 (microgray-meter squared) FL/FL upper GI w Ba Swallow IMPRESSION: Unremarkable upper GI air contrast study and barium swallow. Electronically signed by: Tan Cheng MD 07/24/2024 12:34 PM EDT
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
== END 2024-07-24 09:48 | disposition home or self-care (01) ==
LOC: HO.XRAY 09:47
PROVIDERS: PCP Internal Medicine; Visit Provider Nurse Practitioner Family
DX: K21.9 Gastro-esophageal reflux disease without esophagitis (principal)
CPT/HCPCS: 74240

== ENCOUNTER → 2024-07-24 09:49 | Outpatient (BNV) | payer OTHER, SELFPAY | PROVIDERS: PCP Internal Medicine; Visit Provider Radiology Diagnostic Radiology | DX: K21.9 Gastro-esophageal reflux disease without esophagitis (principal) | CPT/HCPCS: 74246 ==

== ENCOUNTER 2024-07-30 22:03 | Emergency (ER) | payer OTHER, SELFPAY ==
[2024-07-30 22:18] VITALS: BP 141/73; PULSE 75; RESP 18; TEMP 36.4; O2SAT 97; BMI 28.7
[2024-07-30 22:33] LABS: Basophils Percent Auto 0.1 % (0-2); Eosinophils Absolute Auto 0.1 X10*3/uL (0.0-0.4); Eosinophils Percent Auto 0.7 % (0-4); Hematocrit 35.9 % (37.0-47.0); Hemoglobin 12.5 g/dl (12.0-16.0); Imm Gran Abs Auto 0.01 X10*3/uL (0.00-0.03); Imm Gran Pct Auto 0.1 % (0.0-0.4); Lymphocytes Absolute Auto 0.3 X10*3/uL (1.2-4.9); Lymphocytes Percent Auto 3.6 % (20-40); MANUAL DIFF FLAG SCAN; Mean Corpuscular HGB Conc 34.8 g/dl (31.0-35.0); Mean Corpuscular Hemoglobin 30.4 pg (27.0-33.0); Mean Corpuscular Volume 87.3 fL (80.0-98.0); Mean Platelet Volume 11.2 fL (9.4-12.3); Monocytes Absolute Auto 0.3 X10*3/uL (0.1-1.2); Monocytes Percent Auto 4.4 % (2-11); Neutrophils Absolute Auto 6.9 x10*3/uL (2.0-8.3); Neutrophils Percent Auto 91.1 % (45-73); Platelet Count 158 X10*3/uL (160-400); Red Blood Count 4.11 X10*6/uL (4.20-5.50); Red Cell Distribution Width 12.1 % (11.0-16.0); SCAN SMEAR FLAG 1; White Blood Count 7.5 X10*3/uL (4.8-10.8)
[2024-07-30 23:10] LABS: Influenza A PCR NEGATIVE (Negative); Influenza B PCR NEGATIVE (Negative); Resp Syncy Virus RNA Qual PCR NEGATIVE (Negative); SARS COV2 PCR INHOUSE NEGATIVE (Negative)
[2024-07-30 23:31] LABS: SLIDE REVIEW VERIFIED
[2024-07-31 00:13] LABS: Alanine Aminotransferase 18 U/L (0-31); Alkaline Phosphatase 86 U/L (39-117); Anion Gap 12 (12-20); Aspartate Amino Transferase 23 U/L (5-31); Bilirubin Total 0.7 mg/dL (0.0-1.0); Blood Urea Nitrogen 11 mg/dL (9-16); Calcium 8.7 mg/dL (8.4-10.2); Carbon Dioxide 23 mmol/L (22-29); Chloride 107 mmol/L (96-108); Creatinine Clr Calc Pharmacy 81.4; Estimated Glomerular Filt Rate > 60; Glucose Random 141 mg/dL (60-115); Potassium 3.8 mmol/L (3.3-5.1); Sodium 138 mmol/L (135-145); Total Protein 7.7 g/dL (6.5-8.0)
[2024-07-31] MEDS: ondansetron HCL 4 MG/2 ML VIAL IVPUSH (00:22)
[2024-07-31] MEDS: Lactated Ringers 1,000 ML 999 ML IV (00:22)
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
[2024-07-31 01:07] LABS: Lipase 11 U/L (8-78)
[2024-07-31 01:17] VITALS: BP 161/77; PULSE 79; RESP 16; TEMP 36.6; O2SAT 97
[2024-07-31 01:30] VITALS: BP 161/77; PULSE 79; RESP 16; TEMP 36.7; O2SAT 97
== END 2024-07-31 01:31 | disposition home or self-care (01) ==
PROVIDERS: Emergency Provider Emergency Medicine; PCP Internal Medicine
DX: R11.2 Nausea with vomiting, unspecified (principal); J45.909 Unspecified asthma, uncomplicated; Z03.818 Encounter for observation for suspected exposure to other biological agents ruled out
CPT/HCPCS: 0241U; 80053; 83690; 85025; 96361; 96374; 99284; 99285; J2405; J7120

== ENCOUNTER 2024-08-04 13:59 | Outpatient (AMB) | payer OTHER, SELFPAY ==
--- NOTE | 2024-08-04 14:08 | A.OFFVIS_ITS ---
Vital Signs 08/04/24 14:09 Height 5 ft 2 in Weight 155 lb 3.287 oz BMI 28.4 BP 132/66 Blood Pressure Location Lt brachial Position Sitting Pulse 65 Intake Visit Reasons: abd pain/diarhea Intake Note: Patient in office today with c/o abdominal pain and diarrhea. CC: Patient was seen last 07/31 in the ER. She states that she bought a turkey sandwich and after eating it she began to have epigastric pain, feeling shaky and vomited. She reports having diarrhea on Saturday. She states that she is not vomiting or having diarrhea any longer, but continues having epigastric pain. Agency Sales Representative Required: No Accompanied by: Self / Same As Patient Allergies morphine [Morphine] Allergy (Intermediate, Verified 08/04/24 14:22) HALLUCINATIONS Sulfa (Sulfonamide Antibiotics) Allergy (Intermediate, Verified 08/04/24 14:22) HIVES shellfish derived Allergy (Mild, Verified 08/04/24 14:22) Stomach Upset methylprednisolone Adverse Reaction (Severe, Verified 08/04/24 14:22) rash Substance with sulfonamide structure and antibacterial mechanism of action (substance) Allergy (Unknown, Uncoded 08/04/24 14:12) Hives Oral Contrast Adverse Reaction (Intermediate, Uncoded 07/21/24 09:10) Abdominal Pain HPI HPI abd pain/diarhea: Details: Assessment & Plan (1) GERD (gastroesophageal reflux disease): Code(s): K21.9 - Gastro-esophageal reflux disease without esophagitis Category: Medical (2) IBS (irritable bowel syndrome): Code(s): K58.9 - Irritable bowel syndrome without diarrhea Category: Medical (3) Upper abdominal pain: Code(s): R10.10 - Upper abdominal pain, unspecified Category: Medical Plan On 09/09/23 @ 09:22 Norma Cohen Wrote To Urgent referral for epigastric pain added for 09/12. She has been doing well w/o pantoprazole, she is eating more and gaining some weight. She can't eat red meat now, it nauseates her - she sticks to chicken. She still wants the pantoprazole prn, which ihs fine and she wants to continue ot follow with us. I explain the test and she DOES have a disc protrusion at T7-T8 which may explain her sx of back and flank pain with housework. ROV 6 mos per pt request Medications: Refilled pantoprazole (Protonix) 40 mg PO DAILY PRN 30 tabs 6RF heartburn 30 days CORRESPONDENCE On 04/15/24 @ 15:32 Norma Cohen Wrote To Michelle Patient requesting to have Pantoprazole switched back to Famotidine. On 04/15/24 @ 11:28 Norma Cohen Wrote To Michelle Pt added today at 2:15 PM. On 04/14/24 @ 11:39 Norma Cohen Wrote To Norma Cohen Called patient and LVM requesting call back to schedule appt. Norma Cohen completed item. On 04/08/24 @ 14:45 Michelle Wrote To Norma Cohen Try to get her in per our discussed protocol On 04/08/24 @ 08:47 Bere Gilbert Wrote To Martinez spoke w/ patient - patient was trying to get a sooner appointment with you but she reports she has been having a lot of burping, a lot of gas, and some abdominal pain. patient reports that the symptoms have been occuring since Saturday. patient states she had some diarrhea on Saturday, ate Avocado and arroz con ashly and an hour later was in the bathroom. patient not experiencing nausea, just has that discomfort in her abdomen. patient states she is having normal bowel movements. patient states the Pepto Bismol has been helping. patient reports not taking PPI, she states she was taking it as needed. patient reports no fever, no chills but just that constant urge to have a bowel movement. patient wants to see if you would be willing to send her for blood work. It appears she had H Pylori in the past. LAST NOTE WITH PATIENT SEEN BY DUONG Fisher Patient will continue taking Senokot daily as well as stool softeners. If she has constipation for 1-2 days additional stool softener recommended. Continue low FODMAP diet. Increase fluid intake and activity to promote better bowel motility. Patient reports that she is feeling significantly better since seen in the ED. She feels like she has a better control of her bowels. Continue avoiding dietary triggers and late night snacking. Follow low FODMAP diet. Continue PPI therapy. Follow-up in 2-3 months. Patient has appointment for upper GI series with barium swallow this Saturday, we will review results. Patient will be due to go for colonoscopy end of this year. She will be sent for upper endoscopy as well. She is agreeable to this plan of care and verbalizes understanding of instructions. She was given the opportunity to ask questions and all questions answered. Thank you for allowing me to participate in her care * UPPER GI SERIES ORDERED BY DUONG 07/24/24 FINDINGS: Following oral administration of thick barium and effervescent granules in upright view there is normal propagation bolus from the oral cavity through the pharynx, esophagus and the stomach without any evidence of obstruction, narrowing or stricture. The course, caliber and peristalsis of the stomach, duodenum is normal. The mucosal pattern of the stomach and the duodenum is normal. There is evidence of previous gastrectomy. No gastroesophageal reflux or hiatal hernia seen. FLUOROSCOPY TIME: 2 minutes 5 seconds DOSE AREA PRODUCT: 1663 uGy-m2 (microgray-meter squared) FL/FL upper GI w Ba Swallow IMPRESSION: Unremarkable upper GI air contrast study and barium swallow. Electronically signed by: Tan Cheng MD 07/24/2024 12:34 PM EDT 07/24/24 TODAY'S VISIT 3 weeks various ER visits with pain in the generalized upper abdomen - she thought it was because she was eating a lot of junk food. She was discharged with omeprazole 40mg but Duong decreased it to 20mg. She never had diarrhea, but she had 2 episodes of copious rectal bleeding. She also had a negative occult stool test as well. She saw Duong again and was put on senna and given roid supps. She feels that her stools were very hard and sharp. Things settled down for a bit, then last Thursday (5 days ago) she developed upper abd pain and a lot of bloating and burping again. She took one o2o w/o effect and then she called the director of it operations MD and she was told to take another o2o. She then developed severe vomiting with the pain and nausea. She presented to the ER and she was sent home with nausea medication. THEN, the next day she had diarrhea, although the vomiting ceased. This only lasted a day and her stool returned to normal/hard. She has lost 10 lbs in the past 3 mos w/o trying, she admits she is fearful of eating because of the FREQUENT pain in the upper abdomen. I will increase her back to 40mg omeprazole for now as s he has a FHX PUD, and I suggest she follow easy to digest foods like eggs or yogurt for proteins and light carbs/fruits, olive oil. She is s/p CHOLECYSTECTOMY. It is possible that she has some bile gastritis and may need greater protection and it seems that she had some sort of a virus that really upset her system. I am ordering an EGD and a colonoscopy as she is due for colonoscopy based on her family history of colon cancer and her own history of polyps. She denies having asthma even though it is on her chart and she also denies any cardiac problems. There are no prior problems with anesthesia or sedation. There are no infectious disease problems. I will see her again at the next available visit [facility] Medical History (Updated 08/04/24 @ 16:20 by JADE Rosen) Upper abdominal pain Diarrhea Sinusitis Contact dermatitis Umbilical abnormality Thoracic back pain Right flank pain Otalgia of left ear Neck pain Epigastric pain Lumbar back pain Conjunctivitis IBS (irritable bowel syndrome) Thoracic degenerative disc disease Upper respiratory tract infection Back pain Dysuria Physical exam URI, acute Acalculous cholecystitis Loose stools Asthma Tubular adenoma of colon Degenerative disc disease, thoracic Cholelithiasis with chronic cholecystitis Glaucoma Depression Helicobacter pylori (H. pylori) Anemia Myocardial infarction GERD (gastroesophageal reflux disease) Surgical History Hx laparoscopic cholecystectomy Status post laparoscopic cholecystectomy Hx of colonoscopy H/O dilation and curettage S/P right knee arthroscopy H/O esophagogastroduodenoscopy History of arthroscopy of right knee History of tubal ligation H/O section History of tonsillectomy Family History Father HTN (hypertension) Prostate cancer Mother HTN (hypertension) Diabetes Hx of CABG Sister Asthma Social History Household Members: Spouse, Significant Other and Other Housing: House Alcohol intake: current Alcohol intake frequency: does not drink Patient Tobacco Use Status: Never used Tobacco Tobacco use type: Cigarette e-Cigarette/Vaping Use: Never Used Second Hand Smoke Exposure: No service: No Current occupational status: disabled Current occupational exposures/hazards: No Cognitive needs: No Hearing needs: No Vision needs: Yes Review of Systems Const Denies fatigue, Denies fever(s), Denies night sweats, Denies poor appetite and Reports weight loss ENT Reports Normal hearing present, Denies dental pain, Denies dysphagia, Denies hearing loss, Denies mouth pain, Denies odynophagia, Denies throat swelling, Denies tongue swelling and Reports other (Dentition adequate) Card Reports no additional complaints Resp Reports no additional complaints GI Details: Reports abdominal pain, Denies melena, Denies bloating, Reports hematochezia, Reports constipation, Denies GI cramping, Denies dysphagia, Denies excessive flatus, Denies early satiety, Reports heartburn, Reports diarrhea, Reports nausea, Denies odynophagia, Denies vomiting and Denies hematemesis Skin/Breast Denies pruritus, Denies lesions, Denies rash and Denies jaundice Neuro Reports Normal hearing present and Denies Abnormal speech present Endo Denies fatigue Aller/Immun Denies throat swelling and Denies tongue swelling Physical Exam Vital Signs: Last Vital Signs Pulse 65 08/04/24 14:09 BP 132/66 08/04/24 14:09 BMI result Body Mass Index 28.4 Const General: cooperative, no acute distress, well developed and well groomed Nutritional Appearance: well nourished and overweight Orientation/consciousness: oriented to person, oriented to place and oriented to time Limitations: No language barrier HEENT Head: Yes normocephalic and Yes atraumatic Eyes General: appearance normal, both eyes and all related structures Pupils: Equal, round and reactive pupils present Neck Neck: Yes normal visual inspection and Yes no lymphadenopathy Thyroid: Thyroid normal Resp Effort & Inspection: normal respiratory effort and able to speak in complete sentences Auscultation: clear to auscultation bilaterally Cardio Rate: regular rate Rhythm: regular rhythm Heart sounds: Normal, physiologic split S2 sound present Peripheral pulses: radial pulses present and posterior tibial pulses present GI Inspection: No distended and No Abdominal panniculus present Palpation (GI): Soft to palpation, Tenderness to palpation present (GI) in the epigastrum, no guarding, not rigid and No hepatosplenomegaly present Percussion: Yes normal to percussion Auscultation: normal bowel sounds Rectal Exam - Female: deferred Skin General skin exam: no rashes or lesions noted, turgor normal, skin not dry, no jaundice, No spider nevi and no striae Rashes: no rashes Nails: normal Neuro General: oriented to person, oriented to place and oriented to time Cranial nerves: Yes Equal, round and reactive pupils present and Yes Normal hearing present Speech: No Abnormal speech present Extrem General: Yes normal to inspection, No clubbing, No cyanosis and No edema Psych Appearance: grossly normal and well kempt Mental Status: mental status grossly normal Speech and movement: Normal speech and movement present Affect: normal affect Attitude: cooperative Thought process: Normal thought process present and not confabulating Thought content: Normal thought content present Insight: Fair insight present (Psych) Judgement: Fair judgement present (Psych) Results Reviewed Results Reviewed: Laboratory Tests 07/30/24 22:27 WBC 7.5 Hgb 12.5 Hct 35.9 L MCV 87.3 MCH 30.4 Plt Count 158 L Estimated GFR > 60 Total Bilirubin 0.7 AST 23 ALT 18 Alkaline Phosphatase 86 Assessment & Plan Assessment & Plan (1) GERD (gastroesophageal reflux disease): Code(s): K21.9 - Gastro-esophageal reflux disease without esophagitis Category: Medical Qualifiers: Esophagitis presence: esophagitis presence not specified Qualified Code(s): K21.9 - Gastro-esophageal reflux disease without esophagitis (2) Abdominal bloating: Code(s): R14.0 - Abdominal distension (gaseous) Category: Medical (3) Irritable bowel syndrome with both constipation and diarrhea: Code(s): K58.2 - Mixed irritable bowel syndrome Category: Medical (4) IgA mediated leukocytoclastic vasculitis: Code(s): D69.0 - Allergic purpura Category: Medical (5) Upper abdominal pain: Code(s): R10.10 - Upper abdominal pain, unspecified Category: Medical (6) Pre-op examination: Code(s): Z01.818 - Encounter for other preprocedural examination Category: Medical Plan 3 weeks various ER visits with pain in the generalized upper abdomen - she thought it was because she was eating a lot of junk food. She was discharged with omeprazole 40mg but Duong decreased it to 20mg. She never had diarrhea, but she had 2 episodes of copious rectal bleeding. She also had a negative occult stool test as well. She saw Duong again and was put on senna and given roid supps. She feels that her stools were very hard and sharp. Things settled down for a bit, then last (5 days ago) she developed upper abd pain and a lot of bloating and burping again. She took one o2o w/o effect and then she called the director of it operations MD and she was told to take another o2o. She then developed severe vomiting with the pain and nausea. She presented to the ER and she was sent home with nausea medication. THEN, the next day she had diarrhea, although the vomiting ceased. This only lasted a day and her stool returned to normal/hard. She has lost 10 lbs in the past 3 mos w/o trying, she admits she is fearful of eating because of the FREQUENT pain in the upper abdomen. I will increase her back to 40mg omeprazole for now as s he has a FHX PUD, and I suggest she follow easy to digest foods like eggs or yogurt for proteins and light carbs/fruits, olive oil. She is s/p CHOLECYSTECTOMY. It is possible that she has some bile gastritis and may need greater protection and it seems that she had some sort of a virus that really upset her system. I am ordering an EGD and a colonoscopy as she is due for colonoscopy based on her family history of colon cancer and her own history of polyps. She denies having asthma even though it is on her chart and she also denies any cardiac problems. There are no prior problems with anesthesia or sedation. There are no infectious disease problems. I will see her again at the next available visit Orders: Orders EGD/Udall Combo - GI Use Only Today R10.10 - Upper abdominal pain, unspecified Medications: New omeprazole 40 mg PO DAILY 30 caps 3RF 30 days sodium,potassium,mag sulfates 17.5-3.13-1.6 gram (Suprep Bowel Prep Kit) 480 mL orally; FOR COLONOSCOPY PREP 354 mL 0RF Discontinued omeprazole Discontinued Reason: Doctor's Order 20 mg PO DAILY 30 caps 3RF K21.9 - Gastro-esophageal reflux disease without esophagitis sucralfate (Carafate) Discontinued Reason: Doctor's Order 10 mL PO BID 7 days 140 mL 0RF Coding Level of Care Code Est Pt Level 4 (98355) Diagnoses Gastroesophageal reflux disease, unspecified whether esophagitis present K21.9 Esophagitis presence: esophagitis presence not specified Abdominal bloating R14.0 Irritable bowel syndrome with both constipation and diarrhea K58.2 IgA mediated leukocytoclastic vasculitis D69.0 Upper abdominal pain R10.10 Pre-op examination Z01.818 Time Spent (min) 40
[2024-08-04 14:09] VITALS: BP 132/66; PULSE 65; BMI 28.4
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
== END 2024-08-04 15:23 | disposition home or self-care (01) ==
LOC: HO.HGI 14:00
PROVIDERS: PCP Internal Medicine; Visit Provider Nurse Practitioner
DX: K21.9 Gastro-esophageal reflux disease without esophagitis (principal); R14.0 Abdominal distension (gaseous); K58.2 Mixed irritable bowel syndrome; D69.0 Allergic purpura
CPT/HCPCS: 99214

== ENCOUNTER → 2024-08-04 13:59 | Outpatient (BNVA) | payer OTHER, SELFPAY | PROVIDERS: PCP Internal Medicine; Visit Provider Nurse Practitioner ==

== ENCOUNTER 2024-08-17 15:17 | Outpatient (AMB) | payer OTHER, SELFPAY ==
--- NOTE | 2024-08-17 15:52 | A.OFFPC_ITS ---
Vital Signs 08/17/24 15:53 Height 5 ft 2 in Weight 154 lb 8 oz BMI 28.3 BP 142/78 H Blood Pressure Location Lt brachial Position Sitting Pulse 58 Pulse Source Pulse Oximeter Temp 97.1 F Temp Source Temporal Artery Scan Pulse Oximetry (%) 98 Oxygen Delivery Method Room Air Intake Visit Reasons: Back Pain County Historian Required: No Accompanied by: Spouse Allergies morphine [Morphine] Allergy (Intermediate, Verified 08/17/24 16:01) HALLUCINATIONS Sulfa (Sulfonamide Antibiotics) Allergy (Intermediate, Verified 08/17/24 16:01) HIVES shellfish derived Allergy (Mild, Verified 08/17/24 16:01) Stomach Upset methylprednisolone Adverse Reaction (Severe, Verified 08/17/24 16:01) rash Substance with sulfonamide structure and antibacterial mechanism of action (substance) Allergy (Unknown, Uncoded 08/17/24 16:01) Hives Oral Contrast Adverse Reaction (Intermediate, Uncoded 08/17/24 16:01) Abdominal Pain Medication List - Last Reconciled 08/17/24 by Morales Kelley PA-C docusate sodium 100 mg PO DAILY hydrocortisone 2.5% (Proctosol HC) 1 appl WI BID-QID PRN omeprazole 40 mg PO DAILY 30 days ondansetron 4 mg PO Q8H PRN sennosides (Natural Senna Laxative) 8.6 mg PO BEDTIME sodium,potassium,mag sulfates 17.5-3.13-1.6 gram (Suprep Bowel Prep Kit) 480 mL orally; FOR COLONOSCOPY PREP Tobacco use date assessed: 06/11/24 Dental Screening Dental Screen Date: 08/17/24 Did you have a dental visit in the last 12 months?: Yes Did you have a dental problem in the last 6 months where you did not have access to dental care?: No Was dental information given to patient?: Patient has dentist HPI Back Pain HPI Details The patient is a 63-year-old female presenting with musculoskeletal pain in the head and lower back, persistent since the previous morning. This pain is described as intense, affecting the middle and sides of the back. The patient correlates increased pain with activities like lifting and twisting, with particular mention of her caregiving activities for her father as a potential cause. Patient has avoided using Motrin and Ibuprofen due to previously experienced adverse reactions. Relief has been attempted with Tylenol, massage, and ice, with some alleviation noted. Previous imaging studies have shown no surgical requirement. [facility] Medical History (Updated 08/17/24 @ 16:04 by Morales Kelley PA-C) Upper abdominal pain Diarrhea Sinusitis Contact dermatitis Umbilical abnormality Thoracic back pain Right flank pain Otalgia of left ear Neck pain Epigastric pain Lumbar back pain Conjunctivitis IBS (irritable bowel syndrome) Thoracic degenerative disc disease Upper respiratory tract infection Back pain Dysuria Physical exam URI, acute Acalculous cholecystitis Loose stools Asthma Tubular adenoma of colon Degenerative disc disease, thoracic Cholelithiasis with chronic cholecystitis Glaucoma Depression Helicobacter pylori (H. pylori) Anemia Myocardial infarction GERD (gastroesophageal reflux disease) Surgical History Hx laparoscopic cholecystectomy Status post laparoscopic cholecystectomy Hx of colonoscopy H/O dilation and curettage S/P right knee arthroscopy H/O esophagogastroduodenoscopy History of arthroscopy of right knee History of tubal ligation H/O section History of tonsillectomy Family History Father HTN (hypertension) Prostate cancer Mother HTN (hypertension) Diabetes Hx of CABG Sister Asthma Social History Household Members: Spouse, Significant Other and Other Housing: House Alcohol intake: current Alcohol intake frequency: does not drink Patient Tobacco Use Status: Never used Tobacco Tobacco use type: Cigarette e-Cigarette/Vaping Use: Never Used Second Hand Smoke Exposure: No service: No Current occupational status: disabled Current occupational exposures/hazards: No Cognitive needs: No Hearing needs: No Vision needs: Yes Questionnaire Thrive Questionnaire Date Thrive assessed: 06/11/24 JAJA-7 AMB Questionnaire JAJA-7 Date JAJA - 7 assessed: 06/11/24 Source: Developed by Drs. Kevin Stevenson, Nita Gutierrez, Kulwant Flores and colleagues, with an educational reji from [employer]. Review of Systems Const Denies headache(s) Eyes Denies loss of vision ENT Denies vertigo, Denies dizziness, Denies headache(s) and Denies sore throat Card Denies chest pain, Denies leg edema and Denies lightheadedness Resp Denies cough, Denies hemoptysis and Denies wheezing GI Denies abdominal pain, Denies melena, Denies constipation, Denies diarrhea and Denies vomiting Denies urinary frequency, Denies dysuria and Denies urinary urgency Musc Denies arthralgias, Denies joint swelling, Denies numbness and Denies tingling Neuro Denies Abnormal speech present, Denies behavioral changes, Denies vertigo, Denies dizziness, Denies headache(s), Denies loss of vision, Denies memory loss, Denies numbness and Denies tingling Psych Denies anxiety, Denies behavioral changes, Denies depression, Denies memory loss and Denies panic attacks Paolo/Lymph Denies easy bleeding and Denies easy bruising Aller/Immun Denies wheezing Physical exam (Primary Care) Vital Signs: Last Vital Signs Temp 97.1 F 08/17/24 15:53 Pulse 58 08/17/24 15:53 BP 142/78 H 08/17/24 15:53 Pulse Ox 98 08/17/24 15:53 Oxygen Delivery Method Room Air 08/17/24 15:53 BMI result Body Mass Index 28.3 Tobacco/Smoking Status: Tobacco use Status Tobacco use date assessed 06/11/24 08/17/24 15:54 Patient Tobacco Use Status Never used Tobacco 08/17/24 15:54 Tobacco use type Cigarette 08/17/24 15:54 e-Cigarette/Vaping Use Never Used 08/17/24 15:54 Thrive Assessment: Date of Thrive Assessment Date Thrive assessed 06/11/24 08/17/24 15:54 Const General: healthy appearing, no acute distress, alert and awake Nutritional Appearance: well nourished Orientation/consciousness: oriented to person, oriented to place and oriented to time [facility] Ears: TM's normal bilaterally General nose exam: Normal nasal mucous membranes and turbinates present Eyes Conjunctivae: conjunctivae normal Sclerae: sclerae normal Pupils: Equal, round and reactive pupils present Neck Neck: Yes no lymphadenopathy and Yes no JVD Thyroid: Thyroid normal Carotids: no bruits Resp Effort & Inspection: normal respiratory effort and not tachypneic Auscultation: no crackles, no rales, no rhonchi and no wheezes Cardio Rate: regular rate Rhythm: regular rhythm Heart sounds: no murmurs and normal S1 and S2 GI Palpation (GI): Soft to palpation, nontender, no hepatomegaly and no splenomegaly Auscultation: normal bowel sounds Back/Spine/Pelvis Other: LIMITED RANGE OF MOTION OF THE THORACIC AND LUMBAR SPINE DUE TO PAIN AND S TIFFNESS Skin General skin exam: no rashes or lesions noted and dry skin Neuro General: oriented to person, oriented to place and oriented to time Cranial nerves: Yes Equal, round and reactive pupils present Speech: No Abnormal speech present Gait exam (Neuro): Normal gait present Motor exam (neuro): no tremor noted Extrem Right upper extremity: full ROM Left upper extremity: full ROM Right lower extremity: full ROM; no edema Left lower extremity: full ROM; no edema Psych Mental Status: mental status grossly normal Speech and movement: Normal speech and movement present Affect: normal affect Attitude: cooperative Thought process: Normal thought process present Coding Level of Care Code Est Pt Level 3 (51531) Diagnoses Osteoarthritis of thoracic spine with myelopathy M47.14 Assessment & Plan Assessment & Plan (1) Osteoarthritis of thoracic spine with myelopathy: Code(s): M47.14 - Other spondylosis with myelopathy, thoracic region Category: Medical Plan: The patient should continue using Tylenol for pain relief and initiate physical therapy to manage musculoskeletal strain. Topical treatments such as lidocaine patches may be beneficial, while NSAIDs should be avoided due to past adverse reactions. Will also trial low-dose baclofen at night to help relaxer paraspinous musculature. She would likely benefit from physical therapy Orders: Orders PT Evaluation and Treatment 08/17/24 M47.14 - Other spondylosis with myelopathy, thoracic region Medications: New baclofen 5 mg PO BEDTIME 7 tabs 0RF 7 days M47.14 - Other spondylosis with myelopathy, thoracic region
[2024-08-17 15:53] VITALS: BP 142/78; PULSE 58; TEMP 36.2; O2SAT 98; BMI 28.3
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
--- OUTSIDE RECORDS SUMMARY | 2024-08-17 18:06 | XMS_ITS | Data Portability ---
Author Organization [facility] Terrell [facility], [facility] Address [address] [place] [address] Assessment Encounter Date Assessment Date Assessment LastModified by Organization Details LastModified Time 08/13/2023 08/13/2023 Chief Complaint: Right knee pain HPI: Kiara Camarillo is a 62-year-old female patient with a history of knee pain, having undergone two surgical interventions: a partial meniscectomy in 2003 and another knee surgery in 2006. She reports increased knee pain that began three days after a recent trip to [facility], where she experienced prolonged sitting in the [...] grossly intact. Eyes: Sclera are not blue. 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 Full extraocular motion. [...] Imaging: X-rays ordered, obtained and reviewed at [facility]. These images included bilateral weightbearing Chung [...] visit note. This note was generated with [facility] speech recognition director operating dictation software. Please excuse any errors that may have been overlooked during review of this note. Sometimes, these errors may affect the content or meaning of a given sentence. Please call for corrections. [email or web address] Not available 08/13/2023 17:10:16 Plan of Treatment [...] by: Referring Physician: Benson Patel, Orthopedic Surgery, [id number] Encounter Date: 08/13/2023 Medical Equipment None Reported. Allergies Allergen ID Allergen Name Allergen Category Reaction Reaction Severity Criticality Documentation Date Start Date Code Code System Note Provider Name and Address Organization Details Recorded Time 263814 morphine medicatio n Not available Not available Not available 08/13/2023 7052 RxNorm SONIA MARMOLEJO [facility] 13:46:02 865744 Substance with sulfonami de structure and antibacte rial mechanism of action (substanc e) medicatio n Not available Not available Not available 08/13/2023 84063 8003 SNOMED SONIA ROSSZ [facility] 4 13:46:09 Medications Name Sig Start Date [...] Updated DateTime 08/13/2023 157.48 cm 28.7 kg/m2 80053 g SONIA MARMOLEJO [place] [facility] 08/13/2023 13:45:53 Social History None recorded. Functional Status None recorded. Mental Status None recorded. Family History Nothing Reported. Medical History No medical history recorded. Gynecological HistoryNo gynecological history recorded. Obstetrics History GPAL:G 0 P 0 0 0 0 Past Encounters Encounter ID Performer Location Encounter Start Date Encounter Closed Date Diagnosis/Indication Diagnosis SNOMED-CT Code Diagnosis ICD10 Code Diagnosis Note [id number] MD D[facility] Smith [address] [place] [address] 08/13/2023 13:24:57 09/06/2023 08:34:09 Pain of right knee joint 4180558557 90283 M25.561 Patellofem oral syndrome of right knee 7777582795 118351 M22.2X1 Health Concerns Section Related Observation LastModified by Organization Detai ls LastModified Time None Recorded Concern Status LastModified by Organization Details LastModified Time None Recorded Advance Directives Directive None Recorded Payers Encounter Date Sequence Insurance Name Policy Number Policy Carlton Covered Member ID Carlton Member ID Guarantor Name 08/13/2023 1 [facility] - DOS ON OR AFTER 2022 - [employer] AND [employer] (MEDICARE REPLACEMENT/AD VANTAGE - PPO) Kiara Roth [id number] Kiara Roth OBGykaitlynn Episode No OBEpisode recorded.
== END 2024-08-17 16:12 | disposition home or self-care (01) ==
LOC: HO.HMCH 15:17
PROVIDERS: PCP Internal Medicine; Visit Provider Physician Assistant
DX: M47.14 Other spondylosis with myelopathy, thoracic region (principal)

== ENCOUNTER → 2024-08-17 15:17 | Outpatient (BNVA) | payer OTHER, SELFPAY | PROVIDERS: PCP Internal Medicine; Visit Provider Physician Assistant ==

== ENCOUNTER 2024-09-07 08:09 | Emergency (ER) | payer OTHER, SELFPAY ==
--- NOTE | ~2024-09-07 | CT_ITS ---
EXAMINATION: CT ABDOMEN AND PELVIS WITH CONTRAST CLINICAL INFORMATION: Diffuse abdominal pain, nausea and vomiting. COMPARISON: 07/16/2024. 06/20/2021. TECHNIQUE: Multidetector volumetric images were obtained from the superior aspect of the liver through the pubic symphysis following administration 85 mL of Omnipaque 350 intravenous contrast. Sagittal and coronal reformatted images were obtained on the technologist's workstation. Oral contrast: No This CT examination was performed using dose optimization techniques as appropriate, variously including the following: *Automated exposure control *Adjustment of mA and/or kV according to patient size (this includes techniques or standardized protocols for targeted exams where dose is matched to indication/reason for exam; i.e. extremities or head) *Use of iterative reconstruction technique FINDINGS: LUNG BASES: Lung bases are clear. There are no effusions. Heart size is normal. Small hiatus hernia suspected, type I. LIVER, GALLBLADDER, AND BILIARY TREE: The liver is normal in size, shape, and attenuation. No focal hepatic lesion or biliary ductal dilatation is present. There has been a cholecystectomy. PANCREAS: Unremarkable. SPLEEN: Unremarkable. ADRENAL GLANDS: Unremarkable. KIDNEYS AND URETERS: The kidneys are normal in size, shape, and attenuation. No hydronephrosis, hydroureter, or calculi seen. No perinephric stranding. BLADDER: Unremarkable. GASTROINTESTINAL TRACT: Mild wall thickening of the descending and sigmoid colon, with minimal pericolonic fat stranding. Findings could represent a mild colitis in the appropriate clinical setting. There is moderate sigmoid diverticulosis without evidence of acute diverticulitis. The right hemicolon and appendix appear normal. The stomach is somewhat decompressed. Duodenum is normal. The small bowel is normal in course and caliber. No wall thickening or inflammation. ABDOMINAL WALL: No significant hernia is appreciated. LYMPH NODES: Normal. VASCULAR: Mild atheromatous calcification of the aorta and iliac arteries. There is no aneurysm. PELVIC VISCERA: Calcified fibroids in an otherwise unremarkable appearing uterus. No adnexal abnormalities. OSSEOUS STRUCTURES: No suspicious lytic or blastic bone lesions. Mild spinal degenerative changes. Mild degenerative changes in the SI joints and hip joints. CT/CT abdomen pelvis w IV con IMPRESSION: 1. Mild wall thickening of the descending and sigmoid colon, findings which could represent mild colitis in the appropriate clinical setting. Consider inflammatory and infectious etiologies. 2. Moderate sigmoid diverticulosis. No evidence of acute diverticulitis. 3. There are calcified fibroids within a senescent uterus. 4. There has been a cholecystectomy. Electronically signed by: Flaco Borges MD 09/07/2024 11:56 AM EDT RP
[2024-09-07 08:15] VITALS: BP 129/70; PULSE 74; RESP 18; TEMP 36.8; O2SAT 98; BMI 28.1
[2024-09-07 08:33] LABS: MANUAL DIFF FLAG NO
[2024-09-07 08:34] LABS: Basophils Percent Auto 0.3 % (0-2); Eosinophils Percent Auto 0.4 % (0-4); Hematocrit 39.6 % (37.0-47.0); Hemoglobin 13.5 g/dl (12.0-16.0); Imm Gran Abs Auto 0.03 X10*3/uL (0.00-0.03); Imm Gran Pct Auto 0.3 % (0.0-0.4); Lymphocytes Absolute Auto 0.6 X10*3/uL (1.2-4.9); Lymphocytes Percent Auto 5.6 % (20-40); Mean Corpuscular HGB Conc 34.1 g/dl (31.0-35.0); Mean Corpuscular Hemoglobin 30.6 pg (27.0-33.0); Mean Corpuscular Volume 89.8 fL (80.0-98.0); Mean Platelet Volume 10.8 fL (9.4-12.3); Monocytes Absolute Auto 0.6 X10*3/uL (0.1-1.2); Monocytes Percent Auto 5.2 % (2-11); Neutrophils Absolute Auto 9.5 x10*3/uL (2.0-8.3); Neutrophils Percent Auto 88.2 % (45-73); Platelet Count 201 X10*3/uL (160-400); Red Blood Count 4.41 X10*6/uL (4.20-5.50); Red Cell Distribution Width 12.2 % (11.0-16.0); White Blood Count 10.8 X10*3/uL (4.8-10.8)
[2024-09-07 08:50] LABS: Alanine Aminotransferase 15 U/L (0-31); Albumin Level 4.1 g/dL (3.5-5.0); Alkaline Phosphatase 91 U/L (39-117); Anion Gap 13 (12-20); Aspartate Amino Transferase 25 U/L (5-31); Bilirubin Total 0.6 mg/dL (0.0-1.0); Blood Urea Nitrogen 10 mg/dL (9-16); Calcium 8.9 mg/dL (8.4-10.2); Carbon Dioxide 24 mmol/L (22-29); Chloride 107 mmol/L (96-108); Creatinine Clr Calc Pharmacy 81.9; Estimated Glomerular Filt Rate > 60; Glucose Random 115 mg/dL (60-115); Sodium 140 mmol/L (135-145); Total Protein 7.5 g/dL (6.5-8.0)
[2024-09-07 09:11] LABS: Appearance Urine Clear; Color Urine Yellow; Glucose Urine UA Negative (Negative); Leukocyte Esterase Urine Negative (Negative); Nitrite Urine Negative (Negative); Specific Gravity - Urine <= 1.005 (1.005-1.025); UMIC TRIGGER UACC YES; Urine Blood Trace (Negative); Urine Ketones Negative (Negative); Urine Protein Negative (Neg-Trace)
[2024-09-07 09:16] LABS: Bacteria Urine None Seen (None Seen); Hyaline Casts Urine 0-2 /LPF (0-2); RBC Urine 0-2 /HPF (0-2); Squamous Epithelial Cell Urine 0-2 /HPF (0-2); WBC Urine 0-5 /HPF (0-5)
[2024-09-07 10:00] VITALS: BP 106/52; PULSE 69; RESP 16; TEMP 36.9; O2SAT 97
--- NOTE | 2024-09-07 10:03 | ED_ITS ---
HPI - Abdominal Pain General Chief Complaint: Abdominal Pain Stated Complaint: stomach pain , n/v/d Time Seen by Provider: 09/07/24 09:41 Source: patient, RN notes reviewed and old records reviewed Mode of arrival: ambulatory History of Present Illness ED Provider: Genevieve Colon PA-C HPI narrative: 63-year-old female with a past medical history IBS, asthma, depression, GERD, s/p cholecystectomy and , presenting to the ED complaining of increased gas/abdominal bloating x3 days, now with nausea and nonbloody diarrhea x last night. Denies fever, chills vomiting, dysuria/hematuria, melena, suspicious food intake, recent travel, sick contacts Related Data Previous Rx's ?Medication ?Instructions ?Recorded sennosides 8.6 mg tablet (Natural 8.6 mg PO BEDTIME constipation #90 07/10/24 Senna Laxative) tabs hydrocortisone 2.5 % topical cream 1 appl [place] BID-QID PRN hemorrhoids 07/13/24 with perineal applicator #30 grams (Proctosol HC) docusate sodium 100 mg capsule 100 mg PO DAILY #30 caps 07/15/24 ondansetron 4 mg disintegrating 4 mg PO Q8H PRN nausea and 07/31/24 tablet vomiting #20 tabs sodium,potassium,mag sulfates 17.5 480 ml PO .COMPLEX #354 mL 08/04/24 gram-3.13 gram-1.6 gram oral soln (Suprep Bowel Prep Kit) baclofen 5 mg tablet 5 mg PO BEDTIME 7 days #7 tabs 08/17/24 omeprazole 20 mg capsule,delayed 20 mg PO DAILY 30 days #30 caps 09/02/24 release ondansetron 4 mg disintegrating 4 mg PO Q8H PRN nausea and 09/07/24 tablet vomiting #10 tabs Allergies Allergy/AdvReac Type Severity Reaction Status Date / Time morphine [Morphine] Allergy Intermediate HALLUCINATI Verified 09/07/24 08:15 ONS Sulfa (Sulfonamide Allergy Intermediate HIVES Verified 09/07/24 08:15 Antibiotics) shellfish derived Allergy Mild Stomach Verified 09/07/24 08:15 Upset methylprednisolone AdvReac Severe rash Verified 09/07/24 08:15 Substance with sulfonamide Allergy Unknown Hives Uncoded 08/17/24 16:01 structure and antibacterial mechanism of action (substance) Oral Contrast AdvReac Intermediate Abdominal Uncoded 08/17/24 16:01 Pain Review of Systems Review of Systems Yes all other systems are reviewed and are negative Constitutional: Reports as per [facility] Past Medical History Attestation statement: The following information was validated with the patient. Source: old records reviewed Medical History Upper abdominal pain Diarrhea Sinusitis Contact dermatitis Umbilical abnormality Thoracic back pain Right flank pain Otalgia of left ear Neck pain Epigastric pain Lumbar back pain Conjunctivitis IBS (irritable bowel syndrome) Thoracic degenerative disc disease Upper respiratory tract infection Back pain Dysuria Physical exam URI, acute Acalculous cholecystitis Loose stools Asthma Tubular adenoma of colon Degenerative disc disease, thoracic Cholelithiasis with chronic cholecystitis Glaucoma Depression Helicobacter pylori (H. pylori) Anemia Myocardial infarction GERD (gastroesophageal reflux disease) Surgical History Hx laparoscopic cholecystectomy Status post laparoscopic cholecystectomy Hx of colonoscopy H/O dilation and curettage S/P right knee arthroscopy H/O esophagogastroduodenoscopy History of arthroscopy of right knee History of tubal ligation H/O section History of tonsillectomy Family History Family History Father HTN (hypertension) Prostate cancer Mother HTN (hypertension) Diabetes Hx of CABG Sister Asthma Social History Social History Household Members: Spouse, Significant Other and Other Housing: House Alcohol intake: never Patient Tobacco Use Status: Never used Tobacco Tobacco use type: Cigarette e-Cigarette/Vaping Use: Never Used Second Hand Smoke Exposure: No service: No Current occupational status: disabled Current occupational exposures/hazards: No Cognitive needs: No Hearing needs: No Vision needs: Yes Physical Exam ED Vital Signs: Vital Signs - 24 hr 09/07/24 08:15 09/07/24 10:00 09/07/24 12:32 Temperature 98.2 F 98.4 F 98.4 F Pulse Rate 74 69 69 Respiratory Rate 18 16 16 Blood Pressure 129/70 106/52 L 106/52 L Pulse Oximetry 98 97 97 Oxygen Delivery Method Room Air Room Air Room Air BMI result Body Mass Index 28.1 Const General: cooperative, healthy appearing and no acute distress Orientation/consciousness: patient oriented x3 Limitations: no limitations HENMT Head: Yes normal to inspection and Yes atraumatic Ears: hearing grossly normal bilaterally General nose exam: Normal external nose present Face and sinus: Yes normal facial exam Eyes General: appearance normal, both eyes and all related structures EOM: EOMs intact bilaterally Neck Neck: Yes normal visual inspection and Yes no meningeal signs Resp Effort & Inspection: normal respiratory effort and no respiratory distress Auscultation: clear to auscultation bilaterally Cardio Rate: regular rate Heart sounds: S1 normal heart sound present and S2 normal heart sound present GI Inspection: Yes normal to inspection Palpation (GI): Soft to palpation, Tenderness to palpation present (GI) in the epigastrum, in the LLQ and in the LUQ; with no rebound tenderness, no guarding and not rigid General: Yes no CVA tenderness Back/Spine/Pelvis Back: no CVA tenderness Skin Rashes: no rashes Wounds: no wounds Neuro General: patient oriented x3, tone normal and no meningeal signs Cranial nerves: Yes CN's II-XII intact bilaterally Gait exam (Neuro): Normal gait present Extrem General: Yes normal to inspection Course Course Course Narrative: 1006--no leukocytosis. Labs otherwise reassuring -UA with trace blood, chronic. Not infected 1222-- CT abdomen pelvis w IV con IMPRESSION: 1. Mild wall thickening of the descending and sigmoid colon, findings which could represent mild colitis in the appropriate clinical setting. Consider inflammatory and infectious etiologies. 2. Moderate sigmoid diverticulosis. No evidence of acute diverticulitis. 3. There are calcified fibroids within a senescent uterus. 4. There has been a cholecystectomy. > results discussed with patient. She is tolerating p.o. in the ED without difficulty. No antibiotics indicated at this time. Recommended close PCP/GI follow-up. Results discussed with patient including worrisome signs and symptoms and strict return precautions, and when to return to the emergency department. They verbalized understanding and feel safe for discharge at this time. Medical Decision Making Medical Decision Making MDM Narrative: 63-year-old female with a past medical history IBS, asthma, depression, GERD, s/p cholecystectomy and , presenting to the ED complaining of increased gas/abdominal bloating x3 days, now with nausea and nonbloody diarrhea x last night. On exam vital signs stable, NAD, nontoxic appearing, abdomen soft with epigastric/LUQ and LLQ tenderness, no rebound or guarding. No CVAT. Concern for colitis/diverticulitis vs pancreatitis vs GERD/gastritis vs viral illness. Lower suspicion for acute appendicitis, cholecystitis/lithiasis or renal stone at this time Plan: Labs, UA, CT AP, IVF, symptomatic treatment, re-evaluate Please refer to course for remaining clinical decision making, interpretation of labs/imaging results, and discussions with consultants and/or family members. Differential Diagnosis Differential Diagnoses: The differential diagnosis associated with the presentation includes As above Admission/Observation Consideration of admission/observation: Escalation of care including admission/observation considered Lab Data MDM Lab Attestation statement: I reviewed the patient's lab results. 09/07/24 08:25 09/07/24 08:25 Labs: Lab Results 09/07/24 09/07/24 Range/Units 08:25 09:05 WBC 10.8 (4.8-10.8) X10*3/uL RBC 4.41 (4.20-5.50) X10*6/uL Hgb 13.5 (12.0-16.0) g/dl Hct 39.6 (37.0-47.0) % MCV 89.8 (80.0-98.0) fL MCH 30.6 (27.0-33.0) pg MCHC 34.1 (31.0-35.0) g/dl RDW 12.2 (11.0-16.0) % Plt Count 201 D (160-400) X10*3/uL MPV 10.8 (9.4-12.3) fL Immature Gran % (Auto) 0.3 (0.0-0.4) % Neut % (Auto) 88.2 H (45-73) % Lymph % (Auto) 5.6 L (20-40) % [place] % (Auto) 5.2 (2-11) % Eos % (Auto) 0.4 (0-4) % Baso % (Auto) 0.3 (0-2) % Lymph # (Auto) 0.6 L (1.2-4.9) X10*3/uL [place] # (Auto) 0.6 (0.1-1.2) X10*3/uL Eos # (Auto) 0.0 (0.0-0.4) X10*3/uL Baso # (Auto) 0.0 (0.0-0.2) X10*3/uL Abs Immat Gran (auto) 0.03 (0.00-0.03) X10*3/uL Absolute Neuts (auto) 9.5 H (2.0-8.3) x10*3/uL Absolute Nucleated RBC 0.000 (0.0-0.012) X10*3/uL Nucleated RBC % (auto) 0.0 (0.0-0.2) /100WBC Sodium 140 (135-145) mmol/L Potassium 4.0 (3.3-5.1) mmol/L Chloride 107 (96-108) mmol/L Carbon Dioxide 24 (22-29) mmol/L Anion Gap 13 (12-20) BUN 10 (9-16) mg/dL Creatinine 0.66 (0.5-1.4) mg/dL Estim Creat Clear Calc 81.9 Estimated GFR > 60 Random Glucose 115 (60-115) mg/dL Calcium 8.9 (8.4-10.2) mg/dL Magnesium 1.9 (1.6-2.6) mg/dL Total Bilirubin 0.6 (0.0-1.0) mg/dL AST 25 (5-31) U/L ALT 15 (0-31) U/L Alkaline Phosphatase 91 (39-117) U/L Total Protein 7.5 (6.5-8.0) g/dL Albumin 4.1 (3.5-5.0) g/dL Lipase 12 (8-78) U/L Urine Color Yellow Urine Appearance Clear Urine pH 7.0 (5.0-9.0) Ur Specific [place] <= 1.005 (1.005-1.025) Urine Protein Negative (Neg-Trace) mg/dL Urine Glucose (UA) Negative (Negative) mg/dL Urine Ketones Negative (Negative) mg/dL Urine Blood Trace H (Negative) Urine Nitrite Negative (Negative) Ur Leukocyte Esterase Negative (Negative) Urine RBC 0-2 (0-2) /HPF Urine WBC 0-5 (0-5) /HPF Ur Squamous Epith Cells 0-2 (0-2) /HPF Urine Bacteria None Seen (None Seen) Hyaline Casts 0-2 (0-2) /LPF Independent Interpretation I performed an independent interpretation of an: CT Scan Radiology Impression Discussion of test interpretation with radiology: I have reviewed the radiologist's reading. External Record Review External record reviewed: Inpatient record, Office record, Outpatient record, Prior outpatient labs, Prior outpatient radiology, Primary care record and Outside ED record Tests considered The following testing was considered but not selected: As above Prescription Management I considered prescription management with: Pain Medication and Other Social Determinants Patient?s care significantly limited by Social Determinants of Health including: Other Social Determinant of Health Medications Administered Discontinued Medications Generic Name Dose Route Start Last Admin Trade Name Freq PRN Reason Stop Dose Admin Sodium Chloride 1,000 mls @ 999 mls/hr 09/07/24 10:15 09/07/24 12:12 Ns IV 09/07/24 11:15 Infused .Q1H1M PRESTON Infusion Iohexol 100 ml 09/07/24 11:14 09/07/24 11:14 Iohexol 350 Mg/Ml 100 Ml Infus..Btl IV 09/07/24 11:15 85 ml ONCE ONE Administration Ketorolac Tromethamine 15 mg 09/07/24 10:02 09/07/24 10:11 Ketorolac Tromethamine 15 Mg/Ml Vial IVPUSH 09/07/24 10:03 15 mg ONCE ONE Administration Ondansetron HCl 4 mg 09/07/24 10:02 09/07/24 10:11 Ondansetron Hcl 4 Mg/2 Ml Vial IVPUSH 09/07/24 10:03 4 mg ONCE ONE Administration Discharge Plan Discharge Clinical Impression: Colitis Patient Disposition: Home, Self-Care Instructions: Colitis (ED) Additional Instructions: Your CAT scan shows colitis, inflammation of your colon Zofran as an antinausea medication, take as needed for nausea and vomiting Please practice a bland diet, avoid spicy foods, sweets, caffeine, chocolate Make sure staying hydrated If her symptoms persist or worsen, pain becomes constant or unbearable, and bloody stools, fever, you are unable to eat or drink return to the ED Follow up with your doctor as well as Gastroenterology Prescriptions: New ondansetron 4 mg tablet,disintegrating 4 mg PO Q8H PRN (Reason: nausea and vomiting) Qty: 10 0RF No Action hydrocortisone [Proctosol HC] 2.5 % cream with perineal applicator 1 appl [place] BID-QID PRN (Reason: hemorrhoids) Qty: 30 2RF docusate sodium 100 mg capsule 100 mg PO DAILY Qty: 30 3RF omeprazole 20 mg capsule,delayed release(DR/EC) 20 mg PO DAILY 30 Days Qty: 30 1RF ondansetron 4 mg tablet,disintegrating 4 mg PO Q8H PRN (Reason: nausea and vomiting) Qty: 20 0RF sennosides [Natural Senna Laxative] 8.6 mg tablet 8.6 mg PO BEDTIME Qty: 90 3RF sodium,potassium,mag sulfates [Suprep Bowel Prep Kit] 17.5-3.13-1.6 gram recon soln 480 ml PO .COMPLEX Qty: 354 0RF Rx Instructions: 480 mL orally; FOR COLONOSCOPY PREP baclofen 5 mg tablet 5 mg PO BEDTIME 7 Days Qty: 7 0RF [place] [facility] [place] Group] - 1 week Юлия Mendes PA-C [Primary Care Provider] - 1 week Interventions: ED Discharge Assessment Last Done: 09/07/24 12:32 Discharge Date/Time: 09/07/24 12:37 Print Language: Tajik
[2024-09-07] MEDS: Ketorolac Tromethamine 15 MG/ML VIAL IVPUSH (10:11)
[2024-09-07] MEDS: ondansetron HCL 4 MG/2 ML VIAL IVPUSH (10:11)
[2024-09-07] MEDS: 0.9 % Sodium Chloride 1,000 ML 999 ML IV (10:11)
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
[2024-09-07 10:34] LABS: Lipase 12 U/L (8-78); Magnesium 1.9 mg/dL (1.6-2.6)
[2024-09-07] MEDS: iohexoL 350 MG/ML 100 ML INFUS..BTL IV (11:14)
[2024-09-07 12:32] VITALS: BP 106/52; PULSE 69; RESP 16; TEMP 36.9; O2SAT 97
== END 2024-09-07 12:37 | disposition home or self-care (01) ==
PROVIDERS: Physician Assistant; Emergency Provider Emergency Medicine Emergency Medical Services
DX: K52.9 Noninfective gastroenteritis and colitis, unspecified (principal); R14.0 Abdominal distension (gaseous); R11.0 Nausea; Z79.899 Other long term (current) drug therapy
CPT/HCPCS: 36415; 74177; 80053; 81001; 83690; 83735; 85025; 96361; 96374; 96375; 99284; J1885; J2405; Q9967

== ENCOUNTER → 2024-09-07 10:01 | Outpatient (BNV) | payer OTHER, SELFPAY | PROVIDERS: Emergency Provider Emergency Medicine Emergency Medical Services; Visit Provider Radiology Diagnostic Radiology | DX: K57.30 Diverticulosis of large intestine without perforation or abscess without bleeding (principal); D25.9 Leiomyoma of uterus, unspecified | CPT/HCPCS: 74177 ==

== ENCOUNTER 2024-09-11 13:34 | Outpatient (AMB) | payer OTHER, SELFPAY ==
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
[2024-09-11 13:44] VITALS: BP 136/75; PULSE 66; O2SAT 99; BMI 28.1
== END 2024-09-11 14:36 | disposition home or self-care (01) ==
LOC: HO.HGI 13:34
PROVIDERS: Visit Provider Nurse Practitioner
DX: K58.2 Mixed irritable bowel syndrome (principal); K64.9 Unspecified hemorrhoids; K21.9 Gastro-esophageal reflux disease without esophagitis
CPT/HCPCS: 99214

== ENCOUNTER 2024-09-11 13:34 | Outpatient (REF) | payer OTHER, SELFPAY ==
[2024-09-11 15:30] LABS: C Reactive Protein 0.46 mg/dL (< or = 0.50)
== END 2024-09-11 13:35 | disposition home or self-care (01) ==
LOC: HO.LAB 13:34
PROVIDERS: Visit Provider Nurse Practitioner
DX: K52.9 Noninfective gastroenteritis and colitis, unspecified (principal)
CPT/HCPCS: 36415; 86140

== ENCOUNTER 2024-09-12 08:25 | Outpatient (REF) | payer OTHER, SELFPAY ==
--- OUTSIDE RECORDS SUMMARY | 2024-09-12 08:28 | XMS_ITS | Data Portability ---
Author Organization JASE Terrell Rogel [facility], [facility] Address [address] [place] [address] Assessment Encounter Date Assessment Date Assessment LastModified by Organization Details LastModified Time 08/13/2023 08/13/2023 Chief Complaint: Right knee pain HPI: Kiara Camarillo is a 62-year-old female patient with a history of knee pain, having undergone two surgical interventions: a partial meniscectomy in 2003 and another knee surgery in 2006. She reports increased knee pain that began three days after a recent trip to [facility], where she experienced prolonged sitting in [...] grossly intact. Eyes: Sclera are not blue. mountain bike guide II-XII are grossly intact. Full extraocular motion. [...] Imaging: X-rays ordered, obtained and reviewed at [facility]. These images included bilateral weightbearing Chung [...] visit note. This note was generated with [facility] speech recognition professor of graphic design dictation software. Please excuse any errors that may have been overlooked during review of this note. Sometimes, these errors may affect the content or meaning of a given sentence. Please call for corrections. [email or web address] Not available 08/13/2023 17:10:16 Plan of Treatment [...] by: Referring Physician: Benson Patel, Orthopedic Surgery, [id number] Encounter Date: 08/13/2023 Medical Equipment None Reported. Allergies Allergen ID Allergen Name Allergen Category Reaction Reaction Severity Criticality Documentation Date Start Date Code Code System Note Provider Name and Address Organization Details Recorded Time 370223 morphine medicatio n Not available Not available Not available 08/13/2023 7052 RxNorm SONIA MARMOLEJO [facility] 13:46:02 923949 Substance with sulfonami de structure and antibacte rial mechanism of action (substanc e) medicatio n Not available Not available Not available 08/13/2023 10910 8003 SNOMED SONIA ROSSZ [facility] 4 13:46:09 Medications Name Sig Start [...] Updated DateTime 08/13/2023 157.48 cm 28.7 kg/m2 86362 g SONIA MARMOLEJO [place] [facility] 08/13/2023 13:45:53 Social History None recorded. Functional Status None recorded. Mental Status None recorded. Family History Nothing Reported. Medical History No medical history recorded. Gynecological HistoryNo gynecological history recorded. Obstetrics History GPAL:G 0 P 0 0 0 0 Past Encounters Encounter ID Performer Location Encounter Start Date Encounter Closed Date Diagnosis/Indication Diagnosis SNOMED-CT Code Diagnosis ICD10 Code Diagnosis Note [id number] MD [facility] Smith [address] [place] [address] 08/13/2023 13:24:57 09/06/2023 08:34:09 Pain of right knee joint 5988367975 76675 M25.561 Patellofem oral syndrome of right knee 5310975207 708379 M22.2X1 Health Concerns Section Related Observation LastModified by Organization Detai ls LastModified Time None Recorded Concern Status LastModified by Organization Details LastModified Time None Recorded Advance Directives Directive None Recorded Payers Encounter Date Sequence Insurance Name Policy Number Policy Carlton Covered Member ID Carlton Member ID Guarantor Name 08/13/2023 1 [facility] - DOS ON OR AFTER 2022 - LONGTERM OPTIONS AND ONE CARE (MEDICARE REPLACEMENT/AD VANTAGE - PPO) Kiara Roth [id number] Kiara Roth OBGykaitlynn Episode No OBEpisode recorded.
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
[2024-09-18 18:48] LABS: Calprotectin, Fecal 18 mcg/g
== END 2024-09-12 08:26 | disposition home or self-care (01) ==
LOC: HO.LNP 08:25
PROVIDERS: Visit Provider Nurse Practitioner
DX: K52.9 Noninfective gastroenteritis and colitis, unspecified (principal)
CPT/HCPCS: 83993; 87507

== ENCOUNTER 2024-09-19 06:10 | Outpatient (REF) | payer OTHER, SELFPAY ==
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
--- OUTSIDE RECORDS SUMMARY | 2024-09-19 07:20 | XMS_ITS | Data Portability ---
Author Organization JASE Terrell [facility], [facility] Address [address] [place] [address] Assessment Encounter Date Assessment Date Assessment LastModified by Organization Details LastModified Time 08/13/2023 08/13/2023 Chief Complaint: Right knee pain HPI: Kiara Camarillo is a 62-year-old female patient with a history of knee pain, having undergone two surgical interventions: a partial meniscectomy in 2003 and another knee surgery in 2006. She reports increased knee pain that began three days after a recent trip to [facility], where she experienced prolonged sitting in [...] grossly intact. Eyes: Sclera are not blue. cigar tobacco rehandler II-XII are grossly intact. Full extraocular motion. [...] Imaging: X-rays ordered, obtained and reviewed at [facility]. These images included bilateral weightbearing Chung view [...] visit note. This note was generated with [facility] speech recognition cement mason apprentice dictation software. Please excuse any errors that may have been overlooked during review of this note. Sometimes, these errors may affect the content or meaning of a given sentence. Please call for corrections. [email or web address] Not available 08/13/2023 17:10:16 Plan of Treatment [...] by: Referring Physician: Benson Patel, Orthopedic Surgery, [id number] Encounter Date: 08/13/2023 Medical Equipment None Reported. Allergies Allergen ID Allergen Name Allergen Category Reaction Reaction Severity Criticality Documentation Date Start Date Code Code System Note Provider Name and Address Organization Details Recorded Time 150314 morphine medicatio n Not available Not available Not available 08/13/2023 7052 RxNorm SONIA MARMOLEJO [facility] 13:46:02 121607 Substance with sulfonami de structure and antibacte rial mechanism of action (substanc e) medicatio n Not available Not available Not available 08/13/2023 22812 8003 SNOMED SONIA ROSSZ [facility] Orthopedic [facility] 4 13:46:09 Medications Name Sig Start Date [...] Updated DateTime 08/13/2023 157.48 cm 28.7 kg/m2 97101 g SONIA MARMOLEJO [place] [facility] 08/13/2023 [...] SNOMED-CT Code Diagnosis ICD10 Code Diagnosis Note [id number] MD Darlene Smith [address] [place] [address] 08/13/2023 13:24:57 09/06/2023 08:34:09 Pain of right knee joint 7941106867 06279 M25.561 Patellofem oral syndrome of right knee [id number] 793052 M22.2X1 Health Concerns Section Related Observation LastModified by Organization Detai ls LastModified Time None Recorded Concern Status LastModified by Organization Details LastModified Time None Recorded Advance Directives Directive None Recorded Payers Encounter Date Sequence Insurance Name Policy Number Policy Carlton Covered Member ID Carlton Member ID Guarantor Name 08/13/2023 1 [facility] - DOS ON OR AFTER 2022 - HALF-WAY OPTIONS AND ONE CARE (MEDICARE REPLACEMENT/AD VANTAGE - PPO) Kiara Roth [id number] Kiara Roth OBGykaitlynn Episode No OBEpisode recorded.
[2024-09-19 10:11] LABS: Adenovirus F 40/41 Not Detected (Not Detect.); Astrovirus Not Detected (Not Detect.); Campylobacter Not Detected (Not Detect.); Cryptosporidium Not Detected (Not Detect.); Cyclospora cayetanensis Not Detected (Not Detect.); E. coli EAEC Not Detected (Not Detect.); E. coli EPEC Not Detected (Not Detect.); E. coli ETEC Not Detected (Not Detect.); E. coli STEC Not Detected (Not Detect.); Entamoeba histolytica Not Detected (Not Detect.); Giardia lamblia Not Detected (Not Detect.); Norovirus GI/GII Not Detected (Not Detect.); Plesiomonas shigelloides Not Detected (Not Detect.); Rotavirus A Not Detected (Not Detect.); Salmonella Not Detected (Not Detect.); Sapovirus Not Detected (Not Detect.); Shigella sp./EIEC Not Detected (Not Detect.); Vibrio Not Detected (Not Detect.); Vibrio Cholerae Not Detected (Not Detect.); Yersinia enterocolitica Not Detected (Not Detect.)
[2024-09-25 19:13] LABS: Calprotectin, Fecal 5 mcg/g
== END 2024-09-19 06:11 | disposition home or self-care (01) ==
LOC: HO.LNP 06:10
PROVIDERS: Visit Provider Nurse Practitioner
DX: K52.9 Noninfective gastroenteritis and colitis, unspecified (principal)
CPT/HCPCS: 83993; 87507

== ENCOUNTER 2024-09-22 15:49 | Outpatient (AMB) | payer OTHER, SELFPAY ==
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
[2024-09-22 15:56] VITALS: BP 133/64; PULSE 67; BMI 27.0
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
== END 2024-09-22 16:45 | disposition home or self-care (01) ==
LOC: HO.HGI 15:50
PROVIDERS: Visit Provider Nurse Practitioner
DX: K57.92 Diverticulitis of intestine, part unspecified, without perforation or abscess without bleeding (principal); K52.9 Noninfective gastroenteritis and colitis, unspecified; K21.9 Gastro-esophageal reflux disease without esophagitis
CPT/HCPCS: 99213

== ENCOUNTER → 2024-09-24 06:29 | Outpatient (BNV) | payer OTHER, SELFPAY | PROVIDERS: Visit Provider Internal Medicine | DX: K21.00 Gastro-esophageal reflux disease with esophagitis, without bleeding (principal); K52.9 Noninfective gastroenteritis and colitis, unspecified; K57.90 Diverticulosis of intestine, part unspecified, without perforation or abscess without bleeding; K64.8 Other hemorrhoids | CPT/HCPCS: 43239; 45380 ==

== ENCOUNTER 2024-09-24 16:24 | Outpatient (REF) | payer OTHER, SELFPAY ==
--- OUTSIDE RECORDS SUMMARY | 2024-09-10 16:43 | XMS_ITS | Data Portability ---
Author Organization JASE Terrell [facility], [facility] Address [address] [place] [address] Assessment Encounter Date Assessment Date Assessment LastModified by Organization Details LastModified Time 08/13/2023 08/13/2023 Chief Complaint: Right knee pain HPI: Kiara Camarillo is a 62-year-old female patient with a history of knee pain, having undergone two surgical interventions: a partial meniscectomy in 2003 and another knee surgery in 2006. She reports increased knee pain that began three days after a recent trip to [facility], where she experienced prolonged sitting in the [...] grossly intact. Eyes: Sclera are not blue. 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 Full extraocular motion. [...] Imaging: X-rays ordered, obtained and reviewed at [facility]. These images included bilateral weightbearing Chung [...] visit note. This note was generated with [facility] speech recognition [place] machine operator dictation software. Please excuse any errors that may have been overlooked during review of this note. Sometimes, these errors may affect the content or meaning of a given sentence. Please call for corrections. Not available 08/13/2023 17:10:16 Plan of Treatment [...] by: Referring Physician: Benson Patel, Orthopedic Surgery, [id number] Encounter Date: 08/13/2023 Medical Equipment None Reported. Allergies Allergen ID Allergen Name Allergen Category Reaction Reaction Severity Criticality Documentation Date Start Date Code Code System Note Provider Name and Address Organization Details Recorded Time 281428 morphine medicatio n Not available Not available Not available 08/13/2023 7052 RxNorm SONIA MARMOLEJO [facility] 13:46:02 098890 Substance with sulfonami de structure and antibacte rial mechanism of action (substanc e) medicatio n Not available Not available Not available 08/13/2023 72674 8003 SNOMED SONIA ROSSZ [facility] 4 13:46:09 Medications Name Sig Start Date [...] Updated DateTime 08/13/2023 157.48 cm 28.7 kg/m2 45778 g SONIA MARMOLEJO [place] - [facility] 08/13/2023 13:45:53 [...] SNOMED-CT Code Diagnosis ICD10 Code Diagnosis Note [id number] MD Darlene Smith [address] [place] [address] 08/13/2023 13:24:57 09/06/2023 08:34:09 Pain of right knee joint [id number] 18949 M25.561 Patellofem oral syndrome of right knee 2821406725 231532 M22.2X1 Health Concerns Section Related Observation LastModified by Organization Detai ls LastModified Time None Recorded Concern Status LastModified by Organization Details LastModified Time None Recorded Advance Directives Directive None Recorded Payers Encounter Date Sequence Insurance Name Policy Number Policy Carlton Covered Member ID Carlton Member ID Guarantor Name 08/13/2023 1 [facility] - DOS ON OR AFTER 2022 - LONG-TERM OPTIONS AND ONE CARE (MEDICARE REPLACEMENT/AD VANTAGE - PPO) Kiara Roth [id number] Kiara Roth OBGykaitlynn Episode No OBEpisode recorded.
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
[2024-09-22 12:20] VITALS: BMI 28.2
--- NOTE | 2024-09-23 10:08 | P.CONAN_ITS ---
HPI - Anesthesia Eval Consult details Narrative: 63yo F for Upper Endoscopy and Colonoscopy [facility] Active Problems Active Problems: All Active Problems Colitis (Acute) Diverticulitis (Acute) Osteoarthritis of thoracic spine with myelopathy (Acute) Irritable bowel syndrome with both constipation and diarrhea (Acute) Allergic sinusitis (Acute) Bleeding hemorrhoids (Acute) Allergic rhinitis (Acute) GERD (gastroesophageal reflux disease) (Acute) Impaired fasting glucose (Acute) Calcium oxalate crystals in urine (Acute) Asthma (Acute) Degenerative disc disease, thoracic (Acute) IgA mediated leukocytoclastic vasculitis (Acute) Abdominal bloating (Acute) Past Medical History Medical History Colitis Pre-op examination Upper abdominal pain Diarrhea Sinusitis Contact dermatitis Umbilical abnormality Thoracic back pain Right flank pain Otalgia of left ear Neck pain Epigastric pain Lumbar back pain Conjunctivitis IBS (irritable bowel syndrome) Thoracic degenerative disc disease Upper respiratory tract infection Back pain Dysuria Physical exam URI, acute Acalculous cholecystitis Loose stools Asthma Tubular adenoma of colon Degenerative disc disease, thoracic Cholelithiasis with chronic cholecystitis Glaucoma Depression Helicobacter pylori (H. pylori) Anemia Myocardial infarction GERD (gastroesophageal reflux disease) Family History Family History Father HTN (hypertension) Prostate cancer Mother HTN (hypertension) Diabetes Hx of CABG Sister Asthma Surgical History Surgical History Hx laparoscopic cholecystectomy Status post laparoscopic cholecystectomy Hx of colonoscopy H/O dilation and curettage S/P right knee arthroscopy H/O esophagogastroduodenoscopy History of arthroscopy of right knee History of tubal ligation H/O section History of tonsillectomy Social History Social History Household Members: Spouse, Significant Other and Other Housing: House Alcohol intake: never Patient Tobacco Use Status: Never used Tobacco Tobacco use type: Cigarette e-Cigarette/Vaping Use: Never Used Second Hand Smoke Exposure: No service: No Current occupational status: disabled Current occupational exposures/hazards: No Cognitive needs: No Hearing needs: No Vision needs: Yes Meds Allergies Allergy/AdvReac Type Severity Reaction Status Date / Time morphine [Morphine] Allergy Intermediate HALLUCINATI Verified 09/22/24 15:56 ONS Sulfa (Sulfonamide Allergy Intermediate HIVES Verified 09/22/24 15:56 Antibiotics) shellfish derived Allergy Mild Stomach Verified 09/22/24 15:56 Upset methylprednisolone AdvReac Severe rash Verified 09/22/24 15:56 Substance with sulfonamide Allergy Unknown Hives Uncoded 09/22/24 15:56 structure and antibacterial mechanism of action (substance) Oral Contrast AdvReac Intermediate Abdominal Uncoded 09/22/24 15:56 Pain Exam Height,Weight and Vital Signs: Height 5 ft 2 in Weight 69.853 kg Assessment and Plan Assessment Anesthesia Assessment: Chart Reviewed
[2024-09-24 06:49] VITALS: BMI 26.9
[2024-09-24] MEDS: Lactated Ringers 1,000 ML 100 ML IVCONT (06:58)
[2024-09-24 07:07] VITALS: BP 136/76; PULSE 71; RESP 18; TEMP 36.8; O2SAT 99
--- NOTE | 2024-09-24 07:22 | P.CONAN_ITS ---
[facility] Active Problems Active Problems: All Active Problems Colitis (Acute) Diverticulitis (Acute) Osteoarthritis of thoracic spine with myelopathy (Acute) Irritable bowel syndrome with both constipation and diarrhea (Acute) Allergic sinusitis (Acute) Bleeding hemorrhoids (Acute) Allergic rhinitis (Acute) GERD (gastroesophageal reflux disease) (Acute) Impaired fasting glucose (Acute) Calcium oxalate crystals in urine (Acute) Asthma (Acute) Degenerative disc disease, thoracic (Acute) IgA mediated leukocytoclastic vasculitis (Acute) Abdominal bloating (Acute) Past Medical History Medical History Colitis Pre-op examination Upper abdominal pain Diarrhea Sinusitis Contact dermatitis Umbilical abnormality Thoracic back pain Right flank pain Otalgia of left ear Neck pain Epigastric pain Lumbar back pain Conjunctivitis IBS (irritable bowel syndrome) Thoracic degenerative disc disease Upper respiratory tract infection Back pain Dysuria Physical exam URI, acute Acalculous cholecystitis Loose stools Asthma Tubular adenoma of colon Degenerative disc disease, thoracic Cholelithiasis with chronic cholecystitis Glaucoma Depression Helicobacter pylori (H. pylori) Anemia Myocardial infarction GERD (gastroesophageal reflux disease) Functional capacity: independent ambulation Patient : No Family History Family History Father HTN (hypertension) Prostate cancer Mother HTN (hypertension) Diabetes Hx of CABG Sister Asthma Family history of problems with anesthesia: No Surgical History Surgical History Hx laparoscopic cholecystectomy Status post laparoscopic cholecystectomy Hx of colonoscopy H/O dilation and curettage S/P right knee arthroscopy H/O esophagogastroduodenoscopy History of arthroscopy of right knee History of tubal ligation H/O section History of tonsillectomy History of Problems with Anesthesia: No Social History Social History Household Members: Spouse, Significant Other and Other Housing: House Are you a primary caretaker resort to a significant other at home: No Do you presently have visiting nurse or other home services: No Alcohol intake: never Patient Tobacco Use Status: Never used Tobacco Tobacco use type: Cigarette e-Cigarette/Vaping Use: Never Used Second Hand Smoke Exposure: No service: No Current occupational status: disabled Current occupational exposures/hazards: No Cognitive needs: No Hearing needs: No Vision needs: Yes Meds Allergies Allergy/AdvReac Type Severity Reaction Status Date / Time morphine [Morphine] Allergy Intermediate HALLUCINATI Verified 09/24/24 06:52 ONS Sulfa (Sulfonamide Allergy Intermediate HIVES Verified 09/24/24 06:52 Antibiotics) shellfish derived Allergy Mild Stomach Verified 09/24/24 06:52 Upset methylprednisolone AdvReac Severe rash Verified 09/24/24 06:52 Substance with sulfonamide Allergy Unknown Hives Uncoded 09/24/24 06:52 structure and antibacterial mechanism of action (substance) Oral Contrast AdvReac Intermediate Abdominal Uncoded 09/24/24 06:52 Pain Active Medications: Current Medications Albuterol Sulfate (Albuterol Sulfate (0.083%) 2.5 Mg/3 Ml Vial.Neb) 2.5 mg INHALE ONCE PRN PRN Reason: Shortness of Breath/Wheezing Lactated Ringer's (Lr) 1,000 mls @ 100 mls/hr IVCONT .Q10H PRESTON Last Admin: 09/24/24 06:58 Dose: 100 mls/hr Home Medications ?Medication ?Instructions ?Recorded ?Confirmed ?Last Taken ?Type fexofenadine 60 mg tablet (Lore 60 mg PO BID 09/24/24 09/24/24 Unknown History Allergy) Exam Height,Weight and Vital Signs: Height 5 ft 2 in Weight 66.769 kg Last Vital Signs Temp 98.2 F 09/24/24 07:07 Pulse 71 09/24/24 07:07 Resp 18 09/24/24 07:07 BP 136/76 09/24/24 07:07 Pulse Ox 99 09/24/24 07:07 O2 Del Method Room Air 09/24/24 07:07 Airway Mallampati Class: I TM Dist: >3cm Neck ROM: Full Loose/Missing/Broken Teeth: No Heart: rrr Lungs: cta Assessment and Plan Final Anesthetic Review Family History of Problems with Anesthesia: No History of Problems with Anesthesia: No NPO: Yes ASA Class: I Final Preanesthetic Review: No Changes in Pt Med Stat, Meds/Allgs Chart Reviewed, Consent Obtained/Reviewed and Anes Risks/Benef Reviewed Patient Risk: Low Procedure Risk: Low Anesthetic Plan Anesthetic Plan: MAC: Disposition: Standard PACU
--- NOTE | 2024-09-24 07:48 | MHC.SHP ---
Pre-Procedural Eval Section A - 24 Hr Update-Section A only Date of Service: 09/24/24 Section B - Complete if H&P > 30 days Chief Complaint: GERD, chronic diarrhea Details of Present Illness: PMH: Colitis Sinusitis Contact dermatitis Umbilical abnormality Thoracic back pain Right flank pain Otalgia of left ear Neck pain Epigastric pain Lumbar back pain Conjunctivitis IBS (irritable bowel syndrome) Thoracic degenerative disc disease Upper respiratory tract infection Asthma Tubular adenoma of colon Degenerative disc disease, thoracic Glaucoma Depression Anemia Myocardial infarction GERD (gastroesophageal reflux disease) Surgical History Hx laparoscopic cholecystectomy Status post laparoscopic cholecystectomy Hx of colonoscopy H/O dilation and curettage S/P right knee arthroscopy H/O esophagogastroduodenoscopy History of arthroscopy of right knee History of tubal ligation H/O section History of tonsillectomy Present Medications: see Short Stay Collaborative assessment Allergies: Allergies Allergy/AdvReac Type Severity Reaction Status Date / Time morphine [Morphine] Allergy Intermediate HALLUCINATI Verified 09/24/24 06:52 ONS Sulfa (Sulfonamide Allergy Intermediate HIVES Verified 09/24/24 06:52 Antibiotics) shellfish derived Allergy Mild Stomach Verified 09/24/24 06:52 Upset methylprednisolone AdvReac Severe rash Verified 09/24/24 06:52 Substance with sulfonamide Allergy Unknown Hives Uncoded 09/24/24 06:52 structure and antibacterial mechanism of action (substance) Oral Contrast AdvReac Intermediate Abdominal Uncoded 09/24/24 06:52 Pain Review of Systems Review of Systems Comment: Ten point ROS negative Exam Exam Comment: Gen appear: No acute distress HEENT: no icterus Chest: No overt resp distress Abd: soft, nontender, nondistended Psych: Stable affect, answering questions appropriately Neuro: A/Ox3 noted to move all extremities spontaneously Ext: no peripheral edema Plan Diagnosis/Plan: Unchanged I have reviewed the history and physical and performed a pertinent physical examination on my patient. No changes have occurred unless specified. Time Spent With Patient Time: Total time managing care of this patient today ____ minutes.
[2024-09-24 08:31] VITALS: BP 115/72; PULSE 74; RESP 12; TEMP 36.8; O2SAT 100
--- NOTE | 2024-09-24 08:34 | P.OPN-COLO_ITS ---
Colonoscopy Operative Note Operative Note Date of Service: 09/24/24 Narrative: Procedure: Upper endoscopy and colonoscopy Indication: GERD, chronic diarrhea Endoscopist: An Maravilla MD Anesthesia Provider: Laurence Leon CRNA Anesthesia type: MAC Instrument: [id number]-[id number] and [id number]-[id number] EGD Procedure:?? The procedure, indications, preparation and potential complications were reviewed with the patient, who indicated understanding and gave written informed consent to proceed. The endoscope was introduced through the mouth, and advanced to the 2nd part of the duodenum. The mucosa was carefully examined on slow withdrawal of the endoscope. The patient tolerated the procedure well. There were no immediate complications.? EGD Findings:? * Esophagus:? Mild erythema and small erosions < 5 mm at GE junction. The Z-line was at 33 cm displaced by a hiatal hernia with the diaphragmatic pinch at 36 cm. Cold forceps biopsies were taken from GE junction. * Stomach:? Normal gastric mucosa.Retroflexion was performed in the cardia. Random cold forceps biopsies were taken from the stomach. * Duodenum:? Normal duodenal mucosa. Cold forceps biopsies were taken from the duodenal bulb and 2nd portion of the duodenum to rule out celiac sprue. Colonoscopy Procedure:? The patient was then turned for the colonoscopy. A digital rectal exam was performed which was abnormal for ext hemorrhoids.? A distal attachment cap was affixed to the tip of the scope and the colonoscope was then inserted through the anus and advanced through the colon and advanced to the cecum at 75 cm and terminal ileum.? Appendiceal orifice and ileocecal valve were identified. Mucosa was carefully examined under high definition white light as the instrument was slowly withdrawn in a retrograde panoramic fashion. Retroflexion was performed in rectum. The procedure was not difficult. The quality of the prep was BBPS: 3+3+2 = adequate Withdrawal time 7 minutes Limitations: No limitations Findings: Mucosa: Normal colon and terminal ileum mucosa. Cold forceps biopsies were taken from right and left side of the colon to rule out microscopic colitis. Protruding lesions: * Large internal hemorrhoids with stigmata of recent bleeding. Excavated lesions: * Mild diverticulosis in the left side of the colon with rare diverticula in right side Impression: 1. Grade A esophagitis (biopsy) 2. Hiatal hernia 3. Normal stomach (biopsy) 4. Normal duodenum (biopsy) 5. Normal colon and terminal ileum mucosa (biopsy) 6. Diverticulosis 7. Internal and external hemorrhoids Recommendations:?? * Follow-up path results * Avoid NSAIDs * H Pylori treatment if biopsies + * Start omeprazole 20 mg once daily x 8-12 weeks and then decrease to 10mg once daily. * Repeat colonoscopy for CRC screening in 10 years.
[2024-09-24 08:45] VITALS: BP 131/61; PULSE 65; RESP 12; TEMP 36.8; O2SAT 100
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
--- OUTSIDE RECORDS SUMMARY | 2024-09-24 16:28 | XMS_ITS | Data Portability ---
Author Organization JASE Terrell Rogel [facility], [facility] Address [address] [place] [address] Assessment Encounter Date Assessment Date Assessment LastModified by Organization Details LastModified Time 08/13/2023 08/13/2023 Chief Complaint: Right knee pain HPI: Kiara Camarillo is a 62-year-old female patient with a history of knee pain, having undergone two surgical interventions: a partial meniscectomy in 2003 and another knee surgery in 2006. She reports increased knee pain that began three days after a recent trip to [facility], where she experienced prolonged sitting in [...] grossly intact. Eyes: Sclera are not blue. 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 Full extraocular motion. [...] Imaging: X-rays ordered, obtained and reviewed at [facility]. These images included bilateral weightbearing [...] visit note. This note was generated with [facility] ([place], [place])[employer] [facility] speech recognition etl manager dictation software. Please excuse any errors that [...] by: Referring Physician: Benson Patel, Orthopedic Surgery, [id number] Encounter Date: 08/13/2023 Medical Equipment None Reported. Allergies Allergen ID Allergen Name Allergen Category Reaction Reaction Severity Criticality Documentation Date Start Date Code Code System Note Provider Name and Address Organization Details Recorded Time 245120 morphine medicatio n Not available Not available Not available 08/13/2023 7052 RxNorm SONIA MARMOLEJO [facility] 13:46:02 698022 Substance with sulfonami de structure and antibacte rial mechanism of action (substanc e) medicatio n Not available Not available Not available 08/13/2023 75876 8003 SNOMED SONIA ROSSZ [facility] 4 13:46:09 Medications Name Sig Start [...] Updated DateTime 08/13/2023 157.48 cm 28.7 kg/m2 58167 g SONIA MARMOLEJO [place] [facility] 08/13/2023 13:45:53 Social History None recorded. Functional Status None recorded. Mental Status None recorded. Family History Nothing Reported. Medical History No medical history recorded. Gynecological HistoryNo gynecological history recorded. Obstetrics History GPAL:G 0 P 0 0 0 0 Past Encounters Encounter ID Performer Location Encounter Start Date Encounter Closed Date Diagnosis/Indication Diagnosis SNOMED-CT Code Diagnosis ICD10 Code Diagnosis Note [id number] MD Darl[facility] Smith [address] [place] [address] 08/13/2023 13:24:57 09/06/2023 08:34:09 Pain of right knee joint 5895919252 13001 M25.561 Patell[facility] oral syndrome of right knee 7195039038 836124 M22.2X1 Health Concerns Section Related Observation LastModified by Organization Detai ls LastModified Time None Recorded Concern Status LastModified by Organization Details LastModified Time None Recorded Advance Directives Directive None Recorded Payers Encounter Date Sequence Insurance Name Policy Number Policy Carlton Covered Member ID Carlton Member ID Guarantor Name 08/13/2023 1 [facility] - DOS ON OR AFTER 2022 - [facility] [employer] (MEDICARE REPLACEMENT/AD VANTAGE - PPO) Kiara Roth [id number] Kiara Roth OBGykaitlynn Episode No OBEpisode recorded.
[2024-09-24 17:43] LABS: Appearance Urine Clear; Color Urine Yellow; Glucose Urine UA Negative (Negative); Leukocyte Esterase Urine Trace (Negative); Nitrite Urine Negative (Negative); PH 6.5 (5.0-9.0); Specific Gravity - Urine 1.015 (1.005-1.025); UMIC TRIGGER UACC YES; Urine Blood Trace (Negative); Urine Ketones Negative (Negative); Urine Protein Negative (Neg-Trace)
[2024-09-24 17:49] LABS: Bacteria Urine None Seen (None Seen); Hyaline Casts Urine 0-2 /LPF (0-2); Squamous Epithelial Cell Urine 0-2 /HPF (0-2); WBC Urine 0-5 /HPF (0-5)
== END 2024-09-24 16:25 | disposition home or self-care (01) ==
LOC: HO.SSS 16:24
PROVIDERS: Absent Provider Nurse Practitioner; Visit Provider Internal Medicine
PROC: (CPT 45380; principal; 2024-09-24 07:30)
DX: Z12.11 Encounter for screening for malignant neoplasm of colon (principal); K57.30 Diverticulosis of large intestine without perforation or abscess without bleeding; K64.8 Other hemorrhoids; K64.4 Residual hemorrhoidal skin tags; Z86.0101 Personal history of adenomatous and serrated colon polyps; Z80.0 Family history of malignant neoplasm of digestive organs; K20.80 Other esophagitis without bleeding; K44.9 Diaphragmatic hernia without obstruction or gangrene; K21.9 Gastro-esophageal reflux disease without esophagitis; R14.0 Abdominal distension (gaseous); J45.909 Unspecified asthma, uncomplicated; D69.0 Allergic purpura; Z79.899 Other long term (current) drug therapy; I25.2 Old myocardial infarction; D64.9 Anemia, unspecified; Z90.49 Acquired absence of other specified parts of digestive tract
CPT/HCPCS: 45380; 43239; 81001; 88305; 88313; 88342; J2003; J2250; J2704

== ENCOUNTER 2024-09-25 08:02 | Outpatient (AMB) | payer OTHER, SELFPAY ==
--- NOTE | 2024-09-25 08:06 | AM.OFFWIN_ITS ---
Intake Vital Signs 09/25/24 08:14 Weight 151 lb BP 130/90 H Blood Pressure Location Lt brachial Position Sitting Pulse 80 Pulse Source Pulse Oximeter Pulse Oximetry (%) 97 Oxygen Delivery Method Room Air Intake Visit Reasons: EP ? UTI Intake Note: Patient here for burning sensation, frequent urination, itching. Patient Tobacco Use Status: Never used Tobacco Allergies morphine [Morphine] Allergy (Intermediate, Verified 09/25/24 08:14) HALLUCINATIONS Sulfa (Sulfonamide Antibiotics) Allergy (Intermediate, Verified 09/25/24 08:14) HIVES shellfish derived Allergy (Mild, Verified 09/25/24 08:14) Stomach Upset methylprednisolone Adverse Reaction (Severe, Verified 09/25/24 08:14) rash Substance with sulfonamide structure and antibacterial mechanism of action (substance) Allergy (Unknown, Uncoded 09/25/24 08:14) Hives Oral Contrast Adverse Reaction (Intermediate, Uncoded 09/25/24 08:14) Abdominal Pain Do you need a note to return to daycare/school/sports/work: No HPI HPI Comments History of Present Illness Details History of Present Illness - The patient is a 63-year-old female pr esenting with symptoms of vaginal itching and possible UTI. - She underwent recent colonoscopy and c ommenced amoxicillin for colitis. - Vaginal itch developed post-antibiotic usage spanning two days, provoking sleep disturbances. - No fever or abdominal discomfort; urin ation frequency increased slightly. - Patient denied abnormal discharges typ ically seen in vaginal yeast infections. - Tests were preformed post-consult for UTI consideration but has not been treated as of now. - Recent assessments documented mild PANCHO D and esophageal inflammation, with omeprazole prescribed. - Patient managed itching with ice packs for temporary relief. Physical Exam General: Cooperative, healthy appearing, comfortable, no acute distress and well developed Orientation: Patient oriented x3 Limitations: No limitations Head: Normal to inspection Ears: Hearing grossly normal bilaterally Nose: Normal External nose present Face and sinus: Normal facial exam Eyes: Appearance normal, both eyes and all related structures Neck: Normal visual inspection and Yes full ROM Respiratory: Normal respiratory effort and able to speak in complete sentences. Skin: No rashes or lesions noted Neuro: Patient oriented x3 Extremities: Normal to inspection [facility] Medical History (Updated 09/25/24 @ 08:30 by Jayda Vital PA-C) Dysuria Colitis Pre-op examination Upper abdominal pain Diarrhea Sinusitis Contact dermatitis Umbilical abnormality Thoracic back pain Right flank pain Otalgia of left ear Neck pain Epigastric pain Lumbar back pain Conjunctivitis IBS (irritable bowel syndrome) Thoracic degenerative disc disease Upper respiratory tract infection Back pain Physical exam URI, acute Acalculous cholecystitis Loose stools Asthma Tubular adenoma of colon Degenerative disc disease, thoracic Cholelithiasis with chronic cholecystitis Glaucoma Depression Helicobacter pylori (H. pylori) Anemia Myocardial infarction GERD (gastroesophageal reflux disease) Surgical History Hx laparoscopic cholecystectomy Status post laparoscopic cholecystectomy Hx of colonoscopy H/O dilation and curettage S/P right knee arthroscopy H/O esophagogastroduodenoscopy History of arthroscopy of right knee History of tubal ligation H/O section History of tonsillectomy Family History Father HTN (hypertension) Prostate cancer Mother HTN (hypertension) Diabetes Hx of CABG Sister Asthma Social History Household Members: Spouse, Significant Other and Other Housing: House Are you a primary healthcare educator to a significant other at home: No Do you presently have visiting nurse or other home services: No Alcohol intake: never Patient Tobacco Use Status: Never used Tobacco Tobacco use type: Cigarette e-Cigarette/Vaping Use: Never Used Second Hand Smoke Exposure: No service: No Current occupational status: disabled Current occupational exposures/hazards: No Cognitive needs: No Hearing needs: No Vision needs: Yes Review of Systems Const All systems reviewed & are unremarkable except as noted in HPI and below Physical Exam Vital Signs: Last Vital Signs Pulse 80 09/25/24 08:14 BP 130/90 H 09/25/24 08:14 Pulse Ox 97 09/25/24 08:14 Oxygen Delivery Method Room Air 09/25/24 08:14 Assessment & Plan Assessment & Plan (1) UTI (urinary tract infection): Code(s): N39.0 - Urinary tract infection, site not specified Qualifiers: Urinary tract infection type: acute cystitis Hematuria presence: with hematuria Qualified Code(s): N30.01 - Acute cystitis with hematuria Plan: UA + leuks and blood. The patient was prescribed fluconazole 150 mg for yeast infection alleviation, with instructions to take one dose today and another dose following antibiotic completion. She was advised to delay omeprazole for GERD until after finishing cefuroxime to enhance antibiotic efficacy, recommending TUMS as an interim measure. Cefuroxime was prescribed for UTI management, acknowledging her recent antibiotic intake, and caution against concurrent GERD medication was provided. A urine culture was ordered for further analysis. Patient was encouraged to use clotrimazole cream for itch discomfort and advised to revisit if symptoms persist post-treatment, indicating good comprehension and consent to treatment plan. Patient was informed and verbally consented to the use of an ambient scribe for clinic note documentation during this visit. (2) Yeast infection: Code(s): B37.9 - Candidiasis, unspecified Plan: as above Orders: Orders Urine Culture Today N39.0 - Urinary tract infection, site not specified Medications: New cefuroxime axetil 500 mg PO Q12H 10 tabs 0RF fluconazole may repeat second dose 72 hrs after first dose if symptoms persist 150 mg PO Q3D 2 tabs 0RF Discontinued omeprazole Discontinued Reason: Doctor's Order 20 mg PO DAILY 90 caps 0RF K21.9 - Gastro-esophageal reflux disease without esophagitis Coding Level of Care Code Est Pt Level 3 (93389) Diagnoses Acute cystitis with hematuria N30.01 Urinary tract infection type: acute cystitis Hematuria presence: with hematuria Yeast infection B37.9
[2024-09-25 08:14] VITALS: BP 130/90; PULSE 80; O2SAT 97
== END 2024-09-25 08:41 | disposition home or self-care (01) ==
PROVIDERS: Visit Provider Physician Assistant
DX: N30.01 Acute cystitis with hematuria (principal); B37.9 Candidiasis, unspecified; Z13.9 Encounter for screening, unspecified

== ENCOUNTER 2024-09-25 08:02 | Outpatient (REF) | payer OTHER, SELFPAY ==
[2024-09-25 11:05] LABS: Appearance Urine Clear; Color Urine Yellow; Glucose Urine UA Negative (Negative); Leukocyte Esterase Urine Small (1+) (Negative); Nitrite Urine Negative (Negative); PH 6.5 (5.0-9.0); UMIC TRIGGER UACC YES; Urine Blood Small (1+) (Negative); Urine Ketones Negative (Negative); Urine Protein Negative (Neg-Trace)
[2024-09-25 11:23] LABS: Bacteria Urine None Seen (None Seen); Calcium Oxalate Crystals Urine Present; Hyaline Casts Urine 0-2 /LPF (0-2); RBC Urine 0-2 /HPF (0-2); Squamous Epithelial Cell Urine 0-2 /HPF (0-2); UACC Culture Trigger YES; WBC Urine 0-5 /HPF (0-5)
== END 2024-09-25 08:03 | disposition home or self-care (01) ==
LOC: HO.LNP 08:02
PROVIDERS: Nurse Practitioner; Visit Provider Physician Assistant
DX: N30.01 Acute cystitis with hematuria (principal); B37.9 Candidiasis, unspecified
CPT/HCPCS: 81001; 81003; 87086

== ENCOUNTER 2024-10-07 12:16 | Outpatient (AMB) | payer OTHER, SELFPAY ==
[2024-10-07 12:29] VITALS: BP 115/57; PULSE 68; O2SAT 97; BMI 26.9
--- NOTE | 2024-10-07 12:29 | MHC.OFFVIS ---
Vital Signs 10/07/24 12:29 Height 5 ft 2 in Weight 147 lb BMI 26.9 BP 115/57 L Blood Pressure Location Lt brachial Position Sitting Pulse 68 Pulse Oximetry (%) 97 Oxygen Delivery Method Room Air Intake Visit Reasons: upper abd pain Intake Note: Patient follow up for upper abd pain. Patient cc: abdominal pain, between diarrhea and constipation on and off. Denies any other GI issues. 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 Required: No Accompanied by: Self / Same As Patient Allergies morphine [Morphine] Allergy (Intermediate, Verified 10/07/24 12:31) HALLUCINATIONS Sulfa (Sulfonamide Antibiotics) Allergy (Intermediate, Verified 10/07/24 12:31) HIVES shellfish derived Allergy (Mild, Verified 10/07/24 12:31) Stomach Upset methylprednisolone Adverse Reaction (Severe, Verified 10/07/24 12:31) rash Substance with sulfonamide structure and antibacterial mechanism of action (substance) Allergy (Unknown, Uncoded 09/25/24 08:14) Hives Oral Contrast Adverse Reaction (Intermediate, Uncoded 09/25/24 08:14) Abdominal Pain HPI HPI upper abd pain: Details: Assessment & Plan (1) Diverticulitis: Code(s): K57.92 - Diverticulitis of intestine, part unspecified, without perforation or abscess without bleeding Category: Medical (2) Colitis: Code(s): K52.9 - Noninfective gastroenteritis and colitis, unspecified Category: Medical (3) Irritable bowel syndrome with both constipation and diarrhea: Code(s): K58.2 - Mixed irritable bowel syndrome Category: Medical (4) GERD (gastroesophageal reflux disease): Code(s): K21.9 - Gastro-esophageal reflux disease without esophagitis Category: Medical Qualifiers: Esophagitis presence: esophagitis presence not specified Qualified Code(s): K21.9 - Gastro-esophageal reflux disease without esophagitis Plan Fortunately, her pain is resolving and her BM's are improving. We review the prep for . Stool hoang is still pending, CRP neg. No GI infection. She completed the prednisone taper and will be completing the abx today. She also has some pain in the T spine and had pain after walking, but no abd pain. She has significant T spine OA with disc prolapses, so I think this is the driving pathology for this pain presentation. She still has some bloating intermittently, which could be the GI system still recovering. Keep appt. Medications: New docusate sodium (Colace) 100 mg PO DAILY 30 caps 6RF Discontinued ondansetron Discontinued Reason: Patient Completed Course 4 mg PO Q8H PRN 20 tabs 0RF nausea and vomiting ondansetron Discontinued Reason: Patient Completed Course 4 mg PO Q8H PRN 10 tabs 0RF nausea and EGD/COLONOSCOPY 09/24/24 EGD Findings:? Esophagus:? Mild erythema and small erosions < 5 mm at GE junction. The Z-line was at 33 cm displaced by a hiatal hernia with the diaphragmatic pinch at 36 cm. Cold forceps biopsies were taken from GE junction. Stomach:? Normal gastric mucosa.Retroflexion was performed in the cardia. Random cold forceps biopsies were taken from the stomach. Duodenum:? Normal duodenal mucosa. Cold forceps biopsies were taken from the duodenal bulb and 2nd portion of the duodenum to rule out celiac sprue. COLONOSCOPY Findings: Mucosa: Normal colon and terminal ileum mucosa. Cold forceps biopsies were taken from right and left side of the colon to rule out microscopic colitis. Protruding lesions: Large internal hemorrhoids with stigmata of recent bleeding.Excavated lesions: Mild diverticulosis in the left side of the colon with rare diverticula in right side Impression: GENERAL FINDINGS' 1. Grade A esophagitis (biopsy) 2. Hiatal hernia 3. Normal stomach (biopsy) 4. Normal duodenum (biopsy) 5. Normal colon and terminal ileum mucosa (biopsy) 6. Diverticulosis 7. Internal and external hemorrhoids Recommendations:?? Follow-up path results Avoid NSAIDs H Pylori treatment if biopsies + Start omeprazole 20 mg once daily x 8-12 weeks and then decrease to 10mg once daily. Repeat colonoscopy for CRC screening in 10 years. BIOPSY Received: 09/24/24 Diagnosis A. Duodenum, biopsy: Chronic inactive duodenitis. B. Stomach, random, biopsy: Oxyntic mucosa with mild chronic inactive inflammation; no Helicobacter organisms seen. C. EG junction, biopsy: - Cardiac-type mucosa with moderate chronic inactive inflammation and multilayered epithelium; no fully developed intestinal metaplasia seen. - Active esophagitis (maximum eosinophil count 1 per high powered field). D. Colon, right, biopsy: Colonic mucosa within normal limits. E. Colon, left, biopsy: Colonic mucosa within normal limits. Laboratory Tests 09/19/24 06:16 Stool Calprotectin 5 09/25/24-[address]: Юлия Mendes PA-C,Walk-In C. 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 On 09/24/24 @ 15:36 Wrote To Nakita Sheffield ordered On 09/24/24 @ 13:04 aNkita Sheffield Wrote To Michelle Pt asked about test for uti, she said she discussed with you. Will you send for her? On 09/17/24 @ 11:10 Nakita Sheffield Wrote To Michelle per august as long as there are NO respiratory issues, pt can take antihistamine, or allergy medicine with it. Red cheeks are normal called back pt On 09/16/24 @ 09:16 Bere Gilbert Wrote To Michelle sorry patient called back - she forgot to inform us that twice shes been put on Prednisone and she experiences redness on cheeks that comes and goes and states it only occurs when she has been on the Prednisone. patient does not develop any allergy like s/s or reactions, no difficulty breathing but just wanted to verify before picking up Prednisone TODAY'S VISIT She has really been struggling with her health! She ended up with a yeast infections from all of the antibiotics and the prednisone and ended up on a 7 day cream. Fortunately that now is clearing up. Then she just was feeling generally unwell and presented to a walk-in clinic and they are listened to her lungs and diagnose her with bronchitis. She was then put on a Z-Daniel. It seems that her immunity really has been knocked down for reasons that are not entirely clear. She is beginning to recover and I did personal financial counselor her to continue to drink plenty of water to keep her bowels moving. She had stopped taking omeprazole for a time so I counseled her she really needs to be on omeprazole 20 mg because we did find erosive esophagitis and we want to protect her from getting esophageal cancer. She is agreeable to this. Colonoscopy did not uncover anything concerning so it seems that her ?colitis? diagnosis made by CAT scan more than likely was diverticulitis and less likely related to an infection or inflammatory bowel disease. Of course we will continue to monitor this. She still has some lingering pain that tends to be at about the level of the middle of the transverse colon that comes and goes. ROV 3 mos. [facility] Medical History (Updated 10/07/24 @ 12:59 by JADE Rosen) Dysuria Colitis Pre-op examination Upper abdominal pain Diarrhea Sinusitis Contact dermatitis Umbilical abnormality Thoracic back pain Right flank pain Otalgia of left ear Neck pain Epigastric pain Lumbar back pain Conjunctivitis IBS (irritable bowel syndrome) Thoracic degenerative disc disease Upper respiratory tract infection Back pain Physical exam URI, acute Acalculous cholecystitis Loose stools Asthma Tubular adenoma of colon Degenerative disc disease, thoracic Cholelithiasis with chronic cholecystitis Glaucoma Depression Helicobacter pylori (H. pylori) Anemia Myocardial infarction GERD (gastroesophageal reflux disease) Surgical History Hx laparoscopic cholecystectomy Status post laparoscopic cholecystectomy Hx of colonoscopy H/O dilation and curettage S/P right knee arthroscopy H/O esophagogastroduodenoscopy History of arthroscopy of right knee History of tubal ligation H/O section History of tonsillectomy Family History Father HTN (hypertension) Prostate cancer Mother HTN (hypertension) Diabetes Hx of CABG Sister Asthma Social History Household Members: Spouse, Significant Other and Other Housing: House Are you a primary intensive care unit registered nurse to a significant other at home: No Do you presently have visiting nurse or other home services: No Alcohol intake: never Patient Tobacco Use Status: Never used Tobacco Tobacco use type: Cigarette e-Cigarette/Vaping Use: Never Used Second Hand Smoke Exposure: No service: No Current occupational status: disabled Current occupational exposures/hazards: No Cognitive needs: No Hearing needs: No Vision needs: Yes Review of Systems Const Denies fatigue, Denies fever(s), Reports malaise, Denies night sweats, Denies poor appetite and Denies weight loss ENT Reports Normal hearing present, Denies dental pain, Denies dysphagia, Denies hearing loss, Denies mouth pain, Denies odynophagia, Denies throat swelling, Denies tongue swelling and Reports other (Dentition adequate) Card Reports no additional complaints Resp Reports no additional complaints GI Details: Denies abdominal pain, Denies melena, Denies bloating, Denies hematochezia, Denies constipation, Denies GI cramping, Denies dysphagia, Denies excessive flatus, Denies early satiety, Reports heartburn, Denies diarrhea, Denies nausea, Denies odynophagia, Denies vomiting and Denies hematemesis Reports vaginal discharge and Reports vaginal pruritus Skin/Breast Denies pruritus, Denies lesions, Denies rash and Denies jaundice Neuro Reports Normal hearing present and Denies Abnormal speech present Endo Denies fatigue Aller/Immun Denies throat swelling and Denies tongue swelling Physical Exam Vital Signs: Last Vital Signs Pulse 68 10/07/24 12:29 BP 115/57 L 10/07/24 12:29 Pulse Ox 97 10/07/24 12:29 Oxygen Delivery Method Room Air 10/07/24 12:29 BMI result Body Mass Index 26.9 Const General: cooperative, no acute distress, well developed and well groomed Nutritional Appearance: average body habitus and well nourished Orientation/consciousness: oriented to person, oriented to place and oriented to time Limitations: No language barrier HEENT Head: Yes normocephalic and Yes atraumatic Eyes General: appearance normal, both eyes and all related structures Pupils: Equal, round and reactive pupils present Neck Neck: Yes normal visual inspection and Yes no lymphadenopathy Thyroid: Thyroid normal Resp Effort & Inspection: normal respiratory effort and able to speak in complete sentences Auscultation: clear to auscultation bilaterally Cardio Rate: regular rate Rhythm: regular rhythm Heart sounds: Normal, physiologic split S2 sound present Peripheral pulses: radial pulses present and posterior tibial pulses present GI Inspection: No distended and No Abdominal panniculus present Palpation (GI): Soft to palpation, nontender, no guarding, not rigid and No hepatosplenomegaly present Percussion: Yes normal to percussion Auscultation: normal bowel sounds Rectal Exam - Female: deferred Skin General skin exam: no rashes or lesions noted, turgor normal, skin not dry, no jaundice, No spider nevi and no striae Rashes: no rashes Nails: normal Neuro General: oriented to person, oriented to place and oriented to time Cranial nerves: Yes Equal, round and reactive pupils present and Yes Normal hearing present Speech: No Abnormal speech present Extrem General: Yes normal to inspection, No clubbing, No cyanosis and No edema Psych Appearance: grossly normal and well kempt Mental Status: mental status grossly normal Speech and movement: Normal speech and movement present Affect: normal affect Attitude: cooperative Thought process: Normal thought process present and not confabulating Thought content: Normal thought content present Insight: Fair insight present (Psych) Judgement: Fair judgement present (Psych) Assessment & Plan Assessment & Plan (1) Diverticulitis: Code(s): K57.92 - Diverticulitis of intestine, part unspecified, without perforation or abscess without bleeding Category: Medical (2) Irritable bowel syndrome with both constipation and diarrhea: Code(s): K58.2 - Mixed irritable bowel syndrome Category: Medical (3) Bleeding hemorrhoids: Code(s): K64.9 - Unspecified hemorrhoids Category: Medical (4) GERD (gastroesophageal reflux disease): Code(s): K21.9 - Gastro-esophageal reflux disease without esophagitis Category: Medical Qualifiers: Esophagitis presence: esophagitis presence not specified Qualified Code(s): K21.9 - Gastro-esophageal reflux disease without esophagitis (5) Colitis: Comment: most likely diverticulitis as this as a CT dx no sign any IBD abnormality on colonoscopy's Code(s): K52.9 - Noninfective gastroenteritis and colitis, unspecified Category: Medical (6) Erosive esophagitis: Code(s): K22.10 - Ulcer of esophagus without bleeding Category: Medical Plan She has really been struggling with her health! She ended up with a yeast infections from all of the antibiotics and the prednisone and ended up on a 7 day cream. Fortunately that now is clearing up. Then she just was feeling generally unwell and presented to a walk-in clinic and they are listened to her lungs and diagnose her with bronchitis. She was then put on a Z-Daniel. It seems that her immunity really has been knocked down for reasons that are not entirely clear. She is beginning to recover and I did personal financial counselor her to continue to drink plenty of water to keep her bowels moving. She had stopped taking omeprazole for a time so I counseled her she really needs to be on omeprazole 20 mg because we did find erosive esophagitis and we want to protect her from getting esophageal cancer. She is agreeable to this. Colonoscopy did not uncover anything concerning so it seems that her ?colitis? diagnosis made by CAT scan more than likely was diverticulitis and less likely related to an infection or inflammatory bowel disease. Of course we will continue to monitor this. She still has some lingering pain that tends to be at about the level of the middle of the transverse colon that comes and goes. Because she still has occasional loose stools I have advised her not to restart her Colace just yet. If she starts having stools where she straining or they are very hard then we can consider restarting this medication. She continues on her omeprazole 20 mg daily. ROV 3 mos. Medications: New omeprazole 20 mg PO DAILY 30 caps 12RF K22.10 - Ulcer of esophagus without bleeding Discontinued cefuroxime axetil Discontinued Reason: Patient Completed Course 500 mg PO Q12H 10 tabs 0RF Coding Level of Care Code Est Pt Level 3 (19217) Diagnoses Diverticulitis K57.92 Irritable bowel syndrome with both constipation and diarrhea K58.2 Bleeding hemorrhoids K64.9 Gastroesophageal reflux disease, unspecified whether esophagitis present K21.9 Esophagitis presence: esophagitis presence not specified Colitis K52.9 Erosive esophagitis K22.10
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
== END 2024-10-07 13:05 | disposition home or self-care (01) ==
LOC: HO.HGI 12:16
PROVIDERS: Visit Provider Nurse Practitioner
DX: K57.92 Diverticulitis of intestine, part unspecified, without perforation or abscess without bleeding (principal); K58.2 Mixed irritable bowel syndrome; K64.9 Unspecified hemorrhoids; K21.9 Gastro-esophageal reflux disease without esophagitis; K22.10 Ulcer of esophagus without bleeding
CPT/HCPCS: 99213

== ENCOUNTER 2024-11-15 17:00 | Emergency (ER) | payer OTHER, SELFPAY ==
[2024-11-15 17:35] VITALS: BP 109/67; PULSE 61; RESP 18; TEMP 37; O2SAT 96; BMI 28.3
--- NOTE | 2024-11-15 17:38 | ED.GENADULT ---
HPI - General Adult General Chief complaint: Abdominal Pain Stated complaint: abd pain/reflux Time Seen by Provider: 11/15/24 17:56 Related Data Home Medications ?Medication ?Instructions ?Recorded ?Confirmed fexofenadine 60 mg tablet (Lore 60 mg PO BID 09/24/24 09/24/24 Allergy) Previous Rx's ?Medication ?Instructions ?Recorded fluconazole 150 mg tablet 150 mg PO Q3D #2 tabs 09/25/24 omeprazole 20 mg capsule,delayed 20 mg PO DAILY #30 caps 10/07/24 release esomeprazole magnesium 20 mg 20 mg PO DAILY 1 week #7 caps 11/18/24 capsule,delayed release sucralfate 1 gram tablet 1 g PO BID #60 tabs 11/18/24 Allergies Allergy/AdvReac Type Severity Reaction Status Date / Time morphine (Morphine) Allergy Intermediate HALLUCINATI Verified 11/18/24 08:30 ONS Sulfa (Sulfonamide Allergy Intermediate HIVES Verified 11/18/24 08:30 Antibiotics) shellfish derived Allergy Mild Stomach Verified 11/18/24 08:30 Upset methylprednisolone AdvReac Severe rash Verified 11/18/24 08:30 Substance with sulfonamide Allergy Unknown Hives Uncoded 09/25/24 08:14 structure and antibacterial mechanism of action (substance) Oral Contrast AdvReac Intermediate Abdominal Uncoded 09/25/24 08:14 Pain PMFSH Past Medical History Medical History Dysuria Colitis Pre-op examination Upper abdominal pain Diarrhea Sinusitis Contact dermatitis Umbilical abnormality Thoracic back pain Right flank pain Otalgia of left ear Neck pain Epigastric pain Lumbar back pain Conjunctivitis IBS (irritable bowel syndrome) Thoracic degenerative disc disease Upper respiratory tract infection Back pain Physical exam URI, acute Acalculous cholecystitis Loose stools Asthma Tubular adenoma of colon Degenerative disc disease, thoracic Cholelithiasis with chronic cholecystitis Glaucoma Depression Helicobacter pylori (H. pylori) Anemia Myocardial infarction GERD (gastroesophageal reflux disease) Surgical History Hx laparoscopic cholecystectomy Status post laparoscopic cholecystectomy Hx of colonoscopy H/O dilation and curettage S/P right knee arthroscopy H/O esophagogastroduodenoscopy History of arthroscopy of right knee History of tubal ligation H/O section History of tonsillectomy Family History Family History Father HTN (hypertension) Prostate cancer Mother HTN (hypertension) Diabetes Hx of CABG Sister Asthma Social History Social History Household Members: Spouse, Significant Other and Other Housing: House Are you a primary primary care provider to a significant other at home: No Do you presently have visiting nurse or other home services: No Alcohol intake: never Patient Tobacco Use Status: Never used Tobacco Tobacco use type: Cigarette e-Cigarette/Vaping Use: Never Used Second Hand Smoke Exposure: No Advance Directives: No Advance Directives Information Provided: Yes service: No Current occupational status: disabled Current occupational exposures/hazards: No Cognitive needs: No Hearing needs: No Vision needs: Yes Physical Exam ED Vital Signs: BMI result Body Mass Index 28.3 Course Course Course Narrative: This is a rapid medical exam performed by Tay Perez NP: Additional HPI, ROS, PE not included below will be deferred to primary provider. Patient is a 63-year-old female presenting with complaint of intermittent epigastric pain, acid reflux, not compliant with her omeprazole. Recent endoscopy/colonoscopy. Plan: EKG, labs Medications Administered Discontinued Medications Generic Name Dose Route Start Last Admin Trade Name Freq PRN Reason Stop Dose Admin Famotidine 20 mg 11/15/24 18:41 11/15/24 18:50 Famotidine 20 Mg Tablet PO 11/15/24 18:42 20 mg ONCE ONE Administration Sucralfate 1 gm 11/15/24 18:41 11/15/24 18:50 Sucralfate Oral Suspension 1 Gm/10 Ml Oral.Susp PO 11/15/24 18:42 1 gm ONCE ONE Administration Medical Decision Making Lab Data 11/15/24 17:54 11/15/24 17:54 Labs: Lab Results 11/15/24 Range/Units 17:54 WBC 5.0 (4.8-10.8) X10*3/uL RBC 3.84 L (4.20-5.50) X10*6/uL Hgb 11.8 L (12.0-16.0) g/dl Hct 33.9 L (37.0-47.0) % MCV 88.3 (80.0-98.0) fL MCH 30.7 (27.0-33.0) pg MCHC 34.8 (31.0-35.0) g/dl RDW 12.9 (11.0-16.0) % Plt Count 175 (160-400) X10*3/uL MPV 10.6 (9.4-12.3) fL Immature Gran % (Auto) 0.2 (0.0-0.4) % Neut % (Auto) 65.6 (45-73) % Lymph % (Auto) 22.2 (20-40) % [place] % (Auto) 10.4 (2-11) % Eos % (Auto) 1.2 (0-4) % Baso % (Auto) 0.4 (0-2) % Lymph # (Auto) 1.1 L (1.2-4.9) X10*3/uL [place] # (Auto) 0.5 (0.1-1.2) X10*3/uL Eos # (Auto) 0.1 (0.0-0.4) X10*3/uL Baso # (Auto) 0.0 (0.0-0.2) X10*3/uL Abs Immat Gran (auto) 0.01 (0.00-0.03) X10*3/uL Absolute Neuts (auto) 3.3 (2.0-8.3) x10*3/uL Absolute Nucleated RBC 0.000 (0.0-0.012) X10*3/uL Nucleated RBC % (auto) 0.0 (0.0-0.2) /100WBC Sodium 143 (135-145) mmol/L Potassium 3.9 (3.3-5.1) mmol/L Chloride 110 H (96-108) mmol/L Carbon Dioxide 26 (22-29) mmol/L Anion Gap 11 L (12-20) BUN 11 (9-16) mg/dL Creatinine 0.74 (0.5-1.4) mg/dL Estim Creat Clear Calc 76.2 Estimated GFR > 60 Random Glucose 107 (60-115) mg/dL Calcium 8.5 (8.4-10.2) mg/dL Total Bilirubin 0.4 (0.0-1.0) mg/dL AST 22 (5-31) U/L ALT 15 (0-31) U/L Alkaline Phosphatase 86 (39-117) U/L Troponin I High Sens < 2.7 (<3.5-17.0) ng/L Total Protein 6.9 (6.5-8.0) g/dL Albumin 4.0 (3.5-5.0) g/dL Lipase 22 (8-78) U/L Discharge Plan Discharge Clinical Impression: Epigastric abdominal pain Patient Disposition: Home, Self-Care Instructions: Acute Abdominal Pain (DC), Epigastric Pain (ED) Additional Instructions: DISCHARGE DIAGNOSES: Abdominal pain HISTORY OF PRESENTATION: ?Abdominal pain with pain in the upper mid abdomen and belching EMERGENCY DEPARTMENT COURSE,TESTS, TREATMENTS: While in the ED today you had reassuring lab work including blood counts, blood chemistries renal function. You had a negative cardiac enzyme or heart attack blood tests and a normal EKG this is reassuring you were given Carafate a topical codeine for your stomach and famotidine another antacid. Continue with the your antacids at home DISCHARGE MEDICATIONS: ?[We have made no changes to your regular medication regimen] FOLLOW-UP: ?Call your primary or general physician soon as possible to discuss your symptoms, your ED visit and to discuss follow up plans [Continue your antacids at home call your PCP for follow up INSTRUCTIONS ?& RETURN PRECAUTIONS: If any symptoms change first call your primary physician, if it is after-hours your primary doctors office should have a provider stock handler floorperson you can speak with. If the symptoms are severe or very concerning to you then call 911 or return to the ED. Addison Layton MD Emergency Physician [facility] Prescriptions: No Action sucralfate 1 gram tablet 1 g PO BID Qty: 60 1RF esomeprazole magnesium 20 mg capsule,delayed release(DR/EC) 20 mg PO DAILY 7 Days Qty: 7 0RF fexofenadine [Lore Allergy] 60 mg Tablet 60 mg PO BID fluconazole 150 mg tablet 150 mg PO Q3D Qty: 2 0RF Rx Instructions: may repeat second dose 72 hrs after first dose if symptoms persist omeprazole 20 mg capsule,delayed release(DR/EC) 20 mg PO DAILY Qty: 30 12RF Interventions: ED Discharge Assessment Last Done: 11/15/24 18:55 Discharge Date/Time: 11/15/24 18:59 Print Language: Upper Sorbian
--- NOTE | 2024-11-15 17:40 | ECG_ITS ---
Test Reason : EPIGASTRIC PAIN Blood Pressure : */* mmHG Vent. Rate : 56 BPM Atrial Rate : 56 BPM P-R Int : 138 ms QRS Dur : 82 ms QT Int : 416 ms P-R-T Axes : 70 55 63 degrees QTcB Int : 401 ms Sinus bradycardia Otherwise normal ECG When compared with ECG of 09-Jul-2024 07:09, No significant change was found Referred By: Glenys Perez Electronically Signed By: Ebenezer Vaz
[2024-11-15 17:58] LABS: MANUAL DIFF FLAG NO
[2024-11-15 17:59] LABS: Hematocrit 33.9 % (37.0-47.0); Hemoglobin 11.8 g/dl (12.0-16.0); Imm Gran Abs Auto 0.01 X10*3/uL (0.00-0.03); Imm Gran Pct Auto 0.2 % (0.0-0.4); Lymphocytes Absolute Auto 1.1 X10*3/uL (1.2-4.9); Mean Corpuscular HGB Conc 34.8 g/dl (31.0-35.0); Mean Corpuscular Hemoglobin 30.7 pg (27.0-33.0); Mean Corpuscular Volume 88.3 fL (80.0-98.0); NRBC Abs Auto 0.000 X10*3/uL (0.0-0.012); NRBC Pct Auto 0.0 /100WBC (0.0-0.2); Platelet Count 175 X10*3/uL (160-400); Red Blood Count 3.84 X10*6/uL (4.20-5.50); White Blood Count 5.0 X10*3/uL (4.8-10.8)
[2024-11-15 18:14] LABS: Alanine Aminotransferase 15 U/L (0-31); Albumin Level 4.0 g/dL (3.5-5.0); Alkaline Phosphatase 86 U/L (39-117); Anion Gap 11 (12-20); Aspartate Amino Transferase 22 U/L (5-31); Blood Urea Nitrogen 11 mg/dL (9-16); Calcium 8.5 mg/dL (8.4-10.2); Carbon Dioxide 26 mmol/L (22-29); Chloride 110 mmol/L (96-108); Creatinine Clr Calc Pharmacy 76.2; Estimated Glomerular Filt Rate > 60; Lipase 22 U/L (8-78); Potassium 3.9 mmol/L (3.3-5.1); Sodium 143 mmol/L (135-145); Total Protein 6.9 g/dL (6.5-8.0)
--- NOTE | 2024-11-15 18:14 | PC.NURSE ---
Pt to ED from triage, alert and ambulatory. Reports feeling reflux and increased belching. Denies N/V/D. Lab results pending.
[2024-11-15 18:24] LABS: Troponin-I High Sensitivity < 2.7 ng/L (<3.5-17.0)
[2024-11-15 18:27] VITALS: BP 125/63; PULSE 60; RESP 18; TEMP 36.9; O2SAT 97
[2024-11-15] MEDS: Sucralfate Oral Suspension 1 GM/10 ML ORAL.SUSP PO (18:50)
[2024-11-15 18:51] VITALS: BP 143/70; PULSE 60; RESP 18; TEMP 36.6; O2SAT 99
[2024-11-15 18:55] VITALS: BP 143/70; PULSE 60; RESP 18; TEMP 36.6; O2SAT 99
== END 2024-11-15 18:59 | disposition home or self-care (01) ==
PROVIDERS: Registered Nurse Emergency; Emergency Provider Emergency Medicine
DX: R10.13 Epigastric pain (principal); R10.2 Pelvic and perineal pain; R00.1 Bradycardia, unspecified; K21.9 Gastro-esophageal reflux disease without esophagitis; Z79.899 Other long term (current) drug therapy; Z91.148 Patient's other noncompliance with medication regimen for other reason
CPT/HCPCS: 36415; 80053; 83690; 84484; 85025; 93005; 99283; 99285

== ENCOUNTER → 2024-11-15 17:40 | Outpatient (BNV) | payer OTHER, SELFPAY | PROVIDERS: Emergency Provider Emergency Medicine; Visit Provider Internal Medicine Cardiovascular Disease | DX: R00.1 Bradycardia, unspecified (principal) | CPT/HCPCS: 93010 ==

== ENCOUNTER 2024-11-18 08:06 | Emergency (ER) | payer OTHER, SELFPAY ==
--- NOTE | ~2024-11-18 | CT_ITS ---
EXAMINATION: CT ABDOMEN AND PELVIS WITH CONTRAST CLINICAL INFORMATION: Abdominal pain COMPARISON: September 07, 2024. TECHNIQUE: Multidetector volumetric images were obtained from the superior aspect of the liver through the pubic symphysis following administration 85 mL of Omnipaque 350 intravenous contrast. Sagittal and coronal reformatted images were obtained on the technologist's workstation. Oral contrast: No This CT examination was performed using dose optimization techniques as appropriate, variously including the following: *Automated exposure control *Adjustment of mA and/or kV according to patient size (this includes techniques or standardized protocols for targeted exams where dose is matched to indication/reason for exam; i.e. extremities or head) *Use of iterative reconstruction technique DLP: 444 mg centimeter. FINDINGS: LUNG BASES: No acute airspace disease. LIVER, GALLBLADDER, AND BILIARY TREE: Liver measures 17 cm. No focal lesion. Main portal vein and hepatic veins and intrahepatic portion of the IVC are patent. Status post cholecystectomy. No intrahepatic or extrahepatic biliary ductal dilatation. PANCREAS: No focal lesion. No peripancreatic fluid collections. No main pancreatic ductal dilatation. SPLEEN: 10 cm. No focal lesion. Small accessory spleen. ADRENAL GLANDS: No nodular lesions. KIDNEYS AND URETERS: Normal enhancement pattern of the renal cortex. No hydronephrosis. No gross nephrolithiasis. No enhancing lesion. BLADDER: Fluid-filled. GASTROINTESTINAL TRACT: Numerous diverticula, left hemicolon. Abundant stool throughout the large intestine. Appendix is normal. No intestinal obstruction pattern. No pneumatosis intestinalis. Subsegmental wall thickening versus peristalsis, gastric antrum. No ascites. No pneumoperitoneum. No peripheral enhancing fluid collection, peritoneal cavity. ABDOMINAL WALL: Small fat-containing umbilical hernia. Diastases abdominal rectus muscles, periumbilical region. LYMPH NODES: Nonspecific mildly prominent, mesenteric. VASCULAR: Mixed plaques throughout the abdominal aorta wall and iliac arteries. No aneurysm or dissection, abdominal aorta. PELVIC VISCERA: Calcifications, uterus. Normal-sized ovaries. OSSEOUS STRUCTURES: Small marginal osteophyte formation at multiple levels and endplate sclerosis with multilevel Schmorl nodes. Facet joint hypertrophy at L5-S1 and L4-5 levels. No acute fracture or gross listhesis. No lytic or blastic lesions. CT/CT abdomen pelvis w IV con IMPRESSION: Diverticular disease. Mild enterocolitis cannot be entirely excluded. Hepatomegaly, mild. Small fat-containing umbilical hernia. Calcified uterine fibroid. Fleischner guidelines were followed. Electronically signed by: Andreas Zepeda MD 11/18/2024 11:40 AM EDT
--- NOTE | 2024-11-18 08:10 | ECG_ITS ---
Test Reason : chest pain Blood Pressure : */* mmHG Vent. Rate : 71 BPM Atrial Rate : 71 BPM P-R Int : 146 ms QRS Dur : 80 ms QT Int : 376 ms P-R-T Axes : 79 64 56 degrees QTcB Int : 408 ms Normal sinus rhythm Normal ECG When compared with ECG of 15-Nov-2024 17:46, No significant change was found Referred By: Generic ED Physician Electronically Signed By: Ebenezer Vaz
[2024-11-18 08:23] VITALS: BP 126/69; PULSE 69; RESP 13; TEMP 36.8; O2SAT 98; BMI 26.7
--- NOTE | 2024-11-18 09:38 | ED_ITS ---
HPI - Chest Pain General Chief Complaint: Chest Pain Stated Complaint: Chest pain Time Seen by Provider: 11/18/24 09:36 Source: patient Mode of arrival: ambulatory Limitations: no limitations History of Present Illness ED Provider: Silvia Brush PA-C HPI narrative: Patient is a 63 year old female with past medical history of stroke, GERD, erosive esophagitis for which she follows with [facility], diverticulitis, irritable bowel syndrome-mixed, asthma, hemorrhoids, and IgA mediated leukocytoclastic vasculitis presents to the ER on 11/18 with chief complaint of intermittent burning in her esophagus and epigastric area. The burning sensation has worsened since 09/2024 when she had an endoscopy, which showed erosive changes in her esophagus consistent with GERD. She recently visited this ER on 11/15 with a similar complaint with negative cardiac workup (ECG showing bradycardia, sinus rhythm and troponin <2.7). She is prescribed omeprazole 20 mg daily but takes it inconsistently. She follows with GI, but the GI clinic had no upcoming available appointments until December. She denies chest pain, shortness of breath, dizziness, vomiting, hematemesis, melena, hematochezia, diarrhea, or constipation. She has had a cholecystectomy but no other abdominal surgeries. Her last bowel movement was this AM and regular. Her last PO intake was this AM, accompanied by some nausea and GERD symptoms. Onset (ago): month(s) Pain location: epigastric Related Data Home Medications ?Medication ?Instructions ?Recorded ?Confirmed fexofenadine 60 mg tablet (Lore 60 mg PO BID 09/24/24 Allergy) Previous Rx's ?Medication ?Instructions ?Recorded fluconazole 150 mg tablet 150 mg PO Q3D #2 tabs omeprazole 20 mg capsule,delayed 20 mg PO DAILY #30 ca ps 10/07/24 release esomeprazole magnesium 20 mg 20 mg PO DAILY 1 week #7 caps 11/18/24 capsule,delayed release sucralfate 100 mg/mL oral 10 ml PO BID 1 week #140 mL 11/18/24 suspension (Carafate) Allergies Allergy/AdvReac Type Severity Reaction Status Date / Time morphine (Morphine) Allergy Intermediate HALLUCINATI Verified 11/18/24 08:30 ONS Sulfa (Sulfonamide Allergy Intermediate HIVES Verified 11/18/24 08:30 Antibiotics) shellfish derived Allergy Mild Stomach Verified 11/18/24 08:30 Upset methylprednisolone AdvReac Severe rash Verified 11/18/24 08:30 Substance with sulfonamide Allergy Unknown Hives Uncoded 09/25/24 08:14 structure and antibacterial mechanism of action (substance) Oral Contrast AdvReac Intermediate Abdominal Uncoded 09/25/24 08:14 Pain Review of Systems 2 Constitutional: Constitutional: Reports no additional constitutional complaints, Denies chills, Denies fever(s) and Denies night sweats Eyes: Eyes: Reports no additional eye complaints, Denies blurry vision, Denies change in vision, Denies diplopia, Denies eye discharge, Denies loss of vision and Denies eye pain ENT: Denies dizziness Cardiovascular: Cardiovascular: Reports no additional cardiovascular complaints, Denies chest pain, Reports Epigastric Pain, Denies lightheadedness, Denies Loss of Consciousness and Denies dyspnea Respiratory: Respiratory: Reports no additional respiratory complaints and Denies dyspnea Gastrointestinal: Gastrointestinal: Reports no additional gastrointestinal complaints, Denies melena, Denies hematochezia, Denies change in bowel habits, Denies change in stool character, Reports heartburn and Reports nausea Genitourinary: Genitourinary: Denies hematuria, Denies urinary frequency, Denies dysuria, Denies urinary incontinence, Denies urinary hesitancy and Denies urinary urgency Musculoskeletal: Musculoskeletal: Reports no additional musculoskeletal complaints, Denies numbness and Denies tingling Neurologic: Denies dizziness, Denies loss of vision, Denies numbness and Denies tingling Psychiatric: Psychiatric: Reports no additional psychiatric complaints Endocrine: Endocrine: Reports no additional endocrine complaints Hematologic/Lymphatic: Hematologic/Lymphatic: Reports no additional hematologic/lymphatic complaints Allergic/Immunologic: Allergic/Immunologic: Reports no additional allergic/immunologic complaints [facility] Past Medical History Attestation statement: The following information was validated with the patient. Source: old records reviewed and nursing notes reviewed Medical History Dysuria Colitis Pre-op examination Upper abdominal pain Diarrhea Sinusitis Contact dermatitis Umbilical abnormality Thoracic back pain Right flank pain Otalgia of left ear Neck pain Epigastric pain Lumbar back pain Conjunctivitis IBS (irritable bowel syndrome) Thoracic degenerative disc disease Upper respiratory tract infection Back pain Physical exam URI, acute Acalculous cholecystitis Loose stools Asthma Tubular adenoma of colon Degenerative disc disease, thoracic Cholelithiasis with chronic cholecystitis Glaucoma Depression Helicobacter pylori (H. pylori) Anemia Myocardial infarction GERD (gastroesophageal reflux disease) Surgical History Hx laparoscopic cholecystectomy Status post laparoscopic cholecystectomy Hx of colonoscopy H/O dilation and curettage S/P right knee arthroscopy H/O esophagogastroduodenoscopy History of arthroscopy of right knee History of tubal ligation H/O section History of tonsillectomy Family History Family History Father HTN (hypertension) Prostate cancer Mother HTN (hypertension) Diabetes Hx of CABG Sister Asthma Social History Social History Household Members: Spouse, Significant Other and Other Housing: House Are you a primary health care attorney to a significant other at home: No Do you presently have visiting nurse or other home services: No Alcohol intake: never Patient Tobacco Use Status: Never used Tobacco Tobacco use type: Cigarette e-Cigarette/Vaping Use: Never Used Second Hand Smoke Exposure: No Advance Directives: No Advance Directives Information Provided: Yes service: No Current occupational status: disabled Current occupational exposures/hazards: No Cognitive needs: No Hearing needs: No Vision needs: Yes Physical Exam 2 Vital Signs: Vital Signs: Last Vital Signs Temp 98.8 F 11/18/24 12:05 Pulse 61 11/18/24 12:05 Resp 16 11/18/24 12:05 BP 123/67 11/18/24 12:05 Pulse Ox 98 11/18/24 12:05 O2 Del Method Room Air 11/18/24 12:05 BMI result Body Mass Index 26.7 Const: General: cooperative, no acute distress, alert and awake Nutritional Appearance: well nourished Orientation/consciousness: patient oriented x3 HEENT: Head: Yes normal to inspection and Yes atraumatic Ears: hearing grossly normal bilaterally and external ears normal General nose exam: Normal external nose present, no nasal discharge noted and no epistaxis Face and sinus: Yes normal facial exam, No abrasion and No laceration Mouth: Normal oral and palatal mucosa present, no drooling and no muffled voice Eyes: General: appearance normal, both eyes and all related structures P eriorbital: periorbital findings normal Eyelids: Yes eyelids normal C onjunctivae: conjunctivae normal Pupils: Equal, round and reactive pupils present EOM: EOMs intact bilaterally Neck: Neck: Yes normal visual inspection, Yes full ROM and Yes no lymphadenopathy Resp: Effort & Inspection: normal respiratory effort and able to speak in complete sentences Auscultation: clear to auscultation bilaterally Cardio: Rate: regular rate Rhythm: regular rhythm Heart sounds: S1 normal heart sound present and S2 normal heart sound present GI: Palpation (GI): Soft to palpation, not firm, nontender, no guarding, not rigid and No Rebound tenderness present Neuro: General: patient oriented x3, moves all extremities and CN's II-XI intact bilaterally Cranial nerves: Yes Equal, round and reactive pupils present Cognition (Neuro): normal cognition Extrem: General: Yes normal to inspection, Yes full ROM and Yes capillary refill normal Psych: Appearance: grossly normal Mental Status: mental status grossly normal Affect: normal affect Attitude: cooperative Thought process: N ormal thought process present Thought content: Normal thought content present Insight: Good insight present (Psych) Medications Administered Discontinued Medications Generic Name Dose Route Start Last Admin Trade Name Freq PRN Reason Stop Dose Admin Iohexol 100 ml 11/18/24 11:26 11/18/24 11:26 Iohexol 350 Mg/Ml 100 Ml Infus..Btl IV 11/18/24 11:27 85 ml ONCE ONE Administration Medical Decision Making Medical Decision Making [facility] Narrative: Patient is a 63 year old female with past medical history of stroke, GERD, erosive esophagitis for which she follows with [facility], diverticulitis, irritable bowel syndrome-mixed, asthma, hemorrhoids, and IgA mediated leukocytoclastic vasculitis presents to the ER on 11/18 with chief complaint of intermittent burning in her esophagus and epigastric area. Patient's physical exam was unremarkable. Patient's blood work was unremarkable. Patient's EKG was unremarkable. Patient's CT abd/pelvis showed no acute process. I spoke with Dr. Brown, the covering GI provider for [facility], who recommended 1 week of carafate and 20mg of Esomeprazole with outpatient follow up. I explained my physical exam findings as well as all test results to the patient. I answered all questions asked by the patient. I stressed the importance of the patient taking her medication as directed (either prescribed or as the over the counter packaging recommends). I stressed the importance of the patient following up with her GI specialist and primary care provider. I stressed the importance of the patient returning to the emergency department immediately if her symptoms were to worsen or if she were to develop any dizziness, shortness of breath, difficulty breathing, chest pain, blurry vision, loss of vision, nausea, vomiting, abdominal pain, fever, chills, back pain, or any other complaints. Patient verbalized agreement and understanding with this treatment plan and discharge. Differential Diagnosis Differential Diagnoses: The differential diagnosis associated with the presentation includes Epigastric pain GERD NSTEMI STEMI Admission/Observation Consideration of admission/observation: Escalation of care including admission/observation considered Patient would have been admitted to the hospital had her work up had any findings where hospital admission was appropriate and her clinical presentation warranted hospital admission. Consult Healthcare Provider Management of the patient was discussed with: Doorperson (spoke with the GI team as noted in the MDM Rationale portion of this note. ) Lab Data [facility] Lab Attestation statement: I reviewed the patient's lab results. My interpretation of these results are in the MDM Rationale portion of this note. 11/18/24 09:59 11/18/24 09:59 Labs: Lab Results 11/18/24 Range/Units 09:59 WBC 4.2 L (4.8-10.8) X10*3/uL RBC 4.12 L (4.20-5.50) X10*6/uL Hgb 12.4 (12.0-16.0) g/dl Hct 36.6 L (37.0-47.0) % MCV 88.8 (80.0-98.0) fL MCH 30.1 (27.0-33.0) pg MCHC 33.9 (31.0-35.0) g/dl RDW 12.7 (11.0-16.0) % Plt Count 177 (160-400) X10*3/uL MPV 10.7 (9.4-12.3) fL Immature Gran % (Auto) 0.2 (0.0-0.4) % Neut % (Auto) 66.3 (45-73) % Lymph % (Auto) 20.9 (20-40) % Dyer % (Auto) 10.7 (2-11) % Eos % (Auto) 1.2 (0-4) % Baso % (Auto) 0.7 (0-2) % Lymph # (Auto) 0.9 L (1.2-4.9) X10*3/uL Dyer # (Auto) 0.5 (0.1-1.2) X10*3/uL Eos # (Auto) 0.1 (0.0-0.4) X10*3/uL Baso # (Auto) 0.0 (0.0-0.2) X10*3/uL Abs Immat Gran (auto) 0.01 (0.00-0.03) X10*3/uL Absolute Neuts (auto) 2.8 (2.0-8.3) x10*3/uL Absolute Nucleated RBC 0.000 (0.0-0.012) X10*3/uL Nucleated RBC % (auto) 0.0 (0.0-0.2) /100WBC Sodium 143 (135-145) mmol/L Potassium 3.8 (3.3-5.1) mmol/L Chloride 108 (96-108) mmol/L Carbon Dioxide 30 H (22-29) mmol/L Anion Gap 9 L (12-20) BUN 9 (9-16) mg/dL Creatinine 0.65 (0.5-1.4) mg/dL Estim Creat Clear Calc 81.1 Estimated GFR > 60 Random Glucose 81 (60-115) mg/dL Calcium 8.9 (8.4-10.2) mg/dL Magnesium 2.1 (1.6-2.6) mg/dL Total Bilirubin 0.3 (0.0-1.0) mg/dL AST 17 (5-31) U/L ALT 14 (0-31) U/L Alkaline Phosphatase 80 (39-117) U/L Troponin I High Sens < 2.7 (<3.5-17.0) ng/L Total Protein 6.9 (6.5-8.0) g/dL Albumin 4.0 (3.5-5.0) g/dL Influenza Type A (PCR) NEGATIVE (Negative) Influenza Type B (PCR) NEGATIVE (Negative) RSV RNA Qual (PCR) NEGATIVE (Negative) SARS-CoV-2 RNA (RT-PCR) NEGATIVE (Negative) Independent Interpretation I performed an independent interpretation of an: EKG and CT Scan Interpretation: My interpretation is in agreement with the radiologist's impression of this imaging study. L Report Number: [id number]: Total DLP = 444.00 mGy-cm EXAMINATION: CT ABDOMEN AND PELVIS WITH CONTRAST CLINICAL INFORMATION: Abdominal pain COMPARISON: September 07, 2024. TECHNIQUE: Multidetector volumetric images were obtained from the superior aspect of the liver through the pubic symphysis following administration 85 mL of Omnipaque 350 intravenous contrast. Sagittal and coronal reformatted images were obtained on the technologist's workstation. Oral contrast: No This CT examination was performed using dose optimization techniques as appropriate, variously including the following: *Automated exposure control *Adjustment of mA and/or kV according to patient size (this includes techniques or standardized protocols for targeted exams where dose is matched to indication/reason for exam; i.e. extremities or head) *Use of iterative reconstruction technique DLP: 444 mg centimeter. FINDINGS: LUNG BASES: No acute airspace disease. LIVER, GALLBLADDER, AND BILIARY TREE: Liver measures 17 cm. No focal lesion. Main portal vein and hepatic veins and intrahepatic portion of the IVC are patent. Status post cholecystectomy. No intrahepatic or extrahepatic biliary ductal dilatation. PANCREAS: No focal lesion. No peripancreatic fluid collections. No main pancreatic ductal dilatation. SPLEEN: 10 cm. No focal lesion. Small accessory spleen. ADRENAL GLANDS: No nodular lesions. KIDNEYS AND URETERS: Normal enhancement pattern of the renal cortex. No hydronephrosis. No gross nephrolithiasis. No enhancing lesion. BLADDER: Fluid-filled. GASTROINTESTINAL TRACT: Numerous diverticula, left hemicolon. Abundant stool throughout the large intestine. Appendix is normal. No intestinal obstruction pattern. No pneumatosis intestinalis. Subsegmental wall thickening versus peristalsis, gastric antrum. No ascites. No pneumoperitoneum. No peripheral enhancing fluid collection, peritoneal cavity. ABDOMINAL WALL: Small fat-containing umbilical hernia. Diastases abdominal rectus muscles, periumbilical region. LYMPH NODES: Nonspecific mildly prominent, mesenteric. VASCULAR: Mixed plaques throughout the abdominal aorta wall and iliac arteries. No aneurysm or dissection, abdominal aorta. PELVIC VISCERA: Calcifications, uterus. Normal-sized ovaries. OSSEOUS STRUCTURES: Small marginal osteophyte formation at multiple levels and endplate sclerosis with multilevel Schmorl nodes. Facet joint hypertrophy at L5- S1 and L4-5 levels. No acute fracture or gross listhesis. No lytic or blastic lesions. CT/CT abdomen pelvis w IV con IMPRESSION: Diverticular disease. Mild enterocolitis cannot be entirely excluded. Hepatomegaly, mild. Small fat-containing umbilical hernia. Calcified uterine fibroid. Fleischner guidelines were followed. Electronically signed by: Andreas Zepeda MD 11/18/2024 11:40 AM EDT Dictated By: Andreas Roman MD Signed By: Electronically signed by Andreas Núñez MD 11/18/24 1140 I independently interpreted this EKG and am in agreement with the below findings: Vent. Rate: 71 BPM Atrial Rate: 71 BPM P-R Int: 146 ms QRS Dur: 80 ms QT Int: 376 ms P-R-T Axes: 79 64 56 degrees QTcB Int: 408 ms Normal sinus rhythm Normal ECG When compared with ECG of 15-Nov-2024 17:46, No significant change was found DD/ [id number] Radiology Impression Discussion of test interpretation with radiology: I have reviewed the radiologist's reading. Critical Care Time Critical Care Time Critical Care Time: Yes Total Critical Care Time: 32 Attestation: I spent 32 minutes of Critical Care Time with this patient. This does not include time spent on separately reported billable procedures. Discharge Plan Discharge Clinical Impression: Acid reflux Patient Disposition: Home, Self-Care Instructions: GERD (Gastroesophageal Reflux Disease) (DC) Additional Instructions: Your CT scan showed diverticular disease - no infection. Enterocolitis which is inflammation of the intestine - but non specific. Take the carafate twice a day but be sure it is a few hours AFTER the esomeprazole. Follow up with your GI specialist and your primary care provider. Return to the emergency department immediately if your symptoms worsen or if you develop any numbness, tingling, dizziness, shortness of breath, difficulty breathing, chest pain, blurry vision, loss of vision, nausea, vomiting, abdominal pain, fever, chills, back pain, or any other complaints. Please see the information below about our Patient Portal. If you are not yet enrolled in the [facility] Patient Portal, you will receive an enrollment email invitation following your visit to any [facility] setting. You may also self-enroll in the Patient Portal by visiting our website: [email or web address] The following information is required to access the Patient Portal: - Your [facility] Medical Record Number - Your personal home email address (must match what is in your electronic medical record, Registration staff can assist with this) - Name - Date of Capabilities of the Patient Portal: - Message some providers - View upcoming appointments - Access your health summary, medical history, and visit history - View current conditions and allergies - View procedure and lab results - View your medications, including guidelines, side effects, and precautions - Complete pre-appointment questionnaires requested by your provider - Ready summary reports of your office visits and procedures To access the Patient Portal Mobile Per, follow these directions: - Search [employer] in the Per Store or [employer] Store - Download the Per - Search for [facility] - Enter your login/password Prescriptions: New esomeprazole magnesium 20 mg capsule,delayed release(DR/EC) 20 mg PO DAILY 7 Days Qty: 7 0RF sucralfate [Carafate] 100 mg/mL suspension 10 ml PO BID 7 Days Qty: 140 0RF No Action fexofenadine [Lore Allergy] 60 mg Tablet 60 mg PO BID fluconazole 150 mg tablet 150 mg PO Q3D Qty: 2 0RF Rx Instructions: may repeat second dose 72 hrs after first dose if symptoms persist omeprazole 20 mg capsule,delayed release(DR/EC) 20 mg PO DAILY Qty: 30 12RF Referrals: [facility] [Provider Group, Gastroenterology] Referral Note: Call to establish and follow up with a GI specialist. Юлия Mendes PA-C [Primary Care Provider, Internal Medicine] Interventions: ED Discharge Assessment Last Done: 11/18/24 12:05 Discharge Date/Time: 11/18/24 12:06 Print Language: Macedonian
[2024-11-18 10:02] VITALS: BP 123/69; PULSE 61; RESP 16; TEMP 36.7; O2SAT 97
[2024-11-18 10:07] LABS: MANUAL DIFF FLAG NO
[2024-11-18 10:08] LABS: Hematocrit 36.6 % (37.0-47.0); Hemoglobin 12.4 g/dl (12.0-16.0); Imm Gran Abs Auto 0.01 X10*3/uL (0.00-0.03); Imm Gran Pct Auto 0.2 % (0.0-0.4); Lymphocytes Absolute Auto 0.9 X10*3/uL (1.2-4.9); Mean Corpuscular HGB Conc 33.9 g/dl (31.0-35.0); Mean Corpuscular Hemoglobin 30.1 pg (27.0-33.0); Mean Corpuscular Volume 88.8 fL (80.0-98.0); NRBC Abs Auto 0.000 X10*3/uL (0.0-0.012); NRBC Pct Auto 0.0 /100WBC (0.0-0.2); Platelet Count 177 X10*3/uL (160-400); Red Blood Count 4.12 X10*6/uL (4.20-5.50); White Blood Count 4.2 X10*3/uL (4.8-10.8)
[2024-11-18 10:27] LABS: Alanine Aminotransferase 14 U/L (0-31); Albumin Level 4.0 g/dL (3.5-5.0); Alkaline Phosphatase 80 U/L (39-117); Anion Gap 9 (12-20); Aspartate Amino Transferase 17 U/L (5-31); Blood Urea Nitrogen 9 mg/dL (9-16); Calcium 8.9 mg/dL (8.4-10.2); Carbon Dioxide 30 mmol/L (22-29); Chloride 108 mmol/L (96-108); Creatinine Clr Calc Pharmacy 81.1; Estimated Glomerular Filt Rate > 60; Magnesium 2.1 mg/dL (1.6-2.6); Potassium 3.8 mmol/L (3.3-5.1); Sodium 143 mmol/L (135-145); Total Protein 6.9 g/dL (6.5-8.0)
[2024-11-18 10:40] LABS: Troponin-I High Sensitivity < 2.7 ng/L (<3.5-17.0)
[2024-11-18 11:19] VITALS: TEMP 37.1
[2024-11-18] MEDS: iohexoL 350 MG/ML 100 ML INFUS..BTL IV (11:26)
[2024-11-18 12:05] VITALS: BP 123/67; PULSE 61; RESP 16; TEMP 37.1; O2SAT 98
[2024-11-18 12:45] LABS: Resp Syncy Virus RNA Qual PCR NEGATIVE (Negative); SARS COV2 PCR INHOUSE NEGATIVE (Negative)
== END 2024-11-18 12:06 | disposition home or self-care (01) ==
PROVIDERS: Physician Assistant Medical; Emergency Provider Emergency Medicine
DX: K21.9 Gastro-esophageal reflux disease without esophagitis (principal); R07.89 Other chest pain; R10.13 Epigastric pain; Z03.818 Encounter for observation for suspected exposure to other biological agents ruled out; Z79.899 Other long term (current) drug therapy
CPT/HCPCS: 74177; 80053; 83735; 84484; 85025; 87637; 93005; 99285; 99291; Q9967

== ENCOUNTER → 2024-11-18 08:10 | Outpatient (BNV) | payer OTHER, SELFPAY | PROVIDERS: Emergency Provider Emergency Medicine; Visit Provider Internal Medicine Cardiovascular Disease | DX: R07.9 Chest pain, unspecified (principal) | CPT/HCPCS: 93010 ==

== ENCOUNTER → 2024-11-18 11:10 | Outpatient (BNV) | payer OTHER, SELFPAY | PROVIDERS: Emergency Provider Emergency Medicine; Visit Provider Radiology Diagnostic Radiology | DX: K57.90 Diverticulosis of intestine, part unspecified, without perforation or abscess without bleeding (principal); K42.9 Umbilical hernia without obstruction or gangrene; D25.9 Leiomyoma of uterus, unspecified | CPT/HCPCS: 74177 ==

== ENCOUNTER 2024-11-23 15:17 | Outpatient (AMB) | payer OTHER, SELFPAY ==
--- NOTE | 2024-11-23 15:21 | MHC.PC.OV ---
Vital Signs 11/23/24 15:23 Height 5 ft 2 in Weight 145 lb 6 oz BMI 26.6 BP 128/68 Blood Pressure Location Lt brachial Position Sitting Oxygen Delivery Method Room Air Intake Visit Reasons: discuss specialist/ change in heartburn medicine Displayer Required: No Accompanied by: Self / Same As Patient Allergies morphine (Morphine) Allergy (Intermediate, Verified 11/23/24 15:55) HALLUCINATIONS Sulfa (Sulfonamide Antibiotics) Allergy (Intermediate, Verified 11/23/24 15:55) HIVES shellfish derived Allergy (Mild, Verified 11/23/24 15:55) Stomach Upset methylprednisolone Adverse Reaction (Severe, Verified 11/23/24 15:55) rash Substance with sulfonamide structure and antibacterial mechanism of action (substance) Allergy (Unknown, Uncoded 11/23/24 15:55) Hives Oral Contrast Adverse Reaction (Intermediate, Uncoded 11/23/24 15:55) Abdominal Pain Medication List - Last Reconciled 11/23/24 by Юлия Mendes PA-C esomeprazole magnesium 20 mg PO DAILY 1 week fexofenadine (Lore Allergy) 60 mg PO BID fluconazole 150 mg PO Q3D omeprazole 20 mg PO DAILY sucralfate 1 g PO BID Tobacco use date assessed: 11/23/24 Dental Screening Dental Screen Date: 11/23/24 Did you have a dental visit in the last 12 months?: Yes Did you have a dental problem in the last 6 months where you did not have access to dental care?: No Was dental information given to patient?: Patient has dentist HPI discuss specialist/ change in heartburn medicine HPI Details 63 year old female coming to the office for acute problem. Presenting with gastrointestinal symptoms, including constipation and abdominal pain. She reports a history of constipation exacerbated by certain medications, leading to significant discomfort. The patient has a history of diverticular disease, as noted in a previous CAT scan, but no acute findings were observed. Recent hospital visits revealed possible enterocolitis, with inflammation of the bowel likely due to dietary irritants. She has been diagnosed with esophagitis, with chronic inactive inflammation noted in biopsies, but no H. pylori infection was found. The patient follows a diet avoiding red meat and fried foods, and she is considering a low FODMAP diet due to irritable bowel syndrome. [facility] Medical History Dysuria Colitis Pre-op examination Upper abdominal pain Diarrhea Sinusitis Contact dermatitis Umbilical abnormality Thoracic back pain Right flank pain Otalgia of left ear Neck pain Epigastric pain Lumbar back pain Conjunctivitis IBS (irritable bowel syndrome) Thoracic degenerative disc disease Upper respiratory tract infection Back pain Physical exam URI, acute Acalculous cholecystitis Loose stools Asthma Tubular adenoma of colon Degenerative disc disease, thoracic Cholelithiasis with chronic cholecystitis Glaucoma Depression Helicobacter pylori (H. pylori) Anemia Myocardial infarction GERD (gastroesophageal reflux disease) Surgical History Hx laparoscopic cholecystectomy Status post laparoscopic cholecystectomy Hx of colonoscopy H/O dilation and curettage S/P right knee arthroscopy H/O esophagogastroduodenoscopy History of arthroscopy of right knee History of tubal ligation H/O section History of tonsillectomy Family History Father HTN (hypertension) Prostate cancer Mother HTN (hypertension) Diabetes Hx of CABG Sister Asthma Social History Household Members: Spouse, Significant Other and Other Housing: House Are you a primary health care legal assistant to a significant other at home: No Do you presently have visiting nurse or other home services: No Alcohol intake: never Patient Tobacco Use Status: Never used Tobacco Tobacco use type: Cigarette e-Cigarette/Vaping Use: Never Used Second Hand Smoke Exposure: No service: No Current occupational status: disabled Current occupational exposures/hazards: No Cognitive needs: No Hearing needs: No Vision needs: Yes Questionnaire Thrive Questionnaire Date Thrive assessed: 11/23/24 JAJA-7 AMB Questionnaire JAJA-7 Date JAJA - 7 assessed: 11/23/24 Source: Developed by Drs. Kevin Stevenson, Nita Gutierrez, Kulwant Flores and colleagues, with an educational reji from [employer]. Review of Systems Const Denies body aches, Denies chills, Denies fever(s), Denies headache(s) and Denies poor appetite Eyes Reports no additional complaints ENT Denies dysphagia, Denies dizziness, Denies headache(s) and Denies odynophagia Card Denies chest pain, Denies syncope, Denies edema, Denies irregular heart rhythm, Denies lightheadedness and Denies dyspnea Resp Denies cough and Denies dyspnea GI Reports abdominal pain, Reports constipation, Denies dysphagia, Reports diarrhea, Denies nausea, Denies odynophagia and Denies vomiting Reports no additional complaints Musc Reports no additional complaints and Denies abnormal gait Skin/Breast Reports system reviewed and no additional complaints, except as documented Neuro Denies abnormal gait, Denies dizziness, Denies syncope and Denies headache(s) Psych Reports no additional complaints Physical exam (Primary Care) Vital Signs: Last Vital Signs BP 128/68 11/23/24 15:23 Oxygen Delivery Method Room Air 11/23/24 15:23 BMI result Body Mass Index 26.6 Tobacco/Smoking Status: Tobacco use Status Tobacco use date assessed 11/23/24 11/23/24 15:27 Patient Tobacco Use Status Never used Tobacco 11/23/24 15:27 Tobacco use type Cigarette 11/23/24 15:27 e-Cigarette/Vaping Use Never Used 11/23/24 15:27 Thrive Assessment: Date of Thrive Assessment Date Thrive assessed 11/23/24 11/23/24 15:27 Const General: cooperative, healthy appearing, comfortable and no acute distress Orientation/consciousness: patient oriented x3 HENMT Head: Yes normocephalic Ears: hearing grossly normal bilaterally General nose exam: Normal external nose present Eyes General: appearance normal, both eyes and all related structures Conjunctivae: conjunctivae normal Neck Neck: Yes full ROM and Yes no lymphadenopathy Resp Effort & Inspection: normal respiratory effort Cardio Rate: regular rate Rhythm: regular rhythm GI Palpation (GI): Soft to palpation, not firm, nontender, no guarding and not rigid Skin General skin exam: no rashes or lesions noted Neuro General: patient oriented x3 Gait exam (Neuro): Normal gait present Extrem General: Yes normal to inspection, Yes full ROM and No edema Psych Affect: normal affect Attitude: cooperative Insight: Good insight present (Psych) Judgement: Good judgement present (Psych) Coding Level of Care Code Est Pt Level 3 (74485) Diagnoses Gastroesophageal reflux disease, unspecified whether esophagitis present K21.9 Esophagitis presence: esophagitis presence not specified Irritable bowel syndrome with both constipation and diarrhea K58.2 Rash R21 Assessment & Plan Assessment & Plan (1) GERD (gastroesophageal reflux disease): Code(s): K21.9 - Gastro-esophageal reflux disease without esophagitis Category: Medical Qualifiers: Esophagitis presence: esophagitis presence not specified Qualified Code(s): K21.9 - Gastro-esophageal reflux disease without esophagitis Plan: Avoid trigger foods such as citrus, tomato products, soda, caffeine, spicy foods and other foods that may be irritating to your stomach. Avoid laying flat 3-4 hours after eating and elevate the head of the bed 30 degrees to prevent acid from moving into the esophagus. Continue on Omeprazole 20mg. Seeing GI tomorrow (2) Irritable bowel syndrome with both constipation and diarrhea: Code(s): K58.2 - Mixed irritable bowel syndrome Category: Medical Plan: Discussed low FODMAP diet with the patient which she agrees to trial. Recommend adding fiber supplement to daily regimen. Patient was given resources today. Follow up with GI and referral was placed to nutrition (3) Rash: Code(s): R21 - Rash and other nonspecific skin eruption Category: Medical Plan: Small scares bumps on the left side of the neck. Referral was placed to Dermatology today. Plan The patient is advised to avoid medications that exacerbate constipation and to monitor dietary triggers contributing to gastrointestinal symptoms. Consideration of a low FODMAP diet is recommended to manage irritable bowel syndrome symptoms. Follow-up with Katy is planned to discuss the potential reintroduction of omeprazole for acid reflux management. A second opinion with Dr. Maravilla may be sought for further evaluation of gastrointestinal issues. This note was constructed using voice recognition software. While every effort has been made to ensure accuracy and make up operator, still areas may have been included sometimes these areas may affect the content or meeting of the given symptoms. Total time spent caring for the patient today was 30 minutes. This includes time spent before the visit reviewing the chart, time spent during the visit, and time spent after the visit and documentation. Patient was informed and verbally consented to the use of an ambient scribe for clinic note documentation during this visit. Orders: Referrals Dermatology Referral R21 - Rash and other nonspecific skin eruption Quality Assurance Inspector Nutrition Referral K21.9 - Gastro-esophageal reflux disease without esophagitis, K52.9 - Noninfective gastroenteritis and colitis, unspecified, K58.2 - Mixed irritable bowel syndrome
[2024-11-23 15:23] VITALS: BP 128/68; BMI 26.6
== END 2024-11-23 16:36 | disposition home or self-care (01) ==
LOC: HO.HMCH 15:18
DX: K21.9 Gastro-esophageal reflux disease without esophagitis (principal); K58.2 Mixed irritable bowel syndrome; R21 Rash and other nonspecific skin eruption

== ENCOUNTER 2024-11-24 13:33 | Outpatient (AMB) | payer OTHER, SELFPAY ==
--- NOTE | 2024-11-24 13:34 | A.OFFVIS_ITS ---
Vital Signs 3 11/24/24 13:36 Height 5 ft 2 in Weight 145 lb 15.136 oz BMI 26.7 BP 127/61 Blood Pressure Location Lt brachial Position Sitting Pulse 66 Intake Visit Reasons: abdominal pain constipation er follow up Intake Note: Patient seen at [facility] for Acid reflux on 11-18-2024. Patient reports stopped taking rx Esomeprazole and Sucralfate after only taking for days due to constipation. Patient c/o: upper abdomen muscle pain. Has supervisor riprap placing appointment in January. 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 Required: No Accompanied by: Self / Same As Patient Allergies morphine (Morphine) Allergy (Intermediate, Verified 11/24/24 13:40) HALLUCINATIONS Sulfa (Sulfonamide Antibiotics) Allergy (Intermediate, Verified 11/24/24 13:40) HIVES shellfish derived Allergy (Mild, Verified 11/24/24 13:40) Stomach Upset methylprednisolone Adverse Reaction (Severe, Verified 11/24/24 13:40) rash Substance with sulfonamide structure and antibacterial mechanism of action (substance) Allergy (Unknown, Uncoded 11/24/24 13:40) Hives Oral Contrast Adverse Reaction (Intermediate, Uncoded 11/24/24 13:40) Abdominal Pain HPI HPI abdominal pain constipation er follow up: Details: Assessment & Plan (1) Diverticulitis: Code(s): K57.92 - Diverticulitis of intestine, part unspecified, without perforation or abscess without bleeding Category: Medical (2) Irritable bowel syndrome with both constipation and diarrhea: Code(s): K58.2 - Mixed irritable bowel syndrome Category: Medical (3) Bleeding hemorrhoids: Code(s): K64.9 - Unspecified hemorrhoids Category: Medical (4) GERD (gastroesophageal reflux disease): Code(s): K21.9 - Gastro-esophageal reflux disease without esophagitis Category: Medical Qualifiers: Esophagitis presence: esophagitis presence not specified Qualified Code(s): K21.9 - Gastro-esophageal reflux disease without esophagitis (5) Colitis: Comment: most likely diverticulitis as this as a CT dx no sign any IBD abnormality on colonoscopy's Code(s): K52.9 - Noninfective gastroenteritis and colitis, unspecified Category: Medical (6) Erosive esophagitis: Code(s): K22.10 - Ulcer of esophagus without bleeding Category: Medical Plan She has really been struggling with her health! She ended up with a yeast infections from all of the antibiotics and the prednisone and ended up on a 7 day cream. Fortunately that now is clearing up. Then she just was feeling generally unwell and presented to a walk-in clinic and they are listened to her lungs and diagnose her with bronchitis. She was then put on a Z-Daniel. It seems that her immunity really has been knocked down for reasons that are not entirely clear. She is beginning to recover and I did counselor education professor her to continue to drink plenty of water to keep her bowels moving. She had stopped taking omeprazole for a time so I counseled her she really needs to be on omeprazole 20 mg because we did find erosive esophagitis and we want to protect her from getting esophageal cancer. She is agreeable to this. Colonoscopy did not uncover anything concerning so it seems that her ?colitis? diagnosis made by CAT scan more than likely was diverticulitis and less likely related to an infection or inflammatory bowel disease. Of course we will continue to monitor this. She still has some lingering pain that tends to be at about the level of the middle of the transverse colon that comes and goes. Because she still has occasional loose stools I have advised her not to restart her Colace just yet. If she starts having stools where she straining or they are very hard then we can consider restarting this medication. She continues on her omeprazole 20 mg daily. ROV 3 mos. Medications: New omeprazole 20 mg PO DAILY 30 caps 12RF K22.10 - Ulcer of esophagus without bleeding Discontinued cefuroxime axetil Discontinued Reason: Patient Completed Course 500 mg PO Q12H 10 tabs 0RF WE ALREADY REVIEWED THIS AT HER LAST VISIT EGD/COLONOSCOPY EGD Findings:? * Esophagus:? Mild erythema and small erosions < 5 mm at GE junction. The Z-line was at 33 cm displaced by a hiatal hernia with the diaphragmatic pinch at 36 cm. Cold forceps biopsies were taken from GE junction. * Stomach:? Normal gastric mucosa.Retroflexion was performed in the cardia. Random cold forceps biopsies were taken from the stomach. * Duodenum:? Normal duodenal mucosa. Cold forceps biopsies were taken from the duodenal bulb and 2nd portion of the duodenum to rule out celiac sprue. Findings: Mucosa: Normal colon and terminal ileum mucosa. Cold forceps biopsies were taken from right and left side of the colon to rule out microscopic colitis. Protruding lesions: * Large internal hemorrhoids with stigmata of recent bleeding.Excavated lesions: * Mild diverticulosis in the left side of the colon with rare diverticula in right sideImpression:1. Grade A esophagitis (biopsy) 2. Hiatal hernia 3. Normal stomach (biopsy) 4. Normal duodenum (biopsy) 5. Normal colon and terminal ileum mucosa (biopsy) 6. Diverticulosis 7. Internal and external hemorrhoids Recommendations:?? * Follow-up path results * Avoid NSAIDs * H Pylori treatment if biopsies + * Start omeprazole 20 mg once daily x 8-12 weeks and then decrease to 10mg once daily. * Repeat colonoscopy for CRC screening in 10 years. BIOPSY Received: 09/24/24 Diagnosis A. Duodenum, biopsy: Chronic inactive duodenitis. B. Stomach, random, biopsy: Oxyntic mucosa with mild chronic inactive inflammation; no Helicobacter organisms seen. C. EG junction, biopsy: - Cardiac-type mucosa with moderate chronic inactive inflammation and multilayered epithelium; no fully developed intestinal metaplasia seen. - Active esophagitis (maximum eosinophil count 1 per high powered field). D. Colon, right, biopsy: Colonic mucosa within normal limits. E. Colon, left, biopsy: Colonic mucosa within normal limits. REVIEW OF ER VISITS 11/15/2024 AND 11/18/2024 Lab Results 11/18/24 Range/Units 09:59 WBC 4.2 L (4.8-10.8) X10*3/uL RBC 4.12 L (4.20-5.50) X10*6/uL Hgb 12.4 (12.0-16.0) g/dl Hct 36.6 L (37.0-47.0) % MCV 88.8 (80.0-98.0) fL MCH 30.1 (27.0-33.0) pg MCHC 33.9 (31.0-35.0) g/dl RDW 12.7 (11.0-16.0) % Plt Count 177 (160-400) X10*3/uL MPV 10.7 (9.4-12.3) fL Immature Gran % (Auto) 0.2 (0.0-0.4) % Neut % (Auto) 66.3 (45-73) % Lymph % (Auto) 20.9 (20-40) % Evans % (Auto) 10.7 (2-11) % Eos % (Auto) 1.2 (0-4) % Baso % (Auto) 0.7 (0-2) % Lymph # (Auto) 0.9 L (1.2-4.9) X10*3/uL Evans # (Auto) 0.5 (0.1-1.2) X10*3/uL Eos # (Auto) 0.1 (0.0-0.4) X10*3/uL Baso # (Auto) 0.0 (0.0-0.2) X10*3/uL Abs Immat Gran (auto) 0.01 (0.00-0.03) X10*3/uL Absolute Neuts (auto) 2.8 (2.0-8.3) x10*3/uL Absolute Nucleated RBC 0.000 (0.0-0.012) X10*3/uL Nucleated RBC % (auto) 0.0 (0.0-0.2) /100WBC Sodium 143 (135-145) mmol/L Potassium 3.8 (3.3-5.1) mmol/L Chloride 108 (96-108) mmol/L Carbon Dioxide 30 H (22-29) mmol/L Anion Gap 9 L (12-20) BUN 9 (9-16) mg/dL Creatinine 0.65 (0.5-1.4) mg/dL Estim Creat Clear Calc 81.1 Estimated GFR > 60 Random Glucose 81 (60-115) mg/dL Calcium 8.9 (8.4-10.2) mg/dL Magnesium 2.1 (1.6-2.6) mg/dL Total Bilirubin 0.3 (0.0-1.0) mg/dL AST 17 (5-31) U/L ALT 14 (0-31) U/L Alkaline Phosphatase 80 (39-117) U/L Troponin I High Sens < 2.7 (<3.5-17.0) ng/L Total Protein 6.9 (6.5-8.0) g/dL Albumin 4.0 (3.5-5.0) g/dL Influenza Type A (PCR) NEGATIVE (Negative) Influenza Type B (PCR) NEGATIVE (Negative) RSV RNA Qual (PCR) NEGATIVE (Negative) SARS-CoV-2 RNA (RT-PCR) NEGATIVE (Negative) Independent Interpretation I performed an independent interpretation of an: EKG and CT Scan Interpretation: My interpretation is in agreement with the radiologist's impression of this imaging study. Report Number: [id number]: Total DLP = 444.00 mGy-cm EXAMINATION: CT ABDOMEN AND PELVIS WITH CONTRAST CLINICAL INFORMATION: Abdominal pain COMPARISON: September 07, 2024. TECHNIQUE: Multidetector volumetric images were obtained from the superior aspect of the liver through the pubic symphysis following administration 85 mL of Omnipaque 350 intravenous contrast. Sagittal and coronal reformatted images were obtained on the technologist's workstation. Oral contrast: No This CT examination was performed using dose optimization techniques as appropriate, variously including the following: *Automated exposure control *Adjustment of mA and/or kV according to patient size (this includes techniques or standardized protocols for targeted exams where dose is matched to indication/reason for exam; i.e. extremities or head) *Use of iterative reconstruction technique DLP: 444 mg centimeter. FINDINGS: LUNG BASES: No acute airspace disease. LIVER, GALLBLADDER, AND BILIARY TREE: Liver measures 17 cm. No focal lesion. Main portal vein and hepatic veins and intrahepatic portion of the IVC are patent. Status post cholecystectomy. No intrahepatic or extrahepatic biliary ductal dilatation. PANCREAS: No focal lesion. No peripancreatic fluid collections. No main pancreatic ductal dilatation. SPLEEN: 10 cm. No focal lesion. Small accessory spleen. ADRENAL GLANDS: No nodular lesions. KIDNEYS AND URETERS: Normal enhancement pattern of the renal cortex. No hydronephrosis. No gross nephrolithiasis. No enhancing lesion. BLADDER: Fluid-filled. GASTROINTESTINAL TRACT: Numerous diverticula, left hemicolon. Abundant stool throughout the large intestine. Appendix is normal. No intestinal obstruction pattern. No pneumatosis intestinalis. Subsegmental wall thickening versus peristalsis, gastric antrum. No ascites. No pneumoperitoneum. No peripheral enhancing fluid collection, peritoneal cavity. ABDOMINAL WALL: Small fat-containing umbilical hernia. Diastases abdominal rectus muscles, periumbilical region. LYMPH NODES: Nonspecific mildly prominent, mesenteric. VASCULAR: Mixed plaques throughout the abdominal aorta wall and iliac arteries. No aneurysm or dissection, abdominal aorta. PELVIC VISCERA: Calcifications, uterus. Normal-sized ovaries. OSSEOUS STRUCTURES: Small marginal osteophyte formation at multiple levels and endplate sclerosis with multilevel Schmorl nodes. Facet joint hypertrophy at L5- S1 and L4-5 levels. No acute fracture or gross listhesis. No lytic or blastic lesions. CT/CT abdomen pelvis w IV con IMPRESSION: Diverticular disease. Mild enterocolitis cannot be entirely excluded. Hepatomegaly, mild. Small fat-containing umbilical hernia. Calcified uterine fibroid. Fleischner guidelines were followed. TODAY'S VISIT On 11/23/24 @ 13:02 Nakita Sheffield Wrote To Scheduled for tomorrow 11/24 On 11/23/24 @ 08:45 Bere Gilbert Wrote To Martinez patient called and left voicemail - states Sucralfate is causing extreme constipation and the new PPI she was put on in the ED was causing her to have a lot of gas, reports she called Dr. Crespo clothes ironer yest and he advised her to call - patient reports she is not taking any more medication and would like to see you in the office. On 11/18/24 @ 14:40 Bere Gilbert Wrote To Bere Gilbert thank you - patient informed Bere Gilbert completed item. On 11/18/24 @ 14:37 Poly Brown Wrote To Bere Gilbert sent On 11/18/24 @ 14:23 Bere Gilbert Wrote To Poly Brown see below - ED provided liquid but not covered, tabs are. thanks On 11/18/24 @ 14:22 Nakita Sheffield Wrote To Bere Gilbert can you send pills for sucralfate On 11/18/24 @ 11:30 Bere Gilbert Wrote To Bere Gilbert thank you. I spoke w/ patient - she is actually currently at the ED and they did send her a script for Esomeprazole and Sucralfate x1 week - I advised patient to begin taking it and update us if it provides her relief so we can send a refill. Bere Gilbert completed item. On 11/18/24 @ 10:51 Poly Brown Wrote To Bere Gilbert persoanlyl would recommend changing to nexium 20 mg, she will likely get better relief with this On 11/18/24 @ 07:42 Bere Gilbert Wrote To Poly Brown could you help me w/ this? On 11/17/24 @ 14:52 Nakita Sheffield Wrote To Michelle (3) pt called because she took omeprazole today and then pepto bismol today around 12 she still having lots of belching and burning is there anything we can do for her or any suggestions? She said she has been having this since endoscopy On 11/17/24 @ 11:36 Bere Gilbert Wrote To Michelle patient called again re: increased belching, flatulence, acid reflux despite taking the PPI. On 11/16/24 @ 09:20 Bere Gilbert Wrote To Michelle patient was seen at ED yesterday - patient states not much was done and she is calling because the ED provider informed her the December appointment for follow up was too far out. patient reports she is currently taking 20mg Omeprazole. patient reports she is taking the PPI every single day without missing a dose but the ED visit states she is not compliant and they are recommending repeat EGD. On 11/16/24 @ 09:12 Lora Whitman Wrote To Bere Gilbert Pt. came in today to r/s an appt. she also would like a call back she has a question about her prescription. TODAYS VISIT She had severe abd pain after eating food at a family picnic - rice that likely had pork in it (she does not tolerate this well) - it was also very spicy. She presented to the ER but they put her on carafate (which severely constipated her as was known by CT results) and esomeprazole which caused her not to be able to pass gas. We will return her to her omeprazole 20mg daily. She also did not tolerate omeprazole at 40mg/day r/t upset stomach/nausea. SHe DOES have a recent EGD with hx of esophageal ulcer so this is necessary. She still has a sore pain across her lower ribs and back that is worsened with washing dishes and when her stomach is worsened. 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 . She is only eating chicken for meat, for protein we discuss alternatives like eggs, yogurt, rice and beans. She also has an upcoming appt with dietary. She have lost 12 lbs recently with al of this. She is more constipated, will re start her benefiber. We discussed colace but I think this may upset her stomach so holding off for now. Keep December appt. [facility] Medical History Dysuria Colitis Pre-op examination Upper abdominal pain Diarrhea Sinusitis Contact dermatitis Umbilical abnormality Thoracic back pain Right flank pain Otalgia of left ear Neck pain Epigastric pain Lumbar back pain Conjunctivitis IBS (irritable bowel syndrome) Thoracic degenerative disc disease Upper respiratory tract infection Back pain Physical exam URI, acute Acalculous cholecystitis Loose stools Asthma Tubular adenoma of colon Degenerative disc disease, thoracic Cholelithiasis with chronic cholecystitis Glaucoma Depression Helicobacter pylori (H. pylori) Anemia Myocardial infarction GERD (gastroesophageal reflux disease) Surgical History Hx laparoscopic cholecystectomy Status post laparoscopic cholecystectomy Hx of colonoscopy H/O dilation and curettage S/P right knee arthroscopy H/O esophagogastroduodenoscopy History of arthroscopy of right knee History of tubal ligation H/O section History of tonsillectomy Family History Father HTN (hypertension) Prostate cancer Mother HTN (hypertension) Diabetes Hx of CABG Sister Asthma Social History Household Members: Spouse, Significant Other and Other Housing: House Are you a primary home care attendant to a significant other at home: No Do you presently have visiting nurse or other home services: No Alcohol intake: never Patient Tobacco Use Status: Never used Tobacco Tobacco use type: Cigarette e-Cigarette/Vaping Use: Never Used Second Hand Smoke Exposure: No service: No Current occupational status: disabled Current occupational exposures/hazards: No Cognitive needs: No Hearing needs: No Vision needs: Yes Review of Systems Const Denies fatigue, Denies fever(s), Denies night sweats, Denies poor appetite and Reports weight loss ENT Reports Normal hearing present, Denies dental pain, Denies dysphagia, Denies hearing loss, Denies mouth pain, Denies odynophagia, Denies throat swelling, Denies tongue swelling and Reports other (Dentition adequate) Card Reports no additional complaints Resp Reports no additional complaints GI Details: Reports abdominal pain, Denies melena, Reports bloating, Denies hematochezia, Reports constipation, Denies GI cramping, Denies dysphagia, Denies excessive flatus, Denies early satiety, Reports dyspepsia, Reports heartburn, Denies diarrhea, Reports loose stools, Denies nausea, Denies odynophagia, Denies vomiting and Denies hematemesis Skin/Breast Denies pruritus, Denies lesions, Denies rash and Denies jaundice Neuro Reports Normal hearing present and Denies Abnormal speech present Psych Reports anxiety Endo Denies fatigue Aller/Immun Denies throat swelling and Denies tongue swelling Physical Exam Vital Signs: Last Vital Signs Pulse 66 11/24/24 13:36 BP 127/61 11/24/24 13:36 BMI result Body Mass Index 26.7 Const General: cooperative, no acute distress, well developed and well groomed Nutritional Appearance: well nourished Orientation/consciousness: oriented to person, oriented to place and oriented to time Limitations: No language barrier HEENT Head: Yes normocephalic and Yes atraumatic Eyes General: appearance normal, both eyes and all related structures Pupils: Equal, round and reactive pupils present Neck Neck: Yes normal visual inspection and Yes no lymphadenopathy Thyroid: Thyroid normal Resp Effort & Inspection: normal respiratory effort and able to speak in complete sentences Auscultation: clear to auscultation bilaterally Cardio Rate: regular rate Rhythm: regular rhythm Heart sounds: Normal, physiologic split S2 sound present Peripheral pulses: radial pulses present and posterior tibial pulses present GI Inspection: No distended, No Abdominal panniculus present and Yes obesity Palpation (GI): Soft to palpation, nontender, no guarding, not rigid and No hepatosplenomegaly present Percussion: Yes normal to percussion Auscultation: normal bowel sounds Rectal Exam - Female: deferred Abdomen image: 2 1. Skin General skin exam: no rashes or lesions noted, turgor normal, skin not dry, no jaundice, No spider nevi and no striae Rashes: no rashes Nails: normal Neuro General: oriented to person, oriented to place and oriented to time Cranial nerves: Yes Equal, round and reactive pupils present and Yes Normal hearing present Speech: No Abnormal speech present Extrem General: Yes normal to inspection, No clubbing, No cyanosis and No edema Psych Appearance: grossly normal and well kempt Mental Status: mental status grossly normal Speech and movement: Normal speech and movement present Affect: normal affect Attitude: cooperative Thought process: Normal thought process present and not confabulating Thought content: Normal thought content present Insight: Fair insight present (Psych) and Limited insight present (Psych) Judgement: Fair judgement present (Psych) and Limited judgement present (Psych) Results Reviewed Results Reviewed: REVIEW OF ER VISITS 11/15/2024 AND 11/18/2024 Lab Results 11/18/24 Range/Units 09:59 WBC 4.2 L (4.8-10.8) X10*3/uL RBC 4.12 L (4.20-5.50) X10*6/uL Hgb 12.4 (12.0-16.0) g/dl Hct 36.6 L (37.0-47.0) % MCV 88.8 (80.0-98.0) fL MCH 30.1 (27.0-33.0) pg MCHC 33.9 (31.0-35.0) g/dl RDW 12.7 (11.0-16.0) % Plt Count 177 (160-400) X10*3/uL MPV 10.7 (9.4-12.3) fL Immature Gran % (Auto) 0.2 (0.0-0.4) % Neut % (Auto) 66.3 (45-73) % Lymph % (Auto) 20.9 (20-40) % Evans % (Auto) 10.7 (2-11) % Eos % (Auto) 1.2 (0-4) % Baso % (Auto) 0.7 (0-2) % Lymph # (Auto) 0.9 L (1.2-4.9) X10*3/uL Evans # (Auto) 0.5 (0.1-1.2) X10*3/uL Eos # (Auto) 0.1 (0.0-0.4) X10*3/uL Baso # (Auto) 0.0 (0.0-0.2) X10*3/uL Abs Immat Gran (auto) 0.01 (0.00-0.03) X10*3/uL Absolute Neuts (auto) 2.8 (2.0-8.3) x10*3/uL Absolute Nucleated RBC 0.000 (0.0-0.012) X10*3/uL Nucleated RBC % (auto) 0.0 (0.0-0.2) /100WBC Sodium 143 (135-145) mmol/L Potassium 3.8 (3.3-5.1) mmol/L Chloride 108 (96-108) mmol/L Carbon Dioxide 30 H (22-29) mmol/L Anion Gap 9 L (12-20) BUN 9 (9-16) mg/dL Creatinine 0.65 (0.5-1.4) mg/dL Estim Creat Clear Calc 81.1 Estimated GFR > 60 Random Glucose 81 (60-115) mg/dL Calcium 8.9 (8.4-10.2) mg/dL Magnesium 2.1 (1.6-2.6) mg/dL Total Bilirubin 0.3 (0.0-1.0) mg/dL AST 17 (5-31) U/L ALT 14 (0-31) U/L Alkaline Phosphatase 80 (39-117) U/L Troponin I High Sens < 2.7 (<3.5-17.0) ng/L Total Protein 6.9 (6.5-8.0) g/dL Albumin 4.0 (3.5-5.0) g/dL Influenza Type A (PCR) NEGATIVE (Negative) Influenza Type B (PCR) NEGATIVE (Negative) RSV RNA Qual (PCR) NEGATIVE (Negative) SARS-CoV-2 RNA (RT-PCR) NEGATIVE (Negative) Independent Interpretation I performed an independent interpretation of an: EKG and CT Scan Interpretation: My interpretation is in agreement with the radiologist's impression of this imaging study. Report Number: [id number]: Total DLP = 444.00 mGy-cm EXAMINATION: CT ABDOMEN AND PELVIS WITH CONTRAST CLINICAL INFORMATION: Abdominal pain COMPARISON: September 07, 2024. TECHNIQUE: Multidetector volumetric images were obtained from the superior aspect of the liver through the pubic symphysis following administration 85 mL of Omnipaque 350 intravenous contrast. Sagittal and coronal reformatted images were obtained on the technologist's workstation. Oral contrast: No This CT examination was performed using dose optimization techniques as appropriate, variously including the following: *Automated exposure control *Adjustment of mA and/or kV according to patient size (this includes techniques or standardized protocols for targeted exams where dose is matched to indication/reason for exam; i.e. extremities or head) *Use of iterative reconstruction technique DLP: 444 mg centimeter. FINDINGS: LUNG BASES: No acute airspace disease. LIVER, GALLBLADDER, AND BILIARY TREE: Liver measures 17 cm. No focal lesion. Main portal vein and hepatic veins and intrahepatic portion of the IVC are patent. Status post cholecystectomy. No intrahepatic or extrahepatic biliary ductal dilatation. PANCREAS: No focal lesion. No peripancreatic fluid collections. No main pancreatic ductal dilatation. SPLEEN: 10 cm. No focal lesion. Small accessory spleen. ADRENAL GLANDS: No nodular lesions. KIDNEYS AND URETERS: Normal enhancement pattern of the renal cortex. No hydronephrosis. No gross nephrolithiasis. No enhancing lesion. BLADDER: Fluid-filled. GASTROINTESTINAL TRACT: Numerous diverticula, left hemicolon. Abundant stool throughout the large intestine. Appendix is normal. No intestinal obstruction pattern. No pneumatosis intestinalis. Subsegmental wall thickening versus peristalsis, gastric antrum. No ascites. No pneumoperitoneum. No peripheral enhancing fluid collection, peritoneal cavity. ABDOMINAL WALL: Small fat-containing umbilical hernia. Diastases abdominal rectus muscles, periumbilical region. LYMPH NODES: Nonspecific mildly prominent, mesenteric. VASCULAR: Mixed plaques throughout the abdominal aorta wall and iliac arteries. No aneurysm or dissection, abdominal aorta. PELVIC VISCERA: Calcifications, uterus. Normal-sized ovaries. OSSEOUS STRUCTURES: Small marginal osteophyte formation at multiple levels and endplate sclerosis with multilevel Schmorl nodes. Facet joint hypertrophy at L5- S1 and L4-5 levels. No acute fracture or gross listhesis. No lytic or blastic lesions. CT/CT abdomen pelvis w IV con IMPRESSION: Diverticular disease. Mild enterocolitis cannot be entirely excluded. Hepatomegaly, mild. Small fat-containing umbilical hernia. Calcified uterine fibroid. Assessment & Plan Assessment & Plan (1) Erosive esophagitis: Code(s): K22.10 - Ulcer of esophagus without bleeding Category: Medical (2) GERD (gastroesophageal reflux disease): Code(s): K21.9 - Gastro-esophageal reflux disease without esophagitis Category: Medical Qualifiers: Esophagitis presence: esophagitis presence not specified Qualified Code(s): K21.9 - Gastro-esophageal reflux disease without esophagitis (3) Irritable bowel syndrome with both constipation and diarrhea: Code(s): K58.2 - Mixed irritable bowel syndrome Category: Medical Plan She had severe abd pain after eating food at a family picnic - rice that likely had pork in it (she does not tolerate this well) - it was also very spicy. She presented to the ER but they put her on carafate (which severely constipated her as was known by CT results) and esomeprazole which caused her not to be able to pass gas. We will return her to her omeprazole 20mg daily. She also did not tolerate omeprazole at 40mg/day r/t upset stomach/nausea. SHe DOES have a recent EGD with hx of esophageal ulcer so this is necessary. She still has a sore pain across her lower ribs and back that is worsened with washing dishes and when her stomach is worsened. 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 . She is only eating chicken for meat, for protein we discuss alternatives like eggs, yogurt, rice and beans. She also has an upcoming appt with dietary. She have lost 12 lbs recently with al of this. She is more constipated, will re start her benefiber. We discussed colace but I think this may upset her stomach so holding off for now. Keep December appt. Medications: Discontinued 2 fluconazole may repeat second dose 72 hrs after first dose if symptoms persist Discontinued Reason: Patient Completed Course 150 mg PO Q3D 2 tabs 0RF Coding Level of Care Code Est Pt Level 4 (06054) Diagnoses Erosive esophagitis K22.10 Gastroesophageal reflux disease, unspecified whether esophagitis present K21.9 Esophagitis presence: esophagitis presence not specified Irritable bowel syndrome with both constipation and diarrhea K58.2 Time Spent (min) 39
[2024-11-24 13:36] VITALS: BP 127/61; PULSE 66; BMI 26.7
== END 2024-11-24 14:21 | disposition home or self-care (01) ==
LOC: HO.HGI 13:33
PROVIDERS: Visit Provider Nurse Practitioner
DX: K22.10 Ulcer of esophagus without bleeding (principal); K21.9 Gastro-esophageal reflux disease without esophagitis; K58.2 Mixed irritable bowel syndrome
CPT/HCPCS: 99214

== ENCOUNTER 2024-12-18 13:38 | Outpatient (AMB) | payer OTHER, SELFPAY ==
--- NOTE | 2024-12-18 09:02 | A.OFFVIS_ITS ---
Vital Signs 12/18/24 13:42 Height 5 ft 2 in Weight 145 lb 1.027 oz BMI 26.5 BP 126/79 Blood Pressure Location Lt brachial Position Sitting Pulse 63 Intake Visit Reasons: Abd pain, rectal bleeding Intake Note: Patient in office today for abdominal pain and rectal bleeding. CC: Patient c/o constant upper abdominal pain, constipation, and bright red blood with BMs. She also c/o bilateral back pain. 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 Accompanied by: Self / Same As Patient Allergies morphine (Morphine) Allergy (Intermediate, Verified 12/18/24 13:45) HALLUCINATIONS Sulfa (Sulfonamide Antibiotics) Allergy (Intermediate, Verified 12/18/24 13:45) HIVES shellfish derived Allergy (Mild, Verified 12/18/24 13:45) Stomach Upset methylprednisolone Adverse Reaction (Severe, Verified 12/18/24 13:45) rash Substance with sulfonamide structure and antibacterial mechanism of action (substance) Allergy (Unknown, Uncoded 11/24/24 13:40) Hives Oral Contrast Adverse Reaction (Intermediate, Uncoded 11/24/24 13:40) Abdominal Pain Medication List - Last Reconciled 12/18/24 by JADE Rosen docusate sodium (Colace) 100 mg PO DAILY fexofenadine (Lore Allergy) 60 mg PO BID hydrocortisone 2.5% (Procto-Med HC) 1 appl FL BID-QID PRN omeprazole 20 mg PO DAILY sennosides (Senna Laxative) 17.2 mg (2 x 8.6 mg) PO BEDTIME HPI HPI Abd pain, rectal bleeding: Details: ssessment & Plan (1) Erosive esophagitis: Code(s): K22.10 - Ulcer of esophagus without bleeding Category: Medical (2) GERD (gastroesophageal reflux disease): Code(s): K21.9 - Gastro-esophageal reflux disease without esophagitis Category: Medical Qualifiers: Esophagitis presence: esophagitis presence not specified Qualified Code(s): K21.9 - Gastro-esophageal reflux disease without esophagitis (3) Irritable bowel syndrome with both constipation and diarrhea: Code(s): K58.2 - Mixed irritable bowel syndrome Category: Medical Plan She had severe abd pain after eating food at a family picnic - rice that likely had pork in it (she does not tolerate this well) - it was also very spicy. She presented to the ER but they put her on carafate (which severely constipated her as was known by CT results) and esomeprazole which caused her not to be able to pass gas. We will return her to her omeprazole 20mg daily. She also did not tolerate omeprazole at 40mg/day r/t upset stomach/nausea. SHe DOES have a recent EGD with hx of esophageal ulcer so this is necessary. She still has a sore pain across her lower ribs and back that is worsened with washing dishes and when her stomach is worsened. 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 . She is only eating chicken for meat, for protein we discuss alternatives like eggs, yogurt, rice and beans. She also has an upcoming appt with dietary. She have lost 12 lbs recently with al of this. She is more constipated, will re start her benefiber. We discussed colace but I think this may upset her stomach so holding off for now. Keep December appt. Medications: Discontinued fluconazole may repeat second dose 72 hrs after first dose if symptoms persist Discontinued Reason: Patient Completed Course 150 mg PO Q3D 2 tabs 0RF Review of 11/14/2024 ER DOCUMENTATION Lab Results 11/18/24 Range/Units 09:59 WBC 4.2 L (4.8-10.8) X10*3/uL RBC 4.12 L (4.20-5.50) X10*6/uL Hgb 12.4 (12.0-16.0) g/dl Hct 36.6 L (37.0-47.0) % MCV 88.8 (80.0-98.0) fL MCH 30.1 (27.0-33.0) pg MCHC 33.9 (31.0-35.0) g/dl RDW 12.7 (11.0-16.0) % Plt Count 177 (160-400) X10*3/uL MPV 10.7 (9.4-12.3) fL Immature Gran % (Auto) 0.2 (0.0-0.4) % Neut % (Auto) 66.3 (45-73) % Lymph % (Auto) 20.9 (20-40) % [place] % (Auto) 10.7 (2-11) % Eos % (Auto) 1.2 (0-4) % Baso % (Auto) 0.7 (0-2) % Lymph # (Auto) 0.9 L (1.2-4.9) X10*3/uL [place] # (Auto) 0.5 (0.1-1.2) X10*3/uL Eos # (Auto) 0.1 (0.0-0.4) X10*3/uL Baso # (Auto) 0.0 (0.0-0.2) X10*3/uL Abs Immat Gran (auto) 0.01 (0.00-0.03) X10*3/uL Absolute Neuts (auto) 2.8 (2.0-8.3) x10*3/uL Absolute Nucleated RBC 0.000 (0.0-0.012) X10*3/uL Nucleated RBC % (auto) 0.0 (0.0-0.2) /100WBC Sodium 143 (135-145) mmol/L Potassium 3.8 (3.3-5.1) mmol/L Chloride 108 (96-108) mmol/L Carbon Dioxide 30 H (22-29) mmol/L Anion Gap 9 L (12-20) BUN 9 (9-16) mg/dL Creatinine 0.65 (0.5-1.4) mg/dL Estim Creat Clear Calc 81.1 Estimated GFR > 60 Random Glucose 81 (60-115) mg/dL Calcium 8.9 (8.4-10.2) mg/dL Magnesium 2.1 (1.6-2.6) mg/dL Total Bilirubin 0.3 (0.0-1.0) mg/dL AST 17 (5-31) U/L ALT 14 (0-31) U/L Alkaline Phosphatase 80 (39-117) U/L Troponin I High Sens < 2.7 (<3.5-17.0) ng/L Total Protein 6.9 (6.5-8.0) g/dL Albumin 4.0 (3.5-5.0) g/dL Influenza Type A (PCR) NEGATIVE (Negative) Influenza Type B (PCR) NEGATIVE (Negative) RSV RNA Qual (PCR) NEGATIVE (Negative) SARS-CoV-2 RNA (RT-PCR) NEGATIVE (Negative) CT ABDOMEN AND PELVIS FINDINGS: LUNG BASES: No acute airspace disease. LIVER, GALLBLADDER, AND BILIARY TREE: Liver measures 17 cm. No focal lesion. Main portal vein and hepatic veins and intrahepatic portion of the IVC are patent. Status post cholecystectomy. No intrahepatic or extrahepatic biliary ductal dilatation. PANCREAS: No focal lesion. No peripancreatic fluid collections. No main pancreatic ductal dilatation. SPLEEN: 10 cm. No focal lesion. Small accessory spleen. ADRENAL GLANDS: No nodular lesions. KIDNEYS AND URETERS: Normal enhancement pattern of the renal cortex. No hydronephrosis. No gross nephrolithiasis. No enhancing lesion. BLADDER: Fluid-filled. GASTROINTESTINAL TRACT: Numerous diverticula, left hemicolon. Abundant stool throughout the large intestine. Appendix is normal. No intestinal obstruction pattern. No pneumatosis intestinalis. Subsegmental wall thickening versus peristalsis, gastric antrum. No ascites. No pneumoperitoneum. No peripheral enhancing fluid collection, peritoneal cavity. ABDOMINAL WALL: Small fat-containing umbilical hernia. Diastases abdominal rectus muscles, periumbilical region. LYMPH NODES: Nonspecific mildly prominent, mesenteric. VASCULAR: Mixed plaques throughout the abdominal aorta wall and iliac arteries. No aneurysm or dissection, abdominal aorta. PELVIC VISCERA: Calcifications, uterus. Normal-sized ovaries. OSSEOUS STRUCTURES: Small marginal osteophyte formation at multiple levels and endplate sclerosis with multilevel Schmorl nodes. Facet joint hypertrophy at L5- S1 and L4-5 levels. No acute fracture or gross listhesis. No lytic or blastic lesions. CT/CT abdomen pelvis w IV con IMPRESSION: Diverticular disease. Mild enterocolitis cannot be entirely excluded. Hepatomegaly, mild. Small fat-containing umbilical hernia. Calcified uterine fibroid. I spoke with Dr. Brown, the covering GI provider for [facility], who recommended 1 week of carafate and 20mg of Esomeprazole with outpatient follow up TODAY'S VISIT She presented twice in November in the ER for pain under her ribs just as we have been treating all along. The CT showed a large stool burden and I think this is the problem. She also acknowledges that she had relief from the pain after a very large BM - but this caused rectal bleeding. She is using roid cream rx'ed by our dept. She is not taking the carafate of esomeprazole, just omeprazole 20 mg (she could not tolerate 40 mg due to nausea) and benefiber. I want her to add senna (she also has colace at home.). ROV 3 weeks. [facility] Medical History (Updated 12/18/24 @ 15:50 by JADE Rosen) Diverticulitis Dysuria Colitis Pre-op examination Upper abdominal pain Diarrhea Sinusitis Contact dermatitis Umbilical abnormality Thoracic back pain Right flank pain Otalgia of left ear Neck pain Epigastric pain Lumbar back pain Conjunctivitis IBS (irritable bowel syndrome) Thoracic degenerative disc disease Upper respiratory tract infection Back pain Physical exam URI, acute Acalculous cholecystitis Loose stools Asthma Tubular adenoma of colon Degenerative disc disease, thoracic Cholelithiasis with chronic cholecystitis Glaucoma Depression Helicobacter pylori (H. pylori) Anemia Myocardial infarction GERD (gastroesophageal reflux disease) Surgical History Hx laparoscopic cholecystectomy Status post laparoscopic cholecystectomy Hx of colonoscopy H/O dilation and curettage S/P right knee arthroscopy H/O esophagogastroduodenoscopy History of arthroscopy of right knee History of tubal ligation H/O section History of tonsillectomy Family History Father HTN (hypertension) Prostate cancer Mother HTN (hypertension) Diabetes Hx of CABG Sister Asthma Social History Household Members: Spouse, Significant Other and Other Housing: House Are you a primary career guidance technician to a significant other at home: No Do you presently have visiting nurse or other home services: No Alcohol intake: never Patient Tobacco Use Status: Never used Tobacco Tobacco use type: Cigarette e-Cigarette/Vaping Use: Never Used Second Hand Smoke Exposure: No service: No Current occupational status: disabled Current occupational exposures/hazards: No Cognitive needs: No Hearing needs: No Vision needs: Yes Review of Systems Const Denies fatigue, Denies fever(s), Denies night sweats, Denies poor appetite and Denies weight loss ENT Reports Normal hearing present, Denies dental pain, Denies dysphagia, Denies hearing loss, Denies mouth pain, Denies odynophagia, Denies throat swelling, Denies tongue swelling and Reports other (Dentition adequate) Card Reports no additional complaints Resp Reports no additional complaints GI Details: Reports abdominal pain, Denies melena, Reports bloating, Denies hematochezia, Reports constipation, Denies GI cramping, Denies dysphagia, Denies excessive flatus, Denies early satiety, Reports heartburn, Denies diarrhea, Denies nausea, Denies odynophagia, Denies vomiting and Denies hematemesis Skin/Breast Denies pruritus, Denies lesions, Denies rash and Denies jaundice Neuro Reports Normal hearing present and Denies Abnormal speech present Endo Denies fatigue Aller/Immun Denies throat swelling and Denies tongue swelling Physical Exam Vital Signs: Last Vital Signs Pulse 63 12/18/24 13:42 BP 126/79 12/18/24 13:42 BMI result Body Mass Index 26.5 Const General: cooperative, no acute distress, well developed and well groomed Nutritional Appearance: well nourished Orientation/consciousness: oriented to person, oriented to place and oriented to time Limitations: No language barrier HEENT Head: Yes normocephalic and Yes atraumatic Eyes General: appearance normal, both eyes and all related structures Pupils: Equal, round and reactive pupils present Neck Neck: Yes normal visual inspection and Yes no lymphadenopathy Thyroid: Thyroid normal Resp Effort & Inspection: normal respiratory effort and able to speak in complete sentences Auscultation: clear to auscultation bilaterally Cardio Rate: regular rate Rhythm: regular rhythm Heart sounds: Normal, physiologic split S2 sound present Peripheral pulses: radial pulses present and posterior tibial pulses present GI Inspection: No distended and No Abdominal panniculus present Palpation (GI): Soft to palpation, nontender, no guarding, not rigid and No hepatosplenomegaly present Percussion: Yes normal to percussion Auscultation: normal bowel sounds Rectal Exam - Female: deferred Skin General skin exam: no rashes or lesions noted, turgor normal, skin not dry, no jaundice, No spider nevi and no striae Rashes: no rashes Nails: normal Neuro General: oriented to person, oriented to place and oriented to time Cranial nerves: Yes Equal, round and reactive pupils present and Yes Normal hearing present Speech: No Abnormal speech present Extrem General: Yes normal to inspection, No clubbing, No cyanosis and No edema Psych Appearance: grossly normal and well kempt Mental Status: mental status grossly normal Speech and movement: Normal speech and movement present Affect: normal affect Attitude: cooperative Thought process: Normal thought process present and not confabulating Thought content: Normal thought content present Insight: Fair insight present (Psych) Judgement: Fair judgement present (Psych) Assessment & Plan Assessment & Plan (1) Constipation: Code(s): K59.00 - Constipation, unspecified Category: Medical (2) GERD (gastroesophageal reflux disease): Code(s): K21.9 - Gastro-esophageal reflux disease without esophagitis Category: Medical Qualifiers: Esophagitis presence: esophagitis presence not specified Qualified Code(s): K21.9 - Gastro-esophageal reflux disease without esophagitis (3) Bleeding hemorrhoids: Code(s): K64.9 - Unspecified hemorrhoids Category: Medical Plan She presented twice in November in the ER for pain under her ribs just as we have been treating all along. The CT showed a large stool burden and I think this is the problem. She also acknowledges that she had relief from the pain after a very large BM - but this caused rectal bleeding. She is using roid cream rx'ed by our dept. She is not taking the carafate of esomeprazole, just omeprazole 20 mg (she could not tolerate 40 mg due to nausea) and benefiber. I want her to add senna (she also has colace at home.). ROV 3 weeks. Medications: New sennosides (Senna Laxative) 17.2 mg (2 x 8.6 mg) PO BEDTIME 60 tabs 6RF K59.00 - Constipation, unspecified Coding Level of Care Code Est Pt Level 3 (52825) Diagnoses Constipation K59.00 Gastroesophageal reflux disease, unspecified whether esophagitis present K21.9 Esophagitis presence: esophagitis presence not specified Bleeding hemorrhoids K64.9
[2024-12-18 13:42] VITALS: BP 126/79; PULSE 63; BMI 26.5
== END 2024-12-18 16:03 | disposition home or self-care (01) ==
PROVIDERS: Visit Provider Nurse Practitioner
DX: K59.00 Constipation, unspecified (principal); K21.9 Gastro-esophageal reflux disease without esophagitis; K64.9 Unspecified hemorrhoids
CPT/HCPCS: 99213

== ENCOUNTER 2024-12-23 09:27 | Outpatient (REF) | payer OTHER, SELFPAY ==
--- NOTE | ~2024-12-23 | XR_ITS ---
EXAMINATION: XR SHOULDER, BILATERAL CLINICAL INFORMATION: M25.511 - Pain in right shoulder COMPARISON: None available. TECHNIQUE: AP external rotation, Grashey, scapular Y, and axillary views of the right and left shoulders. FINDINGS: Normal alignment. No displaced fracture. Acromioclavicular joints are intact. Minimal narrowing of the glenohumeral joint spaces are symmetric and likely degenerative in nature. No abnormal soft tissue calcifications. XR/XR Shoulder Brandon min 2V IMPRESSION: Minimal joint space narrowing of the glenohumeral joints, symmetric, and likely representing early degenerative changes. Electronically signed by: Noé Paredes MD 12/23/2024 11:31 AM EDT
== END 2024-12-23 09:28 | disposition home or self-care (01) ==
LOC: HO.XRAY 09:27
PROVIDERS: Visit Provider Nurse Practitioner
DX: M25.511 Pain in right shoulder (principal); K59.00 Constipation, unspecified; K21.9 Gastro-esophageal reflux disease without esophagitis; K22.10 Ulcer of esophagus without bleeding; K58.2 Mixed irritable bowel syndrome; M75.21 Bicipital tendinitis, right shoulder; R10.13 Epigastric pain; K64.9 Unspecified hemorrhoids
CPT/HCPCS: 73030

== ENCOUNTER 2024-12-23 09:27 | Outpatient (AMB) | payer OTHER, SELFPAY ==
[2024-12-23 09:30] VITALS: BP 129/71; PULSE 59; BMI 26.6
--- NOTE | 2024-12-23 09:30 | A.OFFVIS_ITS ---
Vital Signs 12/23/24 09:30 Height 5 ft 2 in Weight 145 lb 8.081 oz BMI 26.6 BP 129/71 Blood Pressure Location Rt brachial Position Sitting Pulse 59 Intake Visit Reasons: Follow up constipation, abd pain Intake Note: Kiara presents in follow up of constipation and abdominal pain. CC: Patient reports that she stopped taking the Omeprazole 3 days ago and she noticed relief from her stomach pain and constipation. She states that she has been taking the Senna and her BMs are more regular. She continues to have an upset stomach after eating. Medical Insurance Clerk Required: No Accompanied by: Self / Same As Patient Allergies morphine (Morphine) Allergy (Intermediate, Verified 12/23/24 09:37) HALLUCINATIONS Sulfa (Sulfonamide Antibiotics) Allergy (Intermediate, Verified 12/23/24 09:37) HIVES shellfish derived Allergy (Mild, Verified 12/23/24 09:37) Stomach Upset methylprednisolone Adverse Reaction (Severe, Verified 12/23/24 09:37) rash Substance with sulfonamide structure and antibacterial mechanism of action (substance) Allergy (Unknown, Uncoded 11/24/24 13:40) Hives Oral Contrast Adverse Reaction (Intermediate, Uncoded 11/24/24 13:40) Abdominal Pain HPI HPI Follow up constipation, abd pain: Details: Assessment & Plan (1) Constipation: Code(s): K59.00 - Constipation, unspecified Category: Medical (2) GERD (gastroesophageal reflux disease): Code(s): K21.9 - Gastro-esophageal reflux disease without esophagitis Category: Medical Qualifiers: Esophagitis presence: esophagitis presence not specified Qualified Code(s): K21.9 - Gastro-esophageal reflux disease without esophagitis (3) Bleeding hemorrhoids: Code(s): K64.9 - Unspecified hemorrhoids Category: Medical Plan She presented twice in November in the ER for pain under her ribs just as we have been treating all along. The CT showed a large stool burden and I think this is the problem. She also acknowledges that she had relief from the pain after a very large BM - but this caused rectal bleeding. She is using roid cream rx'ed by our dept. She is not taking the carafate of esomeprazole, just omeprazole 20 mg (she could not tolerate 40 mg due to nausea) and benefiber. I want her to add senna (she a lso has colace at home.). ROV 3 weeks. Medications: New sennosides (Senna Laxative) 17.2 mg (2 x 8.6 mg) PO BEDTIME 60 tabs 6RF K59.00 - Constipation, unspecified TODAY'S VISIT She is using the senna 1 qod. She stopped her o2o as she read it can cause CIC - but diarrhea is more common. Still, she had less eigastric pain, unsure if it is because she had a very large, very hard BM that may have relieved the pain. Given her hx of erosive esophagitis, I am reluctant to have her esophagus unprotected, os we will try lansoprazole as it is metabolized differently (liver instead of renal). I recommend that she take the senna every night unless she has diarrhea. She is having shoulder problems, exam reveals bicep tenodnitis - motrin would be good for this but not for an unprotected esophagus. We discuss rest, and alt heat and cold to facilitate tendon circulation. ROV 3 weeks [facility] Medical History Diverticulitis Dysuria Colitis Pre-op examination Upper abdominal pain Diarrhea Sinusitis Contact dermatitis Umbilical abnormality Thoracic back pain Right flank pain Otalgia of left ear Neck pain Epigastric pain Lumbar back pain Conjunctivitis IBS (irritable bowel syndrome) Thoracic degenerative disc disease Upper respiratory tract infection Back pain Physical exam URI, acute Acalculous cholecystitis Loose stools Asthma Tubular adenoma of colon Degenerative disc disease, thoracic Cholelithiasis with chronic cholecystitis Glaucoma Depression Helicobacter pylori (H. pylori) Anemia Myocardial infarction GERD (gastroesophageal reflux disease) Surgical History Hx laparoscopic cholecystectomy Status post laparoscopic cholecystectomy Hx of colonoscopy H/O dilation and curettage S/P right knee arthroscopy H/O esophagogastroduodenoscopy History of arthroscopy of right knee History of tubal ligation H/O section History of tonsillectomy Family History Father HTN (hypertension) Prostate cancer Mother HTN (hypertension) Diabetes Hx of CABG Sister Asthma Social History Household Members: Spouse, Significant Other and Other Housing: House Are you a primary family day care provider to a significant other at home: No Do you presently have visiting nurse or other home services: No Alcohol intake: never Patient Tobacco Use Status: Never used Tobacco Tobacco use type: Cigarette e-Cigarette/Vaping Use: Never Used Second Hand Smoke Exposure: No service: No Current occupational status: disabled Current occupational exposures/hazards: No Cognitive needs: No Hearing needs: No Vision needs: Yes Review of Systems Const Denies fatigue, Denies fever(s), Denies night sweats, Denies poor appetite and Denies weight loss ENT Reports Normal hearing present, Denies dental pain, Denies dysphagia, Denies hearing loss, Denies mouth pain, Denies odynophagia, Denies throat swelling, Denies tongue swelling and Reports other (Dentition adequate) Card Reports no additional complaints Resp Reports no additional complaints GI Details: Denies abdominal pain, Reports belching, Denies melena, Reports bloating, Denies hematochezia, Reports constipation, Denies GI cramping, Denies dysphagia, Denies excessive flatus, Denies early satiety, Reports heartburn, Denies diarrhea, Denies nausea, Denies odynophagia, Denies vomiting and Denies hematemesis Musc Reports arthralgias, Reports limited range of motion, Denies muscle weakness and Denies numbness Skin/Breast Denies pruritus, Denies lesions, Denies rash and Denies jaundice Neuro Reports Normal hearing present, Denies Abnormal speech present and Denies numbness Endo Denies fatigue Aller/Immun Denies throat swelling and Denies tongue swelling Physical Exam Vital Signs: Last Vital Signs Pulse 59 12/23/24 09:30 BP 129/71 12/23/24 09:30 BMI result Body Mass Index 26.6 Const General: cooperative, no acute distress, well developed and well groomed Nutritional Appearance: average body habitus and well nourished Orientation/consciousness: oriented to person, oriented to place and oriented to time Limitations: No language barrier HEENT Head: Yes normocephalic and Yes atraumatic Eyes General: appearance normal, both eyes and all related structures Pupils: Equal, round and reactive pupils present Neck Neck: Yes normal visual inspection and Yes no lymphadenopathy Thyroid: Thyroid normal Resp Effort & Inspection: normal respiratory effort and able to speak in complete sentences Auscultation: clear to auscultation bilaterally Cardio Rate: regular rate Rhythm: regular rhythm Heart sounds: Normal, physiologic split S2 sound present Peripheral pulses: radial pulses present and posterior tibial pulses present GI Inspection: No distended and No Abdominal panniculus present Palpation (GI): Soft to palpation, nontender, no guarding, not rigid and No hepatosplenomegaly present Percussion: Yes normal to percussion Auscultation: normal bowel sounds Rectal Exam - Female: deferred Skin General skin exam: no rashes or lesions noted, turgor normal, skin not dry, no jaundice, No spider nevi and no striae Rashes: no rashes Nails: normal Neuro General: oriented to person, oriented to place and oriented to time Cranial nerves: Yes Equal, round and reactive pupils present and Yes Normal hearing present Speech: No Abnormal speech present Extrem Other: Negative drop-arm and painful arc test, positive Speed's test General: Yes normal to inspection, No clubbing, No cyanosis and No edema Left upper extremity: shoulder/upper arm Details: tenderness Location: over the biceps tendon Psych Appearance: grossly normal and well kempt Mental Status: mental status grossly normal Speech and movement: Normal speech and movement present Affect: normal affect Attitude: cooperative Thought process: Normal thought process present and not confabulating Thought content: Normal thought content present Insight: Good insight present (Psych) Judgement: Good judgement present (Psych) Assessment & Plan Assessment & Plan (1) GERD (gastroesophageal reflux disease): Code(s): K21.9 - Gastro-esophageal reflux disease without esophagitis Category: Medical Qualifiers: Esophagitis presence: esophagitis presence not specified Qualified Code(s): K21.9 - Gastro-esophageal reflux disease without esophagitis (2) Erosive esophagitis: Code(s): K22.10 - Ulcer of esophagus without bleeding Category: Medical (3) Irritable bowel syndrome with both constipation and diarrhea: Code(s): K58.2 - Mixed irritable bowel syndrome Category: Medical (4) Shoulder pain, right: Code(s): M25.511 - Pain in right shoulder Category: Medical Plan She is using the senna 1 qod. She stopped her o2o as she read it can cause CIC - but diarrhea is more common. Still, she had less epigastric pain, unsure if it is because she had a very large, very hard BM that may have relieved the pain. Given her hx of erosive esophagitis, I am reluctant to have her esophagus unprotected, so we will try lansoprazole as it is metabolized differently (liver instead of renal). I recommend that she take the senna every night unless she has diarrhea. She is having shoulder problems, exam reveals bicep tendonitis - motrin would be good for this but not for an unprotected esophagus. We discuss rest, and alt heat and cold to facilitate tendon circulation. ROV 3 weeks Orders: Orders XR Shoulder Brandon min 2V Today M25.511 - Pain in right shoulder Medications: New lansoprazole 15 mg PO DAILY 30 caps 6RF K22.10 - Ulcer of esophagus without bleeding On Hold omeprazole Hold Comment: Doctor's Order 20 mg PO DAILY 30 caps 12RF K22.10 - Ulcer of esophagus without bleeding Coding Level of Care Code Est Pt Level 4 (79365) Diagnoses Gastroesophageal reflux disease, unspecified whether esophagitis present K21.9 Esophagitis presence: esophagitis presence not specified Erosive esophagitis K22.10 Irritable bowel syndrome with both constipation and diarrhea K58.2 Shoulder pain, right M25.511 Time Spent (min) 35
== END 2024-12-23 10:16 | disposition home or self-care (01) ==
LOC: HO.HGI 09:27
PROVIDERS: Visit Provider Nurse Practitioner
DX: K21.9 Gastro-esophageal reflux disease without esophagitis (principal); K22.10 Ulcer of esophagus without bleeding; K58.2 Mixed irritable bowel syndrome; M25.511 Pain in right shoulder
CPT/HCPCS: 99214

== ENCOUNTER → 2024-12-23 10:22 | Outpatient (BNV) | payer OTHER, SELFPAY | PROVIDERS: Visit Provider Radiology Body Imaging | DX: M25.511 Pain in right shoulder (principal) | CPT/HCPCS: 73030 ==

== ENCOUNTER 2024-12-26 09:10 | Outpatient (REF) | payer OTHER, SELFPAY ==
[2024-12-26 12:33] LABS: Resp Syncy Virus RNA Qual PCR NEGATIVE (Negative); SARS COV2 PCR INHOUSE POSITIVE (Negative)
== END 2024-12-26 09:11 | disposition home or self-care (01) ==
LOC: HO.LAB 09:10
PROVIDERS: Visit Provider Family Medicine
DX: J01.80 Other acute sinusitis (principal); Z31.89 Encounter for other procreative management; R09.81 Nasal congestion; Z20.822 Contact with and (suspected) exposure to COVID-19
CPT/HCPCS: 87637; 87880

== ENCOUNTER 2024-12-26 09:10 | Outpatient (AMB) | payer OTHER, SELFPAY ==
[2024-12-26 09:31] VITALS: BP 120/60; PULSE 80; RESP 16; TEMP 37.6; O2SAT 98; BMI 26.3
--- NOTE | 2024-12-26 09:31 | MHC.OFFWIV ---
Intake Vital Signs 12/26/24 09:31 Height 5 ft 2 in Weight 144 lb BMI 26.3 BP 120/60 Blood Pressure Location Lt brachial Position Sitting Respiration 16 Pulse 80 Pulse Source Pulse Oximeter Temp 99.6 F Temp Source Oral Pulse Oximetry (%) 98 Oxygen Delivery Method Room Air Intake Visit Reasons: EP Sore throat, headache, fever Intake Note: Pt is here today c/o S/T, nasal congestion, H/A,cough and fever x1day Patient Tobacco Use Status: Never used Tobacco Allergies morphine (Morphine) Allergy (Intermediate, Verified 12/26/24 09:34) HALLUCINATIONS Sulfa (Sulfonamide Antibiotics) Allergy (Intermediate, Verified 12/26/24 09:34) HIVES shellfish derived Allergy (Mild, Verified 12/26/24 09:34) Stomach Upset methylprednisolone Adverse Reaction (Severe, Verified 12/26/24 09:34) rash Substance with sulfonamide structure and antibacterial mechanism of action (substance) Allergy (Unknown, Uncoded 12/26/24 09:34) Hives Oral Contrast Adverse Reaction (Intermediate, Uncoded 12/26/24 09:34) Abdominal Pain Medication List - Last Reconciled 12/26/24 by Jesús Teran MD fexofenadine (Lore Allergy) 60 mg PO BID lansoprazole 15 mg PO DAILY omeprazole 20 mg PO DAILY Held on 12/23/24. Instructions: Doctor's Order sennosides (Senna Laxative) 17.2 mg (2 x 8.6 mg) PO BEDTIME HPI EP Sore throat, headache, fever HPI Details Patient has moderately severe maxillary sinus pain and pressure with nasal congestion. Had gone on a trip with her family and left early because she felt sick No one else is sick in her family Notes headaches and fevers/chills Also has complaint of ear pressure and sore throat [facility] Medical History (Updated 12/26/24 @ 10:19 by Jesús Teran MD) Sinusitis Diverticulitis Dysuria Colitis Pre-op examination Upper abdominal pain Diarrhea Contact dermatitis Umbilical abnormality Thoracic back pain Right flank pain Otalgia of left ear Neck pain Epigastric pain Lumbar back pain Conjunctivitis IBS (irritable bowel syndrome) Thoracic degenerative disc disease Upper respiratory tract infection Back pain Physical exam URI, acute Acalculous cholecystitis Loose stools Asthma Tubular adenoma of colon Degenerative disc disease, thoracic Cholelithiasis with chronic cholecystitis Glaucoma Depression Helicobacter pylori (H. pylori) Anemia Myocardial infarction GERD (gastroesophageal reflux disease) Surgical History Hx laparoscopic cholecystectomy Status post laparoscopic cholecystectomy Hx of colonoscopy H/O dilation and curettage S/P right knee arthroscopy H/O esophagogastroduodenoscopy History of arthroscopy of right knee History of tubal ligation H/O section History of tonsillectomy Family History Father HTN (hypertension) Prostate cancer Mother HTN (hypertension) Diabetes Hx of CABG Sister Asthma Social History Household Members: Spouse, Significant Other and Other Housing: House Are you a primary career technical education teacher to a significant other at home: No Do you presently have visiting nurse or other home services: No Alcohol intake: never Patient Tobacco Use Status: Never used Tobacco Tobacco use type: Cigarette e-Cigarette/Vaping Use: Never Used Second Hand Smoke Exposure: No service: No Current occupational status: disabled Current occupational exposures/hazards: No Cognitive needs: No Hearing needs: No Vision needs: Yes Review of Systems Const Denies chills, Denies fatigue, Denies fever(s), Reports headache(s) and Denies weakness ENT Details: See HPI Denies dizziness and Reports headache(s) Card Denies chest pain, Denies lightheadedness, Denies dyspnea and Denies other (Palpitations) Resp Denies cough, Denies dyspnea, Denies wheezing and Denies other ( shortness of breath) Musc Denies numbness and Denies tingling Neuro Denies dizziness, Reports headache(s), Denies numbness, Denies tingling, Denies paresthesias and Denies weakness Psych Denies anxiety and Denies depression Endo Denies fatigue Aller/Immun Denies wheezing Physical Exam Vital Signs: Last Vital Signs Temp 99.6 F 12/26/24 09:31 Pulse 80 12/26/24 09:31 Resp 16 12/26/24 09:31 BP 120/60 12/26/24 09:31 Pulse Ox 98 12/26/24 09:31 Oxygen Delivery Method Room Air 12/26/24 09:31 BMI result Body Mass Index 26.3 Const General: no acute distress and well developed Nutritional Appearance: well nourished Orientation/consciousness: patient oriented x3 HEENT Other: Maxillary sinus pressure Significant nasal congestion and inflammation with mild purulent drainage TMs normal Mild erythema in posterior nasopharynx without exudates Head: Yes normocephalic and Yes atraumatic Eyes General: appearance normal, both eyes and all related structures Pupils: Equal, round and reactive pupils present EOM: EOMs intact bilaterally Resp Effort & Inspection: normal respiratory effort Auscultation: clear to auscultation bilaterally Cardio Rate: regular rate Rhythm: regular rhythm Heart sounds: S1 normal heart sound present, S2 normal heart sound present, no gallops, no murmurs and no rubs Neuro General: patient oriented x3 and gait normal Cranial nerves: Yes Equal, round and reactive pupils present Psych Affect: normal affect Results AMB Rapid Strep AMB Rapid Strep Negative Last Edit by Tamika Agosto CMA on 12/26/24 09:56 Results Reviewed Results Reviewed: Laboratory Last Values Strep Scn Rapid Clinic Negative 12/26/24 09:55 Assessment & Plan Assessment & Plan (1) Sinusitis: Code(s): J32.9 - Chronic sinusitis, unspecified Qualifiers: Sinusitis location: other Chronicity: acute Recurrence: non-recurrent Qualified Code(s): J01.80 - Other acute sinusitis Plan: Significant nasal congestion and maxillary sinus tenderness to palpation. Mildly purulent drainage Likely bacterial sinus infection Will send a script for a Z-Daniel Also advised nasal saline Warm compresses on maxillary sinuses Can use Tylenol for discomfort Plan Also checking COVID/flu/RSV - nasal swab sent to lab. Orders: Orders AMB Rapid Strep Screen Today Z13.9 - Encounter for screening, unspecified SARS-CoV2/FLU/RSV Today R09.81 - Nasal congestion, Z20.822 - Contact with and (suspected) exposure to COVID-19 Medications: New azithromycin (Zithromax Z-Daniel) take 500 mg today (day 1), then 250 mg for 4 days (days 2-5) PO 6 tabs 0RF 5 days Coding Level of Care Code Est Pt Level 3 (34331) Diagnoses Acute non-recurrent sinusitis of other sinus J01.80 Sinusitis location: other Chronicity: acute Recurrence: non-recurrent
== END 2024-12-26 10:29 | disposition home or self-care (01) ==
PROVIDERS: Visit Provider Family Medicine
DX: Z13.9 Encounter for screening, unspecified (principal); J01.80 Other acute sinusitis

== ENCOUNTER 2024-12-31 08:19 | Outpatient (AMB) | payer OTHER, SELFPAY ==
[2024-12-31 08:22] VITALS: BP 118/68; PULSE 67; TEMP 36.8; O2SAT 98; BMI 26.3
--- NOTE | 2024-12-31 08:22 | AM.OFFWIN_ITS ---
Intake Vital Signs 12/31/24 08:22 Height 5 ft 2 in Weight 144 lb BMI 26.3 BP 118/68 Blood Pressure Location Lt brachial Position Sitting Pulse 67 Pulse Source Pulse Oximeter Temp 98.2 F Temp Source Oral Pulse Oximetry (%) 98 Intake Visit Reasons: EP-dry cough Intake Note: pt is here for dry cough, patient states she had covid over the weekend, completed medication but still have dry cough Patient Tobacco Use Status: Never used Tobacco Allergies morphine (Morphine) Allergy (Intermediate, Verified 12/31/24 08:22) HALLUCINATIONS Sulfa (Sulfonamide Antibiotics) Allergy (Intermediate, Verified 12/31/24 08:22) HIVES shellfish derived Allergy (Mild, Verified 12/31/24 08:22) Stomach Upset methylprednisolone Adverse Reaction (Severe, Verified 12/31/24 08:22) rash Substance with sulfonamide structure and antibacterial mechanism of action (substance) Allergy (Unknown, Uncoded 12/26/24 09:34) Hives Oral Contrast Adverse Reaction (Intermediate, Uncoded 12/26/24 09:34) Abdominal Pain Do you need a note to return to daycare/school/sports/work: No HPI HPI Comments History of Present Illness Details 64 y/o Female patient who presents to [facility] in clinic with c/o Persistent dry cough since last Saturday. She was seen here on 12/26 and treated for Sinusitis. SARs was positive for COVID-19 but she never took Paxlovid Rx. She took COVID home test that was negative. Denies fevers, chills, nausea or vomiting. She has been taking Robitussin with no relief. Patient asking for chest Xray. [facility] Medical History (Updated 12/31/24 @ 08:43 by Heena Gordon, SHANTANU) Cough Sinusitis Diverticulitis Dysuria Colitis Pre-op examination Upper abdominal pain Diarrhea Contact dermatitis Umbilical abnormality Thoracic back pain Right flank pain Otalgia of left ear Neck pain Epigastric pain Lumbar back pain Conjunctivitis IBS (irritable bowel syndrome) Thoracic degenerative disc disease Upper respiratory tract infection Back pain Physical exam URI, acute Acalculous cholecystitis Loose stools Asthma Tubular adenoma of colon Degenerative disc disease, thoracic Cholelithiasis with chronic cholecystitis Glaucoma Depression Helicobacter pylori (H. pylori) Anemia Myocardial infarction GERD (gastroesophageal reflux disease) Surgical History Hx laparoscopic cholecystectomy Status post laparoscopic cholecystectomy Hx of colonoscopy H/O dilation and curettage S/P right knee arthroscopy H/O esophagogastroduodenoscopy History of arthroscopy of right knee History of tubal ligation H/O section History of tonsillectomy Family History Father HTN (hypertension) Prostate cancer Mother HTN (hypertension) Diabetes Hx of CABG Sister Asthma Social History Household Members: Spouse, Significant Other and Other Housing: House Are you a primary director of career resources to a significant other at home: No Do you presently have visiting nurse or other home services: No Alcohol intake: never Patient Tobacco Use Status: Never used Tobacco Tobacco use type: Cigarette e-Cigarette/Vaping Use: Never Used Second Hand Smoke Exposure: No service: No Current occupational status: disabled Current occupational exposures/hazards: No Cognitive needs: No Hearing needs: No Vision needs: Yes Review of Systems Const All systems reviewed & are unremarkable except as noted in HPI and below Physical Exam Vital Signs: Last Vital Signs Temp 98.2 F 12/31/24 08:22 Pulse 67 12/31/24 08:22 BP 118/68 12/31/24 08:22 Pulse Ox 98 12/31/24 08:22 BMI result Body Mass Index 26.3 Const General: no acute distress Nutritional Appearance: well nourished Orientation/consciousness: patient oriented x3 HEENT Head: Yes normocephalic Ears: external ears normal and TM's normal bilaterally General nose exam: Normal external nose present Face and sinus: Yes sinuses nontender Mouth: moist mucous membranes Throat: Yes uvula midline Resp Effort & Inspection: normal respiratory effort, able to speak in complete sentences and Actively coughing Auscultation: clear to auscultation bilaterally, no crackles, no rales, no rhonchi and no wheezes Cardio Heart sounds: S1 normal heart sound present and S2 normal heart sound present Neuro General: patient oriented x3 Assessment & Plan Assessment & Plan (1) Cough: Code(s): R05.9 - Cough, unspecified Qualifiers: Cough type: subacute Qualified Code(s): R05.2 - Subacute cough Plan: Ordered chest Xray as requested. Advised to use Delysum OTC Ordered Benzonatate Ordered Albuterol Inhaler as requested. Orders: Orders XR chest 2V Today R05.9 - Cough, unspecified Medications: New benzonatate 100 mg PO TID 90 caps 0RF R05.9 - Cough, unspecified dextromethorphan polistirex ER (Delsym 12 hour) 10 mL PO Q12H 89 mL 0RF cough R05.9 - Cough, unspecified albuterol sulfate 90 mcg/actuation 2 puffs inhalation Q4-6H PRN 6.7 grams 0RF shortness of breath or wheezing R05.2 - Subacute cough Coding Level of Care Code Est Pt Level 4 (47414) Diagnoses Subacute cough R05.2 Cough type: subacute Time Spent (min) 20
== END 2024-12-31 09:15 | disposition home or self-care (01) ==
PROVIDERS: Visit Provider Nurse Practitioner Family
DX: R05.2 Subacute cough (principal)

== ENCOUNTER 2024-12-31 08:19 | Outpatient (REF) | payer OTHER, SELFPAY ==
--- NOTE | ~2024-12-31 | XR_ITS ---
EXAMINATION: XR CHEST CLINICAL INFORMATION: R05.9 - Cough, unspecified COMPARISON: April 25, 2024. TECHNIQUE: 2 views of the chest were obtained. FINDINGS: No consolidation, pleural effusion or pneumothorax. Cardiomediastinal silhouette size is normal. Multilevel thoracolumbar spondylosis, moderate. Vascular clips in the upper quadrant of the abdomen no fully included on the AP projection. XR/XR chest 2V IMPRESSION: No acute airspace disease. Stable chest. Spondylosis, thoracolumbar spine.. Electronically signed by: Andreas Zepeda MD 12/31/2024 08:54 AM EDT
== END 2024-12-31 08:20 | disposition home or self-care (01) ==
LOC: HO.HMGCX 08:19
PROVIDERS: Visit Provider Nurse Practitioner Family
DX: R05.2 Subacute cough (principal)
CPT/HCPCS: 71046

== ENCOUNTER → 2024-12-31 08:44 | Outpatient (BNV) | payer OTHER, SELFPAY | PROVIDERS: Visit Provider Radiology Diagnostic Radiology | DX: R05.9 Cough, unspecified (principal); M47.815 Spondylosis without myelopathy or radiculopathy, thoracolumbar region | CPT/HCPCS: 71046 ==

== ENCOUNTER 2025-01-14 14:56 | Outpatient (AMB) | payer OTHER, SELFPAY ==
[2025-01-14 14:57] VITALS: BP 122/62; PULSE 69; O2SAT 97; BMI 26.6
--- NOTE | 2025-01-14 14:57 | A.OFFPC_ITS ---
Vital Signs 01/14/25 14:57 Height 5 ft 2 in Weight 145 lb 8 oz BMI 26.6 BP 122/62 Blood Pressure Location Lt brachial Position Sitting Pulse 69 Pulse Oximetry (%) 97 Oxygen Delivery Method Room Air Intake Visit Reasons: discuss shoulder pain Gaggerman Required: No Accompanied by: Self / Same As Patient Allergies morphine (Morphine) Allergy (Intermediate, Verified 01/14/25 15:15) HALLUCINATIONS Sulfa (Sulfonamide Antibiotics) Allergy (Intermediate, Verified 01/14/25 15:15) HIVES shellfish derived Allergy (Mild, Verified 01/14/25 15:15) Stomach Upset methylprednisolone Adverse Reaction (Severe, Verified 01/14/25 15:15) rash Substance with sulfonamide structure and antibacterial mechanism of action (substance) Allergy (Unknown, Uncoded 01/14/25 15:15) Hives Oral Contrast Adverse Reaction (Intermediate, Uncoded 01/14/25 15:15) Abdominal Pain Medication List - Last Reconciled 01/14/25 by Юлия Mendes PA-C albuterol sulfate 90 mcg/actuation 2 puffs inhalation Q4-6H PRN fexofenadine (Lore Allergy) 60 mg PO BID sennosides (Senna Laxative) 17.2 mg (2 x 8.6 mg) PO BEDTIME Tobacco use date assessed: 11/23/24 Dental Screening Dental Screen Date: 01/14/25 Did you have a dental visit in the last 12 months?: No Did you have a dental problem in the last 6 months where you did not have access to dental care?: No Was dental information given to patient?: No HPI discuss shoulder pain HPI Details 64 year old female with past medical his tory of asthma, impaired fasting glucose, GERD, IBS last seen 11/2024 coming in for acute problem. Presenting with shoulder pain and foot discomfort. Shoulder pain began in December, initially affecting the left shoulder and later involving the right shoulder. X-rays revealed mild arthritis with joint space narrowing in both shoulders. Pain is exacerbated by certain movements and during sleep, suggesting a muscular component. The patient has been using Tylenol and heating pads for relief, with some improvement noted. A corn on the foot has been present for about a month, causing discomfort when walking. The patient has been advised to use corn pads and avoid shaving the corn to prevent further irritation. [facility] Medical History Cough Sinusitis Diverticulitis Dysuria Colitis Pre-op examination Upper abdominal pain Diarrhea Contact dermatitis Umbilical abnormality Thoracic back pain Right flank pain Otalgia of left ear Neck pain Epigastric pain Lumbar back pain Conjunctivitis IBS (irritable bowel syndrome) Thoracic degenerative disc disease Upper respiratory tract infection Back pain Physical exam URI, acute Acalculous cholecystitis Loose stools Asthma Tubular adenoma of colon Degenerative disc disease, thoracic Cholelithiasis with chronic cholecystitis Glaucoma Depression Helicobacter pylori (H. pylori) Anemia Myocardial infarction GERD (gastroesophageal reflux disease) Surgical History Hx laparoscopic cholecystectomy Status post laparoscopic cholecystectomy Hx of colonoscopy H/O dilation and curettage S/P right knee arthroscopy H/O esophagogastroduodenoscopy History of arthroscopy of right knee History of tubal ligation H/O section History of tonsillectomy Family History Father HTN (hypertension) Prostate cancer Mother HTN (hypertension) Diabetes Hx of CABG Sister Asthma Social History Household Members: Spouse, Significant Other and Other Housing: House Are you a primary health care marketing manager to a significant other at home: No Do you presently have visiting nurse or other home services: No Alcohol intake: never Patient Tobacco Use Status: Never used Tobacco Tobacco use type: Cigarette e-Cigarette/Vaping Use: Never Used Second Hand Smoke Exposure: No service: No Current occupational status: disabled Current occupational exposures/hazards: No Cognitive needs: No Hearing needs: No Vision needs: Yes Questionnaire PHQ-9 Over the last 2 weeks, how often have you been bothered by any of the following problems? 1. Little interest or pleasure in doing things: not at all 2. Feeling down, depressed, or hopeless: not at all 3. Trouble falling or staying asleep, or sleeping too much: not at all 4. Feeling tired or having little energy: not at all 5. Poor appetite or overeating: not at all 6. Feeling bad about yourself - or that you are a failure or have let yourself or your family down: not at all 7. Trouble concentrating on things, such as reading the newspaper or watching television: not at all 8. Moving or speaking so slowly that other people could have noticed. Or the opposite - being so fidgety or restless that you have been moving around a lot more than usual: not at all 9. Thoughts that you would be better off or of hurting yourself in some wa y: not at all Total score: 0 Source: Developed by Drs. Kevin Stevenson, Nita Gutierrez, Kulwant Flores and colleagues, with an educational reji from [employer]. Thrive Questionnaire Date Thrive assessed: 11/23/24 I am a: Patient What is your living situation today?: I have a steady place to live Within the past 12 months, did the food you bought not last and you didn't have the money to get more?: Never true Within the past 12 months, did you worry whether your food would run out before you got money to buy more?: Never true Do you have trouble paying for medicines?: No Do you have trouble getting transportation to medical appointments?: No Do you have trouble paying your heating and electricity bill?: No Do you have trouble taking care of your child, family member or friend?: No Do you have trouble with day-to-day activities such as bathing, preparing meals, shopping, managing finances, etc.?: Yes Are you currently unemployed and looking for a job?: No Are you interested in more education?: No Please select the resources that you would like help with: None THRIVE Score: 0 JAJA-7 AMB Questionnaire JAJA-7 Date JAJA - 7 assessed: 11/23/24 Source: Developed by Drs. Kevin Stevenson, Nita Gutierrez, Kulwant Flores and colleagues, with an educational reji from [employer]. Review of Systems Const Denies body aches, Denies chills, Denies fever(s), Denies headache(s) and Denies poor appetite Eyes Reports no additional complaints ENT Denies dizziness and Denies headache(s) Card Denies chest pain, Denies syncope, Denies edema, Denies irregular heart rhythm, Denies lightheadedness and Denies dyspnea Resp Denies cough and Denies dyspnea GI Denies constipation, Denies diarrhea, Denies nausea and Denies vomiting Reports no additional complaints Musc Reports no additional complaints and Denies abnormal gait Skin/Breast Reports system reviewed and no additional complaints, except as documented Neuro Denies abnormal gait, Denies dizziness, Denies syncope and Denies headache(s) Psych Reports no additional complaints Physical exam (Primary Care) Vital Signs: Last Vital Signs Pulse 69 01/14/25 14:57 BP 122/62 01/14/25 14:57 Pulse Ox 97 01/14/25 14:57 Oxygen Delivery Method Room Air 01/14/25 14:57 BMI result Body Mass Index 26.6 Tobacco/Smoking Status: Tobacco use Status Tobacco use date assessed 11/23/24 01/14/25 15:05 Patient Tobacco Use Status Never used Tobacco 01/14/25 15:05 Tobacco use type Cigarette 01/14/25 15:05 e-Cigarette/Vaping Use Never Used 01/14/25 15:05 PHQ-9: PHQ-9 Score PHQ-9: Total score 0 01/14/25 15:05 Thrive Assessment: Date of Thrive Assessment Date Thrive assessed 11/23/24 01/14/25 15:05 Const General: cooperative, healthy appearing, comfortable and no acute distress Orientation/consciousness: patient oriented x3 HENMT Head: Yes normocephalic Ears: hearing grossly normal bilaterally General nose exam: Normal external nose present Eyes General: appearance normal, both eyes and all related structures Conjunctivae: conjunctivae normal Neck Neck: Yes full ROM and Yes no lymphadenopathy Resp Effort & Inspection: normal respiratory effort Auscultation: clear to auscultation bilaterally, no crackles, no rales, no rhonchi and no wheezes Cardio Rate: regular rate Rhythm: regular rhythm Skin General skin exam: no rashes or lesions noted Neuro General: patient oriented x3 Gait exam (Neuro): Normal gait present Extrem Other: tenderness to palpation of right shoulder - pain with internal rotation of the right arm General: Yes normal to inspection, Yes full ROM and No edema Psych Affect: normal affect Attitude: cooperative Insight: Good insight present (Psych) Judgement: Good judgement present (Psych) Coding Level of Care Code Est Pt Level 3 (33520) Diagnoses Shoulder pain, right M25.511 Shoulder pain, left M25.512 [place] of foot L84 Assessment & Plan Assessment & Plan (1) Shoulder pain, right: Code(s): M25.511 - Pain in right shoulder Category: Medical Plan: The patient is advised to continue using Tylenol and heating pads for pain relief. Physical therapy is recommended to improve shoulder function and reduce pain. Physical therapy is suggested to address muscular pain and improve shoulder mobility. (2) Shoulder pain, left: Code(s): M25.512 - Pain in left shoulder Category: Medical Plan: See above (3) [place] of foot: Code(s): L84 - Corns and callosities Category: Medical Plan: The patient is advised to use corn pads to alleviate pressure and avoid shaving the corn. Referral to podiatry is considered if symptoms persist or worsen. Plan I discussed with the patient the findings of mild arthritis in the shoulders and the potential muscular component contributing to her pain. We talked about the benefits of physical therapy and the use of Tylenol and heating pads for symptom management. I also explained the nature of corns and recommended using corn pads to relieve pressure. We discussed the recent COVID-19 infection and the importance of monitoring symptoms. Follow-up with podiatry was suggested if the foot condition worsens. This note was constructed using voice recognition software. While every effort has been made to ensure accuracy and package delivery room service runner, still areas may have been included sometimes these areas may affect the content or meeting of the given symptoms. Total time spent caring for the patient today was 20 minutes. This includes time spent before the visit reviewing the chart, time spent during the visit, and time spent after the visit and documentation. Patient was informed and verbally consented to the use of an ambient scribe for clinic note documentation during this visit. Orders: Orders PT Evaluation and Treatment Today M25.511 - Pain in right shoulder, M25.512 - Pain in left shoulder
== END 2025-01-14 15:43 | disposition home or self-care (01) ==
LOC: HO.HMCH 14:57
DX: M25.511 Pain in right shoulder (principal); M25.512 Pain in left shoulder; L84 Corns and callosities

== ENCOUNTER 2025-01-15 12:00 | Outpatient (AMB) | payer OTHER, SELFPAY ==
[2025-01-15 12:13] VITALS: BP 131/75; PULSE 63; BMI 26.8
--- NOTE | 2025-01-15 12:13 | A.OFFVIS_ITS ---
Vital Signs 01/15/25 12:13 Height 5 ft 2 in Weight 146 lb 6.191 oz BMI 26.8 BP 131/75 Blood Pressure Location Lt brachial Position Sitting Pulse 63 Intake Visit Reasons: GERD, CIC Intake Note: Kiara presents in follow up of GERD. CC: Patient reports that she discontinued the lansoprazole because she woke up with a very strong chest pain 4 days after starting the med. She states that she was able to release a lot of gas after drinking herson and was able to feel better. Telephone Claims Representative Required: No Accompanied by: Self / Same As Patient Allergies morphine (Morphine) Allergy (Intermediate, Verified 01/14/25 15:15) HALLUCINATIONS Sulfa (Sulfonamide Antibiotics) Allergy (Intermediate, Verified 01/14/25 15:15) HIVES shellfish derived Allergy (Mild, Verified 01/14/25 15:15) Stomach Upset methylprednisolone Adverse Reaction (Severe, Verified 01/14/25 15:15) rash Substance with sulfonamide structure and antibacterial mechanism of action (substance) Allergy (Unknown, Uncoded 01/14/25 15:15) Hives Oral Contrast Adverse Reaction (Intermediate, Uncoded 01/14/25 15:15) Abdominal Pain HPI HPI GERD, CIC: Details: Assessment & Plan (1) GERD (gastroesophageal reflux disease): Code(s): K21.9 - Gastro-esophageal reflux disease without esophagitis Category: Medical Qualifiers: Esophagitis presence: esophagitis presence not specified Qualified Code(s): K21.9 - Gastro-esophageal reflux disease without esophagitis (2) Erosive esophagitis: Code(s): K22.10 - Ulcer of esophagus without bleeding Category: Medical (3) Irritable bowel syndrome with both constipation and diarrhea: Code(s): K58.2 - Mixed irritable bowel syndrome Category: Medical (4) Shoulder pain, right: Code(s): M25.511 - Pain in right shoulder Category: Medical Plan She is using the senna 1 qod. She stopped her o2o as she read it can cause CIC - but diarrhea is more common. Still, she had less epigastric pain, unsure if it is because she had a very large, very hard BM that may have relieved the pain. Given her hx of erosive esophagitis, I am reluctant to have her esophagus unprotected, so we will try lansoprazole as it is metabolized differently (liver instead of renal). I recommend that she take the senna every night unless she has diarrhea. She is having shoulder problems, exam reveals bicep tendonitis - motrin would be good for this but not for an unprotected esophagus. We discuss rest, and alt heat and cold to facilitate tendon circulation. ROV 3 weeks Orders: Orders XR Shoulder Brandon min 2V Today M25.511 - Pain in right shoulder Medications: New lansoprazole 15 mg PO DAILY 30 caps 6RF K22.10 - Ulcer of esophagus without bleeding On Hold omeprazole Hold Comment: Doctor's Order 20 mg PO DAILY 30 caps 12RF K22.10 - Ulcer of esophagus without bleeding X-RAY OF THE SHOULDER BILATERAL 12/23/2024 FINDINGS: Normal alignment. No displaced fracture. Acromioclavicular joints are intact. Minimal narrowing of the glenohumeral joint spaces are symmetric and likely degenerative in nature. No abnormal soft tissue calcifications. XR/XR Shoulder Brandon min 2V IMPRESSION: Minimal joint space narrowing of the glenohumeral joints, symmetric, and likely representing early degenerative changes. TODAY'S VISIT [facility] Medical History (Updated 01/15/25 @ 16:48 by JADE Rosen) Nasal congestion Yeast infection Colitis Cough Sinusitis Diverticulitis Dysuria Pre-op examination Upper abdominal pain Diarrhea Contact dermatitis Umbilical abnormality Thoracic back pain Right flank pain Otalgia of left ear Neck pain Epigastric pain Lumbar back pain Conjunctivitis IBS (irritable bowel syndrome) Thoracic degenerative disc disease Upper respiratory tract infection Back pain Physical exam URI, acute Acalculous cholecystitis Loose stools Asthma Tubular adenoma of colon Degenerative disc disease, thoracic Cholelithiasis with chronic cholecystitis Glaucoma Depression Helicobacter pylori (H. pylori) Anemia Myocardial infarction GERD (gastroesophageal reflux disease) Surgical History Hx laparoscopic cholecystectomy Status post laparoscopic cholecystectomy Hx of colonoscopy H/O dilation and curettage S/P right knee arthroscopy H/O esophagogastroduodenoscopy History of arthroscopy of right knee History of tubal ligation H/O section History of tonsillectomy Family History Father HTN (hypertension) Prostate cancer Mother HTN (hypertension) Diabetes Hx of CABG Sister Asthma Social History Household Members: Spouse, Significant Other and Other Housing: House Are you a primary home care music therapist to a significant other at home: No Do you presently have visiting nurse or other home services: No Alcohol intake: never Patient Tobacco Use Status: Never used Tobacco Tobacco use type: Cigarette e-Cigarette/Vaping Use: Never Used Second Hand Smoke Exposure: No service: No Current occupational status: disabled Current occupational exposures/hazards: No Cognitive needs: No Hearing needs: No Vision needs: Yes Review of Systems Const Denies fatigue, Denies fever(s), Denies night sweats, Denies poor appetite and Denies weight loss ENT Reports Normal hearing present, Denies dental pain, Denies dysphagia, Denies hearing loss, Denies mouth pain, Denies odynophagia, Denies throat swelling, Denies tongue swelling and Reports other (Dentition adequate) Card Reports no additional complaints Resp Reports no additional complaints GI Details: Reports abdominal pain, Denies melena, Denies bloating, Denies hematochezia, Denies constipation, Denies GI cramping, Denies dysphagia, Denies excessive flatus, Denies early satiety, Reports heartburn, Denies diarrhea, Denies nausea, Denies odynophagia, Denies vomiting and Denies hematemesis Skin/Breast Denies pruritus, Denies lesions, Denies rash and Denies jaundice Neuro Reports Normal hearing present and Denies Abnormal speech present Endo Denies fatigue Aller/Immun Denies throat swelling and Denies tongue swelling Physical Exam Vital Signs: Last Vital Signs Pulse 63 01/15/25 12:13 BP 131/75 01/15/25 12:13 BMI result Body Mass Index 26.8 Const General: cooperative, no acute distress, well developed and well groomed Nutritional Appearance: average body habitus and well nourished Orientation/consciousness: oriented to person, oriented to place and oriented to time Limitations: No language barrier HEENT Head: Yes normocephalic and Yes atraumatic Eyes General: appearance normal, both eyes and all related structures Pupils: Equal, round and reactive pupils present Neck Neck: Yes normal visual inspection and Yes no lymphadenopathy Thyroid: Thyroid normal Resp Effort & Inspection: normal respiratory effort and able to speak in complete sentences Auscultation: clear to auscultation bilaterally Cardio Rate: regular rate Rhythm: regular rhythm Heart sounds: Normal, physiologic split S2 sound present Peripheral pulses: radial pulses present and posterior tibial pulses present GI Inspection: No distended and No Abdominal panniculus present Palpation (GI): Soft to palpation, nontender, no guarding, not rigid and No hepatosplenomegaly present Percussion: Yes normal to percussion Auscultation: normal bowel sounds Rectal Exam - Female: deferred Skin General skin exam: no rashes or lesions noted, turgor normal, skin not dry, no jaundice, No spider nevi and no striae Rashes: no rashes Nails: normal Neuro General: oriented to person, oriented to place and oriented to time Cranial nerves: Yes Equal, round and reactive pupils present and Yes Normal hearing present Speech: No Abnormal speech present Extrem General: Yes normal to inspection, No clubbing, No cyanosis and No edema Psych Appearance: grossly normal and well kempt Mental Status: mental status grossly normal Speech and movement: Normal speech and movement present Affect: normal affect Attitude: cooperative Thought process: Normal thought process present and not confabulating Thought content: Normal thought content present Insight: Good insight present (Psych) Judgement: Good judgement present (Psych) Assessment & Plan Assessment & Plan (1) Erosive esophagitis: Code(s): K22.10 - Ulcer of esophagus without bleeding Category: Medical (2) GERD (gastroesophageal reflux disease): Code(s): K21.9 - Gastro-esophageal reflux disease without esophagitis Category: Medical Qualifiers: Esophagitis presence: esophagitis presence not specified Qualified Code(s): K21.9 - Gastro-esophageal reflux disease without esophagitis Plan She has continued epigastric pain and GERD and we have not been able to solve this problem even when utilizing sucralfate, famotidine, omeprazole, pantoprazole, and lansoprazole. She has also had some unwanted side effects from some of these medications. At this point I think will try telling her to take half a tsp of baking soda and water 3 times a day and see how this affects her symptoms. I am also going to give her famotidine to use as needed if she has a severe exacerbation since she use this in the past and that we she did not have any side effects. She did have a prior H pylori infection that was treated in since confirmed eradicated. She has had multiple ultrasounds, multiple CAT scans, multiple upper GI studies I none have contributed to resolution or further in the diagnosis. Upper endoscopy did show esophageal erosions with potential pre metaplastic tissues on biopsy and active esophagitis. There was no H. pylori. I do an x-ray of her shoulder as a courtesy this show some mild arthritis. She is currently in physical therapy for this with some improvement. She will continue to follow this with her primary care provider. Return office visit in 3 weeks Medications: New famotidine (Pepcid) 40 mg PO BEDTIME PRN 30 tabs 6RF heartburn Coding Level of Care Code Est Pt Level 3 (09950) Diagnoses Erosive esophagitis K22.10 Gastroesophageal reflux disease, unspecified whether esophagitis present K21.9 Esophagitis presence: esophagitis presence not specified
== END 2025-01-15 12:59 | disposition home or self-care (01) ==
LOC: HO.HGI 12:01
PROVIDERS: Visit Provider Nurse Practitioner
DX: K22.10 Ulcer of esophagus without bleeding (principal); K21.9 Gastro-esophageal reflux disease without esophagitis
CPT/HCPCS: 99213

== ENCOUNTER → 2025-01-15 12:00 | Outpatient (BNVA) | payer OTHER, SELFPAY | PROVIDERS: Visit Provider Nurse Practitioner | DX: K22.10 Ulcer of esophagus without bleeding (principal); K21.9 Gastro-esophageal reflux disease without esophagitis; K58.2 Mixed irritable bowel syndrome; M25.511 Pain in right shoulder; Z13.89 Encounter for screening for other disorder ==

== ENCOUNTER 2025-01-19 13:16 | Outpatient (AMB) | payer OTHER, SELFPAY ==
--- NOTE | 2025-01-19 13:41 | A.OFFVIS_ITS ---
VS Expanded 01/19/25 14:30 Height 5 ft 2 in Weight 146 lb 9 oz BMI 26.8 Intake Visit Reasons: Gastro-esophageal reflux disease without esophagit Allergies morphine (Morphine) Allergy (Intermediate, Verified 01/14/25 15:15) HALLUCINATIONS Sulfa (Sulfonamide Antibiotics) Allergy (Intermediate, Verified 01/14/25 15:15) HIVES shellfish derived Allergy (Mild, Verified 01/14/25 15:15) Stomach Upset methylprednisolone Adverse Reaction (Severe, Verified 01/14/25 15:15) rash Substance with sulfonamide structure and antibacterial mechanism of action (substance) Allergy (Unknown, Uncoded 01/14/25 15:15) Hives Oral Contrast Adverse Reaction (Intermediate, Uncoded 01/14/25 15:15) Abdominal Pain Nutrition Presentation Details: Pt presents for MNT for Gastritis , colitis, IBS Typical meal intake B: cheerios with fairlife milk L: sand with ham/cheese and herson candice D: rice/chicken with red sauce, snack: applesauce or jello no sugar added food frequency: fried foods: 1/m eating out 1/m fruits;1/day vegetables: not including fish: not including (allergic to shellfish) Beverages: water, herson candice physical activity: adl etoh/smoking- denies RID-Uvjuqqr-Dr.Jeor Equation Height: 5 ft 2 in Weight: 146 lb Resting Metabolic Rate: 1179.79 Calculated Activity Level: Mild Activity Calories Needed to Maintain Weight: 1622.21 Diagnosis Nutrition problem #1: food nutri know defi As related to (etiology) #1: diagnosis As evidenced by (sign/symptom) #1: knowledge deficit of diet [facility] Medical History (Updated 01/19/25 @ 14:33 by Kiara Gilbert, RD, LDN) Nasal congestion Yeast infection Colitis Cough Sinusitis Diverticulitis Dysuria Pre-op examination Upper abdominal pain Diarrhea Contact dermatitis Umbilical abnormality Thoracic back pain Right flank pain Otalgia of left ear Neck pain Epigastric pain Lumbar back pain Conjunctivitis IBS (irritable bowel syndrome) Thoracic degenerative disc disease Upper respiratory tract infection Back pain Physical exam URI, acute Acalculous cholecystitis Loose stools Asthma Tubular adenoma of colon Degenerative disc disease, thoracic Cholelithiasis with chronic cholecystitis Glaucoma Depression Helicobacter pylori (H. pylori) Anemia Myocardial infarction GERD (gastroesophageal reflux disease) Surgical History Hx laparoscopic cholecystectomy Status post laparoscopic cholecystectomy Hx of colonoscopy H/O dilation and curettage S/P right knee arthroscopy H/O esophagogastroduodenoscopy History of arthroscopy of right knee History of tubal ligation H/O section History of tonsillectomy Family History Father HTN (hypertension) Prostate cancer Mother HTN (hypertension) Diabetes Hx of CABG Sister Asthma Social History Household Members: Spouse, Significant Other and Other Housing: House Are you a primary direct care specialist to a significant other at home: No Do you presently have visiting nurse or other home services: No Alcohol intake: never Patient Tobacco Use Status: Never used Tobacco Tobacco use type: Cigarette e-Cigarette/Vaping Use: Never Used Second Hand Smoke Exposure: No service: No Current occupational status: disabled Current occupational exposures/hazards: No Cognitive needs: No Hearing needs: No Vision needs: Yes Assessment & Plan Assessment & Plan (1) Irritable bowel syndrome with both constipation and diarrhea: Comment: and GERD/colitis Code(s): K58.2 - Mixed irritable bowel syndrome Category: Medical Plan: Wt: 66 Kg ( 02/04 ) Est kcal needs as per MSJ: 1600 (40% carb, 30% protein/fat) Est fluid needs as per 25-30 ml/d: 2000 Est prot per day as per 1 g/kg bw: 60-70 Recommend fiber intake : 8-10 g per day and gradually increase to 25-28 g per day for women and 35-38 g for men or as tolerated Recommend sodium intake per day : less than 2300 mg Educated patient on: ( R = reviewed V = verbalizes understanding N/R = needs review N/A = not applicable * Food sources of carbohydrate, adequate serving sizes and its role in various health conditions: R V N/R * Differences between complex carbohydrates a simple carbohydrates, role of fiber in diet: R V N/R * Lean protein sources of foods: R V * low fat food options: R * Food sources of probiotics: R * Vitamins and minerals: R * Healthy plate method concept: R V N/R * Physical activity: Benefits a precaution: R Patient Instructions: Choose low acid food options and low acid cooking methods- see printed information discussed as reference Include yogurt as snack in between meals Coding Level of Care Code Nutr Indiv Intake (98642) Diagnoses Irritable bowel syndrome with both constipation and diarrhea K58.2 Time Spent (min) 30
[2025-01-19 14:30] VITALS: BMI 26.8
[2025-01-19 14:36] VITALS: BMI 26.7
== END 2025-01-19 14:26 | disposition home or self-care (01) ==
LOC: HO.ENCR 13:16
PROVIDERS: Visit Provider Dietitian, Registered
DX: K58.2 Mixed irritable bowel syndrome (principal)

== ENCOUNTER → 2025-01-19 13:16 | Outpatient (BNVA) | payer OTHER, SELFPAY | PROVIDERS: Visit Provider Dietitian, Registered | DX: K58.2 Mixed irritable bowel syndrome (principal) | CPT/HCPCS: 97802 ==

== ENCOUNTER 2025-02-01 07:28 | Outpatient (REF) | payer OTHER, SELFPAY ==
--- NOTE | ~2025-02-01 | MM_ITS ---
EXAMINATION: MM SCREENING DIGITAL BREAST TOMOSYNTHESIS, BILATERAL CLINICAL INFORMATION: Screening. Asymptomatic. COMPARISON: Mammography: Comparison is made with available priors TECHNIQUE: Digital breast mammography with tomosynthesis is performed in both the craniocaudal and mediolateral oblique views along with computer-aided detection (CAD). FINDINGS: There are scattered areas of fibroglandular density (ACR BI-RADS breast composition Category b). Left: Circumscribed oval mass lower outer breast middle depth. No suspicious calcifications or other abnormal findings. Right: There are no significant masses, abnormal calcifications, or other abnormalities. MM/MM tomosynthesis screening BI IMPRESSION: Additional imaging is recommended ASSESSMENT: BI-RADS BI-RADS 0 - Incomplete: Needs additional Imaging. RECOMMENDATION: 1. Additional views of the left breast. 2. Targeted ultrasound if warranted after review of the additional views. 3. Radiology department staff will contact the patient for additional imaging. Additional Imaging required This examination should not preclude the clinical evaluation of a suspicious palpable abnormality. This patient's information was entered into a reminder system with a target due date for their next mammogram. Electronically signed by: Leydi Maza DO 02/02/2025 02:37 PM EDT
== END 2025-02-01 07:29 | disposition home or self-care (01) ==
LOC: HO.MAMMO 07:28
DX: Z12.31 Encounter for screening mammogram for malignant neoplasm of breast (principal)
CPT/HCPCS: 77063; 77067

== ENCOUNTER → 2025-02-01 07:45 | Outpatient (BNV) | payer OTHER, SELFPAY | PROVIDERS: Visit Provider Internal Medicine | DX: Z12.31 Encounter for screening mammogram for malignant neoplasm of breast (principal) | CPT/HCPCS: 77063; 77067 ==

== ENCOUNTER 2025-02-09 13:04 | Outpatient (AMB) | payer OTHER, SELFPAY ==
--- NOTE | 2025-02-09 13:08 | MHC.OFFVIS ---
Vital Signs 02/09/25 13:23 Height 5 ft 2 in Weight 144 lb BMI 26.3 BP 135/75 Blood Pressure Location Lt brachial Position Sitting Pulse 65 Intake Visit Reasons: trial Nabicarb therapy Intake Note: Kiara presents to in office follow up of GERD and abd pain. CC: Patient states that all last week until today she was having a lot of upper abdominal pain with radiation to the back. Last week she was having constipation and some bleeding hemorrhoids, but she is doing well now. 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: No Accompanied by: Self / Same As Patient Allergies morphine (Morphine) Allergy (Intermediate, Verified 02/09/25 13:28) HALLUCINATIONS Sulfa (Sulfonamide Antibiotics) Allergy (Intermediate, Verified 02/09/25 13:28) HIVES shellfish derived Allergy (Mild, Verified 02/09/25 13:28) Stomach Upset methylprednisolone Adverse Reaction (Severe, Verified 02/09/25 13:28) rash Substance with sulfonamide structure and antibacterial mechanism of action (substance) Allergy (Unknown, Uncoded 01/14/25 15:15) Hives Oral Contrast Adverse Reaction (Intermediate, Uncoded 01/14/25 15:15) Abdominal Pain HPI HPI trial Nabicarb therapy: Details: Assessment & Plan (1) Erosive esophagitis: Code(s): K22.10 - Ulcer of esophagus without bleeding Category: Medical (2) GERD (gastroesophageal reflux disease): Code(s): K21.9 - Gastro-esophageal reflux disease without esophagitis Category: Medical Qualifiers: Esophagitis presence: esophagitis presence not specified Qualified Code(s): K21.9 - Gastro-esophageal reflux disease without esophagitis Plan She has continued epigastric pain and GERD and we have not been able to solve this problem even when utilizing sucralfate, famotidine, omeprazole, pantoprazole, and lansoprazole. She has also had some unwanted side effects from some of these medications. At this point I think will try telling her to take half a tsp of baking soda and water 3 times a day and see how this affects her symptoms. I am also going to give her famotidine to use as needed if she has a severe exacerbation since she use this in the past and that we she did not have any side effects. She did have a prior H pylori infection that was treated in since confirmed eradicated. She has had multiple ultrasounds, multiple CAT scans, multiple upper GI studies I none have contributed to resolution or further in the diagnosis. Upper endoscopy did show esophageal erosions with potential pre metaplastic tissues on biopsy and active esophagitis. There was no H. pylori. I do an x-ray of her shoulder as a courtesy this show some mild arthritis. She is currently in physical therapy for this with some improvement. She will continue to follow this with her primary care provider. Return office visit in 3 weeks Medications: New famotidine (Pepcid) 40 mg PO BEDTIME PRN 30 tabs 6RF heartburn [facility] Medical History Nasal congestion Yeast infection Colitis Cough Sinusitis Diverticulitis Dysuria Pre-op examination Upper abdominal pain Diarrhea Contact dermatitis Umbilical abnormality Thoracic back pain Right flank pain Otalgia of left ear Neck pain Epigastric pain Lumbar back pain Conjunctivitis IBS (irritable bowel syndrome) Thoracic degenerative disc disease Upper respiratory tract infection Back pain Physical exam URI, acute Acalculous cholecystitis Loose stools Asthma Tubular adenoma of colon Degenerative disc disease, thoracic Cholelithiasis with chronic cholecystitis Glaucoma Depression Helicobacter pylori (H. pylori) Anemia Myocardial infarction GERD (gastroesophageal reflux disease) Surgical History Hx laparoscopic cholecystectomy Status post laparoscopic cholecystectomy Hx of colonoscopy H/O dilation and curettage S/P right knee arthroscopy H/O esophagogastroduodenoscopy History of arthroscopy of right knee History of tubal ligation H/O section History of tonsillectomy Family History Father HTN (hypertension) Prostate cancer Mother HTN (hypertension) Diabetes Hx of CABG Sister Asthma Social History Household Members: Spouse, Significant Other and Other Housing: House Are you a primary care information associate to a significant other at home: No Do you presently have visiting nurse or other home services: No Alcohol intake: never Patient Tobacco Use Status: Never used Tobacco Tobacco use type: Cigarette e-Cigarette/Vaping Use: Never Used Second Hand Smoke Exposure: No service: No Current occupational status: disabled Current occupational exposures/hazards: No Cognitive needs: No Hearing needs: No Vision needs: Yes Review of Systems Const Denies fatigue, Denies fever(s), Denies night sweats, Denies poor appetite and Denies weight loss ENT Reports Normal hearing present, Denies dental pain, Denies dysphagia, Denies hearing loss, Denies mouth pain, Denies odynophagia, Denies throat swelling, Denies tongue swelling and Reports other (Dentition adequate) Card Reports no additional complaints Resp Reports no additional complaints GI Details: Denies abdominal pain, Denies melena, Denies bloating, Denies hematochezia, Reports constipation, Denies GI cramping, Denies dysphagia, Denies excessive flatus, Denies early satiety, Reports heartburn, Denies diarrhea, Denies nausea, Denies odynophagia, Denies vomiting and Denies hematemesis Musc Details: Rib pain that radiates to the back Reports back pain and Reports myalgias Skin/Breast Denies pruritus, Denies lesions, Denies rash and Denies jaundice Neuro Reports Normal hearing present and Denies Abnormal speech present Endo Denies fatigue Aller/Immun Denies throat swelling and Denies tongue swelling Physical Exam Vital Signs: Last Vital Signs Pulse 65 02/09/25 13:23 BP 135/75 02/09/25 13:23 BMI result Body Mass Index 26.3 Const General: cooperative, no acute distress, well developed and well groomed Nutritional Appearance: average body habitus and well nourished Orientation/consciousness: oriented to person, oriented to place and oriented to time Limitations: No language barrier HEENT Head: Yes normocephalic and Yes atraumatic Eyes General: appearance normal, both eyes and all related structures Pupils: Equal, round and reactive pupils present Neck Neck: Yes normal visual inspection and Yes no lymphadenopathy Thyroid: Thyroid normal Resp Effort & Inspection: normal respiratory effort and able to speak in complete sentences Auscultation: clear to auscultation bilaterally Cardio Rate: regular rate Rhythm: regular rhythm Heart sounds: Normal, physiologic split S2 sound present Peripheral pulses: radial pulses present and posterior tibial pulses present GI Inspection: No distended and No Abdominal panniculus present Palpation (GI): Soft to palpation, nontender, no guarding, not rigid and No hepatosplenomegaly present Percussion: Yes normal to percussion Auscultation: normal bowel sounds Rectal Exam - Female: deferred Skin General skin exam: no rashes or lesions noted, turgor normal, skin not dry, no jaundice, No spider nevi and no striae Rashes: no rashes Nails: normal Neuro General: oriented to person, oriented to place and oriented to time Cranial nerves: Yes Equal, round and reactive pupils present and Yes Normal hearing present Speech: No Abnormal speech present Extrem General: Yes normal to inspection, No clubbing, No cyanosis and No edema Psych Appearance: grossly normal and well kempt Mental Status: mental status grossly normal Speech and movement: Normal speech and movement present Affect: normal affect Attitude: cooperative Thought process: Normal thought process present and not confabulating Thought content: Normal thought content present Insight: Fair insight present (Psych) Judgement: Fair judgement present (Psych) Assessment & Plan Assessment & Plan (1) Erosive esophagitis: Code(s): K22.10 - Ulcer of esophagus without bleeding Category: Medical (2) GERD (gastroesophageal reflux disease): Code(s): K21.9 - Gastro-esophageal reflux disease without esophagitis Category: Medical Qualifiers: Esophagitis presence: esophagitis presence not specified Qualified Code(s): K21.9 - Gastro-esophageal reflux disease without esophagitis (3) Irritable bowel syndrome with both constipation and diarrhea: Comment: and GERD/colitis Code(s): K58.2 - Mixed irritable bowel syndrome Category: Medical Plan She is on famotidine 40mg and senna and proctosol cream. (She has had multiple ultrasounds, multiple CAT scans, multiple upper GI studies I none have contributed to resolution or further in the diagnosis. Upper endoscopy did show esophageal erosions with potential pre metaplastic tissues on biopsy and active esophagitis. There was no H. pylori.) - The patient is a 64-year-old female presenting with musculoskeletal-related abdominal and back pain. - Reports bilateral rib cage pain extending to the back, with pressure-like quality, aggravated by specific movements. - Observed relief from pain using Motrin, aligning symptoms with musculoskeletal etiology. - Recent increased physical activity was identified as a potential trigger. - Previous investigative imaging in November ruled out pancreatic issues. - Longstanding osteoarthritis, current episode likely exacerbated by physical exertion. - Reports sometime sharp chest discomfort improved with burping, indicative of PANCHO or gas-related issues. - Denied effectiveness from dietary interventions on ongoing GI symptoms. IN TERMS OF her heartburn we tried 1/4 tsp of baking soda but she really could not tolerate the salty taste. With this she is now willing to try the famotidine. Unfortunately she has had bad reactions to multiple PPIs, so if the famotidine does not work for her we may need to consider simple Tums therapy. She says she has had more rectal bleeding which usually responds well to Proctosol cream. She is requesting a refill. She continues on senna and she feels that this is controlling her constipation well. Return office visit in 6 months Medications: New hydrocortisone 2.5% (Proctosol HC) BE SURE TO INCLUDE RECTAL APPICATOR!! 1 appl [place] BID 30 grams 6RF hemorrhoids K64.9 - Unspecified hemorrhoids Coding Level of Care Code Est Pt Level 3 (98124) Diagnoses Erosive esophagitis K22.10 Gastroesophageal reflux disease, unspecified whether esophagitis present K21.9 Esophagitis presence: esophagitis presence not specified Irritable bowel syndrome with both constipation and diarrhea K58.2
[2025-02-09 13:23] VITALS: BP 135/75; PULSE 65; BMI 26.3
== END 2025-02-09 13:56 | disposition home or self-care (01) ==
LOC: HO.HGI 13:05
PROVIDERS: Visit Provider Nurse Practitioner
DX: K22.10 Ulcer of esophagus without bleeding (principal); K21.9 Gastro-esophageal reflux disease without esophagitis; K58.2 Mixed irritable bowel syndrome
CPT/HCPCS: 99213

== ENCOUNTER 2025-03-09 14:42 | Outpatient (REF) | payer OTHER, SELFPAY ==
--- NOTE | ~2025-03-09 | MM_ITS ---
EXAMINATION(S): 1. MM DIAGNOSTIC DIGITAL BREAST TOMOSYNTHESIS, LEFT 2. Targeted ultrasound of the left breast CLINICAL INFORMATION: Callback from screening for left breast mass in the lower outer quadrant needle depth. COMPARISON: Comparison made to multiple prior mammograms, most recent February 01, 2025, and most remote August 29, 2020. Prior left breast ultrasound on September 01, 2020 and September 08, 2021. TECHNIQUE: Digital breast tomosynthesis is performed in full field ML 90 degrees along with computer-aided detection (CAD). Synthesized 2D images are generated from the tomosynthesis. Spot compression tomosynthesis were obtained. FINDINGS: BREAST COMPOSITION: There are scattered areas of fibroglandular density. LEFT BREAST: Approximately 0.8 cm mass in the lower outer quadrant at about 7 cm from the nipple persists on today's images (ML 90 degrees , CC 13/49). Targeted ultrasound of the left breast was performed at the location of the mammographic finding. The survey shows a 0.9 x 0.6 x 0.4 cm complicated cyst with hypoechoic content and posterior acoustic enhancement located at 4 o'clock position at 8 cm from the nipple. This has been previously evaluated on ultrasound on September 08, 2021, described as located at 3 o'clock position 7 cm from the nipple and measuring 0.6 x 0.2 x 0.5 cm, as well as on the ultrasound on September 01, 2020 when measured 0.7 x 0.5 x 0.3 cm. MM/MM tomosynthesis added views L IMPRESSION: LEFT BREAST: Complicated cyst at 4 o'clock position at 8 cm from the nipple, which correlates with the mammographic finding; this can be considered a benign finding. Benign, no mammographic evidence of malignancy. Patient may return to routine screening mammogram. ASSESSMENT: BI-RADS: Category 2: Benign RECOMMENDATION: 1 year F/U Results were provided to the patient at time of visit by the technologist. This patient's information was entered into a reminder system with a target due date for their next mammogram. Electronically signed by: Noé Paredes MD 03/09/2025 05:20 PM EDT
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
--- OUTSIDE RECORDS SUMMARY | 2025-03-09 19:08 | XMS_ITS | Data Portability ---
Author Organization JASE Terrell Rogel [facility] Surgeons [facility], [facility] Address [address] [place] [address] Assessment Encounter Date Assessment Date Assessment LastModified [...] grossly intact. Eyes: Sclera are not blue. 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 Full extraocular [...] or ecchymosis. Overall range of motion from +3-135 . No significant discomfort with deep knee flexion. Some generalized mild discomfort to the anterior knee including along the extensor mechanism. Mild medial joint line tenderness. Her knee is stable to varus and valgus stress as well as Sofie and posterior drawer. No patellar grind or instability. Extensor mechanism intact. Diagnostic Imaging: X-rays ordered, obtained and reviewed at [facility]. These images included bilateral weightbearing [...] visit note. This note was generated with [facility] speech recognition certified registered nurse anesthetist dictation software. Please excuse any errors that may have been overlooked during review of this note. Sometimes, these errors may affect the content or meaning of a given sentence. Please call for corrections. [email or web address] Not available 08/13/2023 17:10:16 Plan of Treatment Reminders Order Date Submit Date Provider Last Modified By Organization Details Last Modified Time Details Appointments None recorded. Lab None recorded. Referral physical therapist referral - PHYSICAL THERAPY REFERRAL ICD-10: M22.41(righ t) 1. Generalized lower extremity closed-kine tic chain strengtheni ng program, especially quads, VMO, and abductors, stationary biking. 2. Patellofemo ral taping as needed. 3. Soft tissue modalities as needed. 4. Home exercise program. Allow 1-3 visits a week for 6 weeks. Completed by: 2023 024 [email or web address] Not available 4 15:36:46 Procedures None [...] by: Referring Physician: Benson Patel, Orthopedic Surgery, [id number] Encounter Date: 08/13/2023 Medical Equipment None Reported. Allergies Allergen ID Allergen Name Allergen Category Reaction Reaction Severity Criticality Documentation Date Start Date Code Code System Note Provider Name and Address Organization Details Recorded Time 724819 morphine medicatio n Not available Not available Not available 08/13/2023 7052 RxNorm SONIA MARMOLEJO [facility] Orthopedic Surgeons [facility] 4 13:46:02 339611 Substance with sulfonami de structure and antibacte rial mechanism of action (substanc e) medicatio n Not available Not available Not available 08/13/2023 54195 8003 SNOMED SONIA MARMOLEJO [facility] Orthopedic [facility] 4 13:46:09 Medications Name Sig Start [...] Updated DateTime 08/13/2023 157.48 cm 28.7 kg/m2 29811 g SONIA MARMOLEJO [place] [facility] 08/13/2023 13:45:53 Social History None recorded. Functional Status None recorded. Mental Status None recorded. Family History Nothing Reported. Medical History No medical history recorded. Gynecological HistoryNo gynecological history recorded. Obstetrics History GPAL:G 0 P 0 0 0 0 Past Encounters Encounter ID Performer Location Encounter Start Date Encounter Closed Date Diagnosis/Indication Diagnosis SNOMED-CT Code Diagnosis ICD10 Code Diagnosis IMO Codes Diagnosis Note [id number] MD Darlene Smith [address] [place] [address] 08/13/2023 13:24:57 09/06/2023 08:34:09 Pain of right knee joint 9211561084 06420 M25.561 Patellofem oral syndrome of right knee 0307448576 581257 M22.2X1 Health Concerns Section Related Observation LastModified by Organization Detai ls LastModified Time None Recorded Concern Status LastModified by Organization Details LastModified Time None Recorded Advance Directives Directive None Recorded Payers Insurance Date Sequence Insurance Name Policy Number Policy Carlton Covered Member ID Carlton Member ID Guarantor Name 09/06/2023 1 [facility] DOS ON OR AFTER 2022 - ALF OPTIONS AND ONE CARE (MEDICARE REPLACEMENT/AD VANTAGE - PPO) Kiara Roth [id number] Kiara Roth OBGykaitlynn Episode No OBEpisode recorded.
== END 2025-03-09 14:43 | disposition home or self-care (01) ==
LOC: HO.MAMMO 14:42
DX: N63.23 Unspecified lump in the left breast, lower outer quadrant (principal)
CPT/HCPCS: 76642; 77061; 77065

== ENCOUNTER → 2025-03-09 15:00 | Outpatient (BNV) | payer OTHER, SELFPAY | PROVIDERS: Visit Provider Radiology Body Imaging | DX: N63.23 Unspecified lump in the left breast, lower outer quadrant (principal) | CPT/HCPCS: 76642; 77061; 77065 ==

== ENCOUNTER 2025-03-10 07:35 | Outpatient (AMB) | payer OTHER, SELFPAY ==
--- NOTE | 2025-03-10 07:39 | AM.OFFWIN_ITS ---
Intake Vital Signs 03/10/25 07:40 Height 5 ft 2 in Weight 143 lb BMI 26.2 BP 126/60 Blood Pressure Location Rt brachial Position Sitting Pulse 69 Pulse Source Pulse Oximeter Temp 97.9 F Temp Source Oral Pulse Oximetry (%) 97 Oxygen Delivery Method Room Air Intake Visit Reasons: ep rib pain under breast Intake Note: Patient presents with c/o rib pain under both breasts that radiates around to back x1 1/2 months. Patient Tobacco Use Status: Never used Tobacco Allergies morphine (Morphine) Allergy (Intermediate, Verified 03/10/25 07:43) HALLUCINATIONS Sulfa (Sulfonamide Antibiotics) Allergy (Intermediate, Verified 03/10/25 07:43) HIVES shellfish derived Allergy (Mild, Verified 03/10/25 07:43) Stomach Upset methylprednisolone Adverse Reaction (Severe, Verified 03/10/25 07:43) rash Substance with sulfonamide structure and antibacterial mechanism of action (substance) Allergy (Unknown, Uncoded 03/10/25 07:43) Hives Oral Contrast Adverse Reaction (Intermediate, Uncoded 03/10/25 07:43) Abdominal Pain HPI HPI Comments History of Present Illness Details History of Present Illness - The patient is a 64-year-old female pr esenting with pain under the ribs. - Reports intermittent rib and upper abd ominal pain for two months, worsened by activities like washing dishes, and relieved by heat application. - History of gastroesophageal reflux dis ease, currently asymptomatic, with past endoscopy showing inflammation but no ulcers. - Hesitant to take prescribed anti-infla mmatory medication due to previous side effects. - History of polyarthritis, possibly con tributing to current pain. - Previous gallbladder removal with resi dual gallstones. - She has been seen by her gastroenterol ogist and recently had a CT scan. - She has had a colonoscopy and endoscop y, she was found to have inflammation in her stomach. - Her GI doctor told her the pain she wa s having was from muscle pain. - She was given famotidine to take and s he has not taken it. - She states that Motrin and a heating p ain does help her pain but she was told not to take Motrin due to her history of gastritis. - He has no burning into the throat. - He denies fever, chills, diarrhea, britt sea, vomiting, dysuria, or hematuria. Physical Exam General: Cooperative, healthy appearing, comfortable, no acute distress and well developed Orientation: Patient oriented x3 Limitations: No limitations Respiratory: Normal respiratory effort and able to speak in complete sentences. Clear to auscultation bilaterally. No w/r/r noted. Cardiovascular: Regular rate and rhythm. Normal S1 and S2. No m/r/g noted. GI: Hypoactive BS noted. Soft, non-distended. TTP of the epigastric region, along the top RUQ and LUQ. No guarding noted. No flank tenderness noted. Negative Rovsing noted. Negative Bettencourt's noted. Negative CVA tenderness noted. Skin: No rashes or lesions noted Patient was informed and verbally consented to the use of an ambient scribe for clinic note documentation during this visit. [facility] Medical History Nasal congestion Yeast infection Colitis Cough Sinusitis Diverticulitis Dysuria Pre-op examination Upper abdominal pain Diarrhea Contact dermatitis Umbilical abnormality Thoracic back pain Right flank pain Otalgia of left ear Neck pain Epigastric pain Lumbar back pain Conjunctivitis IBS (irritable bowel syndrome) Thoracic degenerative disc disease Upper respiratory tract infection Back pain Physical exam URI, acute Acalculous cholecystitis Loose stools Asthma Tubular adenoma of colon Degenerative disc disease, thoracic Cholelithiasis with chronic cholecystitis Glaucoma Depression Helicobacter pylori (H. pylori) Anemia Myocardial infarction GERD (gastroesophageal reflux disease) Surgical History Hx laparoscopic cholecystectomy Status post laparoscopic cholecystectomy Hx of colonoscopy H/O dilation and curettage S/P right knee arthroscopy H/O esophagogastroduodenoscopy History of arthroscopy of right knee History of tubal ligation H/O section History of tonsillectomy Family History Father HTN (hypertension) Prostate cancer Mother HTN (hypertension) Diabetes Hx of CABG Sister Asthma Social History Household Members: Spouse, Significant Other and Other Housing: House Are you a primary wound care technician to a significant other at home: No Do you presently have visiting nurse or other home services: No Alcohol intake: never Patient Tobacco Use Status: Never used Tobacco Tobacco use type: Cigarette e-Cigarette/Vaping Use: Never Used Second Hand Smoke Exposure: No service: No Current occupational status: disabled Current occupational exposures/hazards: No Cognitive needs: No Hearing needs: No Vision needs: Yes Review of Systems Const All systems reviewed & are unremarkable except as noted in HPI and below Physical Exam Vital Signs: Last Vital Signs Temp 97.9 F 03/10/25 07:40 Pulse 69 03/10/25 07:40 BP 126/60 03/10/25 07:40 Pulse Ox 97 03/10/25 07:40 Oxygen Delivery Method Room Air 03/10/25 07:40 BMI result Body Mass Index 26.2 Assessment & Plan Assessment & Plan (1) Abdominal pain: Code(s): R10.9 - Unspecified abdominal pain Qualifiers: Abdominal location: upper abdomen, unspecified Qualified Code(s): R10.10 - Upper abdominal pain, unspecified Plan Most likely muscle strain vs gastritis vs PUD plan - diet as tolerated - Continue with famotidine as prescribed - Use heat to the area - Advised to use Motrin with caution as she has gastritis - follow up with GI - follow up with PCP Coding Level of Care Code Est Pt Level 3 (64657) Diagnoses Pain of upper abdomen R10.10 Abdominal location: upper abdomen, unspecified
[2025-03-10 07:40] VITALS: BP 126/60; PULSE 69; TEMP 36.6; O2SAT 97; BMI 26.2
== END 2025-03-10 09:49 | disposition home or self-care (01) ==
PROVIDERS: Visit Provider Physician Assistant Medical
DX: R10.10 Upper abdominal pain, unspecified (principal)

== ENCOUNTER 2025-03-12 08:00 | Outpatient (RCR) | payer OTHER, SELFPAY ==
[2025-01-25 07:02] VITALS: BP 128/68; PULSE 65
--- NOTE | 2025-01-25 07:54 | MHC.PT.EP ---
[facility] [place] Office [place] [facility] [place] Office [address] [phone] F: [phone] F: [phone] F: [phone] F: [phone] Physical Therapy Plan of Care Date of Evaluation: 01/25/25 Date of Surgery: Diagnosis: pain in R shoulder Pain in L shoulder Assessment: 64 y/o L-hand dominant female referred to PT with B shoulder pain. S/s consistent with RTC tendinopathy (R worse than L) resulting in pain with grooming, reaching overhead, sleeping, dressing, and lifting. Examination shows decreased B shoulder AROM (PROM WFL), decreased B shoulder strength, pain, and impaired postural awareness. Recommend PT 2x/week for 6 weeks to address impairments, implement HEP, and optimize functional mobility. 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 Manual therapy to restore motion and function. Therapeutic exercise to improve strength and flexibility. Neuromuscular re-education for posture and balance. Therapeutic activities to return to functional activities of daily living. Electronically signed by: Ashlee Richard PT Please sign and return to therapist. Thank you for your referral.
--- NOTE | 2025-04-12 09:07 | MHC.PT.DC ---
[facility] [place] Office [place] Office [place] Office [address] Leoncio Renteria [address] [facility] [phone] F: [phone] F: [phone] F: [phone] F: [phone] Physical Therapy Discharge Report Diagnosis: pain in R shoulder Pain in L shoulder Date of Surgery: Date of Evaluation: 01/25/25 Date of Discharge: 04/12/25 Treatments to Date: 6 Cancellations to Date: 3 No Shows to Date: 3 Discharge Status: Independent with HEP Visit Non-compliance Discharge Summary: Pt with inconsistent attendance during this session of PT, however at time of last attended appointment pt was I with HEP and making gradual progress. Electronically signed by: Ashlee Richard PT Please sign and return to therapist. Thank you for your referral.
== END 2025-04-12 09:08 | disposition home or self-care (01) ==
LOC: HO.PT 08:00
DX: M25.511 Pain in right shoulder (principal); M25.512 Pain in left shoulder
CPT/HCPCS: 97110; 97140; 97161

== ENCOUNTER 2025-03-16 13:18 | Outpatient (AMB) | payer OTHER, SELFPAY ==
[2025-03-16 13:33] VITALS: BMI 26.2
--- NOTE | 2025-03-16 13:33 | A.OFFVIS_ITS ---
Vital Signs 03/16/25 13:33 Height 5 ft 2 in Weight 143 lb BMI 26.2 Intake Visit Reasons: Corns and callosities Intake Note: Kiara is a 64 year old female who presents today as a new patient for an evaluation of corn and callosities of her right foot. Patient reports this has been going on for about 2 months and she states she has tried patches and metatarsal pads and has found no relief for her symptoms. She states she experiences occasional pain in her foot depending on her shoe wear. Allergies morphine (Morphine) Allergy (Intermediate, Verified 03/16/25 13:34) HALLUCINATIONS Sulfa (Sulfonamide Antibiotics) Allergy (Intermediate, Verified 03/16/25 13:34) HIVES shellfish derived Allergy (Mild, Verified 03/16/25 13:34) Stomach Upset methylprednisolone Adverse Reaction (Severe, Verified 03/16/25 13:34) rash Substance with sulfonamide structure and antibacterial mechanism of action (substance) Allergy (Unknown, Uncoded 03/10/25 07:43) Hives Oral Contrast Adverse Reaction (Intermediate, Uncoded 03/10/25 07:43) Abdominal Pain HPI HPI Corns and callosities: Details: 64-year-old female past medical history IBS, GERD, degenerative disc disease, presents with right foot pain. She states that she has tried various shoe wear modifications and inserts to offload her pain to the front of her foot however she is only found mild relief. She also notes a history of right hallux injury approximately 20 years ago when she dropped a wine bottle on her foot. She went to a pharmacy analyst who had remove the entire nail. Since then, the nail has grown thickened and discolored. She has not tried any other treatment for it so far. [facility] Medical History Nasal congestion Yeast infection Colitis Cough Sinusitis Diverticulitis Dysuria Pre-op examination Upper abdominal pain Diarrhea Contact dermatitis Umbilical abnormality Thoracic back pain Right flank pain Otalgia of left ear Neck pain Epigastric pain Lumbar back pain Conjunctivitis IBS (irritable bowel syndrome) Thoracic degenerative disc disease Upper respiratory tract infection Back pain Physical exam URI, acute Acalculous cholecystitis Loose stools Asthma Tubular adenoma of colon Degenerative disc disease, thoracic Cholelithiasis with chronic cholecystitis Glaucoma Depression Helicobacter pylori (H. pylori) Anemia Myocardial infarction GERD (gastroesophageal reflux disease) Surgical History Hx laparoscopic cholecystectomy Status post laparoscopic cholecystectomy Hx of colonoscopy H/O dilation and curettage S/P right knee arthroscopy H/O esophagogastroduodenoscopy History of arthroscopy of right knee History of tubal ligation H/O section History of tonsillectomy Family History Father HTN (hypertension) Prostate cancer Mother HTN (hypertension) Diabetes Hx of CABG Sister Asthma Social History Household Members: Spouse, Significant Other and Other Housing: House Are you a primary health care social worker to a significant other at home: No Do you presently have visiting nurse or other home services: No Alcohol intake: never Patient Tobacco Use Status: Never used Tobacco Tobacco use type: Cigarette e-Cigarette/Vaping Use: Never Used Second Hand Smoke Exposure: No service: No Current occupational status: disabled Current occupational exposures/hazards: No Cognitive needs: No Hearing needs: No Vision needs: Yes Review of Systems Const All systems reviewed & are unremarkable except as noted in HPI and below Physical Exam Vital Signs: BMI result Body Mass Index 26.2 Extrem Other: *Bilateral Lower Extremity Focused Exam Vascular: DP/PT 2/4, CFT less than 3 seconds all digits, temperature gradient warm to cool. No pedal edema. Derm: Hyperkeratotic lesion right foot sub 2nd metatarsal. No underlying wounds or ulcerations. Right hallux nail thickened, no subungual debris. Neuro: Protective sensation grossly intact to bilateral lower extremities MSK: Right hallux 1st Metatarsal-phalangeal joint functional limitus with 10 degrees of dorsiflexion. Passive range of motion 45 degrees dorsiflexion. No crepitus on end range of motion. Office Procedures AMB Debridement/Avulsion Podia Details: Procedure: Callus debridement Location: Right foot sub 2nd metatarsal Anesthesia: N/A Description: The affected area was cleansed with an antiseptic solution. Using a sterile #15 blade, the hyperkeratotic tissue was radially debrided from the foot. All callused tissue was removed down to normal skin without causing bleeding or discomfort. The area was inspected for underlying ulceration or infection. Patient tolerated the procedure well. No complications noted. Tolerance: Patient tolerated procedure well, no immediate complications. 92670-Fsqfeakigaj of Callus (1) Procedure code (CPT) selection complete Assessment & Plan Assessment & Plan (1) [place] of foot: Code(s): L84 - Corns and callosities Category: Medical Plan: * Debrided right foot lesion using a #15 Blade. * Rx urea cream 20% (2) Metatarsalgia of right foot: Code(s): M77.41 - Metatarsalgia, right foot Category: Medical Plan: * Applied offloading U pad to the right foot. Recommended purchasing offloading U pads. * Rx right foot x-ray (3) Dystrophic nail: Code(s): L60.3 - Nail dystrophy Category: Medical Plan: * Right hallux nail sent for biopsy Orders: Orders XR foot RT min 3V Today M77.41 - Metatarsalgia, right foot Fungus Cult Hair/Skin/Nail Today B35.1 - Tinea unguium Surgical Today B35.1 - Tinea unguium AMB Debridement/Avulsion Podiatry Today L84 - Corns and callosities Medications: New urea 20% 1 appl topical DAILY 85 grams 3RF corn L84 - Corns and callosities Coding Level of Care Code New Pt Level 4 (83640) Diagnoses [place] of foot L84 Metatarsalgia of right foot M77.41 Dystrophic nail L60.3 CPT Codes Skin Debridement - CPT: 23068-Hquhvrmqpjj of Callus (1) ([id number]) Time Spent (min) 30
--- OUTSIDE RECORDS SUMMARY | 2025-03-16 16:13 | XMS_ITS | Data Portability ---
Author Organization JASE Terrell Rogel [facility] Surgeons [facility], [facility] Address [address] [place] [address] Assessment Encounter Date Assessment Date Assessment LastModified by Organization Details LastModified Time 08/13/2023 08/13/2023 Chief Complaint: Right knee pain HPI: Kiara Camarillo is a 62-year-old female patient with a history of knee pain, having undergone two surgical interventions: a partial meniscectomy in 2003 and another knee surgery in 2006. She reports increased knee pain that began three days after a recent trip to [facility], where she experienced prolonged sitting in [...] grossly intact. Eyes: Sclera are not blue. 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 Full extraocular motion. [...] ordered, obtained and reviewed at [facility]. These images included bilateral weightbearing [...] visit note. This note was generated with [facility] speech recognition living supervisor dictation software. Please excuse any errors that may have been overlooked during review of this note. Sometimes, these errors may affect the content or meaning of a given sentence. Please call for corrections. [email or web address] Not available 08/13/2023 17:10:16 Plan of Treatment [...] by: Referring Physician: Benson Patel, Orthopedic Surgery, [id number] Encounter Date: 08/13/2023 Medical Equipment None Reported. Allergies Allergen ID Allergen Name Allergen Category Reaction Reaction Severity Criticality Documentation Date Start Date Code Code System Note Provider Name and Address Organization Details Recorded Time 327989 morphine medicatio n Not available Not available Not available 08/13/2023 7052 RxNorm SONIA MARMOLEJO [facility] Orthopedic Surgeons [facility] 4 13:46:02 648041 Substance with sulfonami de structure and antibacte rial mechanism of action (substanc e) medicatio n Not available Not available Not available 08/13/2023 23532 8003 SNOMED SONIA MARMOLEJO [facility] Orthopedic [facility] 4 13:46:09 Medications Name Sig Start [...] Updated DateTime 08/13/2023 157.48 cm 28.7 kg/m2 12417 g SONIA MARMOLEJO [place] [facility] [place] [facility] 08/13/2023 13:45:53 Social History None recorded. Functional Status None recorded. Mental Status None recorded. Family History Nothing Reported. Medical History No medical history recorded. Gynecological HistoryNo gynecological history recorded. Obstetrics History GPAL:G 0 P 0 0 0 0 Past Encounters Encounter ID Performer Location Encounter Start Date Encounter Closed Date Diagnosis/Indication Diagnosis SNOMED-CT Code Diagnosis ICD10 Code Diagnosis IMO Codes Diagnosis Note [id number] MD Darlene Smith [address] floor [address] [place] [address] 08/13/2023 13:24:57 09/06/2023 08:34:09 Pain of right knee joint 2149189709 97753 M25.561 Patellofem oral syndrome of right knee 8663358897 388769 M22.2X1 Health Concerns Section Related Observation LastModified by Organization Detai ls LastModified Time None Recorded Concern Status LastModified by Organization Details LastModified Time None Recorded Advance Directives Directive None Recorded Payers Insurance Date Sequence Insurance Name Policy Number Policy Carlton Covered Member ID Carlton Member ID Guarantor Name 09/06/2023 1 [facility] DOS ON OR AFTER 2022 - PRISON OPTIONS AND ONE CARE (MEDICARE REPLACEMENT/AD VANTAGE - PPO) Kiara Roth [id number] Kiara Roth OBGykaitlynn Episode No OBEpisode recorded.
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
== END 2025-03-16 14:07 | disposition home or self-care (01) ==
LOC: HO.HPODS 13:19
PROVIDERS: Visit Provider Student in an Organized Health Care Education/Training Program
DX: L84 Corns and callosities (principal); M77.41 Metatarsalgia, right foot; L60.3 Nail dystrophy
CPT/HCPCS: 11055; 99204

== ENCOUNTER 2025-03-16 13:18 | Outpatient (REF) | payer OTHER, SELFPAY | END 2025-03-16 13:19 | disposition home or self-care (01) | LOC: HO.LNP 13:18 | PROVIDERS: Visit Provider Student in an Organized Health Care Education/Training Program | DX: L84 Corns and callosities (principal); M77.41 Metatarsalgia, right foot; L60.3 Nail dystrophy; B35.1 Tinea unguium | CPT/HCPCS: 11055; 87101; 87220; 88304; 88312 ==

== ENCOUNTER 2025-03-20 08:25 | Outpatient (REF) | payer OTHER, SELFPAY ==
--- NOTE | ~2025-03-20 | XR_ITS ---
EXAMINATION: XR FOOT, RIGHT CLINICAL INFORMATION: M77.41 - Metatarsalgia, right foot COMPARISON: None available. TECHNIQUE: AP, lateral, and oblique views of the right foot. FINDINGS: No acute cortical disruption or malalignment. Normal plantar arch. No calcaneal spur. Asymmetric joint space narrowing in the interphalangeal and distal interphalangeal joints of the toes. No lytic or blastic lesions. No subcutaneous emphysema. No joint effusion, anterior tibiotarsal bursa. Small exostosis at the Achilles tendon insertion. XR/XR foot RT min 3V IMPRESSION: Probable enthesopathy, Achilles tendon. Mild osteoarthrosis/osteoarthritis, toes. Electronically signed by: Andreas Zepeda MD 03/22/2025 09:01 AM DONNA
--- OUTSIDE RECORDS SUMMARY | 2025-03-20 08:30 | XMS_ITS | Data Portability ---
Author Organization JASE Terrell Rogel [facility] Surgeons [facility], [facility] Address [address] [place] [address] Assessment Encounter Date Assessment Date Assessment LastModified by Organization Details LastModified Time 08/13/2023 08/13/2023 Chief Complaint: Right knee pain HPI: Kiara Camarillo is a 62-year-old female patient with a history of knee pain, having undergone two surgical interventions: a partial meniscectomy in 2003 and another knee surgery in 2006. She reports increased knee pain that began three days after a recent trip to [facility], where she experienced prolonged sitting in [...] grossly intact. Eyes: Sclera are not blue. 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 Full extraocular motion. [...] Imaging: X-rays ordered, obtained and reviewed at [facility]. These images included bilateral weightbearing Chung [...] note. This note was generated with [facility] speech recognition geological engineer dictation software. Please excuse any errors that may have been overlooked during review of this note. Sometimes, these errors may affect the content or meaning of a given sentence. Please call for corrections. [email or web address] Not available 08/13/2023 17:10:16 Plan of Treatment [...] by: Referring Physician: Benson Patel, Orthopedic Surgery, [id number] Encounter Date: 08/13/2023 Medical Equipment None Reported. Allergies Allergen ID Allergen Name Allergen Category Reaction Reaction Severity Criticality Documentation Date Start Date Code Code System Note Provider Name and Address Organization Details Recorded Time 623476 morphine medicatio n Not available Not available Not available 08/13/2023 7052 RxNorm SONIA MARMOLEJO [facility] 4 13:46:02 746750 Substance with sulfonami de structure and antibacte rial mechanism of action (substanc e) medicatio n Not available Not available Not available 08/13/2023 53783 8003 SNOMED SONIA MARMOLEJO [facility] Orthopedic [facility] 4 13:46:09 Medications Name Sig Start [...] Updated DateTime 08/13/2023 157.48 cm 28.7 kg/m2 51972 g SONIA MARMOLEJO [place] - [facility] 08/13/2023 13:45:53 Social History None [...] ICD10 Code Diagnosis IMO Codes Diagnosis Note [id number] MD Darlene Smith [address] [place] [address] 08/13/2023 13:24:57 09/06/2023 08:34:09 Pain of right knee joint [id number] 77417 M25.561 Patellofem oral syndrome of right knee 0116549546 076877 M22.2X1 Health Concerns Section Related Observation LastModified by Organization Detai ls LastModified Time None Recorded Concern Status LastModified by Organization Details LastModified Time None Recorded Advance Directives Directive None Recorded Payers Insurance Date Sequence Insurance Name Policy Number Policy [place] Covered Member ID Carlton Member ID Guarantor Name 09/06/2023 1 [facility] DOS ON OR AFTER 2022 - [facility] OPTIONS AND ONE CARE (MEDICARE REPLACEMENT/AD VANTAGE - PPO) Kiara Roth [id number] Kiara Roth OBGykaitlynn Episode No OBEpisode recorded.
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
== END 2025-03-20 08:26 | disposition home or self-care (01) ==
LOC: HO.XRAY 08:25
PROVIDERS: Visit Provider Student in an Organized Health Care Education/Training Program
DX: M77.41 Metatarsalgia, right foot (principal)
CPT/HCPCS: 73630

== ENCOUNTER → 2025-03-20 08:29 | Outpatient (BNV) | payer OTHER, SELFPAY | PROVIDERS: Visit Provider Radiology Diagnostic Radiology | DX: M19.071 Primary osteoarthritis, right ankle and foot (principal) | CPT/HCPCS: 73630 ==

== ENCOUNTER 2025-04-05 15:41 | Outpatient (AMB) | payer OTHER, SELFPAY ==
--- NOTE | 2025-04-05 16:22 | MHC.PC.OV ---
Vital Signs 04/05/25 16:28 Height 5 ft 2 in Weight 144 lb 2 oz BMI 26.4 BP 120/60 Blood Pressure Location Lt brachial Position Sitting Pulse 79 Pulse Source Pulse Oximeter Temp 97.1 F Temp Source Temporal Artery Scan Pulse Oximetry (%) 97 Oxygen Delivery Method Room Air Intake Visit Reasons: Flu Intake Note: Patient is here to follow up on flu. 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 Required: No Director Of Clinical Services: Not Required per policy Accompanied by: Self / Same As Patient Allergies morphine (Morphine) Allergy (Intermediate, Verified 04/05/25 16:27) HALLUCINATIONS Sulfa (Sulfonamide Antibiotics) Allergy (Intermediate, Verified 04/05/25 16:27) HIVES shellfish derived Allergy (Mild, Verified 04/05/25 16:27) Stomach Upset methylprednisolone Adverse Reaction (Severe, Verified 04/05/25 16:27) rash Substance with sulfonamide structure and antibacterial mechanism of action (substance) Allergy (Unknown, Uncoded 04/05/25 16:27) Hives Oral Contrast Adverse Reaction (Intermediate, Uncoded 04/05/25 16:27) Abdominal Pain Medication List - Last Reconciled 04/05/25 by Yeni Goldberg MD albuterol sulfate 90 mcg/actuation 2 puffs inhalation Q4-6H PRN azithromycin 250 mg PO DAILY 6 days famotidine (Pepcid) 40 mg PO BEDTIME PRN fexofenadine (Lore Allergy) 60 mg PO BID hydrocortisone 2.5% (Proctosol HC) 1 appl HI BID sennosides (Senna Laxative) 17.2 mg (2 x 8.6 mg) PO BEDTIME urea 20% 1 appl topical DAILY Tobacco use date assessed: 04/05/25 Dental Screening Dental Screen Date: 01/14/25 HPI HPI Comments History of Present Illness Details 64 year old F presenting with symptoms of an upper respiratory infection. Symptoms began last with sinus pressure, post-nasal drainage, and a sore throat. The patient subsequently developed a dry cough, which is worse at night, and a sensation of ear blockage on Saturday. Associated symptoms include pleuritic chest pain and belching, which the patient attributes to a history of back arthritis and acid reflux. The patient denies that the chest pain worsens with deep breaths. The patient reports a good appetite and denies nausea, vomiting, and diarrhea. The patient has performed two home COVID-19 tests, both of which were negative. The patient's past medical history is significant for recurrent sinus infections, arthritis in the back, and acid reflux. The patient had a prior COVID-19 infection in December and has undergone a cholecystectomy. [facility] Medical History Nasal congestion Yeast infection Colitis Cough Sinusitis Diverticulitis Dysuria Pre-op examination Upper abdominal pain Diarrhea Contact dermatitis Umbilical abnormality Thoracic back pain Right flank pain Otalgia of left ear Neck pain Epigastric pain Lumbar back pain Conjunctivitis IBS (irritable bowel syndrome) Thoracic degenerative disc disease Upper respiratory tract infection Back pain Physical exam URI, acute Acalculous cholecystitis Loose stools Asthma Tubular adenoma of colon Degenerative disc disease, thoracic Cholelithiasis with chronic cholecystitis Glaucoma Depression Helicobacter pylori (H. pylori) Anemia Myocardial infarction GERD (gastroesophageal reflux disease) Surgical History Hx laparoscopic cholecystectomy Status post laparoscopic cholecystectomy Hx of colonoscopy H/O dilation and curettage S/P right knee arthroscopy H/O esophagogastroduodenoscopy History of arthroscopy of right knee History of tubal ligation H/O section History of tonsillectomy Family History Father HTN (hypertension) Prostate cancer Mother HTN (hypertension) Diabetes Hx of CABG Sister Asthma Social History Household Members: Spouse, Significant Other and Other Housing: House Are you a primary healthcare administrative assistant to a significant other at home: No Do you presently have visiting nurse or other home services: No Alcohol intake: never Patient Tobacco Use Status: Never used Tobacco Tobacco use type: Cigarette e-Cigarette/Vaping Use: Never Used Second Hand Smoke Exposure: No service: No Current occupational status: disabled Current occupational exposures/hazards: No Cognitive needs: No Hearing needs: No Vision needs: Yes Questionnaire Thrive Questionnaire Date Thrive assessed: 11/23/24 JAJA-7 AMB Questionnaire JAJA-7 Date JAJA - 7 assessed: 11/23/24 Source: Developed by Drs. Kevin Stevenson, Nita B.W. Kulwant Gutierrez and colleagues, with an educational reji from [employer] Review of Systems Const Details: As per HPI. Physical exam (Primary Care) Vital Signs: Last Vital Signs Temp 97.1 F 04/05/25 16:28 Pulse 79 04/05/25 16:28 BP 120/60 04/05/25 16:28 Pulse Ox 97 04/05/25 16:28 Oxygen Delivery Method Room Air 04/05/25 16:28 BMI result Body Mass Index 26.4 Tobacco/Smoking Status: Tobacco use Status Tobacco use date assessed 04/05/25 04/05/25 16:31 Patient Tobacco Use Status Never used Tobacco 04/05/25 16:23 Tobacco use type Cigarette 04/05/25 16:23 e-Cigarette/Vaping Use Never Used 04/05/25 16:23 Thrive Assessment: Date of Thrive Assessment Date Thrive assessed 11/23/24 04/05/25 16:23 Const Other: Pertinent findings are in BOLD GENERAL APPEARANCE NAD, activity normal for age, well developed/ well nourished, no cyanosis, pallor, or diaphoresis. EYES lids/conjunctiva normal. EARS/NOSE/THROAT Mucous membranes moist, nares normal, lips/teeth normal uvula midline without oral pharyngeal erythema, exudate or swelling TMs normal bilaterally. No lymphangitis/lymphedema. HEAD/NECK normocephalic atraumatic, no facial trauma, neck is supple. RESPIRATORY respiratory effort normal, speaks in full sentences, no tripod position, no accessory muscle use. Lungs clear to auscultation without rhonchi, wheezes, rales CARDIAC Regular rate and rhythm, no edema. ABDOMINAL Soft, ND/NT. No evidence of fluid wave. No pulsatile masses on exam, rebound tenderness, Bettencourt sign or pain over Mcburney's point. MUSCLES/EXTREMITIES No abnormal range of motion, no swelling. SKIN Warm, pink and dry. No rashes, dermatoses, petechiae or lesions. NEUROLOGICAL Speech is clear and appropriate. Normal level of consciousness. Gait and coordination are normal. 5/5 strength in all extremities. PSYCH Normal mood and affect. Judgement/competence is appropriate Results AMB Rapid Strep AMB Rapid Strep Negative Last Edit by LOLA Soto on 04/05/25 17:00 Coding Level of Care Code Est Pt Level 3 (11108) Diagnoses Flu-like symptoms R68.89 Time Spent (min) 20 Assessment & Plan Assessment & Plan (1) Flu-like symptoms: Code(s): R68.89 - Other general symptoms and signs Category: Medical Plan: - The patient's symptoms of sinus pressure, post-nasal drip, sore throat, and cough are consistent with an upper respiratory infection, which is most likely viral. - Plan includes a rapid strep test to be performed in the office. Negative. - The patient will be sent to the [facility] for a nasopharyngeal swab for influenza and COVID-19. Orders: Orders SARS-CoV2/FLU/RSV Today R68.89 - Other general symptoms and signs XR chest 2V Today R68.89 - Other general symptoms and signs AMB Rapid Strep Screen Today Z13.9 - Encounter for screening, unspecified Medications: New azithromycin start on day 2 of therapy 250 mg PO DAILY 6 tabs 0RF 6 days
[2025-04-05 16:28] VITALS: BP 120/60; PULSE 79; TEMP 36.2; O2SAT 97; BMI 26.4
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
--- OUTSIDE RECORDS SUMMARY | 2025-04-05 20:11 | XMS_ITS | Data Portability ---
Author Organization JASE Terrell [facility], [facility] Address [address] [place] [address] Assessment Encounter Date Assessment Date Assessment LastModified [...] a recent trip to [facility], where she experienced prolonged sitting in [...] grossly intact. Eyes: Sclera are not blue. 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 Full extraocular motion. [...] Imaging: X-rays ordered, obtained and reviewed at [facility]. These images included bilateral weightbearing Chung view [...] visit note. This note was generated with [facility] speech recognition horticultural farmworker dictation software. Please excuse any errors that may have been overlooked during review of this note. Sometimes, these errors may affect the content or meaning of a given sentence. Please call for corrections. [email or web address] Not available 08/13/2023 17:10:16 Plan of Treatment [...] by: Referring Physician: Benson Patel, Orthopedic Surgery, [id number] Encounter Date: 08/13/2023 Medical Equipment None Reported. Allergies Allergen ID Allergen Name Allergen Category Reaction Reaction Severity Criticality Documentation Date Start Date Code Code System Note Provider Name and Address Organization Details Recorded Time 212921 morphine medicatio n Not available Not available Not available 08/13/2023 7052 RxNorm SONIA MARMOLEJO [facility] 4 13:46:02 507635 Substance with sulfonami de structure and antibacte rial mechanism of action (substanc e) medicatio n Not available Not available Not available 08/13/2023 82915 8003 SNOMED SONIA MARMOLEJO [facility] Orthopedic [facility] 4 13:46:09 Medications Name Sig Start [...] Updated DateTime 08/13/2023 157.48 cm 28.7 kg/m2 41156 g SONIA MARMOLEJO [place] - [place] [facility] 08/13/2023 13:45:53 Social History None [...] ICD10 Code Diagnosis IMO Codes Diagnosis Note [id number] MD Darlene Smith [address] [place] [address] 08/13/2023 13:24:57 09/06/2023 08:34:09 Pain of right knee joint [id number] 04803 M25.561 Patellofem oral syndrome of right knee [id number] 563587 M22.2X1 Health Concerns Section Related Observation LastModified by Organization Detai ls LastModified Time None Recorded Concern Status LastModified by Organization Details LastModified Time None Recorded Advance Directives Directive None Recorded Payers Insurance Date Sequence Insurance Name Policy Number Policy Carlton Covered Member ID Carlton Member ID Guarantor Name 09/06/2023 1 [facility] DOS ON OR AFTER 2022 - LONG TERM OPTIONS AND ONE CARE (MEDICARE REPLACEMENT/AD VANTAGE - PPO) Kiara Roth [id number] Kiara Roth OBGykaitlynn Episode No OBEpisode recorded.
== END 2025-04-05 16:55 | disposition home or self-care (01) ==
LOC: HO.HMCH 15:42
PROVIDERS: Visit Provider Internal Medicine
DX: Z13.9 Encounter for screening, unspecified (principal); R68.89 Other general symptoms and signs

== ENCOUNTER 2025-04-05 15:41 | Outpatient (REF) | payer OTHER, SELFPAY ==
[2025-04-06 12:02] LABS: Resp Syncy Virus RNA Qual PCR NEGATIVE (Negative); SARS COV2 PCR INHOUSE NEGATIVE (Negative)
== END 2025-04-05 15:42 | disposition home or self-care (01) ==
LOC: HO.LNP 15:41
PROVIDERS: Visit Provider Internal Medicine
DX: R68.89 Other general symptoms and signs (principal)
CPT/HCPCS: 87637; 87880

== ENCOUNTER 2025-04-06 07:45 | Outpatient (REF) | payer OTHER, SELFPAY ==
--- NOTE | ~2025-04-06 | XR_ITS ---
EXAMINATION: XR CHEST CLINICAL INFORMATION: R68.89 - Other general symptoms and signs COMPARISON: Previous chest x-ray December 2024 TECHNIQUE: 2 views of the chest were obtained. FINDINGS: No significant abnormality is noted involving the heart, lungs, mediastinum, bony thorax or soft tissues. Degenerative changes of the spine. XR/XR chest 2V IMPRESSION: No evidence for acute disease in the chest. Electronically signed by: Sonya Jaime MD 04/06/2025 08:42 AM DONNA
== END 2025-04-06 07:46 | disposition home or self-care (01) ==
LOC: HO.LAB 07:45
PROVIDERS: Visit Provider Internal Medicine
DX: R68.89 Other general symptoms and signs (principal)
CPT/HCPCS: 71046

== ENCOUNTER → 2025-04-06 08:16 | Outpatient (BNV) | payer OTHER, SELFPAY | PROVIDERS: Visit Provider Radiology Diagnostic Radiology | DX: R68.89 Other general symptoms and signs (principal) | CPT/HCPCS: 71046 ==

== ENCOUNTER 2025-04-15 08:14 | Outpatient (AMB) | payer OTHER, SELFPAY ==
[2025-04-15 08:35] VITALS: BP 124/78; PULSE 65; O2SAT 97; BMI 26.3
--- NOTE | 2025-04-15 08:35 | MHC.PC.OV ---
Vital Signs 04/15/25 08:35 Height 5 ft 2 in Weight 144 lb BMI 26.3 BP 124/78 Blood Pressure Location Lt brachial Position Sitting Pulse 65 Pulse Source Pulse Oximeter Pulse Oximetry (%) 97 Oxygen Delivery Method Room Air Intake Visit Reasons: rt arm pain Allergies morphine (Morphine) Allergy (Intermediate, Verified 04/05/25 16:27) HALLUCINATIONS Sulfa (Sulfonamide Antibiotics) Allergy (Intermediate, Verified 04/05/25 16:27) HIVES shellfish derived Allergy (Mild, Verified 04/05/25 16:27) Stomach Upset methylprednisolone Adverse Reaction (Severe, Verified 04/05/25 16:27) rash Substance with sulfonamide structure and antibacterial mechanism of action (substance) Allergy (Unknown, Uncoded 04/05/25 16:27) Hives Oral Contrast Adverse Reaction (Intermediate, Uncoded 04/05/25 16:27) Abdominal Pain Medication List - Last Reconciled 04/15/25 by Юлия Mendes PA-C albuterol sulfate 90 mcg/actuation 2 puffs inhalation Q4-6H PRN famotidine (Pepcid) 40 mg PO BEDTIME PRN fexofenadine (Lore Allergy) 60 mg PO BID hydrocortisone 2.5% (Proctosol HC) 1 appl [place] BID sennosides (Senna Laxative) 17.2 mg (2 x 8.6 mg) PO BEDTIME urea 20% 1 appl topical DAILY Tobacco use date assessed: 04/05/25 Dental Screening Dental Screen Date: 01/14/25 HPI rt arm pain HPI Details 64-year-old female with past medical history of asthma, impaired fasting glucose, GERD, IBS last seen 03/2024 coming in for acute problem. Presenting for evaluation of back pain and follow-up on shoulder pain. The patient reports daily back pain for several months, localized to an area just below the ribs, which she describes as feeling frozen at times. The pain is exacerbated by activities such as washing dishes, making the bed, sweeping, and recently flared after carrying items up and down stairs. She occasionally uses Tylenol and frequently uses heating pads for relief. She has seen GI for this concern and was deemed to be muscular. Her shoulder pain has been improving and is not at 100%, but she notes increased mobility. She underwent some physical therapy but did not complete the full course due to a family loss, though she continues with exercises at home. Regarding skin issues, she has lesions on her neck consistent with contact dermatitis and previously used triamcinalone with good benefit. [facility] Medical History (Updated 04/15/25 @ 09:07 by Юлия Mendes PA-C) Back pain Epigastric pain Nasal congestion Yeast infection Colitis Cough Sinusitis Diverticulitis Dysuria Pre-op examination Upper abdominal pain Diarrhea Contact dermatitis Umbilical abnormality Thoracic back pain Right flank pain Otalgia of left ear Neck pain Lumbar back pain Conjunctivitis IBS (irritable bowel syndrome) Thoracic degenerative disc disease Upper respiratory tract infection Physical exam URI, acute Acalculous cholecystitis Loose stools Asthma Tubular adenoma of colon Degenerative disc disease, thoracic Cholelithiasis with chronic cholecystitis Glaucoma Depression Helicobacter pylori (H. pylori) Anemia Myocardial infarction GERD (gastroesophageal reflux disease) Surgical History Hx laparoscopic cholecystectomy Status post laparoscopic cholecystectomy Hx of colonoscopy H/O dilation and curettage S/P right knee arthroscopy H/O esophagogastroduodenoscopy History of arthroscopy of right knee History of tubal ligation H/O section History of tonsillectomy Family History Father HTN (hypertension) Prostate cancer Mother HTN (hypertension) Diabetes Hx of CABG Sister Asthma Social History Household Members: Spouse, Significant Other and Other Housing: House Are you a primary child care nurse to a significant other at home: No Do you presently have visiting nurse or other home services: No Alcohol intake: never Patient Tobacco Use Status: Never used Tobacco Tobacco use type: Cigarette e-Cigarette/Vaping Use: Never Used Second Hand Smoke Exposure: No service: No Current occupational status: disabled Current occupational exposures/hazards: No Cognitive needs: No Hearing needs: No Vision needs: Yes Questionnaire PHQ-9 Over the last 2 weeks, how often have you been bothered by any of the following problems? 1. Little interest or pleasure in doing things: not at all 2. Feeling down, depressed, or hopeless: not at all 3. Trouble falling or staying asleep, or sleeping too much: not at all 4. Feeling tired or having little energy: not at all 5. Poor appetite or overeating: not at all 6. Feeling bad about yourself - or that you are a failure or have let yourself or your family down: not at all Source: Developed by Drs. Kevin Stevenson, Nita Gutierrez, Kulwant Flores and colleagues, with an educational reji from [employer]. Thrive Questionnaire Date Thrive assessed: 11/23/24 JAJA-7 AMB Questionnaire JAJA-7 Date JAJA - 7 assessed: 11/23/24 Source: Developed by Drs. Kevin Stevenson, Nita Gutierrez, Kulwant Flores and colleagues, with an educational reji from [employer]. Review of Systems Const Denies body aches, Denies chills and Denies fever(s) ENT Reports no additional complaints Card Denies chest pain, Denies syncope, Denies lightheadedness and Denies dyspnea Resp Denies dyspnea GI Reports as per HPI Musc Reports as per HPI Neuro Denies syncope Physical exam (Primary Care) Vital Signs: Oxygen Delivery Method Room Air 04/15/25 08:35 Tobacco/Smoking Status: Tobacco use Status Tobacco use date assessed 04/05/25 04/15/25 08:35 Patient Tobacco Use Status Never used Tobacco 04/15/25 08:35 Tobacco use type Cigarette 04/15/25 08:35 e-Cigarette/Vaping Use Never Used 04/15/25 08:35 Thrive Assessment: Date of Thrive Assessment Date Thrive assessed 11/23/24 04/15/25 08:35 Const General: cooperative, healthy appearing, comfortable and no acute distress Orientation/consciousness: patient oriented x3 HENMT Head: Yes normocephalic Ears: hearing grossly normal bilaterally General nose exam: Normal external nose present Eyes General: appearance normal, both eyes and all related structures Conjunctivae: conjunctivae normal Neck Neck: Yes full ROM and Yes no lymphadenopathy Resp Effort & Inspection: normal respiratory effort Cardio Rate: regular rate GI Palpation (GI): Soft to palpation, not firm, Tenderness to palpation present (GI) in the epigastrum (To deep palpation), no guarding, not rigid and No Rebound tenderness present Back/Spine/Pelvis Other: Tenderness to palpation over thoracic spine and thoracic paraspinal muscles Neuro General: patient oriented x3 Gait exam (Neuro): Normal gait present Extrem General: Yes normal to inspection, Yes full ROM and No edema Psych Affect: normal affect Attitude: cooperative Insight: Good insight present (Psych) Judgement: Good judgement present (Psych) Coding Level of Care Code Est Pt Level 3 (18997) Diagnoses Back pain M54.9 Joint pain M25.50 Epigastric pain R10.13 Shoulder pain, right M25.511 Rash R21 Assessment & Plan Assessment & Plan (1) Back pain: Code(s): M54.9 - Dorsalgia, unspecified Category: Medical Plan: The patient's back and shoulder pain are assessed to be muscular in origin, likely exacerbated by underlying arthritis and overuse. To rule out other systemic causes, blood work including inflammatory markers will be ordered. Management includes continued use of heating pads, Tylenol, and consideration of physical therapy for stretching and strengthening. If the pain does not resolve, a referral to pain management for injections is an option. (2) Joint pain: Code(s): M25.50 - Pain in unspecified joint Category: Medical Plan: See above plan. (3) Epigastric pain: Code(s): R10.13 - Epigastric pain Category: Medical Plan: The upper abdominal tenderness found on exam is likely related to GERD. While pancreatitis is low on the differential, it will be ruled out with ordered blood work. The patient should continue her current medication and may supplement with Tums as needed. (4) Shoulder pain, right: Code(s): M25.511 - Pain in right shoulder Category: Medical Plan: Improved with physical therapy. She will continue with Tylenol and heating pads as needed. (5) Rash: Code(s): R21 - Rash and other nonspecific skin eruption Category: Medical Plan: Patient has a history of contact dermatitis on the chest and uses triamcinolone intermittently and refill was sent today. Patient also requesting referral to Dermatology which has been place Plan This note was constructed using voice recognition software. While every effort has been made to ensure accuracy and hotel housekeeper, still areas may have been included sometimes these areas may affect the content or meeting of the given symptoms. Total time spent caring for the patient today was 20 minutes. This includes time spent before the visit reviewing the chart, time spent during the visit, and time spent after the visit and documentation. Patient was informed and verbally consented to the use of an ambient scribe for clinic note documentation during this visit. Orders: Orders Comprehensive Met. Panel Today M25.50 - Pain in unspecified joint, Z00.00 - Encounter for general adult medical examination without abnormal findings TSH reflex Free T4 Today Z13.29 - Encounter for screening for other suspected endocrine disorder Vitamin D 25-OH Total Today Z13.21 - Encounter for screening for nutritional disorder UA CC w/rflx Micro + Cult Today R35.89 - Other polyuria Lipid Panel Today Z13.220 - Encounter for screening for lipoid disorders Lipase Today R10.13 - Epigastric pain Amylase Today R10.13 - Epigastric pain Erythrocyte Sedimentation Rate Today M25.50 - Pain in unspecified joint C Reactive Protein Today M25.50 - Pain in unspecified joint Complete Blood Count Auto Diff Today K22.10 - Ulcer of esophagus without bleeding, Z13.0 - Encounter for screening for diseases of the blood and blood-forming organs and certain disorders involving the immune mechanism Vitamin B12 and Folate Today Z13.21 - Encounter for screening for nutritional disorder Referrals Dermatology Referral R21 - Rash and other nonspecific skin eruption Medications: New triamcinolone acetonide 0.5% 1 appl topical BID 15 grams 0RF R21 - Rash and other nonspecific skin eruption
== END 2025-04-15 09:05 | disposition home or self-care (01) ==
LOC: HO.HMCH 08:15
DX: M54.9 Dorsalgia, unspecified (principal); M25.50 Pain in unspecified joint; R10.13 Epigastric pain; M25.511 Pain in right shoulder; R21 Rash and other nonspecific skin eruption

== ENCOUNTER 2025-04-16 07:42 | Outpatient (REF) | payer OTHER, SELFPAY ==
--- OUTSIDE RECORDS SUMMARY | 2025-04-16 07:46 | XMS_ITS | Data Portability ---
Author Organization JASE Terrell Rogel [facility], [facility] Address [address] [place] [address] Assessment Encounter Date Assessment Date Assessment LastModified [...] a recent trip to [facility], where she experienced prolonged sitting in the [...] grossly intact. Eyes: Sclera are not blue. 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 Full extraocular motion. [...] ordered, obtained and reviewed at [facility]. These images included bilateral weightbearing [...] visit note. This note was generated with [facility] speech recognition electrician's assistant dictation software. Please excuse any errors that may have been overlooked during review of this note. Sometimes, these errors may affect the content or meaning of a given sentence. Please call for corrections. [email or web address] Not available 08/13/2023 17:10:16 Plan of Treatment [...] by: Referring Physician: Benson Patel, Orthopedic Surgery, [id number] Encounter Date: 08/13/2023 Medical Equipment None Reported. Allergies Allergen ID Allergen Name Allergen Category Reaction Reaction Severity Criticality Documentation Date Start Date Code Code System Note Provider Name and Address Organization Details Recorded Time 363400 morphine medicatio n Not available Not available Not available 08/13/2023 7052 RxNorm SONIA MARMOLEJO [facility] 4 13:46:02 070430 Substance with sulfonami de structure and antibacte rial mechanism of action (substanc e) medicatio n Not available Not available Not available 08/13/2023 51593 8003 SNOMED SONIA MARMOLEJO [facility] Orthopedic [facility] 4 13:46:09 Medications Name Sig [...] Updated DateTime 08/13/2023 157.48 cm 28.7 kg/m2 64719 g SONIA MARMOLEJO [place] [facility] [place] [facility] 08/13/2023 13:45:53 Social History None recorded. Functional Status None recorded. Mental Status None recorded. Family History Nothing Reported. Medical History No medical history recorded. Gynecological HistoryNo gynecological history recorded. Obstetrics History GPAL:G 0 P 0 0 0 0 Past Encounters Encounter ID Performer Location Encounter Start Date Encounter Closed Date Diagnosis/Indication Diagnosis SNOMED-CT Code Diagnosis ICD10 Code Diagnosis IMO Codes Diagnosis Note [id number] MD Darlene Smith [address] [place] [address] 08/13/2023 13:24:57 09/06/2023 08:34:09 Pain of right knee joint 7812715748 53180 M25.561 Patellofem oral syndrome of right knee 4391106202 286649 M22.2X1 Health Concerns Section Related Observation LastModified by Organization Detai ls LastModified Time None Recorded Concern Status LastModified by Organization Details LastModified Time None Recorded Advance Directives Directive None Recorded Payers Insurance Date Sequence Insurance Name Policy Number Policy Carlton Covered Member ID Carlton Member ID Guarantor Name 09/06/2023 1 [facility] DOS ON OR AFTER 2022 - CUSTODIAL OPTIONS AND ONE CARE (MEDICARE REPLACEMENT/AD VANTAGE - PPO) Kiara Roth [id number] Kiara Roth OBGykaitlynn Episode No OBEpisode recorded.
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
[2025-04-16 07:54] LABS: MANUAL DIFF FLAG NO
[2025-04-16 08:11] LABS: Hematocrit 38.4 % (37.0-47.0); Hemoglobin 12.8 g/dl (12.0-16.0); Imm Gran Abs Auto 0.01 X10*3/uL (0.00-0.03); Imm Gran Pct Auto 0.2 % (0.0-0.4); Lymphocytes Absolute Auto 1.0 X10*3/uL (1.2-4.9); Mean Corpuscular HGB Conc 33.3 g/dl (31.0-35.0); Mean Corpuscular Hemoglobin 30.4 pg (27.0-33.0); Mean Corpuscular Volume 91.2 fL (80.0-98.0); NRBC Abs Auto 0.000 X10*3/uL (0.0-0.012); NRBC Pct Auto 0.0 /100WBC (0.0-0.2); Platelet Count 191 X10*3/uL (160-400); Red Blood Count 4.21 X10*6/uL (4.20-5.50); White Blood Count 4.1 X10*3/uL (4.8-10.8)
[2025-04-16 08:16] LABS: Appearance Urine Clear; Glucose Urine UA Negative (Negative); PH 7.0 (5.0-9.0); Specific Gravity - Urine 1.015 (1.005-1.025); UMIC TRIGGER UACC YES
[2025-04-16 08:50] LABS: Erythrocyte Sedimentation Rate 16 MM/HR (0-20)
[2025-04-16 08:58] LABS: Alanine Aminotransferase 16 U/L (0-31); Albumin Level 4.3 g/dL (3.5-5.0); Alkaline Phosphatase 97 U/L (39-117); Amylase 73 U/L (28-100); Anion Gap 9 (12-20); Aspartate Amino Transferase 19 U/L (5-31); Blood Urea Nitrogen 9 mg/dL (9-16); Calcium 8.9 mg/dL (8.4-10.2); Carbon Dioxide 29 mmol/L (22-29); Chloride 108 mmol/L (96-108); Cholesterol 194 mg/dL (<200); Estimated Glomerular Filt Rate > 60; HDL Cholesterol 47 mg/dL (>40); Lipase 18 U/L (8-78); Potassium 4.0 mmol/L (3.3-5.1); Sodium 142 mmol/L (135-145); Total Protein 7.4 g/dL (6.5-8.0); Triglycerides 101 mg/dL (<150)
[2025-04-16 12:42] LABS: Folate 13.3 ng/mL (> or = 4.0); Vitamin B12 449 pg/mL (200-900)
== END 2025-04-16 07:43 | disposition home or self-care (01) ==
LOC: HO.LAB 07:42
DX: Z00.00 Encounter for general adult medical examination without abnormal findings (principal); Z13.29 Encounter for screening for other suspected endocrine disorder; Z13.220 Encounter for screening for lipoid disorders; Z13.21 Encounter for screening for nutritional disorder; Z13.0 Encounter for screening for diseases of the blood and blood-forming organs and certain disorders involving the immune mechanism; Z13.6 Encounter for screening for cardiovascular disorders; R10.13 Epigastric pain; M25.50 Pain in unspecified joint; K22.10 Ulcer of esophagus without bleeding
CPT/HCPCS: 36415; 80053; 80061; 81001; 82150; 82306; 82607; 82746; 83690; 84443; 85025; 85652; 86140

== ENCOUNTER 2025-04-19 07:29 | Outpatient (AMB) | payer OTHER, SELFPAY ==
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
--- OUTSIDE RECORDS SUMMARY | 2025-04-19 07:34 | XMS_ITS | Data Portability ---
Author Organization JASE Terrell Rogel [facility], [facility] Address [address] [place] [address] Assessment Encounter Date Assessment Date Assessment LastModified by Organization Details LastModified Time 08/13/2023 08/13/2023 Chief Complaint: Right knee pain HPI: Kiara Camarillo is a 62-year-old female patient with a history of knee pain, having undergone two surgical interventions: a partial meniscectomy in 2003 and another knee surgery in 2006. She reports increased knee pain that began three days after a recent trip to [facility], where she experienced prolonged sitting in the [...] grossly intact. Eyes: Sclera are not blue. biochemistry specialist II-XII are grossly intact. Full extraocular motion. [...] Imaging: X-rays ordered, obtained and reviewed at [facility]. These images included bilateral weightbearing Chung [...] visit note. This note was generated with [facility] speech recognition licensed occupational therapist dictation software. Please excuse any errors that may have been overlooked during review of this note. Sometimes, these errors may affect the content or meaning of a given sentence. Please call for corrections. [email or web address] Not available 08/13/2023 17:10:16 Plan of Treatment [...] by: Referring Physician: Benson Patel, Orthopedic Surgery, [id number] Encounter Date: 08/13/2023 Medical Equipment None Reported. Allergies Allergen ID Allergen Name Allergen Category Reaction Reaction Severity Criticality Documentation Date Start Date Code Code System Note Provider Name and Address Organization Details Recorded Time 436664 morphine medicatio n Not available Not available Not available 08/13/2023 7052 RxNorm SONIA MARMOLEJO [facility] 4 13:46:02 025054 Substance with sulfonami de structure and antibacte rial mechanism of action (substanc e) medicatio n Not available Not available Not available 08/13/2023 53682 8003 SNOMED SONIA MARMOLEJO [facility] Orthopedic [facility] 4 13:46:09 Medications Name Sig Start [...] Updated DateTime 08/13/2023 157.48 cm 28.7 kg/m2 01251 g SONIA MARMOLEJO [place] [facility] [place] [facility] 08/13/2023 13:45:53 Social History None [...] ICD10 Code Diagnosis IMO Codes Diagnosis Note [id number] MD Darlene Smith [address] [place] [address] 08/13/2023 13:24:57 09/06/2023 08:34:09 Pain of right knee joint 7699120399 50161 M25.561 Patellofem oral syndrome of right knee 5325661108 327143 M22.2X1 Health Concerns Section Related Observation LastModified by Organization Detai ls LastModified Time None Recorded Concern Status LastModified by Organization Details LastModified Time None Recorded Advance Directives Directive None Recorded Payers Insurance Date Sequence Insurance Name Policy Number Policy Carlton Covered Member ID Carlton Member ID Guarantor Name 09/06/2023 1 [facility] DOS ON OR AFTER 2022 - NURSING HOME OPTIONS AND ONE CARE (MEDICARE REPLACEMENT/AD VANTAGE - PPO) Kiara Roth [id number] Kiara Roht OBGykaitlynn Episode No OBEpisode recorded.
[2025-04-19 07:38] VITALS: BP 120/66; PULSE 70; TEMP 36.6; O2SAT 98; BMI 26.3
--- NOTE | 2025-04-19 07:38 | AM.OFFWIN_ITS ---
Intake Vital Signs 04/19/25 07:38 Height 5 ft 2 in Weight 144 lb BMI 26.3 BP 120/66 Blood Pressure Location Rt brachial Position Sitting Pulse 70 Pulse Source Pulse Oximeter Temp 98 F Temp Source Oral Pulse Oximetry (%) 98 Oxygen Delivery Method Room Air Intake Visit Reasons: EP-uti Intake Note: Patient presents c/o urinary symptoms, states it feels different. Patient Tobacco Use Status: Never used Tobacco Allergies morphine (Morphine) Allergy (Intermediate, Verified 04/19/25 07:42) HALLUCINATIONS Sulfa (Sulfonamide Antibiotics) Allergy (Intermediate, Verified 04/19/25 07:42) HIVES shellfish derived Allergy (Mild, Verified 04/19/25 07:42) Stomach Upset methylprednisolone Adverse Reaction (Severe, Verified 04/19/25 07:42) rash Substance with sulfonamide structure and antibacterial mechanism of action (substance) Allergy (Unknown, Uncoded 04/19/25 07:42) Hives Oral Contrast Adverse Reaction (Intermediate, Uncoded 04/19/25 07:42) Abdominal Pain Medication List - Last Reconciled 04/19/25 by Heena Gordon NP albuterol sulfate 90 mcg/actuation 2 puffs inhalation Q4-6H PRN famotidine (Pepcid) 40 mg PO BEDTIME PRN fexofenadine (Lore Allergy) 60 mg PO BID fluconazole 150 mg PO DAILY hydrocortisone 2.5% (Proctosol HC) 1 appl [place] BID metronidazole 0.75% (MetroCream) 1 appl topical BID sennosides (Senna Laxative) 17.2 mg (2 x 8.6 mg) PO BEDTIME triamcinolone acetonide 0.5% 1 appl topical BID urea 20% 1 appl topical DAILY HPI HPI Comments History of Present Illness Details 64-year-old female presents to the walk- in clinic with complaints of vaginal discomfort, itching, and discharge for the past few days. She reports white, malodorous vaginal discharge. Denies abdominal cramping, nausea, vomiting, fevers, diarrhea, or constipation. Sexually active with one male partner (); no concerns for STIs. Recent Abx use - Aristidespack. [facility] Medical History (Updated 04/19/25 @ 08:10 by Heena Gordon NP) Vaginitis and vulvovaginitis Back pain Epigastric pain Nasal congestion Yeast infection Colitis Cough Sinusitis Diverticulitis Dysuria Pre-op examination Upper abdominal pain Diarrhea Contact dermatitis Umbilical abnormality Thoracic back pain Right flank pain Otalgia of left ear Neck pain Lumbar back pain Conjunctivitis IBS (irritable bowel syndrome) Thoracic degenerative disc disease Upper respiratory tract infection Physical exam URI, acute Acalculous cholecystitis Loose stools Asthma Tubular adenoma of colon Degenerative disc disease, thoracic Cholelithiasis with chronic cholecystitis Glaucoma Depression Helicobacter pylori (H. pylori) Anemia Myocardial infarction GERD (gastroesophageal reflux disease) Surgical History Hx laparoscopic cholecystectomy Status post laparoscopic cholecystectomy Hx of colonoscopy H/O dilation and curettage S/P right knee arthroscopy H/O esophagogastroduodenoscopy History of arthroscopy of right knee History of tubal ligation H/O section History of tonsillectomy Family History Father HTN (hypertension) Prostate cancer Mother HTN (hypertension) Diabetes Hx of CABG Sister Asthma Social History Household Members: Spouse, Significant Other and Other Housing: House Are you a primary laboratory animal care veterinarian to a significant other at home: No Do you presently have visiting nurse or other home services: No Alcohol intake: never Patient Tobacco Use Status: Never used Tobacco Tobacco use type: Cigarette e-Cigarette/Vaping Use: Never Used Second Hand Smoke Exposure: No service: No Current occupational status: disabled Current occupational exposures/hazards: No Cognitive needs: No Hearing needs: No Vision needs: Yes Review of Systems Const All systems reviewed & are unremarkable except as noted in HPI and below Physical Exam Vital Signs: Last Vital Signs Temp 98 F 04/19/25 07:38 Pulse 70 04/19/25 07:38 BP 120/66 04/19/25 07:38 Pulse Ox 98 04/19/25 07:38 Oxygen Delivery Method Room Air 04/19/25 07:38 BMI result Body Mass Index 26.3 Const General: no acute distress Nutritional Appearance: well nourished Orientation/consciousness: patient oriented x3 GI Inspection: Yes normal to inspection Palpation (GI): Soft to palpation and nontender Auscultation: normal bowel sounds General: Yes bladder normal to palpation External Female Exam: externally tender Speculum Exam - Vagina: abnormal vaginal discharge white and frothy and erythematous Speculum Exam - Cervix: Cervical os open Bimanual exam- vagina & uterus: bladder normal to palpation and no cervical motion tenderness OB/external & speculum: Cervical os open Neuro General: patient oriented x3, gait normal and moves all extremities Psych Speech and movement: Normal speech and movement present Results AMB Urinalysis, Automated UA Leukoctes 0 Ed/uL Last Edit by Tamika Agosto CMA on 04/19/25 07:54 UA Nitrite Negative Last Edit by Tamika Agosto CMA on 04/19/25 07:54 UA Urobilinogen 0.2 mg/dL Last Edit by Tamika Agosto CMA on 04/19/25 07:54 UA Protein 0 mg/dL Last Edit by Tamika Agosto CMA on 04/19/25 07:54 UA pH 6.0 Last Edit by Tamika Agosto CMA on 04/19/25 07:54 UA Blood 25 Sage/uL Last Edit by Tamika Agosto CMA on 04/19/25 07:54 UA Specific Burt 1.020 Last Edit by Tamika Agosto CMA on 04/19/25 07:54 UA Ketone Negative Last Edit by Tamika Agosto CMA on 04/19/25 07:54 UA Bilirubin 0 mg/dL Last Edit by Tamika Agosto CMA on 04/19/25 07:54 UA Glucose 0 mg/dL Last Edit by Tamika Agosto CMA on 04/19/25 07:54 Results Reviewed Results Reviewed: Laboratory Last Values Urine pH (Auto) 6.0 04/19/25 07:52 Specific Burt (Auto) 1.020 04/19/25 07:52 Urine Protein (Auto) 0 mg/dL 04/19/25 07:52 Glucose (UA)(Auto) 0 mg/dL 04/19/25 07:52 Urine Ketones (Auto) Negative 04/19/25 07:52 Urine Blood (Auto) 25 Sage/uL 04/19/25 07:52 Urine Nitrite (Auto) Negative 04/19/25 07:52 Urine Bilirubin (Auto) 0 mg/dL 04/19/25 07:52 Urine Urobilinogen (Auto) 0.2 mg/dL 04/19/25 07:52 Leukocyte Esterase (Auto) 0 Ed/uL 04/19/25 07:52 Assessment & Plan Assessment & Plan (1) Vaginitis and vulvovaginitis: Code(s): N76.0 - Acute vaginitis Plan: Vaginal discharge / Vaginal irritation ? Most consistent with vulvovaginal candidiasis vs bacterial vaginosis given malodorous discharge. Urinalysis negative. Ordered Vaginal Panel. Metronidazole vaginal x BID for 5 days. Fluconazole on hold. Follow up if symptoms worsen, fail to improve after treatment, or if new symptoms develop (fever, abdominal pain, foul odor, bleeding). Orders: Orders Bacterial Vaginosis Panel Today N76.0 - Acute vaginitis AMB Urinalysis Automated Today Z13.9 - Encounter for screening, unspecified Medications: New metronidazole 0.75% (MetroCream) 1 appl topical BID 45 grams 0RF N76.0 - Acute vaginitis fluconazole 150 mg PO DAILY 2 tabs 0RF N76.0 - Acute vaginitis Coding Level of Care Code Est Pt Level 4 (95017) Diagnoses Vaginitis and vulvovaginitis N76.0 Time Spent (min) 20
== END 2025-04-19 08:12 | disposition home or self-care (01) ==
PROVIDERS: Visit Provider Nurse Practitioner Family
DX: Z13.9 Encounter for screening, unspecified (principal); N76.0 Acute vaginitis

== ENCOUNTER 2025-04-19 07:29 | Outpatient (REF) | payer OTHER, SELFPAY ==
[2025-04-19 11:50] LABS: Bacterial Vaginosis PCR NEGATIVE (Negative); Candida Group PCR NOT DETECTED (Not Detect); Candida glab krusei PCR NOT DETECTED (Not Detect); Trichomonas vaginalis PCR NOT DETECTED (Not Detect)
== END 2025-04-19 07:30 | disposition home or self-care (01) ==
LOC: HO.LAB 07:29
PROVIDERS: Nurse Practitioner Family
DX: N76.0 Acute vaginitis (principal)
CPT/HCPCS: 81003; 81515

== ENCOUNTER 2025-04-21 12:49 | Outpatient (AMB) | payer OTHER, SELFPAY ==
[2025-04-21 13:11] VITALS: BMI 26.3
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
--- OUTSIDE RECORDS SUMMARY | 2025-04-21 19:42 | XMS_ITS | Data Portability ---
Author Organization JASE Terrell [facility] Address [address] [place] [address] Assessment Encounter Date Assessment Date Assessment LastModified by Organization Details LastModified Time 08/13/2023 08/13/2023 Chief Complaint: Right knee pain HPI: Kiara Camarillo is a 62-year-old female patient with a history of knee pain, having undergone two surgical interventions: a partial meniscectomy in 2003 and another knee surgery in 2006. She reports increased knee pain that began three days after a recent trip to [facility], where she experienced prolonged sitting in [...] grossly intact. Eyes: Sclera are not blue. healthcare project manager II-XII are grossly intact. Full extraocular motion. [...] Imaging: X-rays ordered, obtained and reviewed at [facility]. These images included bilateral weightbearing Chung [...] visit note. This note was generated with [facility] speech recognition driver dictation software. Please excuse any errors that may have been overlooked during review of this note. Sometimes, these errors may affect the content or meaning of a given sentence. Please call for corrections. [email or web address] Not available 08/13/2023 17:10:16 Plan of Treatment [...] by: Referring Physician: Benson Patel, Orthopedic Surgery, [id number] Encounter Date: 08/13/2023 Medical Equipment None Reported. Allergies Allergen ID Allergen Name Allergen Category Reaction Reaction Severity Criticality Documentation Date Start Date Code Code System Note Provider Name and Address Organization Details Recorded Time 257499 morphine medicatio n Not available Not available Not available 08/13/2023 7052 RxNorm SONIA MARMOLEJO [facility] 4 13:46:02 487471 Substance with sulfonami de structure and antibacte rial mechanism of action (substanc e) medicatio n Not available Not available Not available 08/13/2023 86450 8003 SNOMED SONIA MARMOLEJO [facility] 4 13:46:09 Medications Name Sig Start [...] Updated DateTime 08/13/2023 157.48 cm 28.7 kg/m2 06399 g SONIA MARMOLEJO PA - [facility] 08/13/2023 13:45:53 [...] ICD10 Code Diagnosis IMO Codes Diagnosis Note [id number] MD Darlene Smith [address] [place] [address] 08/13/2023 13:24:57 09/06/2023 08:34:09 Pain of right knee joint [id number] 85302 M25.561 Patellofem oral syndrome of right knee [id number] 346908 M22.2X1 Health Concerns Section Related Observation LastModified by Organization Detai ls LastModified Time None Recorded Concern Status LastModified by Organization Details LastModified Time None Recorded Advance Directives Directive None Recorded Payers Insurance Date Sequence Insurance Name Policy Number Policy Carlton Covered Member ID Carlton Member ID Guarantor Name 09/06/2023 1 [facility] DOS ON OR AFTER 2022 - HALFWAY OPTIONS AND ONE CARE (MEDICARE REPLACEMENT/AD VANTAGE - PPO) Kiara Roth [id number] Kiara Roth OBGykaitlynn Episode No OBEpisode recorded.
== END 2025-04-21 13:27 | disposition home or self-care (01) ==
LOC: HO.HPODS 12:50
PROVIDERS: Visit Provider Student in an Organized Health Care Education/Training Program
DX: L84 Corns and callosities (principal); M77.41 Metatarsalgia, right foot; L60.3 Nail dystrophy
CPT/HCPCS: 99213

== ENCOUNTER 2025-04-26 15:37 | Outpatient (AMB) | payer OTHER, SELFPAY ==
[2025-04-26 15:54] VITALS: BP 124/64; PULSE 66; RESP 18; O2SAT 98; BMI 26.4
--- NOTE | 2025-04-26 15:54 | A.OFFPC_ITS ---
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: No Accompanied by: Self / Same As Patient Allergies morphine (Morphine) Allergy (Intermediate, Verified 04/26/25 15:55) HALLUCINATIONS Sulfa (Sulfonamide Antibiotics) Allergy (Intermediate, Verified 04/26/25 15:55) HIVES shellfish derived Allergy (Mild, Verified 04/26/25 15:55) Stomach Upset methylprednisolone Adverse Reaction (Severe, Verified 04/26/25 15:55) rash Substance with sulfonamide structure and antibacterial mechanism of action (substance) Allergy (Unknown, Uncoded 04/19/25 07:42) Hives Oral Contrast Adverse Reaction (Intermediate, Uncoded 04/19/25 07:42) Abdominal Pain Tobacco use date assessed: 04/26/25 Dental Screening Dental Screen Date: 04/26/25 Did you have a dental visit in the last 12 months?: Yes Did you have a dental problem in the last 6 months where you did not have access to dental care?: No Was dental information given to patient?: Patient has dentist HPI HPI Comments History of Present Illness Details The patient is a 64 year old female presenting with epigastric abdominal pain radiating to her chest and bilateral abdomen. The patient reports upper abdominal pain started two days ago that radiates to her chest and is associated with significant burping. For relief, she has been taking Pepto-Bismol and Famotidine prn, which provided some help. Patient has a history of GERD with esophagitis per upper endoscopy in September 2024. The endoscopy revealed grade A esophagitis on biopsy, with no evidence of H. pylori or fully developed intestinal metaplasia. She has a history of cholecystectomy and has had extensive workups including a CT scan of the abdomen and pelvis in November of this year, an upper GI series and barium swallow, all of which were largely unremarkable. She follows with GI, has previously tried multiple PPIs but discontinued it due to side effects, finding famotidine more tolerable. She was taking famotidine as needed recently, she was on it daily in the past. She also reports a lot of burping and abdominal gases. Recent blood work shows LDL cholesterol is elevated at 127 mg/dL. Her vitamin D level was low at 26, for which she was prescribed a supplement. She also has a history of arthritis in her back. [facility] Medical History Vaginitis and vulvovaginitis Back pain Epigastric pain Nasal congestion Yeast infection Colitis Cough Sinusitis Diverticulitis Dysuria Pre-op examination Upper abdominal pain Diarrhea Contact dermatitis Umbilical abnormality Thoracic back pain Right flank pain Otalgia of left ear Neck pain Lumbar back pain Conjunctivitis IBS (irritable bowel syndrome) Thoracic degenerative disc disease Upper respiratory tract infection Physical exam URI, acute Acalculous cholecystitis Loose stools Asthma Tubular adenoma of colon Degenerative disc disease, thoracic Cholelithiasis with chronic cholecystitis Glaucoma Depression Helicobacter pylori (H. pylori) Anemia Myocardial infarction GERD (gastroesophageal reflux disease) Surgical History Hx laparoscopic cholecystectomy Status post laparoscopic cholecystectomy Hx of colonoscopy H/O dilation and curettage S/P right knee arthroscopy H/O esophagogastroduodenoscopy History of arthroscopy of right knee History of tubal ligation H/O section History of tonsillectomy Family History Father HTN (hypertension) Prostate cancer Mother HTN (hypertension) Diabetes Hx of CABG Sister Asthma Social History Household Members: Spouse, Significant Other and Other Housing: House Are you a primary family day care worker to a significant other at home: No Do you presently have visiting nurse or other home services: No Alcohol intake: never Patient Tobacco Use Status: Never used Tobacco Tobacco use type: Cigarette e-Cigarette/Vaping Use: Never Used Second Hand Smoke Exposure: No service: No Current occupational status: disabled Current occupational exposures/hazards: No Cognitive needs: No Hearing needs: No Vision needs: Yes Questionnaire Thrive Questionnaire Date Thrive assessed: 11/23/24 JAJA-7 AMB Questionnaire JAJA-7 Date JAJA - 7 assessed: 11/23/24 Source: Developed by Drs. Kevin Stevenson, Nita Gutierrez, Kulwant Flores and colleagues, with an educational reji from [employer]. Physical exam (Primary Care) Vital Signs: Last Vital Signs Pulse 66 04/26/25 15:54 Resp 18 04/26/25 15:54 BP 124/64 04/26/25 15:54 Pulse Ox 98 04/26/25 15:54 Oxygen Delivery Method Room Air 04/26/25 15:54 General: Well-appearing, alert, oriented ?3, in no acute distress. Cardiovascular: RRR, S1-S2 appreciated, no murmurs, rubs or gallops. Respiratory: Lungs clear to auscultation bilaterally, no wheezes, rales or rhonchi. Abdomen: Soft, tenderness to palpation of epigastric area, nondistended. Normoactive bowel sounds. BMI result Body Mass Index 26.4 Tobacco/Smoking Status: Tobacco use Status Tobacco use date assessed 04/26/25 04/26/25 15:59 Patient Tobacco Use Status Never used Tobacco 04/26/25 15:59 Tobacco use type Cigarette 04/26/25 15:59 e-Cigarette/Vaping Use Never Used 04/26/25 15:59 Thrive Assessment: Date of Thrive Assessment Date Thrive assessed 11/23/24 04/26/25 15:59 Coding Level of Care Code Est Pt Level 4 (23943) Diagnoses Epigastric pain R10.13 Abdominal bloating R14.0 Vitamin D deficiency E55.9 Hyperlipidemia, unspecified hyperlipidemia type E78.5 Hyperlipidemia type: unspecified Assessment & Plan Assessment & Plan (1) Epigastric pain: Code(s): R10.13 - Epigastric pain Category: Medical Plan: Patient with a known history of GERD with esophagitis, previously tried multiple PPIs that she did not tolerate well. Currently on famotidine 40 mg daily p.r.n.. She follows with GI. She is presenting with recurrence of her epigastric pain 2 days ago, for which she used Pepto-Bismol and famotidine that helped. Continue famotidine 40 mg at bedtime daily for a month instead of p.r.n. basis. She may also use Tums as needed in addition. EGD biopsy in September 2024 was negative for H pylori. Retest for H pylori given recurrence of symptoms. Lifestyle modifications including avoiding spicy and citrus food, staying upright after meals. Dinner 2-3 hours before bedtime. May use milk or yogurt to help with the acidity. (2) Abdominal bloating: Code(s): R14.0 - Abdominal distension (gaseous) Category: Medical Plan: As above, simethicone p.r.n. (3) Vitamin D deficiency: Code(s): E55.9 - Vitamin D deficiency, unspecified Category: Medical Plan: Vitamin-D level of 26, Patient started on vitamin-D supplements daily for 12 weeks then re-evaluate (4) Hyperlipidemia: Code(s): E78.5 - Hyperlipidemia, unspecified Category: Medical Qualifiers: Hyperlipidemia type: unspecified Qualified Code(s): E78.5 - Hyperlipidemia, unspecified Plan: Not on statin Counseled on dietary modifications including avoiding red meat, pork, and full fat dairy products, avoid saturated and trans fats. Increase fibers and fish intake as well as healthier oils like 11 avocado oil. Orders: Orders H pylori Ag Stool Today R12 - Heartburn Medications: New simethicone (Gas Relief (simethicone)) 125 mg PO BID-QID PRN 30 caps 2RF abdominal distention
--- OUTSIDE RECORDS SUMMARY | 2025-04-26 22:07 | XMS_ITS | Data Portability ---
Author Organization JASE Terrell [facility], [facility] Address [address] [place] [address] Assessment Encounter Date Assessment Date Assessment LastModified by Organization Details LastModified Time 08/13/2023 08/13/2023 Chief Complaint: Right knee pain HPI: Kiara Camarillo is a 62-year-old female patient with a history of knee pain, having undergone two surgical interventions: a partial meniscectomy in 2003 and another knee surgery in 2006. She reports increased knee pain that began three days after a recent trip to [facility], where she experienced prolonged sitting in the [...] grossly intact. Eyes: Sclera are not blue. client services associate II-XII are grossly intact. Full extraocular motion. [...] Imaging: X-rays ordered, obtained and reviewed at [facility]. These images included bilateral weightbearing Chung [...] visit note. This note was generated with [facility] speech recognition transport technician dictation software. Please excuse any errors that may have been overlooked during review of this note. Sometimes, these errors may affect the content or meaning of a given sentence. Please call for corrections. [email or web address] Not available 08/13/2023 17:10:16 Plan of Treatment [...] by: Referring Physician: Benson Patel, Orthopedic Surgery, [id number] Encounter Date: 08/13/2023 Medical Equipment None Reported. Allergies Allergen ID Allergen Name Allergen Category Reaction Reaction Severity Criticality Documentation Date Start Date Code Code System Note Provider Name and Address Organization Details Recorded Time 148404 morphine medicatio n Not available Not available Not available 08/13/2023 7052 RxNorm SONIA MARMOLEJO [facility] 4 13:46:02 469322 Substance with sulfonami de structure and antibacte rial mechanism of action (substanc e) medicatio n Not available Not available Not available 08/13/2023 38006 8003 SNOMED SONIA MARMOLEJO [facility] 4 13:46:09 Medications Name Sig Start [...] Updated DateTime 08/13/2023 157.48 cm 28.7 kg/m2 60015 g SONIA MARMOLEJO [place] [facility] [place] [facility] 08/13/2023 13:45:53 Social History None [...] ICD10 Code Diagnosis IMO Codes Diagnosis Note [id number] MD Darlene Smith [address] [place] [address] 08/13/2023 13:24:57 09/06/2023 08:34:09 Pain of right knee joint 8679188007 74477 M25.561 Patellofem oral syndrome of right knee 7034988368 934130 M22.2X1 Health Concerns Section Related Observation LastModified by Organization Detai ls LastModified Time None Recorded Concern Status LastModified by Organization Details LastModified Time None Recorded Advance Directives Directive None Recorded Payers Insurance Date Sequence Insurance Name Policy Number Policy Carlton Covered Member ID Carlton Member ID Guarantor Name 09/06/2023 1 [facility] DOS ON OR AFTER 2022 - LONG TERM OPTIONS AND ONE CARE (MEDICARE REPLACEMENT/AD VANTAGE - PPO) Kiara Roth [id number] Kiara Roth OBGykaitlynn Episode No OBEpisode recorded.
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
== END 2025-04-26 16:55 | disposition home or self-care (01) ==
LOC: HO.HMCH 15:37
PROVIDERS: Visit Provider Student in an Organized Health Care Education/Training Program
DX: R10.13 Epigastric pain (principal); R14.0 Abdominal distension (gaseous); E55.9 Vitamin D deficiency, unspecified; E78.5 Hyperlipidemia, unspecified

== ENCOUNTER 2025-04-28 07:46 | Outpatient (REF) | payer OTHER, SELFPAY | END 2025-04-28 07:47 | disposition home or self-care (01) | LOC: HO.LNP 07:46 | PROVIDERS: Visit Provider Student in an Organized Health Care Education/Training Program | DX: R12 Heartburn (principal) | CPT/HCPCS: 87338 ==

== ENCOUNTER 2025-04-30 12:21 | Outpatient (AMB) | payer OTHER, SELFPAY ==
--- NOTE | 2025-04-30 12:23 | A.OFFVIS_ITS ---
Vital Signs 04/30/25 12:27 Height 5 ft 2 in Weight 141 lb BMI 25.8 BP 114/58 L Blood Pressure Location Lt brachial Position Sitting Pulse 68 Intake Visit Reasons: Abd pain, PT requested appt Intake Note: Patien request follow up due abdominal pain Patient cc: esophagus discomfort, lab/fecal results, heartburn/burping a lot, and constipation with bloody stool. 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: No Accompanied by: Self / Same As Patient Allergies morphine (Morphine) Allergy (Intermediate, Verified 04/30/25 12:26) HALLUCINATIONS Sulfa (Sulfonamide Antibiotics) Allergy (Intermediate, Verified 04/30/25 12:26) HIVES shellfish derived Allergy (Mild, Verified 04/30/25 12:26) Stomach Upset methylprednisolone Adverse Reaction (Severe, Verified 04/30/25 12:26) rash Substance with sulfonamide structure and antibacterial mechanism of action (substance) Allergy (Unknown, Uncoded 04/19/25 07:42) Hives Oral Contrast Adverse Reaction (Intermediate, Uncoded 04/19/25 07:42) Abdominal Pain HPI HPI Abd pain, PT requested appt: Details: Assessment & Plan (1) Erosive esophagitis: Code(s): K22.10 - Ulcer of esophagus without bleeding Category: Medical (2) GERD (gastroesophageal reflux disease): Code(s): K21.9 - Gastro-esophageal reflux disease without esophagitis Category: Medical Qualifiers: Esophagitis presence: esophagitis presence not specified Qualified Code(s): K21.9 - Gastro-esophageal reflux disease without esophagitis (3) Irritable bowel syndrome with both constipation and diarrhea: Comment: and GERD/colitis Code(s): K58.2 - Mixed irritable bowel syndrome Category: Medical Plan She is on famotidine 40mg and senna and proctosol cream. (She has had multiple ultrasounds, multiple CAT scans, multiple upper GI studies I none have contributed to resolution or further in the diagnosis. Upper endoscopy did show esophageal erosions with potential pre metaplastic tissues on biopsy and active esophagitis. There was no H. pylori.) - The patient is a 64-year-old female presenting with musculoskeletal-related abdominal and back pain. - Reports bilateral rib cage pain extending to the back, with pressure-like quality, aggravated by specific movements. - Observed relief from pain using Motrin, aligning symptoms with musculoskeletal etiology. - Recent increased physical activity was identified as a potential trigger. - Previous investigative imaging in November ruled out pancreatic issues. - Longstanding osteoarthritis, current episode likely exacerbated by physical exertion. - Reports sometime sharp chest discomfort improved with burping, indicative of PANCHO or gas-related issues. - Denied effectiveness from dietary interventions on ongoing GI symptoms. IN TERMS OF her heartburn we tried 1/4 tsp of baking soda but she really could not tolerate the salty taste. With this she is now willing to try the famotidine. Unfortunately she has had bad reactions to multiple PPIs, so if the famotidine does not work for her we may need to consider simple Tums therapy. She says she has had more rectal bleeding which usually responds well to Proctosol cream. She is requesting a refill. She continues on senna and she feels that this is controlling her constipation well. Return office visit in 6 months Medications: New hydrocortisone 2.5% (Proctosol HC) BE SURE TO INCLUDE RECTAL APPICATOR!! 1 appl MN BID 30 grams 6RF hemorrhoids K64.9 - Unspecified hemorrhoids Laboratory Tests 07/10/24 04/16/25 04/28/25 12:05 07:52 05:35 WBC 4.1 L Hgb 12.8 Hct 38.4 Plt Count 191 Estimated GFR > 60 Total Bilirubin 0.4 AST 19 ALT 16 Alkaline Phosphatase 97 C-Reactive Protein 0.30 TSH 1.95 Stool H. pylori Ag SEE NOTE Tiss Transglutamin IgA <1.0 TODAY'S VISIT [facility] Medical History (Updated 04/30/25 @ 12:56 by JADE Rosen) Diverticulitis Flu-like symptoms Sinusitis Screening for hypercholesterolemia Vaginitis and vulvovaginitis Back pain Epigastric pain Nasal congestion Yeast infection Colitis Cough Dysuria Pre-op examination Upper abdominal pain Diarrhea Contact dermatitis Umbilical abnormality Thoracic back pain Right flank pain Otalgia of left ear Neck pain Lumbar back pain Conjunctivitis IBS (irritable bowel syndrome) Thoracic degenerative disc disease Upper respiratory tract infection Physical exam URI, acute Acalculous cholecystitis Loose stools Asthma Tubular adenoma of colon Degenerative disc disease, thoracic Cholelithiasis with chronic cholecystitis Glaucoma Depression Helicobacter pylori (H. pylori) Anemia Myocardial infarction GERD (gastroesophageal reflux disease) Surgical History Hx laparoscopic cholecystectomy Status post laparoscopic cholecystectomy Hx of colonoscopy H/O dilation and curettage S/P right knee arthroscopy H/O esophagogastroduodenoscopy History of arthroscopy of right knee History of tubal ligation H/O section History of tonsillectomy Family History Father HTN (hypertension) Prostate cancer Mother HTN (hypertension) Diabetes Hx of CABG Sister Asthma Social History Household Members: Spouse, Significant Other and Other Housing: House Are you a primary home care manager to a significant other at home: No Do you presently have visiting nurse or other home services: No Alcohol intake: never Patient Tobacco Use Status: Never used Tobacco Tobacco use type: Cigarette e-Cigarette/Vaping Use: Never Used Second Hand Smoke Exposure: No service: No Current occupational status: disabled Current occupational exposures/hazards: No Cognitive needs: No Hearing needs: No Vision needs: Yes Review of Systems Const Denies fatigue, Denies fever(s), Denies night sweats, Denies poor appetite and Denies weight loss ENT Reports Normal hearing present, Denies dental pain, Denies dysphagia, Denies hearing loss, Denies mouth pain, Denies odynophagia, Denies throat swelling, Denies tongue swelling and Reports other (Dentition adequate) Card Reports chest pain Resp Reports no additional complaints GI Details: Reports abdominal pain, Reports belching, Denies melena, Denies bloating, Denies hematochezia, Reports constipation, Denies GI cramping, Denies dysphagia, Denies excessive flatus, Denies early satiety, Reports heartburn, Denies diarrhea, Denies nausea, Denies odynophagia, Denies vomiting and Denies hematemesis Reports vaginal dryness Skin/Breast Denies pruritus, Denies lesions, Denies rash and Denies jaundice Neuro Reports Normal hearing present and Denies Abnormal speech present Endo Denies fatigue Aller/Immun Denies throat swelling and Denies tongue swelling Physical Exam Const General: cooperative, no acute distress, well developed and well groomed Nutritional Appearance: average body habitus and well nourished Orientation/consciousness: oriented to person, oriented to place and oriented to time Limitations: No language barrier and wheelchair HEENT Head: Yes normocephalic and Yes atraumatic Eyes General: appearance normal, both eyes and all related structures Pupils: Equal, round and reactive pupils present Neck Neck: Yes normal visual inspection and Yes no lymphadenopathy Thyroid: Thyroid normal Resp Effort & Inspection: normal respiratory effort and able to speak in complete sentences Auscultation: clear to auscultation bilaterally Cardio Rate: regular rate Rhythm: regular rhythm Heart sounds: Normal, physiologic split S2 sound present Peripheral pulses: radial pulses present and posterior tibial pulses present GI Inspection: No distended and No Abdominal panniculus present Palpation (GI): Soft to palpation, nontender, no guarding, not rigid and No hepatosplenomegaly present Percussion: Yes normal to percussion Auscultation: normal bowel sounds Rectal Exam - Female: deferred Skin General skin exam: no rashes or lesions noted, turgor normal, skin not dry, no jaundice, No spider nevi and no striae Rashes: no rashes Nails: normal Neuro General: oriented to person, oriented to place and oriented to time Cranial nerves: Yes Equal, round and reactive pupils present and Yes Normal hearing present Speech: No Abnormal speech present Extrem General: Yes normal to inspection, No clubbing, No cyanosis and No edema Psych Appearance: grossly normal and well kempt Mental Status: mental status grossly normal Speech and movement: Normal speech and movement present Affect: normal affect Attitude: cooperative Thought process: Normal thought process present and not confabulating Thought content: Normal thought content present Insight: Fair insight present (Psych) and Limited insight present (Psych) Judgement: Fair judgement present (Psych) and Limited judgement present (Psych) Assessment & Plan Assessment & Plan (1) Erosive esophagitis: Code(s): K22.10 - Ulcer of esophagus without bleeding Category: Medical (2) GERD (gastroesophageal reflux disease): Code(s): K21.9 - Gastro-esophageal reflux disease without esophagitis Category: Medical Qualifiers: Esophagitis presence: esophagitis presence not specified Qualified Code(s): K21.9 - Gastro-esophageal reflux disease without esophagitis (3) Irritable bowel syndrome with both constipation and diarrhea: Comment: and GERD/colitis Code(s): K58.2 - Mixed irritable bowel syndrome Category: Medical (4) IgA mediated leukocytoclastic vasculitis: Code(s): D69.0 - Allergic purpura Category: Medical (5) Osteoarthritis of thoracic spine with myelopathy: Code(s): M47.14 - Other spondylosis with myelopathy, thoracic region Category: Medical (6) Diverticulitis: Code(s): K57.92 - Diverticulitis of intestine, part unspecified, without perforation or abscess without bleeding Category: Medical (7) Vaginitis and vulvovaginitis: Code(s): N76.0 - Acute vaginitis Category: Medical Plan HER CURRENT GI REGIMEN CONSISTS OF FAMOTIDINE, SENNA, SIMETHICONE, AND PROCTOSOL cream. (She has had multiple ultrasounds, multiple CAT scans, multiple upper GI studies I none have contributed to resolution or furthering of the diagnosis. Upper endoscopy did show esophageal erosions with potential pre metaplastic tissues on biopsy and active esophagitis. There was no H. pylori. She has osteoarthritis of the thoracic spine that could be contributing a musculoskeletal element with radicular pain) Subjective Patient presents for worsening upper abdominal/epigastric pain with prominent burping and gas. Pain localizes to the chest/epigastric area, sometimes radiates/migrates around the upper abdomen and under the ribs, and has been more painful than prior episodes. She reports recent constipation for three days, then a bowel movement today; noted bright red blood per rectum last night and again this morning that stopped with cleansing. She has been limiting intake (sweet potato, mashed potato, chicken, crackers) due to discomfort and fear of worsening pain. She has a history of GERD with esophagitis; had been taking famotidine only as needed but was recently instructed by PCP to take nightly. Prior omeprazole was discontinued because it worsened gas. She uses senna for constipation and has Gas?X available but had not been taking it regularly. She reports vaginal dryness and was started by OB?WAVE SOLDERING MACHINE OPERATOR on intravaginal clindamycin nightly for 14 days followed by a scheduled start of vaginal estrogen. Relevant Past Medical, Social, and Family History - Prior esophagitis/GERD - Cholecystectomy approximately 5 years ago (April 27) - Recent colonoscopy in 2024 reassuring - Possible history of leukocytoclastic vasculitis/lupus (rheumatology, 2019) - Allergies: sulfa, shellfish; no penicillin allergy - OB?WAVE SOLDERING MACHINE OPERATOR treating presumed bacterial vaginosis with clindamycin; plan to initiate vaginal estrogen for atrophic symptoms Objective - CBC normal; renal and hepatic function normal - CRP not elevated - Thyroid function normal - LDL mildly elevated; vitamin D low - H. pylori stool test negative - Celiac testing negative - Influenza testing negative - Pancreatic enzymes normal Assessment & Plan GERD with esophagitis and dyspepsia/epigastric pain: Symptoms consistent with reflux and esophageal irritation; current H2RA dosing has been insufficient when taken intermittently. - Increase famotidine to twice daily for a period to allow healing - May use Tums as needed for breakthrough symptoms - Eat lightly while symptoms settle; adherence to daily regimen emphasized Gas/bloating with eructation: Burping attributed to gas. - Start simethicone (Gas?X) three times daily with meals Constipation with symptomatic hemorrhoids and bright red rectal bleeding: Recurrent hemorrhoidal bleeding; bleeding self?limited. Recent colonoscopy in 2024 is reassuring. - Continue senna for constipation - Use hemorrhoid cream with rectal applicator twice daily for 14 days continuously Presumed diverticulitis as cause of current colicky abdominal discomfort: Empiric treatment given recurrent pattern and colon pain pathway. - Start Augmentin for 14 days - Light diet until symptoms improve Autoimmune disease on chart (leukocytoclastic vasculitis/lupus) ? possible GI involvement: Unclear history; may contribute to intermittent GI symptoms. - Order inflammatory markers and related blood work to assess activity in order to see if her past ?colitis? is related to a possible lupus-like condition affecting the gut. - Consider rheumatology referral based on results Gynecologic plan for vaginal symptoms: Education provided regarding local estrogen safety. - Continue intravaginal clindamycin nightly for 14 days as directed by OB?WAVE SOLDERING MACHINE OPERATOR, then initiate the prescribed vaginal estrogen per the written schedule provided Follow-up: Due to holidays, schedule follow-up in approximately 8 weeks. I will review labs over the holidays and call with any concerning results; if no call, results are unremarkable. Patient to contact the office sooner for worsening pain, fever, persistent or heavy rectal bleeding, or new symptoms. Orders: Orders Rheumatoid Factor Today K57.92 - Diverticulitis of intestine, part unspecified, without perforation or abscess without bleeding AG Reflex Titer and Pattern Today K57.92 - Diverticulitis of intestine, part unspecified, without perforation or abscess without bleeding Cyclic Citrullinated Peptide Today K57.92 - Diverticulitis of intestine, part unspecified, without perforation or abscess without bleeding CRP High Sensitivity Today K57.92 - Diverticulitis of intestine, part unspecified, without perforation or abscess without bleeding Erythrocyte Sedimentation Rate Today K57.92 - Diverticulitis of intestine, part unspecified, without perforation or abscess without bleeding Medications: New amoxicillin-pot clavulanate 875-125 mg 1 tab PO BID 28 tabs 0RF 14 days K57.92 - Diverticulitis of intestine, part unspecified, without perforation or abscess without bleeding Changed From famotidine (Pepcid) 40 mg PO BEDTIME PRN 30 tabs 6RF heartburn To famotidine (Pepcid) 40 mg PO BID 60 tabs 6RF heartburn Refilled simethicone (Gas Relief (simethicone)) 125 mg PO BID-QID PRN 30 caps 6RF abdominal distention sennosides (Senna Laxative) 17.2 mg (2 x 8.6 mg) PO BEDTIME 60 tabs 6RF K59.00 - Constipation, unspecified hydrocortisone 2.5% (Proctosol HC) BE SURE TO INCLUDE RECTAL APPICATOR!! 1 appl MN BID 30 grams 6RF hemorrhoids K64.9 - Unspecified hemorrhoids Patient Instructions: VAGINAL REGIMEN FIRST 2 WEEKS; use the clindamycin cream every night Week 3: Saturday: estrogen cream - Saturday: estrogen cream - Saturday: estrogen cream ? Saturday: clindamycin cream only ? : estrogen cream ? Saturday, estrogen cream ? Saturday : clindamycin cream. Week 4: Saturday estrogen cream ? Saturday: clindamycin cream ? Saturday use nothing ? Saturday use nothing ? : use estrogen cream ? Saturday use clindamycin cream ? Saturday u se nothing THEN, repeat Week 4 for 2 months. After 2 months use only the estrogen cream 2 times a week. Coding Level of Care Code Est Pt Level 4 (90738) Diagnoses Erosive esophagitis K22.10 Gastroesophageal reflux disease, unspecified whether esophagitis present K21.9 Esophagitis presence: esophagitis presence not specified Irritable bowel syndrome with both constipation and diarrhea K58.2 IgA mediated leukocytoclastic vasculitis D69.0 Osteoarthritis of thoracic spine with myelopathy M47.14 Diverticulitis K57.92 Vaginitis and vulvovaginitis N76.0 Time Spent (min) 37
[2025-04-30 12:27] VITALS: BP 114/58; PULSE 68; BMI 25.8
--- OUTSIDE RECORDS SUMMARY | 2025-04-30 14:17 | XMS_ITS | Data Portability ---
Author Organization JASE Terrell [facility], [facility] Address [address] [place] [address] Assessment Encounter Date Assessment Date Assessment LastModified by Organization Details LastModified Time 08/13/2023 08/13/2023 Chief Complaint: Right knee pain HPI: Kiara Camarillo is a 62-year-old female patient with a history of knee pain, having undergone two surgical interventions: a partial meniscectomy in 2003 and another knee surgery in 2006. She reports increased knee pain that began three days after a recent trip to [facility], where she experienced prolonged sitting in the [...] grossly intact. Eyes: Sclera are not blue. home care consultant II-XII are grossly intact. Full extraocular motion. [...] ordered, obtained and reviewed at [facility]. These images included bilateral weightbearing Chung [...] [facility] speech recognition resident doctor dictation software. Please excuse any errors that may have been overlooked during review of this note. Sometimes, these errors may affect the content or meaning of a given sentence. Please call for corrections. [email or web address] Not available 08/13/2023 17:10:16 Plan of Treatment [...] by: Referring Physician: Benson Patel, Orthopedic Surgery, [id number] Encounter Date: 08/13/2023 Medical Equipment None Reported. Allergies Allergen ID Allergen Name Allergen Category Reaction Reaction Severity Criticality Documentation Date Start Date Code Code System Note Provider Name and Address Organization Details Recorded Time 547616 morphine medicatio n Not available Not available Not available 08/13/2023 7052 RxNorm SONIA MARMOLEJO [facility] 4 13:46:02 869703 Substance with sulfonami de structure and antibacte rial mechanism of action (substanc e) medicatio n Not available Not available Not available 08/13/2023 44589 8003 SNOMED SONIA MARMOLEJO [facility] 4 13:46:09 Medications Name Sig Start [...] Updated DateTime 08/13/2023 157.48 cm 28.7 kg/m2 35469 g SONIA MARMOLEJO [place] [facility] 08/13/2023 [...] ICD10 Code Diagnosis IMO Codes Diagnosis Note [id number] MD Darlene Smith [address] [place] [address] 08/13/2023 13:24:57 09/06/2023 08:34:09 Pain of right knee joint 9235908592 41339 M25.561 Patellofem oral syndrome of right knee [id number] 017669 M22.2X1 Health Concerns Section Related Observation LastModified by Organization Detai ls LastModified Time None Recorded Concern Status LastModified by Organization Details LastModified Time None Recorded Advance Directives Directive None Recorded Payers Insurance Date Sequence Insurance Name Policy Number Policy Carlton Covered Member ID Carlton Member ID Guarantor Name 09/06/2023 1 [facility] DOS ON OR AFTER 2022 - [employer] ONE [employer] (MEDICARE REPLACEMENT/AD VANTAGE - PPO) Kiara Roth [id number] Kiara Roth OBGykaitlynn Episode No OBEpisode recorded.
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
== END 2025-04-30 13:03 | disposition home or self-care (01) ==
LOC: HO.HGI 12:22
PROVIDERS: Visit Provider Nurse Practitioner
DX: K22.10 Ulcer of esophagus without bleeding (principal); K21.9 Gastro-esophageal reflux disease without esophagitis; K58.2 Mixed irritable bowel syndrome; D69.0 Allergic purpura; M47.14 Other spondylosis with myelopathy, thoracic region; K57.92 Diverticulitis of intestine, part unspecified, without perforation or abscess without bleeding; N76.0 Acute vaginitis
CPT/HCPCS: 99214

== ENCOUNTER 2025-04-30 12:21 | Outpatient (REF) | payer OTHER, SELFPAY | END 2025-04-30 12:22 | disposition home or self-care (01) | LOC: HO.LAB 12:21 | PROVIDERS: Visit Provider Nurse Practitioner | DX: K58.2 Mixed irritable bowel syndrome (principal); K22.10 Ulcer of esophagus without bleeding; K57.92 Diverticulitis of intestine, part unspecified, without perforation or abscess without bleeding; K21.9 Gastro-esophageal reflux disease without esophagitis; R07.89 Other chest pain; D69.0 Allergic purpura; M47.14 Other spondylosis with myelopathy, thoracic region; N76.0 Acute vaginitis; K59.00 Constipation, unspecified; K64.9 Unspecified hemorrhoids; Z01.84 Encounter for antibody response examination; Z79.899 Other long term (current) drug therapy | CPT/HCPCS: 36415; 85652; 86038; 86141; 86200; 86431 ==